=== PATIENT | female | born 1940 | race Caucasian/White ===

== ENCOUNTER 2018-10-05 17:37 | Observation (INO) | payer MEDICARE, OTHER ==
--- NOTE | 2018-10-05 17:44 | PDOC ---
Rapid Medical Evaluation Chief Complaint: Chest Pain Time Seen by Provider: 10/05/18 17:39 Medical Evaluation: Allergies Allergy/AdvReac Type Severity Reaction Status Date / Time No Known Allergies Allergy Verified 10/05/18 17:39 10/05/18 17:39 I have performed a brief in person evaluation of this patient The patient is a 78 yo F w/ a h/o IDDM, HTN, HLD, cadiac bypass, comes in c/o L sided intermittent chest pain since yesterday which started while limping the house, (+) mild SOB. I have ordered the following EKG, CBC, CMP, cardiac profile, CXR The patient will proceed to the ED for further evaluation 10/05/18 17:44 Discharge Disposition - Diagnosis Chest pain Qualifiers: Chest pain type: unspecified Qualified Code(s): R07.9 - Chest pain, unspecified - Referrals Referrals: Gilbert Madrigal MD [Primary Care Provider] - - Patient Instructions - Post Discharge Activity
--- NOTE | 2018-10-05 18:09 | PDOC ---
History of Present Illness - General History Source: Patient Exam Limitations: No Limitations <Rex Grijalva - Last Filed: 10/05/18 20:59> <Delta Max - Last Filed: 10/05/18 22:44> - General Chief Complaint: Chest Pain Stated Complaint: CHEST PAIN Time Seen by Provider: 10/05/18 17:39 - History of Present Illness Initial Comments: 10/05/18 18:49 The patient is a 78 year old female, with a significant PMH of hypertension, hyperlipidemia, DM, who presents to the emergency department with 1 day of intermittent chest pain. The patient states the intermittent chest pain is described as a dull pain, rated 3/10 in intensity, non radiating, with no exacerbating or alleviating factors. The patient also endorses cloudy vision beginning yesterday. The patient denies shortness of breath, palpitations, lightheadedness, headache and dizziness. Denies fever, chills, nausea, vomit, diarrhea and constipation. Denies dysuria, frequency, urgency and hematuria. Allergies: NKA (Rex Grijalva) Past History <Rex Grijalva - Last Filed: 10/05/18 20:59> - Past Medical History Anemia: No Asthma: No Cancer: No Cardiac Disorders: Yes CVA: No COPD: No CHF: No Dementia: No Diabetes: Yes (IDDM) GI Disorders: Yes (DIVERTICULOSIS) Disorders: No HTN: Yes Hypercholesterolemia: Yes Liver Disease: No Seizures: No Thyroid Disease: No - Surgical History Abdominal Surgery: No Appendectomy: No Cardiac Surgery: Yes (BYPASS.) Cholecystectomy: No Lung Surgery: No Neurologic Surgery: No Orthopedic Surgery: No - Immunization History Immunization Up to Date: Yes - Suicide/Smoking/Psychosocial Hx Smoking Status: No Smoking History: Never smoked Have you smoked in the past 12 months: No Number of Cigarettes Smoked Daily: 0 Hx Alcohol Use: No Drug/Substance Use Hx: No Substance Use Type: None Hx Substance Use Treatment: No <Delta Max - Last Filed: 10/05/18 22:44> - Past Medical History Allergies/Adverse Reactions: Allergies Allergy/AdvReac Type Severity Reaction Status Date / Time No Known Allergies Allergy Verified 10/05/18 17:39 Home Medications: Ambulatory Orders Glipizide [Glucotrol -] 10 mg PO BID 06/22/14 Isosorbide Mononitrate [Imdur] 30 mg PO DAILY #30 tab.sr.24h 06/22/14 Atorvastatin Ca [Lipitor] 20 mg PO HS 07/24/15 Sitagliptin Phosphate [Januvia] 100 mg PO DAILY 07/24/15 Ezetimibe [Zetia -] 10 mg PO DAILY 10/05/18 Insulin (Novolog) [Novolog Vial] 100 units SQ 10/05/18 Insulin Detemir [Levemir Flextouch] 100 unit SQ 10/05/18 Cardiac Specific PMH - Complaint Specific PMHX Pacemaker: No <Delta Max - Last Filed: 10/05/18 22:44> Review of Systems <Rex Grijalva - Last Filed: 10/05/18 20:59> <Delta Max - Last Filed: 10/05/18 22:44> - Review of Systems Comments:: 10/05/18 18:49 CONSTITUTIONAL: No fever, no chills, no fatigue EYES: (+) Cloudy vision. ENT: No ear pain, no sore throat CARDIOVASCULAR: (+) Chest pain. No palpitations RESPIRATORY: No cough, no SOB GI: No abdominal pain, no nausea, no vomiting, no constipation, no diarrhea GENITOURINARY: No dysuria, no frequency, no hematuria MUSKULOSKELETAL: No backpain, no joint pain, no myalgias SKIN: No rash NEURO: No headache (Rex Grijalva) *Physical Exam <Rex Grijalva - Last Filed: 10/05/18 20:59> <Delta Max - Last Filed: 10/05/18 22:44> - Vital Signs Last Vital Signs Temp Pulse Resp BP Pulse Ox 98.6 F 91 H 16 199/77 H 99 10/05/18 17:39 10/05/18 17:39 10/05/18 17:39 10/05/18 17:39 10/05/18 17:39 - Physical Exam Comments: 10/05/18 21:00 CONSTITUTIONAL: Well-appearing; well-nourished; in no apparent distress HEAD: Normocephalic; atraumatic EYES: PERRL; EOM intact ENMT: External appears normal; normal oropharynx NECK: Supple; non-tender; no cervical lymphadenopathy CARD: Normal S1, S2; no murmurs, rubs, or gallops CHEST: Well healed sternotomy scar. RESP: Normal chest excursion with respiration; breath sounds clear and equal bilaterally; no wheezes, rhonchi, or rales ABD: Soft, non-distended; non-tender; no palpable organomegaly, no palpable hernias EXT: Normal ROM in all four extremities; non-tender to palpation; distal pulses intact SKIN: Warm, dry, no rash NEURO: No focal neurological deficiencies. (Rex Grijalva) Heart Score/ECG Review - History History: Highly suspicious - Electrocardiogram EKG: Non specific repolarization disturbance - Age Age: >/= 65 - Risk Factors Risk Factors Heart Score: Yes Hx Hypercholesterolemia, Yes Hx Hypertension, Yes Hx Diabetes Based on the list above the patient has:: >/=3 risk factors or Hx atherosclerotic disease - Troponin Troponin: </= normal limit - Score Heart Score - Total: 7 <Delta Max - Last Filed: 10/05/18 22:44> - Procedure Monitoring Vital Signs: Procedure Monitoring Vital Signs Temperature 98.6 F 10/05/18 17:39 Pulse Rate 91 H 10/05/18 17:39 Respiratory Rate 16 10/05/18 17:39 Blood Pressure 199/77 H 10/05/18 17:39 O2 Sat by Pulse Oximetry (%) 99 10/05/18 17:39 ED Treatment Course - LABORATORY CBC & Chemistry Diagram: 10/05/18 18:16 10/05/18 18:16 <Rex Grijalva - Last Filed: 10/05/18 20:59> - LABORATORY CBC & Chemistry Diagram: 10/05/18 18:16 10/05/18 18:16 <Delta Max - Last Filed: 10/05/18 22:44> - ADDITIONAL ORDERS Additional order review: Laboratory Results 10/05/18 10/05/18 10/05/18 20:09 18:16 18:16 PT with INR INR VBG pH 7.37 POC VBG pCO2 48.4 POC VBG pO2 35.3 Mixed VBG HCO3 27.3 H Sodium 138 Potassium 4.1 Chloride 104 Carbon Dioxide 28 Anion Gap 7 L BUN 17 Creatinine 1.1 Creat Clearance w eGFR 47.91 POC Glucometer 152.70216 Random Glucose 224 H Calcium 8.4 L Phosphorus 3.6 Magnesium 2.2 Total Bilirubin 0.3 AST 20 ALT 25 Alkaline Phosphatase 89 Creatine Kinase 116 Troponin I 0.02 Total Protein 7.1 Albumin 3.3 L Lipase 181 10/05/18 18:16 PT with INR 12.80 INR 1.08 VBG pH POC VBG pCO2 POC VBG pO2 Mixed VBG HCO3 Sodium Potassium Chloride Carbon Dioxide Anion Gap BUN Creatinine Creat Clearance w eGFR POC Glucometer Random Glucose Calcium Phosphorus Magnesium Total Bilirubin AST ALT Alkaline Phosphatase Creatine Kinase Troponin I Total Protein Albumin Lipase 10/05/18 10/05/18 20:09 18:16 RBC 3.64 MCV 91.2 MCHC 35.6 RDW 13.2 MPV 8.4 Neutrophils % 65.0 Lymphocytes % 24.5 Monocytes % 9.3 Eosinophils % 0.7 Basophils % 0.5 POC Glucometer [id number] - RADIOLOGY Radiology Studies Ordered: Category Date Time Status CHEST PA & LAT [RAD] Stat Radiology 10/05/18 21:02 Taken Medical Decision Making <Rex Grijalva - Last Filed: 10/05/18 20:59> <Delta Max - Last Filed: 10/05/18 22:44> - Medical Decision Making 10/05/18 22:26 Patient is a 78-year-old female with multiple comorbidities, history of sternotomy (likely CABG) on aspirin and Plavix who presents with 2 days of intermittent retrosternal chest discomfort that has decreased in severity shortly prior to arrival. In the ER, initial evaluation, patient is noted to be hypertensive; EKG reveals Q waves in inferior leads and T-wave inversions in 1 and aVL which appear unchanged from EKG obtained in September 2015. Chest x-ray reveals no evidence of infiltrate or effusion. Mediastinum is within normal limit. First set of cardiac enzymes is negative. Patient's heart score is noted to be 7. We'll administer aspirin, Plavix and nitroglycerin. Will place on hobs/ telemetry for serial cardiac enzymes and cardiology evaluation. (Delta Max ) *DC/Admit/Observation/Transfer <Rex Grijalva - Last Filed: 10/05/18 20:59> - Discharge Dispostion Decision to Admit order: Yes <Delta Max - Last Filed: 10/05/18 22:44> Diagnosis at time of Disposition: Chest pain Qualifiers: Chest pain type: unspecified Qualified Code(s): R07.9 - Chest pain, unspecified - Discharge Dispostion Condition at time of disposition: Fair - Referrals Referrals: Gilbert Madrigal MD [Primary Care Provider] - - Patient Instructions - Post Discharge Activity - Attestations Scribe Attestion: 10/05/18 18:50 Documentation prepared by Rex Grijalva, acting as medical office scheduler for Delta Max MD. (Rex Grijalva) Physician Attestion: 10/05/18 22:26 The documentation was prepared by the scribe under my direct supervision. I have reviewed the documentation which correctly represents the findings, medical decision-making and critical action taken by me. (Delta Max)
[2018-10-05 19:07] LABS: BASO % 0.5 % (0-2.0); EOS % 0.7 % (0-4.5); HEMATOCRIT 33.2 % (32.4-45.2); HEMOGLOBIN 11.8 GM/dL (10.7-15.3); LYMPH % 24.5 % (8-40); MCH 32.5 pg (25.7-33.7); MCHC 35.6 g/dl (32.0-36.0); MEAN CELL VOLUME 91.2 fl (80-96); MEAN PLT VOLUME 8.4 fl (7.5-11.1); MONO % 9.3 % (3.8-10.2); PLATELET COUNT 270 K/MM3 (134-434); RBC 3.64 M/mm3 (3.60-5.2); RDW 13.2 % (11.6-15.6); WHITE BLOOD COUNT 5.5 K/mm3 (4.0-10.0)
[2018-10-05 19:35] LABS: INR 1.08 (0.83-1.09); PROTHROMBIN TIME (PATIENT) 12.8 SEC (9.7-13.0)
[2018-10-05 19:47] LABS: ALBUMIN 3.3 g/dl (3.4-5.0); ALK PHOS 89 U/L (45-117); ANION GAP 7 MMOL/L (8-16); BILIRUBIN,TOTAL 0.3 mg/dL (0.2-1); BLOOD UREA NITROGEN 17 mg/dL (7-18); CALCIUM 8.4 mg/dL (8.5-10.1); CHLORIDE 104 mmol/L (98-107); CO2 28 mmol/L (21-32); CREATININE 1.1 mg/dL (0.55-1.3); GLUCOSE,RANDOM 224 mg/dL (74-106); LIPASE 181 U/L (73-393); MAGNESIUM 2.2 mg/dL (1.8-2.4); PHOSPHOROUS 3.6 mg/dL (2.5-4.9); POTASSIUM 4.1 mmol/L (3.5-5.1); SGOT/AST 20 U/L (15-37); SGPT/ALT 25 U/L (13-61); SODIUM 138 mmol/L (136-145); TOT PROT 7.1 g/dl (6.4-8.2)
[2018-10-05 20:00] LABS: VENOUS PC02 48.4 mmHg (38-52); VENOUS PH 7.37 (7.32-7.42); VENOUS PO2 35.3 mmHg (28-48)
[2018-10-05] MEDS ORDERED: ASPIRIN 325 MG ENTERIC COATED TABLET (FP) PO ONE (20:53)
[2018-10-05] MEDS ORDERED: CLOPIDOGREL BISULFATE 75 MG TABLET (FP) PO ONE (20:53)
[2018-10-05] MEDS ORDERED: NITROGLYCERIN 2% OINTMENT - 1GM PACKET TD ONE ×2 (20:54→22:39)
[2018-10-05] MEDS ORDERED: CLOPIDOGREL BISULFATE 75 MG TABLET (FP) ONE (22:39)
[2018-10-05] MEDS ORDERED: ASPIRIN 325 MG ENTERIC COATED TABLET (FP) ONE (22:39)
--- NOTE | 2018-10-06 00:35 | PN ---
Teaching Attending Note Name of Resident: Eusebio Freeman ATTENDING PHYSICIAN STATEMENT I saw and evaluated the patient. I reviewed the resident's note and discussed the case with the resident. I agree with the resident's findings and plan as documented. SUBJECTIVE: Seen and examined; please see the resident note for further historical information. This is a 78 y/o HF with a PMH of CAD s/p CABG, HTN, HLD, IDDM; she presents with left sided intermittent mild to moderate chest pain that occurred at rest prior to arrival; somewhat suspicious in nature though different from her prior chest pain. Nothing made it better or worse, no recent medication changes, didn't see any other providers for this issue. No associated SOB, nausea/vomiting, etc. She feels well and is chest pain free when I saw her. When asked where the pain was she points to her left upper sternal around the mid-clavicular region and it is slightly reproducible though she denies pulling any muscles, etc. She states that she did have a stress test done sometime after her CABG but she is unsure of the results and we do not have that documentation as to the results, but a cardiac consultation from 2013 shows that she was discharged from ER with noncardiac chest pain and was to followup OP for nuclear stress with Dr. Cline. 10 sys ROS done and negative aside from HPI PMH and PSH reviewed FH CAD Socially denies alcohol, tobacco, or drug abuse Medication list reviewed with resident; pending reconciliation OBJECTIVE: VS, labs, imaging reviewed NAD, AAO RRR s1/2 no mgr Lungs CTAB sym exp NT ND +BS CN2-12 wnl, no fnd Labs reviewed; initial troponin negative. CBC unremarkable. Glocose elevated on BMP to 200s. Low albumin to 3.3 EKG reviewed; no significant changes from prior without worrisome ST-T changes CXR reviewed; no acute CAD but awaiting official read ASSESSMENT AND PLAN: Mrs. Glez presents to the ER with an episode of CP found to be in hypertensive urgency; will observe on telemetry and consult her CV. 1) Hypertensive Urgency -SBP 190s on admission; may explain the CP. No troponin leak observed. No loss of vision, flash pulm edema, etc. -Check echo -Monitor on telemetry. Goal BP 150-160 until end of shift for systolic. As HR will tolerate it, will titrate up her metoprolol to 50 BID tartrate and increase imdur to 60. As she has DM and risks for developing CHF, will start Lisinopril 2.5mg and titrate up as needed. -Close followup with CV/PCP to continue and titrate GDMT as outpatient. 2) Chest Pain in Adult -Anginal sx vs. 2/ #1. -Monitor on tele, trend troponin. Would be helpful to review operative notes/ cath reports from CABG to delineate coronary anatomy and we should work to obtain them. As we have incomplete records regarding her procedural history and given her risk factors and continued following with Dr. Cline will call him to see her inpatient for recommendations regarding further testing. -Check TSH, A1c, Lipids 3) Uncontrolled DM -Continue home basal insulin, add SSI -If no stress test in AM continue the mealtime -Hold PO meds; consider DCing the sulfonylurea alltogether at DC 4) H/O CAD -Continue plavix, BB, Atorva. Ascertain from CV records as why still plavix as opposed ASA, etc. 5) HLD -Check lipids; continue statin FENA -PO fluids -PRN replete -Cardiac, diabetic -As tolerated Full Code
[2018-10-06] MEDS ORDERED: LISINOPRIL 5 MG TABLET (FP) PO ONE (00:38)
[2018-10-06] MEDS ORDERED: ATORVASTATIN CA 80 MG TABLET (FP) PO ONE (00:46)
[2018-10-06] MEDS ORDERED: HEPARIN NA (PORCINE) 5,000 UNITS/ML 1ML VIAL ONE (00:53)
--- NOTE | 2018-10-06 01:03 | HP ---
CHIEF COMPLAINT: CP PCP: Rohan HISTORY OF PRESENT ILLNESS: Patient is a 78 y/o F w/ PMHx CAD, CAGB in 2010, DM, HTN, HLD, presents with 2 days intermittent substernal "squeezing" chest pain 4/10 in severity without radiation. No trigger, no alleviating/exacerbating factors, no SOB. On presentation, BP 199/77, VS otherwise wnl. Initial troponin negative, glucose 224, labs otherwise unremarkable. EKG showed Q-wave in aVF deeper than prior, tw -inversions consistent with prior, otherwise no interval changes vs. 2015. Received ASA, Plavix, nitro paste in ED. CP was not present at time of encounter. Patient's nuclear equipment test engineer was consulted by ED physician. ER course was notable for: (1) BP 199/77 --> 170/60 at time of encounter (2) initial troponin negative (3) EKG w/o acute changes Recent Travel: PAST MEDICAL HISTORY: As per HPI PAST SURGICAL HISTORY: As per HPI Social History: Smoking: Alcohol: Drugs: Family History: Allergies No Known Allergies Allergy (Verified 10/05/18 17:39) HOME MEDICATIONS: Home Medications Medication Instructions Recorded Glipizide [Glucotrol -] 10 mg PO BID 06/22/14 Isosorbide Mononitrate [Imdur] 30 mg PO DAILY #30 tab.sr.24h 06/22/14 Atorvastatin Ca [Lipitor] 20 mg PO HS 07/24/15 Sitagliptin Phosphate [Januvia] 100 mg PO DAILY 07/24/15 Clopidogrel Bisulfate [Clopidogrel] 75 mg PO DAILY 10/05/18 Ezetimibe [Zetia -] 80 mg PO DAILY 10/05/18 Insulin (Novolog) [Novolog Vial] 100 units SQ DAILY 10/05/18 Insulin Detemir [Levemir Flextouch] 100 unit SQ DAILY 10/05/18 Metoprolol Succinate 50 mg PO DAILY 10/05/18 REVIEW OF SYSTEMS As per HPI PHYSICAL EXAMINATION Vital Signs - 24 hr 10/05/18 17:39 Temperature 98.6 F Pulse Rate 91 H Respiratory 16 Rate Blood Pressure 199/77 H O2 Sat by Pulse 99 Oximetry (%) GENERAL: A&Ox3, NAD HEAD: NC/AT EYES: PERRLA, EOMI EARS, NOSE, THROAT: Ears normal, nares patent, oropharynx clear without exudates. Moist mucous membranes. NECK: Normal range of motion, supple without lymphadenopathy, JVD, or masses. LUNGS: CTA b/l HEART: sternotomy scar, RRR possible diastolic murmur at base ABDOMEN: +bs, soft, NT, ND UPPER EXTREMITIES: 2+ pulses, warm, well-perfused. No cyanosis. No clubbing. No peripheral edema. LOWER EXTREMITIES: 2+ pulses, warm, well-perfused. No calf tenderness. No peripheral edema. NEUROLOGICAL: youth program director, motor, sensory systems w/o focal deficit PSYCHIATRIC: Cooperative. Good eye contact. Appropriate mood and affect. SKIN: Warm, dry, normal turgor, no rashes or lesions noted, normal capillary refill. Laboratory Results - last 24 hr 10/05/18 10/05/18 10/05/18 18:16 18:16 18:16 WBC 5.5 RBC 3.64 Hgb 11.8 Hct 33.2 MCV 91.2 MCH 32.5 MCHC 35.6 RDW 13.2 Plt Count 270 D MPV 8.4 Absolute Neuts (auto) 3.5 Neutrophils % 65.0 Lymphocytes % 24.5 Monocytes % 9.3 Eosinophils % 0.7 Basophils % 0.5 Nucleated RBC % 0 PT with INR 12.80 INR 1.08 VBG pH 7.37 POC VBG pCO2 48.4 POC VBG pO2 35.3 Mixed VBG HCO3 27.3 H Sodium Potassium Chloride Carbon Dioxide Anion Gap BUN Creatinine Creat Clearance w eGFR POC Glucometer Random Glucose Calcium Phosphorus Magnesium Total Bilirubin AST ALT Alkaline Phosphatase Creatine Kinase Troponin I Total Protein Albumin Lipase 10/05/18 10/05/18 18:16 20:09 WBC RBC Hgb Hct MCV MCH MCHC RDW Plt Count MPV Absolute Neuts (auto) Neutrophils % Lymphocytes % Monocytes % Eosinophils % Basophils % Nucleated RBC % PT with INR INR VBG pH POC VBG pCO2 POC VBG pO2 Mixed VBG HCO3 Sodium 138 Potassium 4.1 Chloride 104 Carbon Dioxide 28 Anion Gap 7 L BUN 17 Creatinine 1.1 Creat Clearance w eGFR 47.91 POC Glucometer 152.60367 Random Glucose 224 H Calcium 8.4 L Phosphorus 3.6 Magnesium 2.2 Total Bilirubin 0.3 AST 20 ALT 25 Alkaline Phosphatase 89 Creatine Kinase 116 Troponin I 0.02 Total Protein 7.1 Albumin 3.3 L Lipase 181 ASSESSMENT/PLAN: 78 y/o Fw/ PMHx CAD, CAGB in 2010, DM, HTN, HLD, presents with 2 days intermittent substernal "squeezing" chest pain 4/10 in severity without radiation. #r/o ACS -trend troponins -repeat EKG -cardiology consulted -most recent stress test in 2012 -ASA, Plavix -Lopressor 50 BID -Imdur 60 -lisinopril 2.5 (first dose given tonight) -echo pending -requires medication reconciliation #DM -BGM ACHS -SSI -requires medication reconciliation #FEN -no IVF -monitor and replete electrolytes -diabetic/sodium diet #PPx -DVT: heparin subq -GI: not indicated #code -full #dispo -tele obs Visit type - Emergency Visit Emergency Visit: Yes ED Registration Date: 10/05/18 Care time: The patient presented to the Emergency Department on the above date and was hospitalized for further evaluation of their emergent condition. - New Patient This patient is new to me today: Yes Date on this admission: 10/06/18 - Critical Care Critical Care patient: No
[2018-10-06] MEDS: HEPARIN NA (PORCINE) 5,000 UNITS/ML 1ML VIAL SQ SCH ×3 (01:07→13:47)
[2018-10-06] MEDS ORDERED: METOPROLOL TARTRATE 50 MG TABLET (FP) ONE (01:59)
[2018-10-06] MEDS ORDERED: ATORVASTATIN CA 80 MG TABLET (FP) ONE (02:00)
[2018-10-06] MEDS ORDERED: LISINOPRIL 5 MG TABLET (FP) ONE (02:00)
[2018-10-06] MEDS: METOPROLOL TARTRATE 50 MG TABLET (FP) PO SCH ×2 (02:11→10:24)
[2018-10-06 03:49] VITALS: BMI 23.6
[2018-10-06 06:29] LABS: BASO % 0.3 % (0-2.0); EOS % 0.9 % (0-4.5); HEMATOCRIT 32.1 % (32.4-45.2); HEMOGLOBIN 10.8 GM/dL (10.7-15.3); LYMPH % 28.3 % (8-40); MCHC 33.6 g/dl (32.0-36.0); MEAN CELL VOLUME 92.2 fl (80-96); MEAN PLT VOLUME 8.1 fl (7.5-11.1); MONO % 10.2 % (3.8-10.2); NEUT % 60.3 % (42.8-82.8); PLATELET COUNT 230 K/MM3 (134-434); RBC 3.48 M/mm3 (3.60-5.2); RDW 12.7 % (11.6-15.6); WHITE BLOOD COUNT 6.3 K/mm3 (4.0-10.0)
[2018-10-06] MEDS: INSULIN SLIDING SCALE (NOVOLOG) 1 VIAL SQ SCH ×2 (06:33→11:27)
[2018-10-06] MEDS ORDERED: DEXTROSE 50%-WATER - 25 GM/50 ML VIAL IVPUSH PRN (06:42)
[2018-10-06 06:58] LABS: ANION GAP 3 MMOL/L (8-16); BLOOD UREA NITROGEN 18 mg/dL (7-18); CALCIUM 8.1 mg/dL (8.5-10.1); CHLORIDE 109 mmol/L (98-107); CO2 30 mmol/L (21-32); GLUCOSE,RANDOM 75 mg/dL (74-106); MAGNESIUM 2.2 mg/dL (1.8-2.4); PHOSPHOROUS 4.1 mg/dL (2.5-4.9); SODIUM 142 mmol/L (136-145)
--- NOTE | 2018-10-06 08:56 | PDOC ---
Patient Follow-up (Call Back) - Post ED Follow - Up Condition at time of discharge: Fair Reason for Call Back: Radiology (Call received from Dr. Ospina regarding a possible R apex density on chest x-ray. Pt was admitted for observation. Sent microblog to admitting to make aware.)
[2018-10-06] MEDS ORDERED: CLOPIDOGREL BISULFATE 75 MG TABLET (FP) PO SCH (10:00)
[2018-10-06] MEDS ORDERED: ASPIRIN COATED 81 MG TABLET.EC PO SCH (10:00)
[2018-10-06] MEDS ORDERED: LISINOPRIL 5 MG TABLET (FP) PO SCH (10:00)
[2018-10-06] MEDS ORDERED: ISOSORBIDE MONONITRATE 60 MG TAB.SR.24H (FP) PO SCH (10:00)
--- NOTE | 2018-10-06 10:15 | EKG ---
Test Reason : Blood Pressure : / mmHG Vent. Rate : 067 BPM Atrial Rate : 067 BPM P-R Int : 210 ms QRS Dur : 076 ms QT Int : 454 ms P-R-T Axes : 063 009 105 degrees QTc Int : 479 ms SINUS RHYTHM WITH 1ST DEGREE A-V BLOCK CANNOT RULE OUT ANTERIOR INFARCT (CITED ON OR BEFORE 05-OCT-2018) T WAVE ABNORMALITY, CONSIDER LATERAL ISCHEMIA ABNORMAL ECG WHEN COMPARED WITH ECG OF 05-OCT-2018 17:44, RI INTERVAL HAS INCREASED SERIAL CHANGES OF ANTERIOR INFARCT PRESENT Confirmed by RADHA SPEARS, ASHLEY ([id number]) on 10/06/2018 10:14:58 AM Referred By: Confirmed By:ASHLEY GARCIA MD
--- NOTE | 2018-10-06 10:15 | EKG ---
Test Reason : Blood Pressure : / mmHG Vent. Rate : 086 BPM Atrial Rate : 086 BPM P-R Int : 142 ms QRS Dur : 074 ms QT Int : 376 ms P-R-T Axes : 066 -06 095 degrees QTc Int : 449 ms NORMAL SINUS RHYTHM CANNOT RULE OUT ANTERIOR INFARCT , AGE UNDETERMINED ABNORMAL ECG WHEN COMPARED WITH ECG OF 18-OCT-2015 21:13, CRITERIA FOR INFERIOR INFARCT ARE NO LONGER PRESENT Confirmed by RADHA SPEARS, ASHLEY ([id number]) on 10/06/2018 10:15:17 AM Referred By: Confirmed By:ASHLEY GARCIA MD
--- NOTE | 2018-10-06 10:29 | PN ---
Physical Exam: SUBJECTIVE: Patient this morning reports she does not have any pain. Only notes she has not gone to the bathroom in two days. She has no complaints and no acute events overnight. OBJECTIVE: Vital Signs Temperature 98.0 F 10/06/18 09:01 Pulse Rate 63 10/06/18 09:01 Respiratory Rate 16 10/06/18 09:02 Blood Pressure 122/56 L 10/06/18 09:01 O2 Sat by Pulse Oximetry (%) 100 10/06/18 09:02 GENERAL: The patient is awake, alert, and fully oriented, in no acute distress. HEAD: Normal with no signs of trauma. EYES: PERRL, extraocular movements intact, LUNGS: Breath sounds equal, clear to auscultation bilaterally, no wheezes, no crackles, no accessory muscle use. HEART: Regular rate and rhythm, S1, S2 without murmur, rub or gallop. ABDOMEN: Soft, nontender, nondistended, normoactive bowel sounds EXTREMITIES: 2+ pulses, warm, well-perfused, no edema. PSYCH: Normal mood, normal affect. SKIN: Warm, dry, normal turgor, no rashes or lesions noted CBC, BMP 10/06/18 05:30 10/06/18 05:30 Troponin, BNP 10/05/18 10/06/18 10/06/18 18:16 01:02 02:09 Troponin I 0.02 0.02 0.03 10/06/18 05:30 Troponin I 0.03 Active Medications Aspirin (Ecotrin -) 81 mg PO DAILY [facility] Atorvastatin Calcium (Lipitor -) 80 mg PO HS [facility] Clopidogrel Bisulfate (Plavix -) 75 mg PO DAILY [facility] Dextrose (D50w (Vial) -) 25 gm IVPUSH PRN PRN PRN Reason: HYPOGLYCEMIA Heparin Sodium (Porcine) (Heparin -) 5,000 unit SQ TID [facility] Last Admin: 10/06/18 06:26 Dose: 5,000 unit Insulin Aspart (Novolog Vial Sliding Scale -) 1 vial SQ ACHS [facility]; Protocol Last Admin: 10/06/18 06:33 Dose: Not Given Isosorbide Mononitrate (Imdur -) 60 mg PO DAILY [facility] Lisinopril (Prinivil) 2.5 mg PO DAILY [facility] Metoprolol Tartrate (Lopressor -) 50 mg PO BID [facility] Last Admin: 10/06/18 02:11 Dose: 50 mg ASSESSMENT/PLAN: Patient is a 78 y/o female with a history of CAD, CABG in 2010, DM, HTN, HLD who presents for chest pain. #chest pain r/o ACS, hx of CABG - troponin negative x 3 - ekg: cannot rule out anterior infarct, inverted t wave in lead I and AVL - f/u echo - consult: Dr. Christopher #CABG - continue home medications - triglycerides 90, cholesterol 132, LDL 54, HDL 56 #HTN - continue lopressor 50 BID - lisinopril 2.5 - imdur 60 #DM - BGM achs - SSI #dvt PPX - heparin TID #FEN - diabetic sodium diets
--- NOTE | 2018-10-06 10:47 | ECHO ---
Name: ERICK WARE Exam:Adult Echocardiogram Study Date: 10/06/2018 07:21 AM Age: 78 yrs Reason For Study: EF Height: 60 in Weight: 120 lb BSA: 1.5 m2 MMode/2D Measurements & Calculations IVSd: 1.4 cm Ao root diam: 2.3 cm LVIDd: 3.1 cm LA dimension: 3.3 cm LVIDs: 2.3 cm LVPWd: 0.86 cm EDV(Teich): 37.3 ml LAV (MOD-bp): 35.6 ml ESV(Teich): 17.3 ml Doppler Measurements & Calculations MV E max amilcar: 76.2 cm/sec TR max amilcar: 238.4 cm/sec MV A max amilcar: 67.9 cm/sec TR max P.8 mmHg MV E/A: 1.1 MV dec time: 0.21 sec PI end-d amilcar: 133.0 cm/sec Med Peak E' Amilcar: 6.9 cm/sec Med E/e': 11.1 Lat Peak E' Amilcar: 6.2 cm/sec Lat E/e': 12.3 PI Vmax: 191.4 cm/sec Left Ventricle Left ventricular systolic function is normal. Ejection Fraction = 55-60%. Right Ventricle The right ventricle is borderline dilated. The right ventricular systolic function is grossly normal. Atria Normal left and right atrial size and function. Mitral Valve The mitral valve is normal in structure and function. There is no mitral valve stenosis. There is mil d mitral regurgitation. Tricuspid Valve There is mild tricuspid valve thickening. There is mild tricuspid regurgitation. Aortic Valve The aortic valve opens well. No hemodynamically significant valvular aortic stenosis. Pulmonic Valve The pulmonic valve is not well seen, but is grossly normal. There is no pulmonic valvular stenosis. M ild pulmonic valvular regurgitation. Great Vessels The aortic root is normal size. Pericardium/Pleura There is no pericardial effusion. Interpretation Summary Left ventricular systolic function is normal. Ejection Fraction = 55-60%. There is mild mitral regurgitation. There is mild tricuspid regurgitation. There is no pericardial effusion. MD Rambo *Shalom 10/06/2018 10:47 AM
[2018-10-06] MEDS ORDERED: POLYETHYLENE GLYCOL 3350 119 GM BTL PO ONE (11:45)
--- NOTE | 2018-10-06 13:46 | PN ---
Teaching Attending Note Name of Resident: Sarah Tan ATTENDING PHYSICIAN STATEMENT I saw and evaluated the patient. I reviewed the resident's note and discussed the case with the resident. I agree with the resident's findings and plan as documented. SUBJECTIVE: no fever or chills. No CP today. describes her pain as a small area 5 cm in diameter in L sided chest which was intermittent x 2 days . that comes at rest or with ambulation . no sweating or SOB with pain. no recent sx like this . she stopped seeig Dr. 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 1- HTN urgency: BP improved after adjusting her meds. - cont lisinopril - patient might have been on toprol not lopressor. will confirm and if toprol , then will increase to 75 rather than twice a day dosing - cont increased dose of Imdur 2- L sided CP: might be cardiac given her history and given that repeat EKG in am showed new TWI in anterior leads. EKG form last night , showed no change form 2014 ( TWI in I, AVL, and Q in III) . trop neg - will repeat EKG now - will call card to evaluate patient . - cont BB , ELINOR I was started , cont ASA - tele - cont zetia 3- hypoglycemia this am. takes insulin and glipizide at home . - hold oral agents - SSI for today . - will decide when to resume her levemir - will not resume glipizide at [place] ue to increased risk of hypoglycemia 4- RUL density on Cxray: will obtain CT of chest to further clarify. r/o tumor. has no clinical signs of PNA 5- Dispo : depends on cardiac w/u
--- NOTE | 2018-10-06 14:29 | CON.CARD ---
Consult Consult Specialty:: Cardiology Referred by:: Demar Reason for Consultation:: chest pain, abnormal EKG - History of Present Illness Chief Complaint: chest pain History of Present Illness: 78F CAD s/p CABG, HTN, HLD, DM p/w chest pain. L chest occuring at rest. was on and off for two days, not sure how long episodes lasted, pain was reproducible. She had chest pain in the past related to her CAD but this feels different. no exertional component, no dyspnea, edema, palps, dizziness, lightheadedness. In the ER BP 199/77. Echo unremarkable, trop neg x 3. Chest pain resolved, no complaints today. - Past Medical History Cardio/Vascular: Yes: CAD, HTN, Hyperlipdemia Rheumatology: Yes: Other (Arthritis) - Past Surgical History Past Surgical History: Yes: CABG - Alcohol/Substance Use Hx Alcohol Use: No - Smoking History Smoking history: Never smoked Have you smoked in the past 12 months: No Aproximately how many cigarettes per day: 0 Home Medications - Allergies Allergies/Adverse Reactions: Allergies Allergy/AdvReac Type Severity Reaction Status Date / Time No Known Allergies Allergy Verified 10/05/18 17:39 - Home Medications Home Medications: Ambulatory Orders Glipizide [Glucotrol -] 10 mg PO BID 06/22/14 Isosorbide Mononitrate [Imdur] 30 mg PO DAILY #30 tab.sr.24h 06/22/14 Atorvastatin Ca [Lipitor] 80 mg PO HS 07/24/15 Sitagliptin Phosphate [Januvia] 100 mg PO DAILY 07/24/15 Clopidogrel Bisulfate [Clopidogrel] 75 mg PO DAILY 10/05/18 Ezetimibe [Zetia -] 10 mg PO DAILY 10/05/18 Metoprolol Succinate 50 mg PO DAILY 10/05/18 Amlodipine Bes/Olmesartan Med [Amlodipine-Olmesartan 5-40 mg] 1 tablet PO DAILY 10/06/18 Furosemide [Lasix -] 20 mg PO DAILY 10/06/18 Insulin Glargine,Hum.rec.anlog [Basaglar Kwikpen U-100] 40 units SQ HS 10/06/18 Family Disease History - Family Disease History Family History: Unremarkable Review of Systems - Review of Systems Constitutional: reports: No Symptoms Eyes: reports: No Symptoms HENT: reports: No Symptoms Neck: reports: No Symptoms Cardiovascular: reports: No Symptoms Respiratory: reports: No Symptoms Gastrointestinal: reports: No Symptoms Genitourinary: reports: No Symptoms Musculoskeletal: reports: No Symptoms Integumentary: reports: No Symptoms Neurological: reports: No Symptoms Endocrine: reports: No Symptoms Hematology/Lymphatic: reports: No Symptoms Psychiatric: reports: No Symptoms Vital Signs: Vital Signs Temperature 98.0 F 10/06/18 09:01 Pulse Rate 63 10/06/18 09:01 Respiratory Rate 16 10/06/18 09:02 Blood Pressure 122/56 L 10/06/18 09:01 O2 Sat by Pulse Oximetry (%) 100 10/06/18 09:02 Constitutional: Yes: No Distress, Calm Eyes: Yes: Conjunctiva Clear, EOM Intact HENT: Yes: Atraumatic, Normocephalic Neck: Yes: Supple, Trachea Midline Respiratory: Yes: Regular, CTA Bilaterally Gastrointestinal: Yes: Normal Bowel Sounds, Soft Cardiovascular: Yes: Regular Rate and Rhythm JVD: No Carotid Bruit: No PMI: Non-Displaced Heart Sounds: Yes: S1, S2 Musculoskeletal: No: Back Pain Extremities: No: Cold Edema: No Peripheral Pulses WNL: Yes Peripheral Pulses: 2+ Left Carotid, 2+ Right Carotid, 2+ Left Doralis Pedis, 2+ Right Dorsalis Pedis Neurological: Yes: Alert, Oriented Psychiatric: Yes: Alert, Oriented - Other Data Labs, Other Data: CBC, BMP 10/06/18 05:30 10/06/18 05:30 INR, PTT INR 1.08 (0.83-1.09) 10/05/18 18:16 Troponin, BNP 10/05/18 10/06/18 10/06/18 18:16 01:02 02:09 Troponin I 0.02 0.02 0.03 10/06/18 05:30 Troponin I 0.03 Troponin, BNP 10/05/18 10/06/18 10/06/18 18:16 01:02 02:09 Troponin I 0.02 0.02 0.03 10/06/18 05:30 Troponin I 0.03 Assessment/Plan EKG initial sinus, TWI I, aVL, repeat EKG sinus, TWI I, aVL, V2 - similar to EKG 09/2015 echo 09/2018 nl LV function, mild MR, mild TR mibi 2011 (after CABG) small apical thinning, nl EF tele: sinus marlena 78F CAD s/p CABG, HTN, HLD, DM chest pain chest pain, abnormal EKG - EKG today stable compared to prior in 2014, less likely ischemia - no symptoms today, trop neg x 3, nl EF on echo - chest pain atypical, reproducible with palpation may be musculoskeletal - stable for discharge from cardiac perspective, advised to follow up in 1-2 weeks with her piercing specialist CAD s/p CABG - CABG in 2010, had stents prior to CABG, no angiogram or stents after - stress test in 2011 no ischemia reported - unclear indication for prolonged DAPT - continue aspirin and plavix for now, defer to outside piercing specialist -continue statin, bb HLD - continue statin HTN - improved from admission, continue metoprolol, lisinopril, imdur DM - manage per primary
[2018-10-06 15:28] VITALS: BP 96/47; PULSE 58; TEMP 98.1
--- NOTE | 2018-10-06 15:34 | EKG ---
Test Reason : Blood Pressure : / mmHG Vent. Rate : 052 BPM Atrial Rate : 052 BPM P-R Int : 196 ms QRS Dur : 072 ms QT Int : 484 ms P-R-T Axes : 050 057 087 degrees QTc Int : 450 ms SINUS BRADYCARDIA CANNOT RULE OUT ANTERIOR INFARCT (CITED ON OR BEFORE 05-OCT-2018) ABNORMAL ECG WHEN COMPARED WITH ECG OF 06-OCT-2018 01:53, SERIAL CHANGES OF ANTERIOR INFARCT PRESENT Confirmed by ASHLEY GARCIA MD ([id number]) on 10/06/2018 3:34:01 PM Referred By: Confirmed By:ASHLEY GARCIA MD
[2018-10-06] MEDS ORDERED: INSULIN SLIDING SCALE (NOVOLOG) 1 VIAL SQ SCH (16:30)
--- NOTE | 2018-10-06 17:35 | DS ---
Physical Exam: SUBJECTIVE: Patient this morning reports she does not have any pain. Only notes she has not gone to the bathroom in two days. She has no complaints and no acute events overnight. OBJECTIVE: Vital Signs Period Temp Pulse Resp BP Sys/Aguilar Pulse Ox Last 24 Hr 97.4 F-98.6 F 58-91 16-20 96-199/47-77 99-100 PHYSICAL EXAM GENERAL: The patient is awake, alert, and fully oriented, in no acute distress. HEAD: Normal with no signs of trauma. EYES: PERRL, extraocular movements intact, LUNGS: Breath sounds equal, clear to auscultation bilaterally, no wheezes, no crackles, no accessory muscle use. HEART: Regular rate and rhythm, S1, S2 without murmur, rub or gallop. ABDOMEN: Soft, nontender, nondistended, normoactive bowel sounds EXTREMITIES: 2+ pulses, warm, well-perfused, no edema. PSYCH: Normal mood, normal affect. SKIN: Warm, dry, normal turgor, no rashes or lesions noted LABS CBC, BMP 10/06/18 05:30 10/06/18 05:30 HOSPITAL COURSE: Date of Admission:10/05/18 Patient admitted for chest pain. Trops negative x 3. Patient evaluated by cardio. Stable and can follow up as an outpatient. Prescribed patient with sliding scale for better coverage of her sugars. ekg: cannot rule out anterior infarct, inverted t wave in lead I and AVL, repeat ekg showed no changes Echo: LV sys fxn normal, EF: 55-60%, mild mitral regurg, mild tricuspid regurg, no pericardial effusion Chest CT: stable pleural based mass like density in right lung apex, without changeno enlarged mediastinal or hilar lymph nodes Date of Discharge: 10/06/18 Minutes to complete discharge: 42 Discharge Summary Reason For Visit: CHEST PAIN Current Active Problems Hypertensive urgency (Acute) Condition: Improved - Instructions Diet, Activity, Other Instructions: You were admitted to the hospital for chest pain. We monitored your heart and found that it is functioning appropriately. Please follow up with your [facility] Dr. Christopher to continue to monitor your heart. For your heart please take the following medications: Metoprolol Succinate 75 mg once a day by mouth. This was increased form 50 mg daily Imdur 30 mg by mouth once a day. this was not changed Lipitor 80 mg by mouth at night time Furosemide 20 mg daily by mouth Clopidogrel 75 mg daily by mouth Ezetimibe 10 mg by mouth daily Aspirin 81 mg by mouth daily olmesartan- amlodpine daily For your Diabetes please take: Levemir 32 units at night Sitagliptin 100 mg po daily stop glipizide . do not take any more Please check your sugar before every meal and take the appropriate amount of insulin as seen in the scale below: Sugar Level Dose of Insulin 100-150 0 units 151-200 2 units 201-250 4 units 251-300 6 units 301-350 8 units 351-400 10 units 400+ 12 units and call your doctor if you plan on midssing a meal, do not inject Novolog for that meal Please follow up with your primary care physician within one week. Return to the Emergency Department if you have chest pain, nausea, vomiting, or shortness of breath. En [facility] Usted fue ingresado en el hospital por dolor de pecho. Monitoreamos tu corazn y encontramos que est funcionando adecuadamente. Por favor, myesha un seguimiento con stoner cardilogo, el Dr. Christopher, para continuar monitoreando stoner corazn. Para tu corazn por favor wen los siguientes medicamentos: Metoprolol Succinate 75 mg audrey vez al da por va oral. Imdur 30 mg por va oral audrey vez al da. Lipitor 80 mg por va oral rodrigue la noche Furosemida 20 mg diarios por va oral. Clopidogrel 75 mg diarios por va oral. Ezetimiba 10 mg por va oral al da. Aspirin 81 mg diarios por va oral. olmesartan-amlodpipine Para stoner diabetes, por favor tome: Levemir 32 unidades por la noche. Sitagliptina 100 mg po diariamente No debes de dwayne gipizide Compruebe stoner azcar antes de cada comida y tome la cantidad apropiada de insulina teo se ve en la siguiente escala: Nivel de azcar dosis de insulina 100-150 0 unidades 151-200 2 unidades 201-250 4 unidades 251-300 6 unidades 301-350 8 unidades 351-400 10 unidades 400+ 12 unidades y llame a stoner mdico Por favor ymesha un seguimiento con stoner mdico de atencin primaria dentro de audrey semana. Regrese al Departamento de Emergencias si tiene dolor en el pecho, nuseas, vmitos o falta de aire. Referrals: Jose Abbasi [Other] - 1 Week Gilbert Madrigal MD [Primary Care Provider] - 1 Week Disposition: HOME - Home Medications Comprehensive Discharge Medication List: Ambulatory Orders Atorvastatin Ca [Lipitor] 80 mg PO HS 07/24/15 Sitagliptin Phosphate [Januvia] 100 mg PO DAILY 07/24/15 Clopidogrel Bisulfate [Clopidogrel] 75 mg PO DAILY 10/05/18 Ezetimibe [Zetia -] 10 mg PO DAILY 10/05/18 Amlodipine Bes/Olmesartan Med [Amlodipine-Olmesartan 5-40 mg] 1 tablet PO DAILY 10/06/18 Aspirin 81 mg PO DAILY #30 tab.chew 10/06/18 Furosemide [Lasix -] 20 mg PO DAILY 10/06/18 Insulin Detemir [Levemir Flextouch] 32 unit SQ HS 10/06/18 Insulin Sliding Scale [Novolog Vial Sliding Scale -] 0 units SQ ACHS #1 pen Isosorbide Mononitrate [Imdur -] 30 mg PO DAILY #60 tab.sr.24h 10/06/18 Metoprolol Succinate [Toprol Xl] 75 mg PO DAILY #45 tab.er.24h 10/06/18 This patient is new to me today: No Emergency Visit: No Critical Care patient: No - Discharge Referral Referred to [facility] No
[2018-10-06] MEDS ORDERED: ATORVASTATIN CA 80 MG TABLET (FP) PO SCH (22:00)
== END 2018-10-06 19:04 | disposition home or self-care (01) ==
LOC: JER 17:37 → JERBED 22:45 → J4W 10-06 03:12
PROVIDERS: ADMIT Internal Medicine; ATTEND Internal Medicine
PROC: 3E013VG Introduction of Insulin into Subcutaneous Tissue, Percutaneous Approach (ICD-10-PCS; principal; 2018-10-05)
PROC: 3E013GC Introduction of Other Therapeutic Substance into Subcutaneous Tissue, Percutaneous Approach (ICD-10-PCS; 2018-10-05)
DX: I16.0 Hypertensive urgency (principal); R07.9 Chest pain, unspecified; I10 Essential (primary) hypertension; E78.5 Hyperlipidemia, unspecified; E11.9 Type 2 diabetes mellitus without complications; J98.4 Other disorders of lung; Z95.1 Presence of aortocoronary bypass graft; Z79.4 Long term (current) use of insulin; Z79.84 Long term (current) use of oral hypoglycemic drugs
CPT/HCPCS: 36415; 71046-TC-FY; 71250-TC; 80048; 80053; 80061; 82550; 82803; 82962; 83036; 83690; 83721; 83735; 84100; 84443; 84484; 85025; 85610; 93005; 93010; 93306-TC; 96372; 99285-25; G0378; J1644

== ENCOUNTER 2020-05-22 20:52 | Inpatient (IN) | payer OTHER ==
[2020-05-22 21:07] VITALS: BMI 20.9
--- NOTE | 2020-05-22 21:07 | PDOC ---
Rapid Medical Evaluation Chief Complaint: Chest Pain Time Seen by Provider: 05/22/20 21:05 Medical Evaluation: Allergies Allergy/AdvReac Type Severity Reaction Status Date / Time No Known Allergies Allergy Verified 12/26/19 09:59 Vital Signs Temp Pulse Resp BP Pulse Ox 98.1 F 89 19 187/85 H 99 05/22/20 20:56 05/22/20 20:56 05/22/20 20:56 05/22/20 20:56 05/22/20 20:56 05/22/20 21:05 80 year old female DM HTN HLD CAD (CABG) complaining of Chest pain and SOB x a few days. PE: RRR B/L wheezing Plan: ACS vs PNA R/O Pt to precede to the ED for further evaluation
--- NOTE | 2020-05-22 21:30 | PDOC ---
History of Present Illness - General Chief Complaint: Chest Pain Stated Complaint: SOB Time Seen by Provider: 05/22/20 21:05 History Source: Patient - History of Present Illness Initial Comments: 05/22/20 22:41 HPI: This is an 80 y/o female with a PMH significant for CABG, HTN, HLD, and IDDM presenting to the ED due to 2 weeks of intermittent substernal chest pressure. The pressure is non-radiating, and is accompanied by shortness of breath and diaphoresis. She denied any accompanying nausea/vomiting or radiation. She admits to at least one episode of the pressure a day, and states that it lasts between 7-30 minutes and is relived by being in the air conditioning. Additio alexa she admits to new onset leg swelling, and mild orthopnea. ROS: GENERAL/CONSTITUTIONAL: No fever/chills. No weakness. CARDIOVASCULAR: Yes substernal chest pressure and shortness of breath RESPIRATORY: Yes cough, no wheezing GASTROINTESTINAL: No nausea, vomiting GENITOURINARY: No dysuria, frequency MUSCULOSKELETAL: No joint or muscle swelling or pain. No neck or back pain. NEUROLOGIC: No headache,loss of consciousness HEMATOLOGIC/LYMPHATIC: On ASA PCP: Fernando PMH: HTN, HLD, CAD, IDDM PSx: CABG Social Hx: Denies Etoh and tobacco Meds: See nurse note Allergies: Denied PE: GENERAL: Awake, alert, and fully oriented, in no acute distress. Sitting up in bed with her son in the room. HEAD: No signs of trauma EYES: PERRL, EOMI NECK: Normal ROM, supple, no lymphadenopathy, JVD LUNGS: Wheezing R. lung, diminished breath sounds l. lung HEART: Regular rate and rhythm, normal S1 and S2 ABDOMEN: Soft, nontender, normoactive bowel sounds. No guarding, no rebound. No masses EXTREMITIES: Normal range of motion, non pitting edema bilaterally L>R NEUROLOGICAL: Cranial nerves II through XII grossly intact. Normal speech, normal gait SKIN: Warm, Dry MDM: This is an 80 y/o female with significant CAD risk factors, a hx of CABG, HTN, HLD, and IDDM presenting to the ED due to 2 weeks of intermittent substernal chest pressure with accompanying SOB. - Cardiac profile, CBC, CMP, BNP, CXR - HEART score 6 - Stress test done in December with ischemic changes on EKG, asx CBC WBC 6.8 K/mm3 (4.0-10.0) 05/22/20 21:18 RBC 3.45 M/mm3 (3.60-5.2) L 05/22/20 21:18 Hgb 10.7 GM/dL (10.7-15.3) 05/22/20 21:18 Hct 31.6 % (32.4-45.2) L 05/22/20 21:18 MCV 91.6 fl (80-96) 05/22/20 21:18 MCH 31.0 pg (25.7-33.7) 05/22/20 21:18 MCHC 33.9 g/dl (32.0-36.0) 05/22/20 21:18 RDW 12.5 % (11.6-15.6) 05/22/20 21:18 Plt Count 273 K/MM3 (134-434) 05/22/20 21:18 MPV 8.0 fl (7.5-11.1) D 05/22/20 21:18 Absolute Neuts (auto) 3.6 K/mm3 (1.5-8.0) 05/22/20 21:18 Neutrophils % 52.9 % (42.8-82.8) 05/22/20 21:18 Lymphocytes % 32.2 % (8-40) D 05/22/20 21:18 Monocytes % 11.4 % (3.8-10.2) H 05/22/20 21:18 Eosinophils % 3.0 % (0-4.5) D 05/22/20 21:18 Basophils % 0.5 % (0-2.0) 05/22/20 21:18 Nucleated RBC % 0 % (0-0) 05/22/20 21:18 No leukocytosis, no anemia CMP Sodium 133 mmol/L (136-145) L 05/22/20 23:15 Potassium 4.9 mmol/L (3.5-5.1) 05/22/20 23:15 Chloride 100 mmol/L (98-107) 05/22/20 23:15 Carbon Dioxide 23 mmol/L (21-32) 05/22/20 23:15 Anion Gap 11 MMOL/L (8-16) 05/22/20 23:15 BUN 26.0 mg/dL (7-18) H 05/22/20 23:15 Creatinine 1.1 mg/dL (0.55-1.3) 05/22/20 23:15 Est GFR (CKD-EPI)AfAm 54.53 05/22/20 23:15 Est GFR (CKD-EPI)NonAf 47.05 05/22/20 23:15 Random Glucose 133 mg/dL (74-106) H 05/22/20 23:15 Calcium 8.8 mg/dL (8.5-10.1) 05/22/20 23:15 Total Bilirubin 0.3 mg/dL (0.2-1) 05/22/20 23:15 AST 22 U/L (15-37) 05/22/20 23:15 ALT 21 U/L (13-61) 05/22/20 23:15 Alkaline Phosphatase 102 U/L (45-117) 05/22/20 23:15 Creatine Kinase 91 U/L (26-192) 05/22/20 21:18 Troponin I 0.04 ng/ml (0.00-0.05) 05/22/20 21:18 B-Natriuretic Peptide 1679.7 pg/ml (5-450) H 05/22/20 21:18 Total Protein 7.5 g/dl (6.4-8.2) 05/22/20 23:15 Albumin 3.2 g/dl (3.4-5.0) L 05/22/20 23:15 Hyponatremia BNP 1679.7, no baseline Troponin negative - Possible L. sided diaphragmatic hernia on CXR, not present in 2018. Will get CT 05/23/20 00:09 - Spoke with piotr and patient will be admitted Past History - Medical History Allergies/Adverse Reactions: Allergies Allergy/AdvReac Type Severity Reaction Status Date / Time No Known Allergies Allergy Verified 05/23/20 01:49 Home Medications: Ambulatory Orders Atorvastatin Ca [Lipitor] 80 mg PO HS 07/24/15 Sitagliptin Phosphate [Januvia] 100 mg PO DAILY 07/24/15 Clopidogrel Bisulfate [Clopidogrel] 75 mg PO DAILY 10/05/18 Ezetimibe [Zetia -] 10 mg PO DAILY 10/05/18 Amlodipine Bes/Olmesartan Med [Amlodipine-Olmesartan 5-40 mg] 1 tablet PO DAILY 10/06/18 Aspirin 81 mg PO DAILY #30 tab.chew 10/06/18 Furosemide [Lasix -] 20 mg PO DAILY 10/06/18 Insulin Detemir [Levemir Flextouch] 32 unit SQ HS 10/06/18 Insulin Sliding Scale [Novolog Vial Sliding Scale -] 0 units SQ ACHS #1 pen 10/06/18 Isosorbide Mononitrate [Imdur -] 30 mg PO DAILY #60 tab.sr.24h 10/06/18 Metoprolol Succinate [Toprol Xl] 75 mg PO DAILY #45 tab.er.24h 10/06/18 Anemia: No Asthma: Yes Cancer: No Cardiac Disorders: Yes CVA: No COPD: No CHF: No Dementia: No Diabetes: Yes GI Disorders: Yes (DIVERTICULOSIS) Disorders: No HTN: Yes Hypercholesterolemia: Yes Liver Disease: No Seizures: No Thyroid Disease: No - Surgical History Abdominal Surgery: No Appendectomy: No Cardiac Surgery: Yes (BYPASS.) Cholecystectomy: No Lung Surgery: No Neurologic Surgery: No Orthopedic Surgery: No - Immunization History Immunization Up to Date: Yes - Psycho-Social/Smoking History Smoking Status: No Smoking History: Never smoked Have you smoked in the past 12 months: No Number of Cigarettes Smoked Daily: 0 - Substance Abuse Hx (Audit-C & DAST Scrn) How often the patient has a drink containing alcohol: Never Score: In Men: 4 or > Positive; In Women: 3 or > Positive: 0 Screen Result (Pos requires Nsg. Audit-10AR): Negative In the last yr the pt used illegal drug/Rx for NonMed reason: No Score: Yes response is considered Positive: 0 Screen Result (Positive result requires Nsg. DAST-10): Negative *Physical Exam - Vital Signs Last Vital Signs Temp Pulse Resp BP Pulse Ox 98.1 F 89 19 187/85 H 99 05/22/20 20:56 05/22/20 20:56 05/22/20 20:56 05/22/20 20:56 05/22/20 20:56 Heart Score/ECG Review - History History: Moderately suspicious - Electrocardiogram EKG: Non specific repolarization disturbance - Age Age: >/= 65 - Risk Factors Risk Factors Heart Score: Yes Hx Hypercholesterolemia, Yes Hx Hypertension, Yes Hx Diabetes Based on the list above the patient has:: >/=3 risk factors or Hx atherosclerotic disease - Troponin Troponin: </= normal limit - Score Heart Score - Total: 6 - ECG Intrepretation Comment:: 05/23/20 00:15 EKG with sinus rhythm, T wave inversions in I, AVL, V1, V2. Vent rate 87bpm, ID interval 184ms, QRS 72ms, QT/QTc 370/445ms. 05/23/20 00:17 ED Treatment Course - LABORATORY CBC & Chemistry Diagram: 05/22/20 21:18 05/22/20 23:15 Discharge - Discharge Information Problems reviewed: Yes Clinical Impression/Diagnosis: Diaphragmatic hernia Chest pain Qualifiers: Chest pain type: unspecified Qualified Code(s): R07.9 - Chest pain, unspecified Condition: Fair - Admission Yes - Follow up/Referral - Patient Discharge Instructions - Post Discharge Activity
[2020-05-22 21:36] LABS: BASO % 0.5 % (0-2.0); HEMATOCRIT 31.6 % (32.4-45.2); HEMOGLOBIN 10.7 GM/dL (10.7-15.3); LYMPH % 32.2 % (8-40); MCHC 33.9 g/dl (32.0-36.0); MEAN CELL VOLUME 91.6 fl (80-96); MONO % 11.4 % (3.8-10.2); NEUT % 52.9 % (42.8-82.8); PLATELET COUNT 273 K/MM3 (134-434); RBC 3.45 M/mm3 (3.60-5.2); RDW 12.5 % (11.6-15.6); WHITE BLOOD COUNT 6.8 K/mm3 (4.0-10.0)
[2020-05-22 21:49] LABS: INR 1.06 (0.83-1.09); PROTHROMBIN TIME (PATIENT) 12.5 SEC (9.7-13.0)
[2020-05-22 22:03] LABS: N-TERMINAL BNP 1679.7 pg/ml (5-450)
[2020-05-22] MEDS ORDERED: ASPIRIN 81 MG CHEWABLE TABLETS PO ONE (22:37)
[2020-05-22] MEDS ORDERED: ASPIRIN 81 MG CHEWABLE TABLETS ONE (23:18)
[2020-05-22 23:34] LABS: ALBUMIN 3.2 g/dl (3.4-5.0); BILIRUBIN,TOTAL 0.3 mg/dL (0.2-1); CALCIUM 8.8 mg/dL (8.5-10.1); CREATININE 1.1 mg/dL (0.55-1.3); POTASSIUM 4.9 mmol/L (3.5-5.1); TOT PROT 7.5 g/dl (6.4-8.2)
--- NOTE | 2020-05-22 23:37 | PDOC ---
Documentation entered by Krista Murphy SCRIBE, acting as scribe for Jessica Patel DO. Jessica Patel DO: This documentation has been prepared by the Jeffrey pruett Brenda, SCRIBE, under my direction and personally reviewed by me in its entirety. I confirm that the documentation accurately reflects all work, treatment, procedures, and medical decision making performed by me. Attending Attestation - Resident Resident Name: Kandice Trujillo - ED Attending Attestation I have performed the following: I have examined & evaluated the patient, The case was reviewed & discussed with the resident, I agree w/resident's findings & plan, Exceptions are as noted - HPI HPI: 05/22/20 22:04 The patient is an 80 year old female with a significant PMH of who presents to the emergency department for evaluation of 2 weeks of pressure like sub-sternal chest pain. Patient notes that her chest pain comes on randomly with no exacerbating factors and last approximately 7 minutes. She also reports mild shortness of breath and orthopnea. Patient also endorses new lower leg swelling. The patient denies headache and dizziness. Denies fever, chills, nausea, vomiting, diarrhea and constipation. Denies dysuria, frequency, urgency and hematuria. Allergies: NKA Social history: No reported hx of tobacco use, alcohol use or illicit drug use. PCP: Fernando Carreon Server Service Assistant - Physicial Exam PE: 05/22/20 22:04 GENERAL: Awake, alert, and fully oriented, in no acute distress HEAD: No signs of trauma NECK: Normal ROM, supple, no lymphadenopathy, JVD, or masses LUNGS: (+) Rales greater on the right than left. No wheezes. HEART: Regular rate and rhythm, normal S1 and S2, no murmurs, rubs or gallops ABDOMEN: Soft, nontender, normoactive bowel sounds. No guarding, no rebound. No masses EXTREMITIES: (+) Non-pitting edema on the lower extremity. Normal range of motion. No clubbing or cyanosis. No cords, erythema, or tenderness NEUROLOGICAL: Cranial nerves II through XII grossly intact. Normal speech, normal gait SKIN: Warm, Dry, normal turgor, no rashes or lesions noted. - Medical Decision Making 05/22/20 23:33 a/p: 80yo female with sob and cp that lasts 7 min, intermittent over last 2 weeks -pain resolved when she is in the cooler air conditioning -pt with rales r chest -no abd ttp -concern for acs vs chf -pt with orthopnea -no pnd -labs sent from [facility] reviewed- chem pending, trop neg, bnp >1000 -cxr shows a L diaphragmatic hernia -ct ordered as hernia is new -pt will need obs for acs -asa given 05/23/20 00:22 pt with new diaphragmatic hernia ct ordered trop neg will need obs for cp/sob eval Heart Score/ECG Review - ECG Intrepretation Comment:: 05/22/20 23:36 sinus at 87, l axis, q waves inferior leads and anterior leads, poor r wave progression, t wave inversions I, avl and v1, v2 which are unchanged from prior ekg in 2018 Discharge - Discharge Information Problems reviewed: Yes Clinical Impression/Diagnosis: Diaphragmatic hernia Chest pain Qualifiers: Chest pain type: unspecified Qualified Code(s): R07.9 - Chest pain, unspecified Condition: Fair - Admission Yes - Follow up/Referral Referrals: Stan King MD [Primary Care Provider] - - Patient Discharge Instructions - Post Discharge Activity
--- NOTE | 2020-05-23 01:12 | PN ---
Teaching Attending Note Name of Resident: Gerard Mcdonald ATTENDING PHYSICIAN STATEMENT I saw and evaluated the patient. I reviewed the resident's note and discussed the case with the resident. I agree with the resident's findings and plan as documented. SUBJECTIVE: Patient is an 80 year old woman with a PMH of CABG, HTN, HLD and Insulin-treated DM presenting to the ED due to 2 weeks of intermittent substernal chest pressure. The pressure is non-radiating and is accompanied by shortness of breath and diaphoresis. She denied any accompanying nausea, vomiting or radiation. She admits to at least one episode of the pressure a day, and states that it lasts between 7-30 minutes and is relived by being in the air conditioning. Additionally she admits to new onset leg swelling and mild orthopnea. Reports recent 15 pounds unintended weight loss. Patient denies abdominal pain, headache, palpitations, dizziness, fever, chills, nausea, vomiti ng, diarrhea, constipation, dysuria, frequency, urgency, melena, hematochezia or hematuria. Denies alcohol, tobacco or illicit drug use. No sick contacts or recent travels. Family history is unremarkable. OBJECTIVE: Alert Vital Signs Period Temp Pulse Resp BP Sys/Aguilar Pulse Ox Last 24 Hr 98.1 F-98.1 F 74-89 12-19 127-187/56-85 97-99 HEENT: No Jaundice, eye redness or discharge, PERRLA, EOMI. Normocephalic, atraumatic. External ears are normal and hearing is grossly intact. No nasal discharge. Neck: Supple, nontender. No palpable adenopathy or thyromegaly. No JVD Chest: Good effort. Clear to auscultation and percussion. Heart: Regular. No S3, rub or murmur Abdomen: Not distended, soft, nontender and no HSM. No rebound or guarding. Normal bowel sounds. Ext: Peripheral pulses intact. Leg edema. Skin: Warm and dry. No petechiae, rash or ecchymosis. Neuro: Alert. Oriented x3. CN 2-12 grossly intact. Sensation grossly intact in all four extremities and DTR are symmetric. Psych: Appropriate mood and affect. Good insight. Home Medications Medication Instructions Recorded Atorvastatin Ca [Lipitor] 80 mg PO HS 07/24/15 Sitagliptin Phosphate [Januvia] 100 mg PO DAILY 07/24/15 Clopidogrel Bisulfate [Clopidogrel] 75 mg PO DAILY 10/05/18 Ezetimibe [Zetia -] 10 mg PO DAILY 10/05/18 Amlodipine Bes/Olmesartan Med 1 tablet PO DAILY 10/06/18 [Amlodipine-Olmesartan 5-40 mg] Aspirin 81 mg PO DAILY #30 tab.chew 10/06/18 Furosemide [Lasix -] 20 mg PO DAILY 10/06/18 Insulin Detemir [Levemir Flextouch] 32 unit SQ HS 10/06/18 Insulin Sliding Scale [Novolog 0 units SQ ACHS #1 pen 10/06/18 Vial Sliding Scale -] Isosorbide Mononitrate [Imdur -] 30 mg PO DAILY #60 tab.sr.24h 10/06/18 Metoprolol Succinate [Toprol Xl] 75 mg PO DAILY #45 tab.er.24h 10/06/18 Abnormal Lab Results 05/22/20 05/22/20 05/22/20 21:18 21:18 23:15 RBC 3.45 L Hct 31.6 L Monocytes % 11.4 H Sodium 133 L BUN 26.0 H Random Glucose 133 H B-Natriuretic Peptide 1679.7 H Albumin 3.2 L Current Medications Generic Name Dose Route Start Last Admin Trade Name Freq PRN Reason Stop Dose Admin Aspirin 81 mg 05/23/20 10:00 Asa - PO DAILY [facility] Atorvastatin Calcium 40 mg 05/23/20 22:00 Lipitor - PO HS [facility] Enoxaparin Sodium 40 mg 05/23/20 10:00 Lovenox - SQ DAILY [facility] ASSESSMENT AND PLAN: 1. Chest/epigastric pain - Cause unclear. Has risk factors for ACS. 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 Chest CT shows EMMANUEL/mediastinal mass and mediastinal lymphadenopathy suspicious for malignancy; and CT abdomen/pelvis shows L2 lytic lesion. EKG shows NSR at 87/minute and QTc 455, T wave inversion in I, aVL, V1-V2 with no significant ST changes - not significantly changed compared to prior EKG. Initial troponin is negative. Will admit to telemetry, trend troponin, repeat EKG, get ECHO, fasting lipids, TSH and consult Cardiology/Pulmonary/Oncology. Get records from PCP. Got Aspirin 81 mg in the ER. Will give Protonix 40 mg PO qd. Viral testing for COVID-19 ordered and patient placed on airborne, droplet and contact isolation. Hyponatremia likely partly due to hyperglycemia. Will limit free water intake and correct hyperglycemia. Will continue comprehensive care for all of patients comorbid conditions. 2. Hypoalbuminemia - Possibly due to combined effects of malnutrition and inflammation associated with comorbid conditions. Will ensure adequate dietary protein intake and also consult software developer manager. Urinalysis pending. 3. DM For now, we will hold the home diabetes drugs and implement sliding scale insulin regimen. Provide comprehensive diabetes care with patient teaching and counseling about the importance of adherence to prescribed diabetes regimen, euglycemia, eye care and foot care. 4. Anemia - Cause unclear. Will do basic anemia work up including serial stool guaiacs, reticulocyte count and iron studies. 5. Hypertension Will restart suitable outpatient antihypertensive drugs when clinically appropriate. Subsequently, will revise regimen to ensure [id number] excellent BP control. Patient counseled on the injurious effects of uncontrolled hypertension. Nonpharmacologic measures to control hypertension like weight loss, salt restriction and exercise stressed. Importance of adherence to treatment regimen and attainment of normotension emphasized. 6. DVT prophylaxis - Lovenox 40 mg SQ q 24 hours. 7. Advance directives - Full code
--- NOTE | 2020-05-23 02:24 | HP ---
CHIEF COMPLAINT: chest pain PCP: Dr. Kign HISTORY OF PRESENT ILLNESS: This patient is an 80 year old woman with a PMHx of CABG, HTN, HLD and IDDM presenting to the ED due to 2 weeks of intermittent epigastric/substernal chest burning pain. The burning is non-radiating and is accompanied by shortness of breath with minimal exertion. She denies any accompanying nausea, vomiting. She admits to at least one episode of pressure a day, and states that it lasts between 5-10 minutes and is relieved by being in air conditioning. She has chronic leg swelling but denies orthopnea. Sleeps with one pillow at night. Patient denies abdominal pain, headache, palpitations, dizziness, fever, chills, nausea, vomiting, diarrhea, constipation, dysuria, Admits to inceased frequency, urgency for a week now. Denies melena, hematochezia or hematuria. No sick contacts or recent travels. Family history is unremarkable. Admits to lower back pain that is chronic. Admits to 20 lbs weigt loss unexplained without a change in her diet. ER course was notable for: (1)ekg showing sinus at 87, l axis, q waves inferior leads and anterior leads, poor r wave progression, t wave inversions I, avl and v1, v2 which are unchanged from prior ekg in 2018 (2) ct abd pelvis- 5.8 X 3.9 irregular medial EMMANUEL/mediastinal mass and media stinal lymphadenopathy suspicious for malignancy - CT abdomen/pelvis shows L2 lytic lesion. (3) Recent Travel: none Social History: Smoking:denies Alcohol:denies Drugs: denies Allergies No Known Allergies Allergy (Verified 05/23/20 01:49) HOME MEDICATIONS: Home Medications Medication Instructions Recorded Atorvastatin Ca [Lipitor] 80 mg PO HS 07/24/15 Sitagliptin Phosphate [Januvia] 100 mg PO DAILY 07/24/15 Clopidogrel Bisulfate [Clopidogrel] 75 mg PO DAILY 10/05/18 Ezetimibe [Zetia -] 10 mg PO DAILY 10/05/18 Amlodipine Bes/Olmesartan Med 1 tablet PO DAILY 10/06/18 [Amlodipine-Olmesartan 5-40 mg] Aspirin 81 mg PO DAILY #30 tab.chew 10/06/18 Furosemide [Lasix -] 20 mg PO DAILY 10/06/18 Insulin Detemir [Levemir Flextouch] 32 unit SQ HS 10/06/18 Insulin Sliding Scale [Novolog 0 units SQ ACHS #1 pen 10/06/18 Vial Sliding Scale -] Isosorbide Mononitrate [Imdur -] 30 mg PO DAILY #60 tab.sr.24h 10/06/18 Metoprolol Succinate [Toprol Xl] 75 mg PO DAILY #45 tab.er.24h 10/06/18 REVIEW OF SYSTEMS Negative except as in HPI PHYSICAL EXAMINATION Vital Signs - 24 hr 05/22/20 05/22/20 20:56 23:54 Temperature 98.1 F Pulse Rate 89 Respiratory 19 Rate Blood Pressure 187/85 H O2 Sat by Pulse 99 97 Oximetry (%) GENERAL: Awake, alert, and fully oriented, in no acute distress. LUNGS: Breath sounds equal, clear to auscultation bilaterally. No wheezes, and no crackles. No accessory muscle use. HEART: Regular rate and rhythm, normal S1 and S2 without murmur, rub or gallop. ABDOMEN: Soft, nontender, not distended. MUSCULOSKELETAL: Normal range of motion at all joints. low back ttp NEUROLOGICAL: Cranial nerves II-XII intact. Normal speech. PSYCHIATRIC: Cooperative. Good eye contact. Appropriate mood and affect. Laboratory Results - last 24 hr 05/22/20 05/22/20 05/22/20 21:18 21:18 21:18 WBC 6.8 RBC 3.45 L Hgb 10.7 Hct 31.6 L MCV 91.6 MCH 31.0 MCHC 33.9 RDW 12.5 Plt Count 273 MPV 8.0 D Absolute Neuts (auto) 3.6 Neutrophils % 52.9 Lymphocytes % 32.2 D Monocytes % 11.4 H Eosinophils % 3.0 D Basophils % 0.5 Nucleated RBC % 0 PT with INR 12.50 INR 1.06 PTT (Actin FS) 31.0 Sodium Potassium Chloride Carbon Dioxide Anion Gap BUN Creatinine Est GFR (CKD-EPI)AfAm Est GFR (CKD-EPI)NonAf Random Glucose Calcium Total Bilirubin AST ALT Alkaline Phosphatase Creatine Kinase 91 Troponin I 0.04 B-Natriuretic Peptide 1679.7 H Total Protein Albumin 05/22/20 23:15 WBC RBC Hgb Hct MCV MCH MCHC RDW Plt Count MPV Absolute Neuts (auto) Neutrophils % Lymphocytes % Monocytes % Eosinophils % Basophils % Nucleated RBC % PT with INR INR PTT (Actin FS) Sodium 133 L Potassium 4.9 Chloride 100 Carbon Dioxide 23 Anion Gap 11 BUN 26.0 H Creatinine 1.1 Est GFR (CKD-EPI)AfAm 54.53 Est GFR (CKD-EPI)NonAf 47.05 Random Glucose 133 H Calcium 8.8 Total Bilirubin 0.3 AST 22 ALT 21 Alkaline Phosphatase 102 Creatine Kinase Troponin I B-Natriuretic Peptide Total Protein 7.5 Albumin 3.2 L ASSESSMENT/PLAN: This patient is an 80 year old woman with a PMHx of CABG, HTN, HLD and IDDM presenting to the ED due to 2 weeks of intermittent epigastric/substernal chest burning pain. The burning is non-radiating and is accompanied by shortness of breath with minimal exertion. She denies any accompanying nausea, vomiting. #Chest/epigastric pain - Cause is unclear at this time as presentation is not typical cp but trops uptrending and pt has risk factors for ACS. - possibly GERD so will start protonix, ordered lipase. - CXR shows increased interstitial markings most marked in the EMMANUEL; left diaphragmatic hernia with the stomach in the chest cavity. consulot surgery at day teams discretion as not an acute issue - Chest CT shows EMMANUEL/mediastinal mass and mediastinal lymphadenopathy suspicious for malignancy - CT abdomen/pelvis shows L2 lytic lesion. - EKG shows NSR at 87/minute and QTc 455, T wave inversion in I, aVL, V1-V2 with no significant ST changes - not significantly changed compared to prior EKG. Initial troponin is negative, rpt uptrending slightly, consulted cardio. - will monitor on telemetry, continue trending troponin until it peaks, serial EKG's, get ECHO, fasting lipids, TSH and Got Aspirin 81 mg in the ER. Will give Protonix 40 mg PO qd. - Viral testing for COVID-19 ordered and patient placed on airborne, droplet and contact isolation. #Pulmonary malignancy - consult /Pulmonary/Oncology for the pulmonary malignancy. - Get records from PCP. - pt admits to weight loss and lytic lesions suggesting mets - pt with back pain will start tylenol for pain - likely will require IR guided bx vs bronch guided bx #Hyponatremia - ikely partly due to hyperglycemia. - Will limit free water intake and correct hyperglycemia. #DM For now, we will hold the home diabetes drugs and implement sliding scale insulin regimen. - eye care and foot care yearly o/p. - A1C ordered #Anemia - Cause unclear, likely anemia of chronic disease given normal MCV and no signs of bleeding. - basic anemia work up including serial stool guaiacs, reticulocyte count and iron studies. #HTN/HLD Will restart suitable outpatient antihypertensive drugs when clinically appropriate. - salt restriction and exercise stressed. - lipitor 40 one time dose given - started metoprolol 25 BID as part of ACS protocol - will med rec patient per day team FEN - not on fluids at this time - monitor and replete lytes prn - npo in case pt will undergo cardiac testing Visit type - Medication Review Med list reviewed for High Risk Meds patients 65 and older: Yes - Emergency Visit Emergency Visit: Yes ED Registration Date: 05/22/20 Care time: The patient presented to the Emergency Department on the above date and was hospitalized for further evaluation of their emergent condition. - New Patient This patient is new to me today: Yes Date on this admission: 05/27/20 - Critical Care Critical Care patient: No ATTENDING PHYSICIAN STATEMENT I saw and evaluated the patient. I reviewed the resident's note and discussed the case with the resident. I agree with the resident's findings and plan as documented. SUBJECTIVE: OBJECTIVE: ASSESSMENT AND PLAN:
[2020-05-23 05:37] LABS: BASO % 0.4 % (0-2.0); EOS % 1.5 % (0-4.5); HEMATOCRIT 31.2 % (32.4-45.2); HEMOGLOBIN 10.5 GM/dL (10.7-15.3); LYMPH % 20.3 % (8-40); MCH 30.5 pg (25.7-33.7); MCHC 33.8 g/dl (32.0-36.0); MEAN CELL VOLUME 90.2 fl (80-96); MEAN PLT VOLUME 7.6 fl (7.5-11.1); MONO % 9.2 % (3.8-10.2); NEUT % 68.6 % (42.8-82.8); PLATELET COUNT 280 K/MM3 (134-434); RBC 3.46 M/mm3 (3.60-5.2); RDW 12.2 % (11.6-15.6); WHITE BLOOD COUNT 7.8 K/mm3 (4.0-10.0)
[2020-05-23 06:12] LABS: BILIRUBIN,TOTAL 0.3 mg/dL (0.2-1); BLOOD UREA NITROGEN 22.1 mg/dL (7-18); MAGNESIUM 1.8 mg/dL (1.8-2.4); PHOSPHOROUS 3.8 mg/dL (2.5-4.9); POTASSIUM 4.4 mmol/L (3.5-5.1); TOT PROT 7.1 g/dl (6.4-8.2)
--- NOTE | 2020-05-23 06:25 | CON.CARD ---
Consult Consult Specialty:: Cardiology Referred by:: Dr. Farias Reason for Consultation:: Chest pain - History of Present Illness Chief Complaint: SOB x 1 week History of Present Illness: 80F PMH DM, CAD s/p CABG with 2 weeks GRANDA and epigastic pain. + Weight loss No cough/fever. CT in ER + Mediastinal mass and lytic lesion. No palps. no syncope, no edema, no PND ECG: [id number], NSST changes I, aVL, old inferior TN, cannot r/o old anterior TN When c/w old ECG, qs in inferior leads have been noted on prior ECGs, TWI in V2 also old; ST changes I, avL chronic. Denies hx PCI after or prior to CABG but is on ASA and Plavix - History Source History Provided By: Patient, Medical Record - Past Medical History Cardio/Vascular: Yes: CAD, HTN, Hyperlipdemia Pulmonary: No: Asthma, Bronchitis, Cancer, COPD, O2 Dependent, Pneumonia, Previously Intubated, Pulmonary Embolus, Pulmonary Fibrosis, Sleep Apnea, Other Gastrointestinal: No: Ascites, Cancer, Constipation, Crohn's Disease, Diverticulitis, Diverticulosis, Esophageal Varices, Gastritis, GERD, GI Bleed, Hemorrhoids, Hiatal Hernia, Inflamatory Bowel Disease, Irritable Bowel Disease, Pancreatitis, Peptic Ulcer Disease, Ulcerative Colitis, Other Hepatobiliary: No: Cirrhosis, Cholelithiasis, Cholecystitis, Choledocholi thiasis, Hepatitis A, Hepatitis B, Hepatitis C, Other Renal/: No: Renal Failure, Renal Inusuff, BPH, Cancer, Hematuria, Hemodialysis, Neurogenic Bladder, Renal Calculi, UTI, Other Heme/Onc: No: Anemia, B12 Deficiency, Bleeding Disorder, Cancer, Current Chemotherapy, Current Radiation Therapy, Hemochromatosis, Hypercoaguable State, Myeloproliferative Synd, Sickle Cell Disease, Sickle Cell Trait, Thrombocytopenia, Other Infectious Disease: No: AIDS, C-Diff, Herpes Zoster, HIV, MRSA, STD's, Tuberculosis, VREF, Other Psych: No: Addictions, Anxiety, Bipolar, Depression, Panic, Psychosis, Schizoph gracie, Other Musculoskeletal: No: Bursitis, Chronic low back pain, Hemiparesis, Hemiplegia, Osteoarthritis, Paraplegia, Other Rheumatology: Yes: Other (Arthritis) Endocrine: No: Dutton's Disease, Cleve's Disease, Diabetes Insipidus, Diabetes Mellitus, Hyperparathyroidism, Hyperthyroidism, Hypothyroidism, Osteopenia, SIADH, Other Dermatology: No: Basal Cell, Cellulitis, Eczema, Melanoma, Psoriasis, Squamous Cell, Other - Past Surgical History Past Surgical History: Yes: CABG - Alcohol/Substance Use Hx Alcohol Use: No - Smoking History Smoking history: Never smoked Have you smoked in the past 12 months: No Aproximately how many cigarettes per day: 0 - Social History Usual Living Arrangement: With Child History of Recent Travel: No Home Medications - Allergies Allergies/Adverse Reactions: Allergies Allergy/AdvReac Type Severity Reaction Status Date / Time No Known Allergies Allergy Verified 05/23/20 01:49 - Home Medications Home Medications: Ambulatory Orders Atorvastatin Ca [Lipitor] 80 mg PO HS 07/24/15 Sitagliptin Phosphate [Januvia] 100 mg PO DAILY 07/24/15 Clopidogrel Bisulfate [Clopidogrel] 75 mg PO DAILY 10/05/18 Ezetimibe [Zetia -] 10 mg PO DAILY 10/05/18 Amlodipine Bes/Olmesartan Med [Amlodipine-Olmesartan 5-40 mg] 1 tablet PO DAILY 10/06/18 Aspirin 81 mg PO DAILY #30 tab.chew 10/06/18 Furosemide [Lasix -] 20 mg PO DAILY 10/06/18 Insulin Detemir [Levemir Flextouch] 32 unit SQ HS 10/06/18 Insulin Sliding Scale [Novolog Vial Sliding Scale -] 0 units SQ ACHS #1 pen 10/06/18 Isosorbide Mononitrate [Imdur -] 30 mg PO DAILY #60 tab.sr.24h 10/06/18 Metoprolol Succinate [Toprol Xl] 75 mg PO DAILY #45 tab.er.24h 10/06/18 Family Medical History Family History: Unremarkable Review of Systems Findings/Remarks: see HPI - Review of Systems Constitutional: reports: No Symptoms Eyes: reports: No Symptoms HENT: reports: No Symptoms Neck: reports: No Symptoms Cardiovascular: reports: Shortness of Breath Respiratory: reports: No Symptoms Gastrointestinal: reports: Abdominal Pain Genitourinary: reports: No Symptoms Breasts: reports: No Symptoms Reported Integumentary: reports: No Symptoms Neurological: reports: No Symptoms Endocrine: reports: No Symptoms Hematology/Lymphatic: reports: No Symptoms Psychiatric: reports: No Symptoms - Risk Factors Known Risk Factors: Yes: Diabetes Mellitus, Other (known CAD) Vital Signs: Vital Signs Temperature 97.5 F L 05/23/20 05:52 Pulse Rate 87 05/23/20 05:52 Respiratory Rate 18 05/23/20 05:52 Blood Pressure 150/75 05/23/20 05:52 O2 Sat by Pulse Oximetry (%) 99 05/23/20 05:52 Constitutional: Yes: No Distress, Calm Eyes: Yes: Conjunctiva Clear, EOM Intact Neck: Yes: Supple, Trachea Midline Respiratory: Yes: CTA Bilaterally Gastrointestinal: Yes: Soft (nt) Cardiovascular: Yes: Regular Rate and Rhythm JVD: No PMI: Non-Displaced Heart Sounds: Yes: S1, S2 (rrr, no M/R/G) Edema: No Peripheral Pulses WNL: Yes Neurological: Yes: Alert, Oriented ...Motor Strength: WNL Psychiatric: Yes: WNL - Other Data Labs, Other Data: CBC, BMP 05/23/20 05:30 05/23/20 05:30 INR, PTT INR 1.06 (0.83-1.09) 05/22/20 21:18 Troponin, BNP 05/22/20 05/23/20 05/23/20 21:18 03:09 05:30 Troponin I 0.04 0.20 H 0.25 H B-Natriuretic Peptide 1679.7 H Troponin, BNP 05/22/20 05/23/20 05/23/20 21:18 03:09 05:30 Troponin I 0.04 0.20 H 0.25 H B-Natriuretic Peptide 1679.7 H Laboratory Tests 05/22/20 05/22/20 05/22/20 05:29 21:18 21:18 WBC Hgb Plt Count INR 1.06 Sodium Potassium BUN Creatinine AST ALT Alkaline Phosphatase Creatine Kinase 91 Troponin I 0.04 B-Natriuretic Peptide 1679.7 H COVID-19 (RICH) Pending 05/23/20 05/23/20 05/23/20 03:09 05:30 05:30 WBC 7.8 Hgb 10.5 L Plt Count 280 INR Sodium 135 L Potassium 4.4 BUN 22.1 H Creatinine 1.0 AST 21 ALT 19 Alkaline Phosphatase 93 Creatine Kinase Troponin I 0.20 H 0.25 H B-Natriuretic Peptide COVID-19 (RICH) see HPI Echo: Pending Imaging - Results Chest X-ray: Image Reviewed Cat Scan: Image Reviewed EKG: Image Reviewed Assessment/Plan IMP: Mediastinal/lung Mass with lytic bone lesions Hx CAD s/p CABG Epigastric Pain GRANDA abnl ECG, Equivocal TnI Elevated BNP REC: 1. Mediastinal/lung Mass: -CT also notes presence of lytic lesion -Onc and Pulmonary consulted. -Seems like the origin of her GRANDA and epigastric pain, likely referred pain. 2. Hx CAD, CABG: -Pt reports CABG at [facility] which has closed. -Home meds include ASA and Plavix although she denies hx of PCI -Need to clarify cardiac hx with daughter. -Continue home meds for now -Echo for EF assessment 3. Epigastric pain: -She denies sternal pain -Point to epigastric region, likely referred pain. Does not seem cardiac -Equivocal TnI trend/flat not c/w type I TN. -ECG shows no definite new changes 4. GRANDA/abnl ECG/Equivocal TnI: -Suspect GRANDA, weight loss likely secondary to lung mass possible malignancy -ECG with stable ST/T changes -TnI trend flat, not c/w ACS/type I TN -Clinical picture not c/w pulmonary embolism but echo will reveal RVSP and RV size/function 5. Elevated BNP: -unclear clinical value, does not seem volume overloaded on exam -Echo. Will follow
--- NOTE | 2020-05-23 09:05 | PN ---
Progress Note, Physician History of Present Illness: 80 year old woman with a PMH of CABG, HTN, HLD and Insulin-treated DM presenting to the ED due to 2 weeks of intermittent substernal chest pressure. The pressure is non-radiating and is accompanied by shortness of breath and diaphoresis. - Current Medication List Current Medications: Active Medications Aspirin (Asa -) 81 mg PO DAILY [facility] Atorvastatin Calcium (Lipitor -) 40 mg PO HS [facility] Enoxaparin Sodium (Lovenox -) 40 mg SQ DAILY [facility] Metoprolol Tartrate (Lopressor -) 25 mg PO BID [facility] Pantoprazole Sodium (Protonix -) 40 mg PO DAILY [facility] - Objective Vital Signs: Vital Signs Temperature 97.5 F L 05/23/20 05:52 Pulse Rate 87 05/23/20 05:52 Respiratory Rate 18 05/23/20 05:52 Blood Pressure 150/75 05/23/20 05:52 O2 Sat by Pulse Oximetry (%) 99 05/23/20 05:52 Cardiovascular: Yes: Regular Rate and Rhythm Respiratory: Yes: Regular, CTA Bilaterally Gastrointestinal: Yes: Normal Bowel Sounds, Soft Edema: No Labs: CBC, BMP 05/23/20 05:30 05/23/20 05:30 INR, PTT INR 1.06 (0.83-1.09) 05/22/20 21:18 Problem List - Problems (1) Mediastinal mass Assessment/Plan: -ct abd pelvis- 5.8 X 3.9 irregular medial EMMANUEL/mediastinal mass and mediastinal lymphadenopathy suspicious for malignancy - CT abdomen/pelvis shows L2 lytic lesion. -AWAIT OFICIAL CT REPORT -TS CONSULT Code(s): J98.59 - OTHER DISEASES OF MEDIASTINUM, NOT ELSEWHERE CLASSIFIED (2) Chest pain Assessment/Plan: MAYBE DUE TO MASS CARDIO ON BOARD Troponin, BNP 05/22/20 05/23/20 05/23/20 21:18 03:09 05:30 Troponin I 0.04 0.20 H 0.25 H B-Natriuretic Peptide 1679.7 H FOLLOW TRENDS Code(s): R07.9 - CHEST PAIN, UNSPECIFIED Qualifiers: Chest pain type: unspecified Qualified Code(s): R07.9 - Chest pain, unspecified (3) HTN (hypertension) Assessment/Plan: Vital Signs Period Temp Pulse Resp BP Sys/Aguilar Pulse Ox Last 24 Hr 97.5 F-98.2 F 74-89 12-19 127-187/56-85 97-100 MONITOR ON CURRENT MEDS Code(s): I10 - ESSENTIAL (PRIMARY) HYPERTENSION (4) CAD (coronary artery disease) of artery bypass graft Assessment/Plan: CONTINUE WITH MEDS Code(s): I25.810 - ATHEROSCLEROSIS OF CABG W/O ANGINA PECTORIS
[2020-05-23] MEDS ORDERED: ENOXAPARIN NA (PORCINE) 40 MG/0.4 ML DISP.SYRIN SQ ONE (10:17)
[2020-05-23] MEDS ORDERED: ASPIRIN 81 MG CHEWABLE TABLETS ONE (10:17)
[2020-05-23] MEDS ORDERED: PANTOPRAZOLE 40 MG TABLET ONE (10:17)
[2020-05-23] MEDS ORDERED: METOPROLOL TARTRATE 25 MG TABLET (FP) ONE (10:17)
[2020-05-23] MEDS: PANTOPRAZOLE 40 MG TABLET PO SCH ×2 (10:22→11:14)
[2020-05-23] MEDS: ENOXAPARIN NA (PORCINE) 40 MG/0.4 ML DISP.SYRIN SQ SCH ×2 (10:22→11:14)
[2020-05-23] MEDS: ASPIRIN 81 MG CHEWABLE TABLETS PO SCH ×2 (10:22→11:14)
[2020-05-23] MEDS: METOPROLOL TARTRATE 25 MG TABLET (FP) PO SCH ×3 (10:22→22:00)
--- NOTE | 2020-05-23 11:10 | ECHO ---
Version: 1 Name: ERICK WARE Exam: Adult Echocardiogram Study Date: 05/23/2020, 10:29 AM Age: 80 Years MMode/2D Measurements & Calculations IVSd: 1.09 cm LVIDs: 1.72 cm LVIDd: 2.8 cm LVPWd: 0.77 cm LAV (MOD-bp): 32.3 ml LVOT diam: 1.98 cm Ao root diam: 2.48 cm LA dimension: 2.9 cm Doppler Measurements & Calculations MV E max amilcar: 83.2 cm/sec Med E/e': 13.7 MV A max amilcar: 112.6 cm/sec Med Peak E' Amilcar: 6.1 cm/sec MV E/A: 0.74 Lat E/e': 10.6 Lat Peak E' Amilcar: 7.8 cm/sec Ao max P.9 mmHg Ao V2 max: 98.6 cm/sec TR max amilcar: 294.0 cm/sec TR max P.7 mmHg Left Ventricle Left ventricular systolic function is grossly normal. Ejection Fraction = 50-55%. The transmitral sp ectral Doppler flow pattern is suggestive of impaired LV relaxation. Mild to moderate hypokinesis of the inferoseptum; mild hypokinesis of the inferoapical wall. Septal motion is consistent with post-opera tive state. Right Ventricle The right ventricle is normal in size and function. Atria The left atrium is mildly dilated. Right atrial size is normal. Mitral Valve The mitral valve is normal in structure and function. There is no mitral valve stenosis. There is tr betty mitral regurgitation. Tricuspid Valve The tricuspid valve is normal in structure and function. There is mild to moderate tricuspid regurgi tation. Right ventricular systolic pressure is elevated at 30-40mmHg. Aortic Valve There is mild aortic sclerosis.;. No hemodynamically significant valvular aortic stenosis. No aortic regurgitation is present. Pulmonic Valve The pulmonic valve is not well seen, but is grossly normal. There is no pulmonic valvular stenosis. Mild pulmonic valvular regurgitation. Great Vessels The aortic root is normal size. Pericardium/Pleura There is no pericardial effusion. Summary Statements Left ventricular systolic function is grossly normal. Ejection Fraction = 50-55%. The transmitral spectral Doppler flow pattern is suggestive of impaired LV relaxation. Mild to moderate hypokinesis of the inferoseptum; mild hypokinesis of the inferoapical wall. The right ventricle is normal in size and function. The left atrium is mildly dilated. There is mild to moderate tricuspid regurgitation. Right ventricular systolic pressure is elevated at 30-40mmHg. There is mild aortic sclerosis.; There is no pericardial effusion. MD Ricks *Shalom 05/23/2020, 11:10 AM Ordering Physician: Gerard Mcdonald Performed By: Dalia Puentes
--- NOTE | 2020-05-23 12:36 | EKG ---
Test Reason : Blood Pressure : / mmHG Vent. Rate : 072 BPM Atrial Rate : 072 BPM P-R Int : 162 ms QRS Dur : 072 ms QT Int : 440 ms P-R-T Axes : 060 -06 113 degrees QTc Int : 481 ms NORMAL SINUS RHYTHM INFERIOR INFARCT , AGE UNDETERMINED CANNOT RULE OUT ANTERIOR INFARCT , AGE UNDETERMINED NONSPECIFIC ST AND T WAVE ABNORMALITY ABNORMAL ECG WHEN COMPARED WITH ECG OF 07/01/2010, there are nonspecific ST/T wave changes Confirmed by MORIS PEARSON MD ([id number]) on 05/23/2020 12:36:41 PM Referred By: Confirmed By:MORIS PEARSON MD
--- NOTE | 2020-05-23 13:53 | CON.PULM ---
Consult Consult Specialty:: PULM/CCM Referred by:: IMTIAZ Reason for Consultation:: Abnormal CT Chest - History of Present Illness Chief Complaint: CP History of Present Illness: 80 F, lifelong non-smoker, worked as a nurses aide, no occupational exposure, CABG, HTN, HLD and IDDM. Admitted via the ER due to 2 weeks of intermittent substernal chest discomfort Described as "burning". No SOB. Reports some dry cough. No fever or chills. No COVID19 exposure. No hemoptysis or night sweats. Apparent PPD is (-). Originally from [place]. CT Chest: 5.8 cm X 3.9 cm irregular medial EMMANUEL/mediastinal mass and mediastinal lymphadenopathy CT abdomen/pelvis : L2 lytic lesion. CT Chest 2018 : 2.3 x 1.6 EMMANUEL mass like density - History Source History Provided By: Patient, Medical Record Limitations to Obtaining History: No Limitations - Past Medical History Cardio/Vascular: Yes: CAD, HTN, Hyperlipdemia Pulmonary: No: Asthma, Bronchitis, Cancer, COPD, O2 Dependent, Pneumonia, Previously Intubated, Pulmonary Embolus, Pulmonary Fibrosis, Sleep Apnea, Other Gastrointestinal: No: Ascites, Cancer, Constipation, Crohn's Disease, Diverticulitis, Diverticulosis, Esophageal Varices, Gastritis, GERD, GI Bleed, Hemorrhoids, Hiatal Hernia, Inflamatory Bowel Disease, Irritable Bowel Disease, Pancreatitis, Peptic Ulcer Disease, Ulcerative Colitis, Other Hepatobiliary: No: Cirrhosis, Cholelithiasis, Cholecystitis, Choledocholithiasis, Hepatitis A, Hepatitis B, Hepatitis C, Other Renal/: No: Renal Failure, Renal Inusuff, BPH, Cancer, Hematuria, Hemodialysis, Neurogenic Bladder, Renal Calculi, UTI, Other Infectious Disease: No: AIDS, C-Diff, Herpes Zoster, HIV, MRSA, STD's, Tuberculosis, VREF, Other Psych: No: Addictions, Anxiety, Bipolar, Depression, Panic, Psychosis, Schizophrenia, Other Musculoskeletal: No: Bursitis, Chronic low back pain, Hemiparesis, Hemiplegia, Osteoarthritis, Paraplegia, Other Rheumatology: Yes: Other (Arthritis) Endocrine: No: Galax's Disease, Hendrum's Disease, Diabetes Insipidus, Diabetes Mellitus, Hyperparathyroidism, Hyperthyroidism, Hypothyroidism, Osteopenia, SIADH, Other Dermatology: No: Basal Cell, Cellulitis, Eczema, Melanoma, Psoriasis, Squamous Cell, Other - Past Surgical History Past Surgical History: Yes: CABG - Alcohol/Substance Use Hx Alcohol Use: No - Smoking History Smoking history: Never smoked Have you smoked in the past 12 months: No Aproximately how many cigarettes per day: 0 - Social History Usual Living Arrangement: With Child History of Recent Travel: No Home Medications - Allergies Allergies/Adverse Reactions: Allergies Allergy/AdvReac Type Severity Reaction Status Date / Time No Known Allergies Allergy Verified 05/23/20 01:49 - Home Medications Home Medications: Ambulatory Orders Atorvastatin Ca [Lipitor] 80 mg PO HS 07/24/15 Sitagliptin Phosphate [Januvia] 100 mg PO DAILY 07/24/15 Clopidogrel Bisulfate [Clopidogrel] 75 mg PO DAILY 10/05/18 Ezetimibe [Zetia -] 10 mg PO DAILY 10/05/18 Amlodipine Bes/Olmesartan Med [Amlodipine-Olmesartan 5-40 mg] 1 tablet PO DAILY 10/06/18 Aspirin 81 mg PO DAILY #30 tab.chew 10/06/18 Furosemide [Lasix -] 20 mg PO DAILY 10/06/18 Insulin Detemir [Levemir Flextouch] 32 unit SQ HS 10/06/18 Insulin Sliding Scale [Novolog Vial Sliding Scale -] 0 units SQ ACHS #1 pen 10/06/18 Isosorbide Mononitrate [Imdur -] 30 mg PO DAILY #60 tab.sr.24h 10/06/18 Metoprolol Succinate [Toprol Xl] 75 mg PO DAILY #45 tab.er.24h 10/06/18 Review of Systems - Review of Systems Constitutional: reports: Malaise. denies: Chills, Fever, Unintentional Wgt. Loss, Weakness Eyes: reports: No Symptoms HENT: reports: No Symptoms Neck: reports: No Symptoms Cardiovascular: reports: Chest Pain. denies: Edema, Palpitations, Shortness of Breath Respiratory: reports: Cough. denies: Hemoptysis, Orthopnea, PND, Snoring, SOB, SOB on Exertion, Wheezing Gastrointestinal: reports: Abdominal Pain. denies: Rectal Bleeding, Vomiting, Vomiting Blood Genitourinary: reports: No Symptoms Breasts: reports: No Symptoms Reported Musculoskeletal: reports: No Symptoms Integumentary: reports: No Symptoms Neurological: reports: No Symptoms Endocrine: reports: No Symptoms Hematology/Lymphatic: reports: No Symptoms Psychiatric: reports: No Symptoms Physical Exam Vital Sings: Vital Signs Temperature 98.2 F 05/23/20 11:28 Pulse Rate 74 05/23/20 11:28 Respiratory Rate 18 05/23/20 05:52 Blood Pressure 143/62 05/23/20 11:28 O2 Sat by Pulse Oximetry (%) 100 05/23/20 11:28 Constitutional: Yes: No Distress, Calm Eyes: Yes: Conjunctiva Clear, EOM Intact HENT: Yes: Atraumatic, Normocephalic Neck: Yes: Supple, Trachea Midline Cardiovascular: Yes: Regular Rate and Rhythm Respiratory: Yes: CTA Bilaterally, Cough, Diminished, Rales, Rhonchi, SOB, SOB on Exertion, Stridor, Tachypnea, Wheezes ...Inspection: Yes: WNL ...Clubbing: No Gastrointestinal: Yes: Normal Bowel Sounds, Soft. No: Distention, Palpable Mass, Pulsatile Mass, Tenderness, Tenderness, Epigastrium, Tenderness, Rebound Renal/: Yes: WNL Musculoskeletal: Yes: WNL Extremities: Yes: WNL Edema: No Peripheral Pulses WNL: Yes Integumentary: Yes: WNL Neurological: Yes: WNL, Alert, Oriented ...Motor Strength: WNL Psychiatric: Yes: WNL, Alert, Oriented Labs: CBC, BMP 05/23/20 05:30 05/23/20 05:30 Imaging - Results Cat Scan: Report Reviewed, Image Reviewed Problem List - Problems (1) Mediastinal lymphadenopathy Code(s): R59.0 - LOCALIZED ENLARGED LYMPH NODES (2) CAD (coronary artery disease) of artery bypass graft Code(s): I25.810 - ATHEROSCLEROSIS OF CABG W/O ANGINA PECTORIS (3) Chest pain Code(s): R07.9 - CHEST PAIN, UNSPECIFIED Qualifiers: Chest pain type: unspecified Qualified Code(s): R07.9 - Chest pain, unspecified (4) Diaphragmatic hernia Code(s): K44.9 - DIAPHRAGMATIC HERNIA WITHOUT OBSTRUCTION OR GANGRENE (5) HTN (hypertension) Code(s): I10 - ESSENTIAL (PRIMARY) HYPERTENSION (6) Mediastinal mass Code(s): J98.59 - OTHER DISEASES OF MEDIASTINUM, NOT ELSEWHERE CLASSIFIED (7) Chest discomfort Code(s): R07.89 - OTHER CHEST PAIN (8) Chest pain Code(s): R07.9 - CHEST PAIN, UNSPECIFIED Qualifiers: Chest pain type: unspecified Qualified Code(s): R07.9 - Chest pain, unspecified Assessment/Plan IMP: CT findings highly suspicious for Malignancy Do not suspect infectious process PLAN: Monitor off ABX Supplemental O2 as needed VTE prophylaxis Will need tissue diagnosis : If otherwise stable and no cardiac etiology of CP : can be discharged and workup can be continued as an outpatient. Tissue can likely obtained via CT guided biopsy (discussed with IR) Will need PET imaging Will follow Thank you. Dr Mcfadden
[2020-05-23] MEDS ORDERED: CLOPIDOGREL BISULFATE 75 MG TABLET (FP) ONE (18:22)
[2020-05-23] MEDS: CLOPIDOGREL BISULFATE 75 MG TABLET (FP) PO SCH (18:27)
[2020-05-23] MEDS ORDERED: THIAMINE HCL 200 MG/2 ML VIAL IVPB ONE ×2 (21:45→23:30)
[2020-05-23] MEDS: ATORVASTATIN CA 40 MG TABLET (FP) PO SCH (22:01)
[2020-05-24] MEDS ORDERED: LIDOCAINE 5% TOPICAL PATCH TP ONE (00:59)
--- NOTE | 2020-05-24 07:38 | PN ---
Progress Note, Physician Chief Complaint: chest pain History of Present Illness: denies cp, sob, palp, dizzy hoping to go home today - Current Medication List Current Medications: Active Medications Aspirin (Asa -) 81 mg PO DAILY [facility] Last Admin: 05/23/20 11:14 Dose: 81 mg Documented by: Atorvastatin Calcium (Lipitor -) 40 mg PO HS [facility] Last Admin: 05/23/20 22:01 Dose: 40 mg Documented by: Clopidogrel Bisulfate (Plavix -) 75 mg PO DAILY [facility] Last Admin: 05/23/20 18:27 Dose: 75 mg Documented by: Enoxaparin Sodium (Lovenox -) 40 mg SQ DAILY [facility] Last Admin: 05/23/20 11:14 Dose: 40 mg Documented by: Metoprolol Tartrate (Lopressor -) 25 mg PO BID [facility] Last Admin: 05/23/20 22:00 Dose: 25 mg Documented by: Miscellaneous (Lidoderm Patch Removal) 1 each ONCE@1300 ONE Stop: 05/24/20 13:01 Pantoprazole Sodium (Protonix -) 40 mg PO DAILY [facility] Last Admin: 05/23/20 11:14 Dose: 40 mg Documented by: - Objective Vital Signs: Vital Signs Temperature 97.4 F L 05/24/20 05:07 Pulse Rate 85 05/24/20 05:07 Respiratory Rate 22 H 05/24/20 05:07 Blood Pressure 105/50 L 05/24/20 02:04 O2 Sat by Pulse Oximetry (%) 99 05/24/20 01:16 Constitutional: Yes: Well Nourished, No Distress, Calm HENT: No: Nasal Congestion Neck: Yes: Lymphadenopathy Cardiovascular: Yes: S1, S2. No: JVD, Gallop, Murmur Respiratory: Yes: Regular, CTA Bilaterally. No: Accessory Muscle Use, Rales, Wheezes Extremities: No: Cold Edema: No Neurological: Yes: Alert. No: Seizure Psychiatric: No: Agitated Labs: CBC, BMP 05/23/20 05:30 05/23/20 05:30 INR, PTT INR 1.06 (0.83-1.09) 05/22/20 21:18 Assessment/Plan Echo: EF 50-55%, IS and inferoapical HK. nl RV. mild-mod TR. RVSP 30-40 tele: NSR IMP: Mediastinal/lung Mass with lytic bone lesions Hx CAD s/p CABG Epigastric Pain GRANDA abnl ECG, Equivocal TnI Elevated BNP REC: Mediastinal/lung Mass: -CT also notes presence of lytic lesion -Onc and Pulmonary consulted. -Seems like the origin of her GRANDA and epigastric pain, likely referred pain. Hx CAD, remote CABG, elevated trop, epigastric pain, ? NSTEMI: -trop here 0.2 x 2, then 0.8 x 2--trend not typical of ACS. continue to monitor -ECG with deep TWIs anteroseptal leads changed vs 2018, and nonspecific ST-T changes in lateral leads -epigastric pain on presentation = do not suspect anginal equivalent. currently asymptomatic -echo here with RCA territory wall motion abnormality, not described in 2018 -home meds include ASA and Plavix although she denies hx of PCI -defer AC -cont aspirin, plavix, atorvastatin, metoprolol (change to succinate for better 24 hr coverage) -check lipids -for MPI tuesday -Continue home meds for now -EF preserved GRANDA/abnl ECG/Equivocal TnI: -Suspect GRANDA, weight loss likely secondary to lung mass possible malignancy Elevated BNP, mild: -unclear clinical value, does not seem volume overloaded on exam
[2020-05-24] MEDS: ASPIRIN 81 MG CHEWABLE TABLETS PO SCH (10:18)
[2020-05-24] MEDS: CLOPIDOGREL BISULFATE 75 MG TABLET (FP) PO SCH (10:18)
[2020-05-24] MEDS: ENOXAPARIN NA (PORCINE) 40 MG/0.4 ML DISP.SYRIN SQ SCH (10:29)
[2020-05-24] MEDS: PANTOPRAZOLE 40 MG TABLET PO SCH (10:30)
[2020-05-24] MEDS: metoPROLOL SUCCINATE 25 MG TAB.SR.24H (FP) PO SCH ×2 (10:30→21:13)
[2020-05-24] MEDS ORDERED: LIDOCAINE PATCH REMOVAL MC ONE (13:00)
--- NOTE | 2020-05-24 13:15 | PN ---
Progress Note, Physician Chief Complaint: EVENTS AND NOTES REVIEWED TROPONINS POSITIVE - Current Medication List Current Medications: Active Medications Aspirin (Asa -) 81 mg PO DAILY [facility] Last Admin: 05/24/20 10:18 Dose: Not Given Documented by: Atorvastatin Calcium (Lipitor -) 40 mg PO HS [facility] Last Admin: 05/23/20 22:01 Dose: 40 mg Documented by: Clopidogrel Bisulfate (Plavix -) 75 mg PO DAILY [facility] Last Admin: 05/24/20 10:18 Dose: Not Given Documented by: Enoxaparin Sodium (Lovenox -) 40 mg SQ DAILY [facility] Last Admin: 05/24/20 10:29 Dose: 40 mg Documented by: Metoprolol Succinate (Toprol Xl -) 25 mg PO BID [facility] Last Admin: 05/24/20 10:30 Dose: 25 mg Documented by: Pantoprazole Sodium (Protonix -) 40 mg PO DAILY [facility] Last Admin: 05/24/20 10:30 Dose: 40 mg Documented by: - Objective Vital Signs: Vital Signs Temperature 97.4 F L 05/24/20 05:07 Pulse Rate 69 05/24/20 10:00 Respiratory Rate 20 05/24/20 10:00 Blood Pressure 141/52 L 05/24/20 10:00 O2 Sat by Pulse Oximetry (%) 99 05/24/20 10:00 Constitutional: Yes: Mild Distress Cardiovascular: Yes: Pulse Irregular Respiratory: Yes: Cough, Diminished, On Nasal O2 Gastrointestinal: Yes: WNL Genitourinary: Yes: WNL Musculoskeletal: Yes: Muscle Weakness Neurological: Yes: Pre-Existing Deficit Labs: CBC, BMP 05/23/20 05:30 05/23/20 05:30 INR, PTT INR 1.06 (0.83-1.09) 05/22/20 21:18 Problem List - Problems (1) CAD (coronary artery disease) of artery bypass graft Code(s): I25.810 - ATHEROSCLEROSIS OF CABG W/O ANGINA PECTORIS (2) Chest pain Code(s): R07.9 - CHEST PAIN, UNSPECIFIED Qualifiers: Chest pain type: unspecified Qualified Code(s): R07.9 - Chest pain, unspecified (3) HTN (hypertension) Code(s): I10 - ESSENTIAL (PRIMARY) HYPERTENSION (4) Mediastinal lymphadenopathy Code(s): R59.0 - LOCALIZED ENLARGED LYMPH NODES (5) Mediastinal mass Code(s): J98.59 - OTHER DISEASES OF MEDIASTINUM, NOT ELSEWHERE CLASSIFIED (6) Chest discomfort Code(s): R07.89 - OTHER CHEST PAIN Assessment/Plan LUNG MASS WORKUP IN PROGRESS CARDIOLOGY EVAL APPRECIATED MONITOR TRENDS OF TROPONINS ON TELEMETRY NO SIGNIFICANT ALARMS HOLD PLAVIX/ASA FOR LUNG BIOPSY
--- NOTE | 2020-05-24 13:39 | PN ---
Progress Note (short form) - Note Progress Note: PULMONARY Denies shortness of breath or chest pain. Vital Signs Period Temp Pulse Resp BP Sys/Aguilar Pulse Ox Last 24 Hr 97.4 F-98.2 F 64-85 16-22 105-157/50-80 99-99 Gen: NAD at rest Heart: RRR Lung: decreased breath sounds at the bases Abd: soft, nontender Ext: no edema CBC, BMP 05/23/20 05:30 05/23/20 05:30 Troponin, BNP 05/23/20 05/24/20 13:48 06:40 Troponin I 0.85 H* 0.88 H* Active Medications Aspirin (Asa -) 81 mg PO DAILY [facility] Last Admin: 05/24/20 10:18 Dose: Not Given Documented by: Atorvastatin Calcium (Lipitor -) 40 mg PO HS [facility] Last Admin: 05/23/20 22:01 Dose: 40 mg Documented by: Clopidogrel Bisulfate (Plavix -) 75 mg PO DAILY [facility] Last Admin: 05/24/20 10:18 Dose: Not Given Documented by: Enoxaparin Sodium (Lovenox -) 40 mg SQ DAILY [facility] Last Admin: 05/24/20 10:29 Dose: 40 mg Documented by: Metoprolol Succinate (Toprol Xl -) 25 mg PO BID [facility] Last Admin: 05/24/20 10:30 Dose: 25 mg Documented by: Pantoprazole Sodium (Protonix -) 40 mg PO DAILY [facility] Last Admin: 05/24/20 10:30 Dose: 40 mg Documented by: A/P Lung Mass likely Metastatic Lung Cancer CAD s/p CABG Epigastric Pain +Troponins likely Demand Ischemia - PET scan as outpt - will need CT guided needle biopsy but will need to hold ASA/plavix x 7 days - can schedule with IR as outpt - DVT prophylaxis
--- NOTE | 2020-05-24 14:16 | CON.HO ---
Consult - text type - Consultation Consultation Note: 80F PMH DM, CAD s/p CABG with 2 weeks GRANDA and epigastric pain. + Weight loss No cough/fever. CT in ER + Mediastinal mass and lytic lesion. - History Source History Provided By: Patient, Medical Record - Past Medical History Cardio/Vascular: Yes: CAD, HTN, Hyperlipdemia Pulmonary: No: Asthma, Bronchitis, Cancer, COPD, O2 Dependent, Pneumonia, Previously Intubated, Pulmonary Embolus, Pulmonary Fibrosis, Sleep Apnea, Other Gastrointestinal: No: Ascites, Cancer, Constipation, Crohn's Disease, Diverticulitis, Diverticulosis, Esophageal Varices, Gastritis, GERD, GI Bleed, Hemorrhoids, Hiatal Hernia, Inflamatory Bowel Disease, Irritable Bowel Disease, Pancreatitis, Peptic Ulcer Disease, Ulcerative Colitis, Other Hepatobiliary: No: Cirrhosis, Cholelithiasis, Cholecystitis, Choledocholithiasis, Hepatitis A, Hepatitis B, Hepatitis C, Other Renal/: No: Renal Failure, Renal Inusuff, BPH, Cancer, Hematuria, Hemodialysis, Neurogenic Bladder, Renal Calculi, UTI, Other Heme/Onc: No: Anemia, B12 Deficiency, Bleeding Disorder, Cancer, Current Chemotherapy, Current Radiation Therapy, Hemochromatosis, Hypercoaguable State, Myeloproliferative Synd, Sickle Cell Disease, Sickle Cell Trait, Thrombocytopenia, Other Infectious Disease: No: AIDS, C-Diff, Herpes Zoster, HIV, MRSA, STD's, Tuberculosis, VREF, Other Psych: No: Addictions, Anxiety, Bipolar, Depression, Panic, Psychosis, Schizophrenia, Other Musculoskeletal: No: Bursitis, Chronic low back pain, Hemiparesis, Hemiplegia, Osteoarthritis, Paraplegia, Other Rheumatology: Yes: Other (Arthritis) Endocrine: No: [place]'s Disease, Cleve's Disease, Diabetes Insipidus, Diabetes Mellitus, Hyperparathyroidism, Hyperthyroidism, Hypothyroidism, Osteopenia, SIADH, Other Dermatology: No: Basal Cell, Cellulitis, Eczema, Melanoma, Psoriasis, Squamous Cell, Other - Past Surgical History Past Surgical History: Yes: CABG - Alcohol/Substance Use Hx Alcohol Use: No - Smoking History Smoking history: Never smoked - Social History Usual Living Arrangement: With Child - Allergies Allergies/Adverse Reactions: Allergies Allergy/AdvReac Type Severity Reaction Status Date / Time No Known Allergies Allergy Verified 05/23/20 01:49 - Home Medications Home Medications: Ambulatory Orders Atorvastatin Ca [Lipitor] 80 mg PO HS 07/24/15 Sitagliptin Phosphate [Januvia] 100 mg PO DAILY 07/24/15 Clopidogrel Bisulfate [Clopidogrel] 75 mg PO DAILY 10/05/18 Ezetimibe [Zetia -] 10 mg PO DAILY 10/05/18 Amlodipine Bes/Olmesartan Med [Amlodipine-Olmesartan 5-40 mg] 1 tablet PO DAILY 10/06/18 Aspirin 81 mg PO DAILY #30 tab.chew 10/06/18 Furosemide [Lasix -] 20 mg PO DAILY 10/06/18 Insulin Detemir [Levemir Flextouch] 32 unit SQ HS 10/06/18 Insulin Sliding Scale [Novolog Vial Sliding Scale -] 0 units SQ ACHS #1 pen 10/06/18 Isosorbide Mononitrate [Imdur -] 30 mg PO DAILY #60 tab.sr.24h 10/06/18 Metoprolol Succinate [Toprol Xl] 75 mg PO DAILY #45 tab.er.24h 10/06/18 Family Medical History Family History: Unremarkable Review of Systems Findings/Remarks: Vital Signs: Vital Signs Temperature 97.5 F L 05/23/20 05:52 Pulse Rate 87 05/23/20 05:52 Respiratory Rate 18 05/23/20 05:52 Blood Pressure 150/75 05/23/20 05:52 O2 Sat by Pulse Oximetry (%) 99 05/23/20 05:52 Constitutional: Yes: No Distress, Calm Eyes: Yes: Conjunctiva Clear, EOM Intact Neck: Yes: Supple, Trachea Midline Respiratory: Yes: CTA Bilaterally Gastrointestinal: Yes: Soft (nt) Cardiovascular: Yes: Regular Rate and Rhythm Heart Sounds: Yes: S1, S2 (rrr, no M/R/G) Neurological: Yes: Alert, Oriented ...Motor Strength: WNL 05/23/20 05:30 05/23/20 05:30 INR, PTT INR 1.06 (0.83-1.09) 05/22/20 21:18 Troponin, BNP 05/22/20 05/23/20 05/23/20 21:18 03:09 05:30 Troponin I 0.04 0.20 H 0.25 H B-Natriuretic Peptide 1679.7 H Troponin, BNP 07/30/20 07/31/20 07/31/20 21:18 03:09 05:30 Troponin I 0.04 0.20 H 0.25 H B-Natriuretic Peptide 1679.7 H Laboratory Tests 05/22/20 05/22/20 05/22/20 05:29 21:18 21:18 WBC Hgb Plt Count INR 1.06 Sodium Potassium BUN Creatinine AST ALT Alkaline Phosphatase Creatine Kinase 91 Troponin I 0.04 B-Natriuretic Peptide 1679.7 H COVID-19 ([facility]) Pending 05/23/20 05/23/20 05/23/20 03:09 05:30 05:30 WBC 7.8 Hgb 10.5 L Plt Count 280 INR Sodium 135 L Potassium 4.4 BUN 22.1 H Creatinine 1.0 AST 21 ALT 19 Alkaline Phosphatase 93 Creatine Kinase Troponin I 0.20 H 0.25 H B-Natriuretic Peptide COVID-19 ([facility]) Imaging - Results Chest X-ray: Image Reviewed Cat Scan: Image Reviewed EKG: Image Reviewed Assessment/Plan 80F PMH DM,HLD,HTN, CAD s/p CABG with 2 weeks GRANDA and epigastric pain. + Weight loss No cough/fever. CT chest --EMMANUEL mass 4.9cm abutting the mediastinum, mediastinal/AP window nodes., L1 lesion ? metastases on asa/plavix will be held for 7 days and contemplating IR guided biopsy per pulmonary/IR/cardio teams will need PET-CT/MRI brain to complete staging w/u will follow
[2020-05-24] MEDS ORDERED: ACETAMINOPHEN 1000 MG/100 ML VIAL (NON FORMULARY) IVPB ONE ×2 (18:47)
[2020-05-24] MEDS: ATORVASTATIN CA 40 MG TABLET (FP) PO SCH (21:13)
[2020-05-24] MEDS ORDERED: MORPHINE SULFATE 2 MG/ML VIAL IVPUSH ONE (21:15)
[2020-05-25] MEDS ORDERED: INSULIN (NOVOLOG) ASPART 100 UNITS/ML 10ML VIAL SQ ONE (00:01)
[2020-05-25] MEDS: INSULIN SLIDING SCALE (NOVOLOG) 1 VIAL SQ SCH ×4 (06:22→23:06)
--- NOTE | 2020-05-25 06:35 | PN ---
Progress Note, Physician Chief Complaint: TELE: NSR Denies CP/SOB/Palps History of Present Illness: lung mass Lytic lesions CAD Elevated TNI- equivocal range - Current Medication List Current Medications: Active Medications Aspirin (Asa -) 81 mg PO DAILY [facility] Last Admin: 05/24/20 10:18 Dose: Not Given Documented by: Atorvastatin Calcium (Lipitor -) 40 mg PO HS [facility] Last Admin: 05/24/20 21:13 Dose: 40 mg Documented by: Clopidogrel Bisulfate (Plavix -) 75 mg PO DAILY [facility] Last Admin: 05/24/20 10:18 Dose: Not Given Documented by: Enoxaparin Sodium (Lovenox -) 40 mg SQ DAILY [facility] Last Admin: 05/24/20 10:29 Dose: 40 mg Documented by: Insulin Aspart (Novolog Vial Sliding Scale -) 1 vial SQ ACHS [facility]; Protocol Last Admin: 05/25/20 06:22 Dose: Not Given Documented by: Metoprolol Succinate (Toprol Xl -) 25 mg PO BID [facility] Last Admin: 05/24/20 21:13 Dose: 25 mg Documented by: Pantoprazole Sodium (Protonix -) 40 mg PO DAILY [facility] Last Admin: 05/24/20 10:30 Dose: 40 mg Documented by: - Objective Vital Signs: Vital Signs Temperature 98 F 05/25/20 05:27 Pulse Rate 58 L 05/25/20 05:27 Respiratory Rate 18 05/25/20 05:27 Blood Pressure 110/46 L 05/25/20 05:27 O2 Sat by Pulse Oximetry (%) 97 05/25/20 05:27 Constitutional: Yes: No Distress, Calm Eyes: Yes: Conjunctiva Clear, EOM Intact HENT: Yes: Atraumatic, Normocephalic Neck: Yes: Supple, Trachea Midline Cardiovascular: Yes: Regular Rate and Rhythm Respiratory: Yes: CTA Bilaterally Gastrointestinal: Yes: Soft (nt) Edema: No Neurological: Yes: Alert, Oriented Labs: CBC, BMP 05/23/20 05:30 05/23/20 05:30 INR, PTT INR 1.06 (0.83-1.09) 05/22/20 21:18 Laboratory Tests 05/22/20 05/23/20 05/24/20 05:29 03:15 06:40 Creatine Kinase Troponin I 0.88 H* Stool Occult Blood Negative COVID-19 (RICH) Not detected 05/24/20 15:05 Creatine Kinase 121 Troponin I 0.58 H Stool Occult Blood COVID-19 (RICH) - ....Imaging EKG: Image Reviewed Assessment/Plan DATA: Echo: EF 50-55%, IS and inferoapical HK. nl RV. mild-mod TR. RVSP 30-40 t IMP: Mediastinal/lung Mass with lytic bone lesions Hx CAD s/p CABG Epigastric Pain GRANDA abnl ECG, Equivocal TnI Elevated BNP REC: Mediastinal/lung Mass: -CT also notes presence of lytic lesion -Onc and Pulmonary consulted. -Seems like the origin of her GRANDA and epigastric pain, likely referred pain. Hx CAD, remote CABG, elevated trop, epigastric pain, ? NSTEMI: -trop here 0.2 x 2, then 0.8 x 2--trend not typical of ACS. -ECG with deep TWIs anteroseptal leads changed vs 2018, and nonspecific ST-T changes in lateral leads -epigastric pain on presentation = do not suspect anginal equivalent. currently asymptomatic -echo here with RCA territory wall motion abnormality, not described in 2018 -home meds include ASA and Plavix although she denies hx of PCI -defer AC -cont aspirin, plavix, atorvastatin, metoprolol (change to succinate for better 24 hr coverage) -LDL 43, at goal -for MPI tomorrow -Continue home meds for now -EF preserved GRANDA/abnl ECG/Equivocal TnI: -Suspect GRANDA, weight loss likely secondary to lung mass possible malignancy; plan for outpt PET and bx as per PULM Elevated BNP, mild: -unclear clinical value, does not seem volume overloaded on exam
[2020-05-25 08:07] LABS: CHOLESTEROL 110 mg/dL (50-200); HDL CHOLESTEROL 59 mg/dL (40-60); LDL CHOLESTEROL (ONLY SJRH) 43 mg/dL (5-100); TRIGLYCERIDES 56 mg/dL (0-150)
[2020-05-25] MEDS: ENOXAPARIN NA (PORCINE) 40 MG/0.4 ML DISP.SYRIN SQ SCH (10:28)
[2020-05-25] MEDS: PANTOPRAZOLE 40 MG TABLET PO SCH (10:28)
[2020-05-25] MEDS: metoPROLOL SUCCINATE 25 MG TAB.SR.24H (FP) PO SCH ×2 (10:28→23:06)
--- NOTE | 2020-05-25 12:53 | PN ---
Progress Note (short form) - Note Progress Note: PULMONARY Denies shortness of breath or chest pain. Vital Signs Period Temp Pulse Resp BP Sys/Aguilar Pulse Ox Last 24 Hr 97.8 F-98.3 F 55-93 18-20 110-156/46-77 95-100 Gen: NAD at rest Heart: RRR Lung: decreased breath sounds at the bases Abd: soft, nontender Ext: no edema CBC, BMP 05/23/20 05:30 05/23/20 05:30 Active Medications Aspirin (Asa -) 81 mg PO DAILY [facility] Last Admin: 05/24/20 10:18 Dose: Not Given Documented by: Atorvastatin Calcium (Lipitor -) 40 mg PO HS [facility] Last Admin: 05/24/20 21:13 Dose: 40 mg Documented by: Clopidogrel Bisulfate (Plavix -) 75 mg PO DAILY [facility] Last Admin: 05/24/20 10:18 Dose: Not Given Documented by: Enoxaparin Sodium (Lovenox -) 40 mg SQ DAILY [facility] Last Admin: 05/25/20 10:28 Dose: 40 mg Documented by: Insulin Aspart (Novolog Vial Sliding Scale -) 1 vial SQ [facility]; Protocol Last Admin: 05/25/20 12:20 Dose: 8 unit Documented by: Metoprolol Succinate (Toprol Xl -) 25 mg PO BID [facility] Last Admin: 05/25/20 10:28 Dose: 25 mg Documented by: Pantoprazole Sodium (Protonix -) 40 mg PO DAILY [facility] Last Admin: 05/25/20 10:28 Dose: 40 mg Documented by: A/P Lung Mass likely Metastatic Lung Cancer CAD s/p CABG Epigastric Pain +Troponins likely Demand Ischemia - PET scan as outpt - will need CT guided needle biopsy but will need to hold ASA/plavix x 7 days - can schedule with IR as outpt - DVT prophylaxis
--- NOTE | 2020-05-25 13:19 | PN ---
Progress Note, Physician Chief Complaint: awake alert nad - Current Medication List Current Medications: Active Medications Aspirin (Asa -) 81 mg PO DAILY [facility] Last Admin: 05/24/20 10:18 Dose: Not Given Documented by: Atorvastatin Calcium (Lipitor -) 40 mg PO HS [facility] Last Admin: 05/24/20 21:13 Dose: 40 mg Documented by: Clopidogrel Bisulfate (Plavix -) 75 mg PO DAILY [facility] Last Admin: 05/24/20 10:18 Dose: Not Given Documented by: Enoxaparin Sodium (Lovenox -) 40 mg SQ DAILY [facility] Last Admin: 05/25/20 10:28 Dose: 40 mg Documented by: Insulin Aspart (Novolog Vial Sliding Scale -) 1 vial SQ [facility]; Protocol Last Admin: 05/25/20 12:20 Dose: 8 unit Documented by: Metoprolol Succinate (Toprol Xl -) 25 mg PO BID [facility] Last Admin: 05/25/20 10:28 Dose: 25 mg Documented by: Pantoprazole Sodium (Protonix -) 40 mg PO DAILY [facility] Last Admin: 05/25/20 10:28 Dose: 40 mg Documented by: - Objective Vital Signs: Vital Signs Temperature 98.2 F 05/25/20 08:32 Pulse Rate 93 H 05/25/20 08:32 Respiratory Rate 20 05/25/20 08:32 Blood Pressure 156/77 05/25/20 08:32 O2 Sat by Pulse Oximetry (%) 98 05/25/20 08:33 Constitutional: Yes: Mild Distress Cardiovascular: Yes: Regular Rate and Rhythm Respiratory: Yes: Cough Gastrointestinal: Yes: Soft Genitourinary: Yes: WNL Wound/Incision: Yes: Clean/Dry Neurological: Yes: WNL Labs: CBC, BMP 05/23/20 05:30 05/23/20 05:30 INR, PTT INR 1.06 (0.83-1.09) 05/22/20 21:18 Problem List - Problems (1) CAD (coronary artery disease) of artery bypass graft Code(s): I25.810 - ATHEROSCLEROSIS OF CABG W/O ANGINA PECTORIS (2) Chest pain Code(s): R07.9 - CHEST PAIN, UNSPECIFIED Qualifiers: Chest pain type: unspecified Qualified Code(s): R07.9 - Chest pain, unspecified (3) HTN (hypertension) Code(s): I10 - ESSENTIAL (PRIMARY) HYPERTENSION (4) Mediastinal lymphadenopathy Code(s): R59.0 - LOCALIZED ENLARGED LYMPH NODES (5) Mediastinal mass Code(s): J98.59 - OTHER DISEASES OF MEDIASTINUM, NOT ELSEWHERE CLASSIFIED (6) Chest discomfort Code(s): R07.89 - OTHER CHEST PAIN Assessment/Plan agree with pulmonary can have lung biopsy as outpatient dc planning tomorrow plavix and asa on hold awaiting oncology follow up labs reviewed cardiology input appreciated
[2020-05-25] MEDS: ATORVASTATIN CA 40 MG TABLET (FP) PO SCH (23:06)
[2020-05-26] MEDS: INSULIN SLIDING SCALE (NOVOLOG) 1 VIAL SQ SCH ×4 (06:01→21:34)
--- NOTE | 2020-05-26 08:51 | PN ---
Progress Note, Physician - Current Medication List Current Medications: Active Medications Aspirin (Asa -) 81 mg PO DAILY [facility] Last Admin: 05/24/20 10:18 Dose: Not Given Documented by: Atorvastatin Calcium (Lipitor -) 40 mg PO HS [facility] Last Admin: 05/25/20 23:06 Dose: 40 mg Documented by: Clopidogrel Bisulfate (Plavix -) 75 mg PO DAILY [facility] Last Admin: 05/24/20 10:18 Dose: Not Given Documented by: Enoxaparin Sodium (Lovenox -) 40 mg SQ DAILY [facility] Last Admin: 05/25/20 10:28 Dose: 40 mg Documented by: Insulin Aspart (Novolog Vial Sliding Scale -) 1 vial SQ [facility]; Protocol Last Admin: 05/26/20 06:01 Dose: Not Given Documented by: Metoprolol Succinate (Toprol Xl -) 25 mg PO BID [facility] Last Admin: 05/25/20 23:06 Dose: 25 mg Documented by: Pantoprazole Sodium (Protonix -) 40 mg PO DAILY [facility] Last Admin: 05/25/20 10:28 Dose: 40 mg Documented by: - Objective Vital Signs: Vital Signs Temperature 98.7 F 05/26/20 06:00 Pulse Rate 71 05/26/20 06:00 Respiratory Rate 18 05/26/20 06:00 Blood Pressure 122/55 L 05/26/20 06:00 O2 Sat by Pulse Oximetry (%) 98 05/26/20 06:00 Cardiovascular: Yes: Regular Rate and Rhythm Respiratory: Yes: Regular, CTA Bilaterally Gastrointestinal: Yes: Normal Bowel Sounds, Soft. No: Tenderness Labs: CBC, BMP 05/23/20 05:30 05/23/20 05:30 INR, PTT INR 1.06 (0.83-1.09) 05/22/20 21:18 Problem List - Problems (1) Mediastinal mass Assessment/Plan: -ct abd pelvis- 5.8 X 3.9 irregular medial EMMANUEL/mediastinal mass and mediastinal lymphadenopathy suspicious for malignancy - CT abdomen/pelvis shows L2 lytic lesion. -Pulm consult noted--PET then outpatient Biopsy Code(s): J98.59 - OTHER DISEASES OF MEDIASTINUM, NOT ELSEWHERE CLASSIFIED (2) Chest pain Assessment/Plan: Asa plavix on hold CARDIO ON BOARD---Stress Test Today Code(s): R07.9 - CHEST PAIN, UNSPECIFIED Qualifiers: Chest pain type: unspecified Qualified Code(s): R07.9 - Chest pain, unspecified (3) HTN (hypertension) Assessment/Plan: Vital Signs Period Temp Pulse Resp BP Sys/Aguilar Pulse Ox Last 24 Hr 97.5 F-98.2 F 74-89 12-19 127-187/56-85 97-100 MONITOR ON CURRENT MEDS Code(s): I10 - ESSENTIAL (PRIMARY) HYPERTENSION (4) CAD (coronary artery disease) of artery bypass graft Assessment/Plan: CONTINUE WITH MEDS STRESS TEST Code(s): I25.810 - ATHEROSCLEROSIS OF CABG W/O ANGINA PECTORIS
[2020-05-26] MEDS ORDERED: REGADENOSON 0.4 MG/5 ML PRE-FILLED SYRINGE IVPUSH ONE ×2 (10:06→10:15)
--- NOTE | 2020-05-26 10:20 | EKG ---
Test Reason : Blood Pressure : / mmHG Vent. 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
--- NOTE | 2020-05-26 10:23 | EKG ---
Test Reason : Blood Pressure : / mmHG Vent. Rate : 087 BPM Atrial Rate : 087 BPM P-R Int : 184 ms QRS Dur : 072 ms QT Int : 370 ms P-R-T Axes : 066 -11 101 degrees QTc Int : 445 ms NORMAL SINUS RHYTHM POSSIBLE LEFT ATRIAL ENLARGEMENT INFERIOR INFARCT , AGE UNDETERMINED ST-T changes consider anterior ischemia ABNORMAL ECG WHEN COMPARED WITH ECG OF 06-OCT-2018 14:12, VENT. RATE HAS INCREASED BY 35 BPM INFERIOR INFARCT IS NOW PRESENT Confirmed by Prema Rahman ([id number]) on 05/26/2020 10:23:06 AM Referred By: Confirmed By:Prema Rahman
--- NOTE | 2020-05-26 10:40 | CONSULT ---
Consult Consult Specialty:: Thoracic Surgery Referred by:: Medicine Reason for Consultation:: Lung mass - History of Present Illness Chief Complaint: epigastric/substernal pain History of Present Illness: 80F s/p cabg >5 years ago at [facility], non-smoker p/w vague epigastric, chest pain, back pain, weight loss 20lbs over 2 months. No fevers. Found to have mass in EMMANUEL,left superior mediastinum that has grown over two years. 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 On scan, there are also lytic lesions c/w mets. - History Source History Provided By: Patient, Medical Record - Past Medical History Cardio/Vascular: Yes: CAD, HTN, Hyperlipdemia Pulmonary: No: Asthma, Bronchitis, Cancer, COPD, O2 Dependent, Pneumonia, Previously Intubated, Pulmonary Embolus, Pulmonary Fibrosis, Sleep Apnea, Other Gastrointestinal: No: Ascites, Cancer, Constipation, Crohn's Disease, Diverticulitis, Diverticulosis, Esophageal Varices, Gastritis, GERD, GI Bleed, Hemorrhoids, Hiatal Hernia, Inflamatory Bowel Disease, Irritable Bowel Disease, Pancreatitis, Peptic Ulcer Disease, Ulcerative Colitis, Other Hepatobiliary: No: Cirrhosis, Cholelithiasis, Cholecystitis, Choledocholithiasis, Hepatitis A, Hepatitis B, Hepatitis C, Other Renal/: No: Renal Failure, Renal Inusuff, BPH, Cancer, Hematuria, He modialysis, Neurogenic Bladder, Renal Calculi, UTI, Other Infectious Disease: No: AIDS, C-Diff, Herpes Zoster, HIV, MRSA, STD's, Tuberculosis, VREF, Other Psych: No: Addictions, Anxiety, Bipolar, Depression, Panic, Psychosis, Schizophrenia, Other Musculoskeletal: No: Bursitis, Chronic low back pain, Hemiparesis, Hemiplegia, Osteoarthritis, Paraplegia, Other Rheumatology: Yes: Other (Arthritis) Endocrine: No: [place]'s Disease, Cleve's Disease, Diabetes Insipidus, Diabe toya Mellitus, Hyperparathyroidism, Hyperthyroidism, Hypothyroidism, Osteopenia, SIADH, Other Dermatology: No: Basal Cell, Cellulitis, Eczema, Melanoma, Psoriasis, Squamous Cell, Other - Past Surgical History Past Surgical History: Yes: CABG - Alcohol/Substance Use Hx Alcohol Use: No - Smoking History Smoking history: Never smoked Have you smoked in the past 12 months: No Aproximately how many cigarettes per day: 0 - Social History Usual Living Arrangement: With Child History of Recent Travel: No Home Medications - Allergies Allergies/Adverse Reactions: Allergies Allergy/AdvReac Type Severity Reaction Status Date / Time No Known Allergies Allergy Verified 05/23/20 01:49 - Home Medications Home Medications: Ambulatory Orders Atorvastatin Ca [Lipitor] 80 mg PO HS 07/24/15 Sitagliptin Phosphate [Januvia] 100 mg PO DAILY 07/24/15 Ezetimibe [Zetia -] 10 mg PO DAILY 10/05/18 Amlodipine Bes/Olmesartan Med [Amlodipine-Olmesartan 5-40 mg] 1 tablet PO DAILY 10/06/18 Furosemide [Lasix -] 20 mg PO DAILY 10/06/18 Insulin Detemir [Levemir Flextouch] 32 unit SQ HS 10/06/18 Insulin Sliding Scale [Novolog Vial Sliding Scale -] 0 units SQ ACHS #1 pen 10/06/18 Isosorbide Mononitrate [Imdur -] 30 mg PO DAILY #60 tab.sr.24h 10/06/18 Metoprolol Succinate [Toprol XL -] 25 mg PO BID tab.sr.24h 05/26/20 Pantoprazole Sodium [Protonix -] 40 mg PO DAILY #30 tablet.ec 05/26/20 Review of Systems - Review of Systems Constitutional: reports: Unintentional Wgt. Loss Cardiovascular: reports: Chest Pain Respiratory: reports: No Symptoms Gastrointestinal: reports: Abdominal Pain Musculoskeletal: reports: Back Pain Physical Exam Vital Signs: Vital Signs Temperature 98.2 F 05/26/20 10:00 Pulse Rate 77 05/26/20 10:00 Respiratory Rate 18 05/26/20 10:00 Blood Pressure 156/63 05/26/20 10:00 O2 Sat by Pulse Oximetry (%) 96 05/26/20 10:00 Constitutional: Yes: Calm Eyes: Yes: WNL HENT: Yes: WNL Cardiovascular: Yes: Regular Rate and Rhythm, Other (sternotomy scar) Respiratory: Yes: Regular Extremities: Yes: WNL Labs: CBC, BMP 05/23/20 05:30 05/23/20 05:30 Imaging - Results Cat Scan: Report Reviewed, Image Reviewed Problem List - Problems (1) CAD (coronary artery disease) of artery bypass graft Code(s): I25.810 - ATHEROSCLEROSIS OF CABG W/O ANGINA PECTORIS (2) Chest pain Code(s): R07.9 - CHEST PAIN, UNSPECIFIED Qualifiers: Chest pain type: unspecified Qualified Code(s): R07.9 - Chest pain, unspecified (3) Diaphragmatic hernia Code(s): K44.9 - DIAPHRAGMATIC HERNIA WITHOUT OBSTRUCTION OR GANGRENE (4) HTN (hypertension) Code(s): I10 - ESSENTIAL (PRIMARY) HYPERTENSION (5) Mediastinal mass Code(s): J98.59 - OTHER DISEASES OF MEDIASTINUM, NOT ELSEWHERE CLASSIFIED (6) Chest discomfort Code(s): R07.89 - OTHER CHEST PAIN (7) Chest pain Code(s): R07.9 - CHEST PAIN, UNSPECIFIED Qualifiers: Chest pain type: unspecified Qualified Code(s): R07.9 - Chest pain, unspecified Assessment/Plan Imp/Plan: Advanced lung cancer enveloping RODRIGUES graft and phrenic nerve with probable bone mets; --Recommend CT chest with IV contrast to assess best area for biopsy (CT guided versus EBUS depending on CT chest with IV contrast); --F/u stress test results; --Needs PET scan as well.
--- NOTE | 2020-05-26 12:09 | PN ---
Progress Note (short form) - Note Progress Note: PULMONARY Chart reviewed Patient is down for stress test. T-surg requesting Ct with contrast Have ordered Reinaldo Tapia MD
[2020-05-26] MEDS: PANTOPRAZOLE 40 MG TABLET PO SCH (13:12)
[2020-05-26] MEDS: ENOXAPARIN NA (PORCINE) 40 MG/0.4 ML DISP.SYRIN SQ SCH (13:12)
[2020-05-26] MEDS: metoPROLOL SUCCINATE 25 MG TAB.SR.24H (FP) PO SCH ×2 (13:12→21:34)
--- NOTE | 2020-05-26 14:35 | PN ---
Progress Note (short form) - Note Progress Note: s: no cp sob palps dizzy Current Medications Generic Name Dose Route Start Last Admin Trade Name Steven PRN Reason Stop Dose Admin Aspirin 81 mg 05/23/20 10:00 05/24/20 10:18 Asa - PO Not Given DAILY [facility] Atorvastatin Calcium 40 mg 05/23/20 22:00 05/25/20 23:06 Lipitor - PO 40 mg HS [facility] Administration Clopidogrel Bisulfate 75 mg 05/23/20 17:30 05/24/20 10:18 Plavix - PO Not Given DAILY [facility] Enoxaparin Sodium 40 mg 05/23/20 10:00 05/26/20 13:12 Lovenox - SQ 40 mg DAILY [facility] Administration Insulin Aspart 1 vial 05/25/20 07:00 05/26/20 13:13 Novolog Vial Sliding Scale - SQ 6 unit ACHS [facility] Administration Protocol Metoprolol Succinate 25 mg 05/24/20 10:00 05/26/20 13:12 Toprol Xl - PO 25 mg BID [facility] Administration Pantoprazole Sodium 40 mg 05/23/20 10:00 05/26/20 13:12 Protonix - PO 40 mg DAILY [facility] Administration Vital Signs Period Temp Pulse Resp BP Sys/Aguilar Pulse Ox Last 24 Hr 97.9 F-98.9 F 63-77 18-18 104-156/44-79 96-98 Constitutional: Yes: No Distress, Calm Eyes: Yes: Conjunctiva Clear Neck: Yes: Supple, Trachea Midline Cardiovascular: Yes: Regular Rate and Rhythm Respiratory: Yes: CTA Bilaterally Gastrointestinal: Yes: Soft (nt) Edema: No Neurological: Yes: Alert, Oriented Labs: CBC, BMP 05/23/20 05:30 05/23/20 05:30 DATA: Echo: EF 50-55%, IS and inferoapical HK. nl RV. mild-mod TR. RVSP 30-40 tele:sr IMP: Mediastinal/lung Mass with lytic bone lesions Hx CAD s/p CABG Epigastric Pain GRANDA abnl ECG, Equivocal TnI Elevated BNP REC: Mediastinal/lung Mass: -CT also notes presence of lytic lesion -Onc and Pulmonary consulted. -Seems like the origin of her GRANDA and epigastric pain, likely referred pain. Hx CAD, remote CABG, elevated trop, epigastric pain, ? NSTEMI: -trop here 0.2 x 2, then 0.8 x 2--trend not typical of ACS. -ECG with deep TWIs anteroseptal leads changed vs 2018, and nonspecific ST-T changes in lateral leads -epigastric pain on presentation = do not suspect anginal equivalent. currently asymptomatic -echo here with RCA territory wall motion abnormality, not described in 2018 -home meds include ASA and Plavix although she denies hx of PCI -defer AC -cont aspirin, plavix, atorvastatin, metoprolol (changed to succinate for better 24 hr coverage) -LDL 43, at goal -nuclear stress test here shows no ischemia -EF preserved GRANDA/abnl ECG/Equivocal TnI: -Suspect GRANDA, weight loss likely secondary to lung mass possible malignancy; plan for outpt PET and bx as per PULM Elevated BNP, mild: -unclear clinical value, does not seem volume overloaded on exam
[2020-05-26] MEDS: ATORVASTATIN CA 40 MG TABLET (FP) PO SCH (21:34)
[2020-05-27] MEDS: INSULIN SLIDING SCALE (NOVOLOG) 1 VIAL SQ SCH ×2 (06:50→11:09)
--- NOTE | 2020-05-27 08:06 | PN ---
Progress Note, Physician History of Present Illness: pulmonary alert,comfortable ,oob-chair,-sob - Current Medication List Current Medications: Active Medications Aspirin (Asa -) 81 mg PO DAILY [facility] Last Admin: 05/24/20 10:18 Dose: Not Given Documented by: Atorvastatin Calcium (Lipitor -) 40 mg PO HS [facility] Last Admin: 05/26/20 21:34 Dose: 40 mg Documented by: Clopidogrel Bisulfate (Plavix -) 75 mg PO DAILY [facility] Last Admin: 05/24/20 10:18 Dose: Not Given Documented by: Enoxaparin Sodium (Lovenox -) 40 mg SQ DAILY [facility] Last Admin: 05/26/20 13:12 Dose: 40 mg Documented by: Insulin Aspart (Novolog Vial Sliding Scale -) 1 vial SQ [facility]; Protocol Last Admin: 05/27/20 06:50 Dose: 4 unit Documented by: Metoprolol Succinate (Toprol Xl -) 25 mg PO BID [facility] Last Admin: 05/26/20 21:34 Dose: 25 mg Documented by: Pantoprazole Sodium (Protonix -) 40 mg PO DAILY [facility] Last Admin: 05/26/20 13:12 Dose: 40 mg Documented by: - Objective Vital Signs: Vital Signs Temperature 98.4 F 05/27/20 06:00 Pulse Rate 69 05/27/20 06:00 Respiratory Rate 20 05/27/20 06:00 Blood Pressure 104/44 L 05/27/20 06:00 O2 Sat by Pulse Oximetry (%) 96 05/27/20 06:00 Constitutional: Yes: Calm, Thin Eyes: Yes: WNL HENT: Yes: WNL Neck: Yes: WNL Cardiovascular: Yes: Regular Rate and Rhythm, S1, S2 Respiratory: Yes: CTA Bilaterally Gastrointestinal: Yes: Normal Bowel Sounds, Soft Extremities: Yes: WNL Edema: No Assessment/Plan Problem List - Problems (1) Mediastinal lymphadenopathy Code(s): R59.0 - LOCALIZED ENLARGED LYMPH NODES (2) CAD (coronary artery disease) of artery bypass graft Code(s): I25.810 - ATHEROSCLEROSIS OF CABG W/O ANGINA PECTORIS (3) Chest pain Code(s): R07.9 - CHEST PAIN, UNSPECIFIED Qualifiers: Chest pain type: unspecified Qualified Code(s): R07.9 - Chest pain, unspecified (4) Diaphragmatic hernia Code(s): K44.9 - DIAPHRAGMATIC HERNIA WITHOUT OBSTRUCTION OR GANGRENE (5) HTN (hypertension) Code(s): I10 - ESSENTIAL (PRIMARY) HYPERTENSION (6) Mediastinal mass Code(s): J98.59 - OTHER DISEASES OF MEDIASTINUM, NOT ELSEWHERE CLASSIFIED (7) Chest discomfort Code(s): R07.89 - OTHER CHEST PAIN (8) Chest pain Code(s): R07.9 - CHEST PAIN, UNSPECIFIED Qualifiers: Chest pain type: unspecified Qualified Code(s): R07.9 - Chest pain, unspecified Assessment/Plan IMP: CT findings highly suspicious for Malignancy Do not suspect infectious process PLAN: Tissue diagnosis with CT guided biopsy (discussed with IR) as outpatient PET imaging outpatient DR ANSARI
--- NOTE | 2020-05-27 08:59 | DS ---
Physical Examination Vital Signs: Vital Signs Temperature 98.4 F 05/27/20 06:00 Pulse Rate 69 05/27/20 06:00 Respiratory Rate 20 05/27/20 06:00 Blood Pressure 104/44 L 05/27/20 06:00 O2 Sat by Pulse Oximetry (%) 96 05/27/20 06:00 Labs: CBC, BMP 05/23/20 05:30 05/23/20 05:30 Discharge Summary Problems reviewed: Yes Reason For Visit: DIAPHRAGMATIC HERNIA, CHEST PAIN Current Active Problems CAD (coronary artery disease) of artery bypass graft (Acute) Chest pain (Acute) Diaphragmatic hernia (Acute) HTN (hypertension) (Acute) Mediastinal lymphadenopathy (Acute) Mediastinal mass (Acute) Hospital Course: - Problems (1) Mediastinal mass-Lung Mass Assessment/Plan: -ct abd pelvis- 5.8 X 3.9 irregular medial EMMANUEL/mediastinal mass and mediastinal lymphadenopathy suspicious for malignancy - CT abdomen/pelvis shows L2 lytic lesion. -Pulm consult noted--PET then outpatient Biopsy Code(s): J98.59 - OTHER DISEASES OF MEDIASTINUM, NOT ELSEWHERE CLASSIFIED (2) Chest pain Assessment/Plan: Asa plavix on hold CARDIO ON BOARD---Stress Test Today Code(s): R07.9 - CHEST PAIN, UNSPECIFIED Qualifiers: Chest pain type: unspecified Qualified Code(s): R07.9 - Chest pain, unspecified (3) HTN (hypertension) Assessment/Plan: Vital Signs Period Temp Pulse Resp BP Sys/Aguilar Pulse Ox Last 24 Hr 97.5 F-98.2 F 74-89 12-19 127-187/56-85 97-100 MONITOR ON CURRENT MEDS Code(s): I10 - ESSENTIAL (PRIMARY) HYPERTENSION (4) CAD (coronary artery disease) of artery bypass graft Assessment/Plan: CONTINUE WITH MEDS STRESS TEST no ischemia Code(s): I25.810 - ATHEROSCLEROSIS OF CABG W/O ANGINA PECTORIS Condition: Fair - Instructions Referrals: Stan King MD [Primary Care Provider] - 05/28/20 Disposition: HOME - Home Medications Comprehensive Discharge Medication List: Ambulatory Orders Atorvastatin Ca [Lipitor] 80 mg PO HS 07/24/15 Sitagliptin Phosphate [Januvia] 100 mg PO DAILY 07/24/15 Ezetimibe [Zetia -] 10 mg PO DAILY 10/05/18 Amlodipine Bes/Olmesartan Med [Amlodipine-Olmesartan 5-40 mg] 1 tablet PO DAILY 10/06/18 Furosemide [Lasix -] 20 mg PO DAILY 10/06/18 Insulin Detemir [Levemir Flextouch] 32 unit SQ HS 10/06/18 Insulin Sliding Scale [Novolog Vial Sliding Scale -] 0 units SQ ACHS #1 pen 10/06/18 Isosorbide Mononitrate [Imdur -] 30 mg PO DAILY #60 tab.sr.24h 10/06/18 Metoprolol Succinate [Toprol XL -] 25 mg PO BID tab.sr.24h 05/26/20 Pantoprazole Sodium [Protonix -] 40 mg PO DAILY #30 tablet.ec 05/26/20
[2020-05-27] MEDS: ENOXAPARIN NA (PORCINE) 40 MG/0.4 ML DISP.SYRIN SQ SCH (09:06)
[2020-05-27] MEDS: metoPROLOL SUCCINATE 25 MG TAB.SR.24H (FP) PO SCH (09:07)
[2020-05-27] MEDS: PANTOPRAZOLE 40 MG TABLET PO SCH (09:07)
--- NOTE | 2020-05-27 12:37 | PN ---
Progress Note (short form) - Note Progress Note: cc: epigastric pain s: no cp sob palps dizzy Current Medications Generic Name Dose Route Start Last Admin Trade Name Steven PRN Reason Stop Dose Admin Aspirin 81 mg 05/23/20 10:00 05/24/20 10:18 Asa - PO Not Given DAILY MISTY Atorvastatin Calcium 40 mg 05/23/20 22:00 05/26/20 21:34 Lipitor - PO 40 mg HS MISTY Administration Clopidogrel Bisulfate 75 mg 05/23/20 17:30 05/24/20 10:18 Plavix - PO Not Given DAILY MISTY Enoxaparin Sodium 40 mg 05/23/20 10:00 05/27/20 09:06 Lovenox - SQ 40 mg DAILY MISTY Administration Insulin Aspart 1 vial 05/25/20 07:00 05/27/20 11:09 Novolog Vial Sliding Scale - SQ 6 unit ACHS MISTY Administration Protocol Metoprolol Succinate 25 mg 05/24/20 10:00 05/27/20 09:07 Toprol Xl - PO 25 mg BID MISTY Administration Pantoprazole Sodium 40 mg 05/23/20 10:00 05/27/20 09:07 Protonix - PO 40 mg DAILY MISTY Administration Vital Signs Period Temp Pulse Resp BP Sys/Aguilar Pulse Ox Last 24 Hr 98.0 F-98.7 F 69-78 18-20 104-154/44-79 95-98 Constitutional: Yes: No Distress, Calm Eyes: Yes: Conjunctiva Clear Neck: Yes: Supple, Trachea Midline Cardiovascular: Yes: Regular Rate and Rhythm Respiratory: Yes: CTA Bilaterally Gastrointestinal: Yes: Soft (nt) Edema: No Neurological: Yes: Alert, Oriented no jaundice, diaphoresis not agitated DATA: Echo: EF 50-55%, IS and inferoapical HK. nl RV. mild-mod TR. RVSP 30-40 tele:sr IMP: Mediastinal/lung Mass with lytic bone lesions Hx CAD s/p CABG Epigastric Pain GRANDA abnl ECG, Equivocal TnI Elevated BNP REC: Mediastinal/lung Mass: -CT also notes presence of lytic lesion -Onc and Pulmonary consulted. -Seems like the origin of her GRANDA and epigastric pain, likely referred pain. Hx CAD, remote CABG, elevated trop, epigastric pain, ? NSTEMI: -trop here 0.2 x 2, then 0.8 x 2--trend not typical of ACS. -ECG with deep TWIs anteroseptal leads changed vs 2018, and nonspecific ST-T changes in lateral leads -epigastric pain on presentation = do not suspect anginal equivalent. currently asymptomatic -echo here with RCA territory wall motion abnormality, not described in 2018 -home meds include ASA and Plavix although she denies hx of PCI -defer AC -cont aspirin, plavix, atorvastatin, metoprolol (changed to succinate for better 24 hr coverage) -LDL 43, at goal -nuclear stress test here shows no ischemia, no further cardiac testing at this point -EF preserved GRANDA/abnl ECG/Equivocal TnI: -Suspect GRANDA, weight loss likely secondary to lung mass possible malignancy; plan for outpt PET and bx as per PULM Elevated BNP, mild: -unclear clinical value, does not seem volume overloaded on exam
[2020-05-27 14:14] VITALS: BP 108/50; PULSE 76; TEMP 98.4
--- NOTE | 2020-05-27 14:55 | PN.HO ---
Progress Note (short form) - Note Progress Note: 80 y/o lady PMH DM, CAD s/p CABG with 2 weeks GRANDA and epigastric pain. + Weight loss No cough/fever. CT in ER + Mediastinal mass and lytic lesion. 05/27: Doing well. No complaints. - Home Medications Home Medications: Ambulatory Orders Atorvastatin Ca [Lipitor] 80 mg PO HS 07/24/15 Sitagliptin Phosphate [Januvia] 100 mg PO DAILY 07/24/15 Clopidogrel Bisulfate [Clopidogrel] 75 mg PO DAILY 10/05/18 Ezetimibe [Zetia -] 10 mg PO DAILY 10/05/18 Amlodipine Bes/Olmesartan Med [Amlodipine-Olmesartan 5-40 mg] 1 tablet PO DAILY 10/06/18 Aspirin 81 mg PO DAILY #30 tab.chew 10/06/18 Furosemide [Lasix -] 20 mg PO DAILY 10/06/18 Insulin Detemir [Levemir Flextouch] 32 unit SQ HS 10/06/18 Insulin Sliding Scale [Novolog Vial Sliding Scale -] 0 units SQ ACHS #1 pen 10/06/18 Isosorbide Mononitrate [Imdur -] 30 mg PO DAILY #60 tab.sr.24h 10/06/18 Metoprolol Succinate [Toprol Xl] 75 mg PO DAILY #45 tab.er.24h 10/06/18 Family Medical History Family History: Unremarkable Review of Systems Findings/Remarks: Vital Signs: Last Vital Signs Temp Pulse Resp BP Pulse Ox 98.4 F 76 20 108/50 L 97 05/27/20 14:13 05/27/20 14:13 05/27/20 14:13 05/27/20 14:13 05/27/20 14:13 Constitutional: Yes: No Distress, Calm Eyes: Yes: Conjunctiva Clear, EOM Intact Neck: Yes: Supple, Trachea Midline Respiratory: Yes: CTA Bilaterally Gastrointestinal: Yes: Soft (nt) Cardiovascular: Yes: Regular Rate and Rhythm Heart Sounds: Yes: S1, S2 (rrr, no M/R/G) Neurological: Yes: Alert, Oriented ...Motor Strength: WNL 05/23/20 05:30 05/23/20 05:30 - Results Chest X-ray: Image Reviewed Cat Scan: Image Reviewed EKG: Image Reviewed Assessment/Plan 80F PMH DM,HLD,HTN, CAD s/p CABG with 2 weeks GRANDA and epigastric pain. + Weight loss No cough/fever. CT chest --EMMANUEL mass 4.9cm abutting the mediastinum, mediastinal/AP window n odes., L1 lesion ? metastases on asa/plavix will be held for 7 days. IR guided biopsy and PET-CT outpatient. Needs also MRI Brain Needs outpatient follow-up with Dr. Santos/Dr. Barnes.
== END 2020-05-27 16:40 | disposition home or self-care (01) | DRG 178 ==
LOC: JER 20:52 → JERBED 23:48 → J4S 05-23 18:57
PROVIDERS: ADMIT Internal Medicine; ATTEND Family Medicine
DX: J98.59 Other diseases of mediastinum, not elsewhere classified (principal); E87.1 Hypo-osmolality and hyponatremia; I24.8 Other forms of acute ischemic heart disease; E46 Unspecified protein-calorie malnutrition; D49.1 Neoplasm of unspecified behavior of respiratory system; R59.0 Localized enlarged lymph nodes; I10 Essential (primary) hypertension; I25.10 Atherosclerotic heart disease of native coronary artery without angina pectoris; Z95.1 Presence of aortocoronary bypass graft; E11.9 Type 2 diabetes mellitus without complications; Z79.4 Long term (current) use of insulin; D64.9 Anemia, unspecified; E78.5 Hyperlipidemia, unspecified; R07.9 Chest pain, unspecified; K44.9 Diaphragmatic hernia without obstruction or gangrene; M89.8X8 Other specified disorders of bone, other site
CPT/HCPCS: 36415; 71045-TC-FY; 71250-TC; 71260-TC; 74176-TC; 78452-TC; 80053; 80061; 82272; 82550; 82728; 82962; 83540; 83550; 83690; 83721; 83735; 83880; 84100; 84484; 85025; 85044; 85610; 85730; 93005; 93010; 93017; 93306-TC; 99285-25; A9502; J0131; J2785; Q9967; U0003

== ENCOUNTER 2020-06-24 04:55 | Day surgery (SDC) | payer OTHER ==
[2020-06-23 13:40] VITALS: BMI 19.7
[2020-06-24 15:41] VITALS: BP 142/62; PULSE 88; TEMP 98.4
--- NOTE | 2020-06-26 16:04 | PATH ---
Surgical Pathology Report Patient Name: ERICK WARE [facility]. Rec. #: [id number] /Age/Gender: 1940 (Age: 80) / F Account: [id number] Location: RADIOLOGY INTER Taken: 06/24/2020 Received: 06/24/2020 Reported: 06/26/2020 Physicians: Robyn Kumar M.D. Specimen(s) Received LUNG, LEFT, CT GUIDED CORE BIOPSY Clinical History 80-year-old female with left upper lobe mass lung Final Diagnosis LUNG, LEFT, CT GUIDED CORE BIOPSY: ADENOCARCINOMA POORLY DIFFERENTIATED. SEE COMMENT. Comment: Immunohistochemical stains performed and interpreted at [facility] show the tumor is positive for AE1/3, CK7, TTF-1, and p63 (patchy). Additional Immunohistochemical stains performed at [facility] [place] ([id number]) and interpreted at [facility] show the tumor is positive for Napsin-A, while negative for P40. Overall immunophenotype supports an adenocarcinoma of lung origin. Imaging findings of large lung mass noted. Case discussed with Dr. King, 06/26/20. Case seen in intradepartmental review with consensus on diagnosis. Positive and negative controls (internal if applicable) show appropriate results. Electronically Signed Sarah Lugo M.D. Gross Description Received in formalin labeled "left lung biopsy," is a 1.1 x 0.6 x 0.1 cm aggregate of abundant gibson, irregular to cylindrical portions of soft tissue. The formalin is filtered and the specimen is entirely submitted in one cassette. DL/06/24/2020 saudi/06/24/2020
== END 2020-06-24 16:35 | disposition home or self-care (01) ==
LOC: JRADIR 04:55
PROVIDERS: ATTEND Family Medicine
PROC: 0BBG3ZX Excision of Left Upper Lung Lobe, Percutaneous Approach, Diagnostic (ICD-10-PCS; principal; 2020-06-24)
DX: C34.12 Malignant neoplasm of upper lobe, left bronchus or lung (principal)
CPT/HCPCS: 32405; 71045-TC-FY; 77012-TC; 88305-TC; 88341-TC; 88342-TC

== ENCOUNTER 2020-07-17 06:38 | Day surgery (SDC) | payer OTHER ==
--- OUTSIDE RECORDS SUMMARY | 2020-07-09 07:18 | XMS ---
:1940 Author Organization [facility] Care Team Providers Name Role Phone ED STAFF PHYSICIAN, STAFF Unavailable Unavailable Re-disclosure Warning The records that you are about to access may contain information from federally- assisted alcohol or drug abuse programs. If such information is present, then the following federally mandated warning applies: This information has been disclosed to you from records protected by federal confidentiality rules (42 CFR part 2). The federal rules prohibit you from making any further disclosure of this information unless further disclosure is expressly permitted by the written consent of the person to whom it pertains or as otherwise permitted by 42 CFR part 2. A general authorization for the release of medical or other information is NOT sufficient for this purpose. The Federal rules restrict any use of the information to criminally investigate or prosecute any alcohol or drug abuse patient.The records that you are about to access may contain highly sensitive health information, the redisclosure of which is protected by Article 27-F of the [facility] Public Health law. If you continue you may haveaccess to information: Regarding HIV / AIDS; Provided by facilities licensed or operated by the [facility] Office of Mental Health; or Provided by the [facility] Office for People With Developmental Disabilities. If such information is present, then the following [facility] mandated warning applies: This information has been disclosed to you from confidential records which are protected by state law. State law prohibits you from making any further disclosure of this information without the specific written consent of the person to whom it pertains, or as otherwise permitted by law. Any unauthorized further disclosure in violation of state law may result in a fine or group home sentence or both. A general authorization for the release of medical or other information is NOT sufficient authorization for further disclosure. Encounters Encounter Providers Location Date Indications Data Source(s ) Emergency Attender: STAFF ED H 08/27/2019 [facility] STAFF PHYSICIAN 02:32:00 AM EST [facility] - 08/27/2019 08:45:00 AM EST Patient discharged. Emergency H 07/24/2019 02:32:00 PM EDT - 019 [facility] 11:19:00 PM EDT Patient discharged. Medications Medication Brand Start Product Dose Route [facility] Indications Reaction Description Data Name Date Form Instructions Instructions Source(s) Meclizine mecliz 1 complet [facility] Hydrochlori ine 25 ed Wu s de 25 MG mg Medical Oral Tablet Tablet Center meclizine , 25 mg Ordere Tablet, d By: Ordered By: Vadim Rondon, , MDDirection MDDire s: 1 tablet ctions oral three : 1 times a day tablet oral three times a day omeprazole- complet [facility] sodium ed [facility] bicarbonate Medical 20 mg-1.1 Center gram Capsule baby complet [facility] aspirin [facility] atorvastati complet [facility] n 20 mg ed [facility] Tablet Medical Center Meclizine mecliz 1 complet [facility] Hydrochlori ine 25 ed Wu s de 25 MG mg Medical Oral Tablet Tablet Center meclizine , 25 mg Ordere Tablet, d By: Ordered By: Rex Lopez , MDDirection MDDire s: 1 tablet ctions oral every : 1 eight hours tablet PRN nausea oral or vomiting every eight hours PRN nausea or vomiti ng sitaGLIPtin complet JanUVIA Sa int (JanUVIA) ed Des 100 mg Medical Tablet Center Insurance Providers Payer name Policy type Policy ID Covered Covered democrat's Policy P noelle / Coverage democrat ID relationship to [facility] [facility] ormation type aldrich MEDICAID [id number] SP [id number] HIP MEDICARE [id number] SP [id number] VIP JENNY MEDICARE [id number] SP [id number] ELDERPLAN [id number] SP [id number] HOMEFIRST MERARY [id number] SP [id number] MEDICARE ADV PLAN MEDICAID [id number] SP [id number] TOUCHSTONE [id number] SP [id number] BLUE CROSS [id number] SP [id number] SENIOR PLAN MEDICAID [id number] SP [id number] EMBLEM O [id number] 01 [id number] 01 [id number] ELDER PLAN O [id number] 01 [id number] HEALTHFIRST O [id number] HEALTHFIRST O [id number] [facility] [id number] 1 [id number] (HMO) [place] MED[place] [id number] 1 [id number] PART B [place] Problems, Conditions, and Diagnoses Code Display Name Description Problem Type Effective Data Dates Source(s) I10 Essential (primary) ESSENTIAL Diagnosis 08/27/2019 [facility] hypertension (PRIMARY) 02:32:00 AM Medical HYPERTENSION EST Center E11.9 Type 2 diabetes TYPE 2 DIABETES Diagnosis 08/27/2019 Eduindane Nunes mellitus without MELLITUS WITHOUT 02:32:00 AM M edical complications COMPLICATIONS EST Center 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[place] 02:32:00 AM Medical [place]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 ID Date Data Source [id number] 05/22/2020 05:29:00 AM EDT [facility] Name Value Range Interpretation Description Data Sup porting Code Source(s) Document(s ) SARS [facility] coronavirus 2 RNA This lab was ordered by [facility] and reported by [facility]. ID Date Data Source Urinalysis.[id number] 08/27/2019 03:27:00 AM MADINA Lechuga [facility] 0 Name Value Range Interpretation Description Data Sup porting Code Source(s) Document(s ) UNK CLEAR <content Saint styleCode="[facility] d">Urine Medical Clarity Center </content>GINETTE R <content styleCode="Conchis lics"> (CLEAR )</content> Color of Urine YELLOW <content Saint styleCode="[facility] d">Color, Medical Urine Center </content>YELL OW <content styleCode="Conchis lics"> (YELLOW )</content> Ketones NEGATIVE <content Saint [Mass/volume] styleCode="Jaquelin Des in Urine by d">Urine Medical Test strip Ketone Center </content>NEGA TIVE MG/DL<content styleCode="Conchis lics"> (NEGATIVE MG/DL)</conten t> Specific 1.015-1.02 Below low normal <content [facility] gravity of 5 styleCode="[facility] Urine by Test d">Urine Medical strip Specific Center [place] </content><= 1.005 L<content styleCode="Conchis lics"> (1.015-1.025 )</content> Glucose NEGATIVE <content Saint [Mass/volume] styleCode="Jaquelin Des in Urine by d">Urine Medical Test strip Glucose Center </content>NEGA TIVE MG/DL<content styleCode="Conchis lics"> (NEGATIVE MG/DL)</conten t> UNK NEGATIVE <content Saint styleCode="Jaquelin Des d">Urine Medical Bilirubin Center </content>NEGA TIVE <content styleCode="Conchis lics"> (NEGATIVE )</content> pH of Urine by 4.5-8.0 <content Saint Test strip styleCode="Jaquelin Des d">Urine pH Medical </content>6.5 Center <content styleCode="Conchis lics"> (4.5-8.0 )</content> Protein NEGATIVE <content Saint [Mass/volume] styleCode="Jaquelin Nunes in Urine by d">Urine Medical Test strip Protein Center </content>NEGA TIVE MG/DL<content styleCode="Conchis lics"> (NEGATIVE MG/DL)</conten t> Hemoglobin NEGATIVE <content Saint [Presence] in styleCode="Jaquelin Nunes Urine by Test d">Urine Blood Medical strip </content>TRAC Center E <content styleCode="Conchis lics"> (NEGATIVE )</content> Urobilinogen 0.2-1.0 <content Saint [Units/volume] styleCode="Jaquelin Washburns in Urine by d">Urine Medical Test strip Urobilinogen Center </content>0.2 MG/DL<content styleCode="Conchis lics"> (0.2-1.0 MG/DL)</conten t> Nitrite NEGATIVE <content Saint [Presence] in styleCode="Jaquelin Nunes Urine by Test d">Urine Medical strip Nitrite Center </content>NEGA TIVE <content styleCode="Conchis lics"> (NEGATIVE )</content> UNK NONE SEEN <content Saint styleCode="Jaquelin Washburns d">Epithelial Medical Cell Center </content>2-5 HPF<content styleCode="Conchis lics"> (NONE SEEN HPF)</content> UNK NEGATIVE <content Saint styleCode="Jaquelin Washburns d">Urine Medical Bacteria Center </content>MODE RATE HPF<content styleCode="Conchis lics"> (NEGATIVE HPF)</content> UNK 0-3 <content Saint styleCode="Jaquelin Des d">Urine White Medical Blood Cell Center </content>3-5 HPF<content styleCode="Conchis lics"> (0-3 HPF)</content> Leukocyte NEGATIVE <content Saint esterase styleCode="Jaquelin Washburns [Presence] in d">Urine Medical Urine by Test Leukocyte Center strip </content>TRAC E <content styleCode="Conchis lics"> (NEGATIVE )</content> UNK 0-3 <content Saint styleCode="Jaquelin Des d">Urine Red Medical Blood Cell Center </content>0-3 HPF<content styleCode="Conchis lics"> (0-3 HPF)</content> ID Date Data Source Microbiology.[id number] 08/27/2019 03:27:00 AM EST Ankush [facility] 500 Name Value Range Interpretation Code Description Data Niki rce(s) Supporting Document(s ) UNK <item><content [facility] styleCode="Bold"> Medical [facility] er Culture Report </content>
<t able><tbody><tr>< td>Specimen Number:</td><td>[id number]</td></tr ><tr><td>Sample Collection Date/Time: </td><td> 9 3:27 AM</td></tr><tr>< td>Specimen Source:</td><td>U RINE</td></tr><tr ><td>Urine Culture:</td><td> Collection Plate Date: 08/27/2019 03:41 </td></tr><tr><td >Culture Status:</td><td>P reliminary </td></tr><tr><td >Culture Report:</td><td>C ulture in progress </td></tr></tbody ></table></item> UNK <item><content [facility] styleCode="Bold"> Medical [facility] er Culture Status </content>
<t able><tbody><tr>< td>Specimen Number:</td><td>[id number]</td></tr ><tr><td>Sample Collection Date/Time: </td><td> 9 3:27 AM</td></tr><tr>< td>Specimen Source:</td><td>U RINE</td></tr><tr ><td>Culture Status:</td><td>P reliminary </td></tr><tr><td >Culture Report:</td><td>C ulture in progress </td></tr><tr><td >Urine Culture:</td><td> Collection Plate Date: 08/27/2019 03:41 </td></tr></tbody ></table></item> ID Date Data Source HematologyRou.[id number] 08/27/2019 03:15:00 AM MADINA Lechuga [facility] 0500 Name Value Range Interpretation Description Data Sup porting Code Source(s) Document(s ) Leukocytes 4.4-11.0 <content Saint [#/volume] in styleCode="Bold [facility] Blood by ">White Blood Medical Automated count Cell Count Center </content>5.71 KCUMM<content styleCode="Ital ics"> (4.4-11.0 KCUMM)</content > Hemoglobin 12.3-16. Below low normal <content Saint [Mass/volume] in 0 styleCode="Bold Des Blood ">Hemoglobin Medical </content>10.9 Center G/DL L<content styleCode="Ital ics"> (12.3-16.0 G/DL)</content> Erythrocytes 4.0-5.1 Below low normal <content Saint [#/volume] in styleCode="Bold Des Blood by ">Red Blood Medical Automated count Cell Count Center </content>3.43 MCUMM L<content styleCode="Ital ics"> (4.0-5.1 MCUMM)</content > Hematocrit 36.0-46. Below low normal <content Saint [Volume 0 styleCode="Bold Des Fraction] of ">Hematocrit Medical Blood by </content>31.6 Center Automated count % L<content styleCode="Ital ics"> (36.0-46.0 %)</content> Erythrocyte mean 32.0-37. <content [facility] corpuscular 0 styleCode="Bold Des hemoglobin ">Mean Corpus. Medical concentration Hgb Center [Mass/volume] by Concentration Automated count (MCHC) </content>34.5 G/DL<content styleCode="Ital ics"> (32.0-37.0 G/DL)</content> Erythrocyte mean 26.0-34. <content [facility] corpuscular 0 styleCode="Bold Des hemoglobin ">Mean Medical [Entitic mass] Corposcular Center by Automated Hemoglobin count </content>31.8 PG<content styleCode="Ital ics"> (26.0-34.0 PG)</content> Erythrocyte 11.5-14. <content [facility] distribution 5 styleCode="Bold Des width [Ratio] by ">Red Cell Medical Automated count Distribution Center Width </content>12.4 %<content styleCode="Ital ics"> (11.5-14.5 %)</content> Erythrocyte mean 80.0-100 <content [facility] corpuscular .0 styleCode="Bold Des volume [Entitic ">Mean Medical volume] by Corpuscular Center Automated count Volume </content>92.1 FL<content styleCode="Ital ics"> (80.0-100.0 FL)</content> Platelet mean 8.0-11.0 <content Saint volume [Entitic styleCode="Bold Des volume] in Blood ">Mean Platelet Medical by Automated Volume Center count </content>10.0 FL<content styleCode="Ital ics"> (8.0-11.0 FL)</content> Platelets 130-400 <content Saint [#/volume] in styleCode="Bold Des Blood by ">Platelet Medical Automated count Count Center </content>226 KCUMM<content styleCode="Ital ics"> (130-400 KCUMM)</content > UNK 0 <content Saint styleCode="Bold Des ">Nucleated Red Medical Blood Cell Center </content>0.0 /100<content styleCode="Ital ics"> (0 /100)</content> UNK 0.0 <content Saint styleCode="Bold Des ">Nucleated Red Medical Blood Cell Center Count </content>0.00 KCUMM<content styleCode="Ital ics"> (0.0 KCUMM)</content > ID Date Data Source GFR(Creatinine).[id number] 08/27/2019 03:15:00 AM MADINA Lechuga [facility] 0-0500 Name Value Range Interpretation Code Description Data Niki rce(s) Supporting Document(s ) UNK > 60 <content Saint [facility] styleCode="Bold"> Medical Cent er EGFR </content>86 GFR<content styleCode="Italic s"> (> 60 GFR)</content> ID Date Data Source OLLIE.[id number] 08/27/2019 03:15:00 AM [facility] -0500 Name Value Range Interpretation Description Data Sup porting Code Source(s) Document(s ) Natriuretic < 450 <content Saint peptide.B styleCode="Jaquelin Des prohormone d">NT Pro BNP Medical N-Terminal </content>207 Center [Mass/volume] PG/ML<content in Serum or styleCode="Conchis Plasma lics"> (< 450 PG/ML)</conten t> ID Date Data Source CardiacMarkers.[id number] 08/27/2019 03:15:00 AM [facility] -0500 Name Value Range Interpretation Description Data Sup porting Code Source(s) Document(s ) Troponin < 0.034 <content Saint I.cardiac styleCode="Bold Des [Mass/volume ">Troponin I Medical ] in Serum </content>< Center or Plasma 0.012 NG/ML<content styleCode="Ital ics"> (< 0.034 NG/ML)</content > ID Date Data Source [facility].[id number] 08/27/2019 03:15:00 AM [facility] Name Value Range Interpretation Description Data Sup porting Code Source(s) Document(s ) Sodium 137-145 <content Saint [Moles/volume] styleCode="Jaquelin Des in Serum or d">Sodium Medical Plasma </content>139 Center MEQ/L<content styleCode="Conchis lics"> (137-145 MEQ/L)</conten t> Chloride 98-107 <content Saint [Moles/volume] styleCode="Jaquelin Des in Serum or d">Chloride Medical Plasma </content>103 Center MEQ/L<content styleCode="Conchis lics"> (98-107 MEQ/L)</conten t> Potassium 3.5-5.3 <content Saint [Moles/volume] styleCode="Jaquelin Washburns in Serum or d">Potassium Medical Plasma </content>4.5 Center MEQ/L<content styleCode="Conchis lics"> (3.5-5.3 MEQ/L)</conten t> Carbon 22-30 <content Saint dioxide, total styleCode="Jaquelin Washburns [Moles/volume] d">Carbon Medical in Serum or Dioxide Center Plasma </content>29 MEQ/L<content styleCode="Conchis lics"> (22-30 MEQ/L)</conten t> UNK 7-17 Above high normal <content Saint styleCode="Jaquelin Des d">BUN Medical </content>22 Center MG/DL H<content styleCode="Conchis lics"> (7-17 MG/DL)</conten t> Creatinine 0.5-1.3 <content Saint [Mass/volume] styleCode="Jaquelin Des in Serum or d">Creatinine Medical Plasma </content>0.7 Center MG/DL<content styleCode="Conchis lics"> (0.5-1.3 MG/DL)</conten t> UNK > 60 <content Saint styleCode="Jaquelin Washburns d">EGFR Medical </content>86 Center GFR<content styleCode="Conchis lics"> (> 60 GFR)</content> Calcium 8.4-10.2 <content Saint [Mass/volume] styleCode="Jaquelin Washburns in Serum or d">Calcium Medical Plasma </content>9.4 Center MG/DL<content styleCode="Conchis lics"> (8.4-10.2 MG/DL)</conten t> Glucose 74-106 Above high normal <content Saint [Mass/volume] styleCode="Jaquelin Des in Serum or d">Glucose Medical Plasma </content>187 Center MG/DL H<content styleCode="Conchis lics"> (74-106 MG/DL)</conten t> ID Date Data Source Urinalysis.[id number] 07/24/2019 07:45:00 PM EDT Ankush [facility] 0 Name Value Range Interpretation Description Data Sup porting Code Source(s) Document(s ) UNK NEGATIVE <content Saint styleCode="Jaquelin Washburns d">Urine Medical Bilirubin Center </content>NEGA TIVE <content styleCode="Conchis lics"> (NEGATIVE )</content> UNK CLEAR <content Saint styleCode="Jaquelin Des d">Urine Medical Clarity Center </content>GINETTE R <content styleCode="Conchis lics"> (CLEAR )</content> Color of Urine YELLOW <content Saint styleCode="Jaquelin Washburns d">Color, Medical Urine Center </content>YELL OW <content styleCode="Conchis lics"> (YELLOW )</content> Glucose NEGATIVE <content Saint [Mass/volume] styleCode="Jaquelin Washburns in Urine by d">Urine Medical Test strip Glucose Center </content>NEGA TIVE MG/DL<content styleCode="Conchis lics"> (NEGATIVE MG/DL)</conten t> Ketones NEGATIVE <content Saint [Mass/volume] styleCode="Jaquelin Washburns in Urine by d">Urine Medical Test strip Ketone Center </content>NEGA TIVE MG/DL<content styleCode="Conchis lics"> (NEGATIVE MG/DL)</conten t> pH of Urine by 4.5-8.0 <content Saint Test strip styleCode="Jaquelin Washburns d">Urine pH Medical </content>6.5 Center <content styleCode="Conchis lics"> (4.5-8.0 )</content> Hemoglobin NEGATIVE <content Saint [Presence] in styleCode="Jaquelin Washburns Urine by Test d">Urine Blood Medical strip </content>NEGA Center TIVE <content styleCode="Conchis lics"> (NEGATIVE )</content> Protein NEGATIVE <content Saint [Mass/volume] styleCode="Jaquelin Des in Urine by d">Urine Medical Test strip Protein Center </content>NEGA TIVE MG/DL<content styleCode="Conchis lics"> (NEGATIVE MG/DL)</conten t> Specific 1.015-1.02 Below low normal <content Saint gravity of 5 styleCode="Jaquelin Nunes Urine by Test d">Urine Medical strip Specific [facility] [place] </content><= 1.005 L<content styleCode="Conchis lics"> (1.015-1.025 )</content> Leukocyte NEGATIVE <content Saint esterase styleCode="Jaquelin Washburns [Presence] in d">Urine Medical Urine by Test Leukocyte Center strip </content>NEGA TIVE <content styleCode="Conchis lics"> (NEGATIVE )</content> Urobilinogen 0.2-1.0 <content Saint [Units/volume] styleCode="Jaquelin Washburns in Urine by d">Urine Medical Test strip Urobilinogen Center </content>0.2 MG/DL<content styleCode="Conchis lics"> (0.2-1.0 MG/DL)</conten t> Nitrite NEGATIVE <content Saint [Presence] in styleCode="Jaquelin Washburns Urine by Test d">Urine Medical strip Nitrite Center </content>NEGA TIVE <content styleCode="Conchis lics"> (NEGATIVE )</content> ID Date Data Source Liver 07/24/2019 04:35:00 PM EDT [facility] Profile.[id number] Name Value Range Interpretation Description Data Sup porting Code Source(s) Document(s ) Aspartate 14-36 <content Saint aminotransferase styleCode="Bold"> Adolfo hs [Enzymatic Aspartate Medical activity/volume] Aminotransferase Center in Serum or Plasma (AST) </content>28 IU/L<content styleCode="Italic s"> (14-36 IU/L)</content> Bilirubin.total 0.2-1.3 <content Saint [Mass/volume] in styleCode="Bold"> Adolfo hs Serum or Plasma Bilirubin Total Medical </content>0.4 Center MG/DL<content styleCode="Italic s"> (0.2-1.3 MG/DL)</content> Alkaline 38-126 <content Saint phosphatase styleCode="Bold"> Des [Enzymatic Alkaline Medical activity/volume] Phosphatase (ALP) Cente r in Serum or Plasma </content>78 IU/L<content styleCode="Italic s"> (38-126 IU/L)</content> Alanine 7-30 <content Saint aminotransferase styleCode="Bold"> Adolfo hs [Enzymatic Alanine Medical activity/volume] Aminotransferase Center in Serum or Plasma (ALT) </content>16 IU/L<content styleCode="Italic s"> (7-30 IU/L)</content> Albumin 3.5-5.0 <content Saint [Mass/volume] in styleCode="Bold"> Adolfo hs Serum or Plasma Albumin Medical </content>3.9 Center G/DL<content styleCode="Italic s"> (3.5-5.0 G/DL)</content> ID Date Data Source HematologyRou.[id number] 07/24/2019 04:35:00 PM EDT [facility] 0400 Name Value Range Interpretation Description Data Sup porting Code Source(s) Document(s ) Leukocytes 4.4-11.0 <content Saint [#/volume] in styleCode="Bold Des Blood by ">White Blood Medical Automated count Cell Count Center </content>4.80 KCUMM<content styleCode="Ital ics"> (4.4-11.0 KCUMM)</content > Hemoglobin 12.3-16. Below low normal <content Saint [Mass/volume] in 0 styleCode="Bold Des Blood ">Hemoglobin Medical </content>11.3 Center G/DL L<content styleCode="Ital ics"> (12.3-16.0 G/DL)</content> Erythrocytes 4.0-5.1 Below low normal <content Saint [#/volume] in styleCode="Bold Des Blood by ">Red Blood Medical Automated count Cell Count Center </content>3.62 MCUMM L<content styleCode="Ital ics"> (4.0-5.1 MCUMM)</content > Erythrocyte mean 80.0-100 <content Saint corpuscular .0 styleCode="Bold Des volume [Entitic ">Mean Medical volume] by Corpuscular Center Automated count Volume </content>91.4 FL<content styleCode="Ital ics"> (80.0-100.0 FL)</content> Erythrocyte mean 26.0-34. <content Saint corpuscular 0 styleCode="Bold Des hemoglobin ">Mean Medical [Entitic mass] Corposcular Center by Automated Hemoglobin count </content>31.2 PG<content styleCode="Ital ics"> (26.0-34.0 PG)</content> Hematocrit 36.0-46. Below low normal <content Saint [Volume 0 styleCode="Bold Des Fraction] of ">Hematocrit Medical Blood by </content>33.1 Center Automated count % L<content styleCode="Ital ics"> (36.0-46.0 %)</content> Platelets 130-400 <content Saint [#/volume] in styleCode="Bold Des Blood by ">Platelet Medical Automated count Count Center </content>237 KCUMM<content styleCode="Ital ics"> (130-400 KCUMM)</content > Erythrocyte mean 32.0-37. <content Saint corpuscular 0 styleCode="Bold Des hemoglobin ">Mean Corpus. Medical concentration Hgb Center [Mass/volume] by Concentration Automated count (MCHC) </content>34.1 G/DL<content styleCode="Ital ics"> (32.0-37.0 G/DL)</content> Erythrocyte 11.5-14. <content Saint distribution 5 styleCode="Bold Des width [Ratio] by ">Red Cell Medical Automated count Distribution Center Width </content>12.5 %<content styleCode="Ital ics"> (11.5-14.5 %)</content> UNK 1.6-7.3 <content Saint styleCode="Bold Des ">Neutrophil Medical Count Center </content>2.99 KCUMM<content styleCode="Ital ics"> (1.6-7.3 KCUMM)</content > Neutrophils 36-66 <content Saint [#/volume] in styleCode="Bold Des Blood by ">Neutrophil Medical Automated count </content>62.3 Center %<content styleCode="Ital ics"> (36-66 %)</content> Platelet mean 8.0-11.0 <content Saint volume [Entitic styleCode="Bold Des volume] in Blood ">Mean Platelet Medical by Automated Volume Center count </content>10.2 FL<content styleCode="Ital ics"> (8.0-11.0 FL)</content> Lymphocytes 24.0-44. <content Saint [#/volume] in 0 styleCode="Bold Des Blood by ">Lymphocyte Medical Automated count </content>24.6 Center %<content styleCode="Ital ics"> (24.0-44.0 %)</content> UNK 0.2-0.9 <content Saint styleCode="Bold Des ">Monocyte Medical Count Center </content>0.54 KCUMM<content styleCode="Ital ics"> (0.2-0.9 KCUMM)</content > UNK 1.0-4.8 <content Saint styleCode="Bold Des ">Lymphocyte Medical Count Center </content>1.18 KCUMM<content styleCode="Ital ics"> (1.0-4.8 KCUMM)</content > Monocytes 3.0-10.0 Above high <content Saint [#/volume] in normal styleCode="Bold Des Blood by ">Monocyte Medical Automated count </content>11.3 Center % H<content styleCode="Ital ics"> (3.0-10.0 %)</content> UNK 0.0-0.6 <content Saint styleCode="Bold Des ">Eosinophil Medical Count Center </content>0.04 KCUMM<content styleCode="Ital ics"> (0.0-0.6 KCUMM)</content > Basophils 0.0-1.0 <content [facility] [#/volume] in styleCode="Bold Des Blood by ">Basophil Medical Automated count </content>0.6 Center %<content styleCode="Ital ics"> (0.0-1.0 %)</content> Eosinophils 0-5.0 <content Saint [#/volume] in styleCode="Bold Des Blood by ">Eosinophil Medical Automated count </content>0.8 Center %<content styleCode="Ital ics"> (0-5.0 %)</content> UNK 0.0-0.3 <content [facility] styleCode="Bold Des ">Basophil Medical Count Center </content>0.03 KCUMM<content styleCode="Ital ics"> (0.0-0.3 KCUMM)</content > UNK 0.0 <content Saint styleCode="Bold Des ">Nucleated Red Medical Blood Cell Center Count </content>0.00 KCUMM<content styleCode="Ital ics"> (0.0 KCUMM)</content > UNK 0 <content styleCode="Bold Des ">Nucleated Red Medical Blood Cell Center </content>0.0 /100<content styleCode="Ital ics"> (0 /100)</content> UNK 0-0.1 <content styleCode="Bold Des ">Immature Medical Granulocyte Center Count </content>0.02 KCUMM<content styleCode="Ital ics"> (0-0.1 KCUMM)</content > UNK < 1 <content styleCode="Bold Des ">Immature Medical Granulocyte Center Ratio </content>0.4 %<content styleCode="Ital ics"> (< 1 %)</content> ID Date Data Source GFR(Creatinine).[id number] 07/24/2019 04:35:00 PM EDT [facility] 0-0400 Name Value Range Interpretation Code Description Data Niki rce(s) Supporting Document(s ) UNK > 60 Below low normal <content [facility] styleCode="Bold"> Medical Cent er EGFR </content>51 GFR L<content styleCode="Italic s"> (> 60 GFR)</content> ID Date Data Source Coagulation 07/24/2019 04:35:00 PM [facility] Rout.[id number] EDT Name Value Range Interpretation Description Data Sup porting Code Source(s) Document(s ) aPTT in 25.1-36. <content [facility] Platelet poor 5 styleCode="Bold" [facility] plasma by >Partial Medical Coagulation Thromboplastin Center assay Time </content>28.8 SEC<content styleCode="Itali cs"> (25.1-36.5 SEC)</content> INR in 0.80-1.2 <content [facility] Platelet poor 0 styleCode="Bold" Des plasma by >INR Medical Coagulation </content>1.13 Center assay #<content styleCode="Itali cs"> (0.80-1.20 #)</content> UNK 9.0-13.0 <content styleCode="Bold" Des >Protime Medical </content>12.5 Center SEC<content styleCode="Itali cs"> (9.0-13.0 SEC)</content> ID Date Data Source MRBONITA.[id number] 07/24/2019 04:35:00 PM EDT [facility] -0400 Name Value Range Interpretation Description Data Sup porting Code Source(s) Document(s ) Protein 6.3-8.2 <content [facility] [Mass/volum styleCode="Bold Medical e] in Serum ">Total Protein Center or Plasma </content>7.2 G/DL<content styleCode="Ital ics"> (6.3-8.2 G/DL)</content> UNK >= 1.0 <content [facility] styleCode="Bold Medical ">AG Ratio Center </content>1.2 <content styleCode="Ital ics"> (>= 1.0 )</content> UNK 2.3-3.5 <content [facility] styleCode="Bold Medical ">Globulin Center </content>3.3 G/DL<content styleCode="Ital ics"> (2.3-3.5 G/DL)</content> ID Date Data Source [employer].[id number] 07/24/2019 04:35:00 PM EDT [facility] -0400 Name Value Range Interpretation Description Data Sup porting Code Source(s) Document(s ) Troponin < 0.034 <content [facility] I.cardiac styleCode="Bold Des [Mass/volume ">Troponin I Medical ] in Serum </content>< Center or Plasma 0.012 NG/ML<content styleCode="Ital ics"> (< 0.034 NG/ML)</content > ID Date Data Source [facility].[id number] 07/24/2019 04:35:00 PM EDT [facility] Name Value Range Interpretation Description Data Sup porting Code Source(s) Document(s ) Chloride 98-107 <content [facility] [Moles/volume] in styleCode="Bold"> [facility] Serum or Plasma Chloride Medical </content>101 Center MEQ/L<content styleCode="Italic s"> (98-107 MEQ/L)</content> Sodium 137-145 <content [facility] [Moles/volume] in styleCode="Bold"> [facility] Serum or Plasma Sodium Medical </content>138 Center MEQ/L<content styleCode="Italic s"> (137-145 MEQ/L)</content> Carbon dioxide, 22-30 <content [facility] total styleCode="Bold"> Des [Moles/volume] in Carbon Dioxide Medical Serum or Plasma </content>27 Center MEQ/L<content styleCode="Italic s"> (22-30 MEQ/L)</content> Potassium 3.5-5.3 <content [facility] [Moles/volume] in styleCode="Bold"> [facility] Serum or Plasma Potassium Medical </content>4.1 Center MEQ/L<content styleCode="Italic s"> (3.5-5.3 MEQ/L)</content> Calcium 8.4-10. <content [facility] [Mass/volume] in 2 styleCode="Bold"> Adolfo hs Serum or Plasma Calcium Medical </content>9.4 Center MG/DL<content styleCode="Italic s"> (8.4-10.2 MG/DL)</content> Creatinine 0.5-1.3 <content [facility] [Mass/volume] in styleCode="Bold"> Adolfo hs Serum or Plasma Creatinine Medical </content>1.1 Center MG/DL<content styleCode="Italic s"> (0.5-1.3 MG/DL)</content> Glucose 74-106 Above high <content [facility] [Mass/volume] in normal styleCode="Bold"> Adolfo hs Serum or Plasma Glucose Medical </content>206 Center MG/DL H<content styleCode="Italic s"> (74-106 MG/DL)</content> UNK 7-17 Above high <content [facility] normal styleCode="Bold"> Des BUN </content>20 Medical MG/DL H<content Center styleCode="Italic s"> (7-17 MG/DL)</content> Alanine 7-30 <content [facility] aminotransferase styleCode="Bold"> Adolfo hs [Enzymatic Alanine Medical activity/volume] Aminotransferase Center in Serum or Plasma (ALT) </content>16 IU/L<content styleCode="Italic s"> (7-30 IU/L)</content> Alkaline 38-126 <content [facility] phosphatase styleCode="Bold"> Des [Enzymatic Alkaline Medical activity/volume] Phosphatase (ALP) Cente r in Serum or Plasma </content>78 IU/L<content styleCode="Italic s"> (38-126 IU/L)</content> UNK > 60 Below low <content [facility] normal styleCode="Bold"> Des EGFR </content>51 Medical GFR L<content Center styleCode="Italic s"> (> 60 GFR)</content> Aspartate 14-36 <content [facility] aminotransferase styleCode="Bold"> Adolfo hs [Enzymatic Aspartate Medical activity/volume] Aminotransferase Center in Serum or Plasma (AST) </content>28 IU/L<content styleCode="Italic s"> (14-36 IU/L)</content> Bilirubin.total 0.2-1.3 <content [facility] [Mass/volume] in styleCode="Bold"> Adolfo hs Serum or Plasma Bilirubin Total Medical </content>0.4 Center MG/DL<content styleCode="Italic s"> (0.2-1.3 MG/DL)</content> Albumin 3.5-5.0 <content [facility] [Mass/volume] in styleCode="Bold"> Adolfo hs Serum or Plasma Albumin Medical </content>3.9 Center G/DL<content styleCode="Italic s"> (3.5-5.0 G/DL)</content> Procedure Social History Code Duration Value Status Description Data Source(s ) Smoking 08/27/2019 Denies Ever completed Denies Ever Smoked [facility] 03:45:00 AM EST Smoked Medical C enter Smoking 08/27/2019 Denies Ever completed Denies Ever Smoked [facility] 02:48:00 AM EST Smoked Medical C enter Smoking 07/24/2019 Denies Ever completed Denies Ever Smoked [facility] 05:05:00 PM EDT Smoked Medical C enter Smoking 07/24/2019 Denies Ever completed Denies Ever Smoked [facility] 03:52:00 PM EDT Smoked Medical C enter Smoking 07/24/2019 Denies Ever completed Denies Ever Smoked [facility] Eds 03:00:00 PM EDT Smoked Medical C enter Smoking 07/24/2019 Denies Ever completed Denies Ever Smoked [facility] Des 02:50:00 PM EDT Smoked Medical C enter Vital Signs ID Date Data Source UNK Name Value Range Interpretation Code Description Data Source(s) Body temperature 36.710814 36.705669 [facility] Respiratory rate 18 /min 18 /min [facility] Oxygen saturation 99 % 99 % [facility] by Pulse oximetry Heart rate 68 /min 68 /min [facility] Diastolic blood 51 mm[Hg] 51 mm[Hg] [facility] Systolic blood 118 mm[Hg] 118 mm[Hg] [facility] Body temperature 36.226922 36.140326 [facility] Respiratory rate 17 /min 17 /min [facility] Oxygen saturation 97 % 97 % [facility] by Pulse oximetry Heart rate 80 /min 80 /min [facility] Diastolic blood 61 mm[Hg] 61 mm[Hg] [facility] Systolic blood 127 mm[Hg] 127 mm[Hg] [facility] Body temperature 36.064487 36.271704 [facility] Respiratory rate 16 /min 16 /min [facility] Oxygen saturation 92 % 92 % [facility] by Pulse oximetry Heart rate 83 /min 83 /min [facility] Diastolic blood 65 mm[Hg] 65 mm[Hg] [facility] Systolic blood 140 mm[Hg] 140 mm[Hg] [facility] Heart rate 90 /min 90 /min [facility] Body temperature 37.398117 37.355217 [facility] Respiratory rate 19 /min 19 /min [facility] Oxygen saturation 97 % 97 % [facility] by Pulse oximetry Heart rate 90 /min 90 /min [facility] Diastolic blood 77 mm[Hg] 77 mm[Hg] [facility] Systolic blood 163 mm[Hg] 163 mm[Hg] [facility] Body temperature 36.803636 36.301784 [facility] Respiratory rate 16 /min 16 /min [facility] Oxygen saturation 98 % 98 % [facility] by Pulse oximetry Heart rate 75 /min 75 /min [facility] Diastolic blood 70 mm[Hg] 70 mm[Hg] [facility] Systolic blood 116 mm[Hg] 116 mm[Hg] [facility] Body temperature 36.057210 36.769855 [facility] Respiratory rate 18 /min 18 /min [facility] Heart rate 74 /min 74 /min [facility] Diastolic blood 56 mm[Hg] 56 mm[Hg] [facility] Systolic blood 147 mm[Hg] 147 mm[Hg] [facility] Body weight 47.230986 kg 47.983178 kg [facility] Body temperature 36.665753 36.889293 [facility] Respiratory rate 18 /min 18 /min [facility] Oxygen saturation 98 % 98 % [facility] by Pulse oximetry Heart rate 76 /min 76 /min [facility] Body height 151.067413 151.046033 cm [facility] [place] Diastolic blood 60 mm[Hg] 60 mm[Hg] [facility] Systolic blood 156 mm[Hg] 156 mm[Hg] [facility] Body mass index 20.3 kg/m2 20.3 kg/m2 [facility] (BMI) [Ratio] Medical [facility] Patient Treatment Plan of Care Planned Activity Planned Date Details Description Data Source (s) Meclizine Hydrochloride [address] [facility] Oral Tablet Center sitaGLIPtin (JanUVIA) 100 mg [facility] atorvastatin 20 mg Tablet [facility] baby aspirin [facility] omeprazole-sodium [facility] Medical bicarbonate 20 mg-1.1 gram C enter Capsule Meclizine Hydrochloride [address] [facility] Oral Tablet Center
--- OUTSIDE RECORDS SUMMARY | 2020-07-17 06:41 | XMS ---
[...] is protected by Article 27-F of the [place] [employer] Public Health law. If you continue you may haveaccess to information: Regarding HIV / AIDS; Provided by facilities licensed or operated by the [employer] Office of Mental Health; or Provided by the [employer] Office for People With Developmental Disabilities. If such information is present, then the following [employer] mandated warning applies: This information has been [...] law may result in a fine or longterm sentence or both. A general authorization for the release of medical or other information is NOT sufficient authorization for further disclosure. Encounters Encounter Providers Location Date Indications Data Source(s ) Emergency Attender: STAFF ED H 08/27/2019 [facility] STAFF PHYSICIAN 02:32:00 AM EST [facility] Center - 08/27/2019 08:45:00 AM EST Patient discharged. Emergency H 07/24/2019 02:32:00 PM EDT - 019 [facility] 11:19:00 PM EDT Patient discharged. Medications Medication Brand Start Product Dose Route Administrative Pharmacy [facility] Indications Reaction Description Data Name Date Form Instructions Instructions Source(s) Meclizine mecliz 1 complet [facility] Hydrochlori ine 25 ed [place] s de 25 MG mg Medical Oral Tablet Tablet Center meclizine , 25 mg Ordere Tablet, d By: Ordered By: Vadim Rondon, , MDDirection MDDire s: 1 tablet ctions oral three : 1 times a day tablet oral three times a day omeprazole- complet [facility] sodium [facility] bicarbonate Medical 20 mg-1.1 Center gram Capsule baby complet [facility] aspirin [facility] atorvastati complet [facility] n 20 mg [facility] Tablet Medical Center Meclizine mecliz 1 complet [facility] Hydrochlori ine 25 [facility] s de 25 MG mg Medical Oral Tablet Tablet Center meclizine , 25 mg Ordere Tablet, d By: Ordered By: Rex Lopez, , MDDirection MDDire s: 1 tablet ctions oral every : 1 eight hours tablet PRN nausea oral or vomiting every eight hours PRN nausea or vomiti ng sitaGLIPtin complet JanUVIA Sa int (JanUVIA) ed Des 100 mg Medical Tablet Center Insurance Providers Payer name Policy type Policy ID Covered Covered libertarian's Policy P noelle / Coverage libertarian ID relationship to [facility] Inf ormation type aldrich JENNY MEDICARE [id number] SP [id number] MEDICAID [id number] SP [id number] HIP MEDICARE [id number] SP [id number] VIP ELDERPLAN [id number] SP [id number] HOMEFIRST MERARY [id number] SP [id number] MEDICARE ADV PLAN MEDICAID [id number] SP [id number] TOUCHSTONE [id number] SP [id number] BLUE CROSS [id number] SP [id number] SENIOR PLAN MEDICAID [id number] SP [id number] EMBLEM O [id number] 01 [id number] 01 [id number] ELDER PLAN O [id number] 01 [id number] HEALTHFIRST O [id number] 01 [id number] HEALTHFIRST O [id number] EMBLE HEALTH [id number] (HMO) [place] MED[place] [id number] PART B [place] Problems, Conditions, and Diagnoses Code Display Name Description Problem Type Effective Data Dates Source(s) I10 Essential (primary) ESSENTIAL Diagnosis 08/27/2019 [facility] hypertension (PRIMARY) 02:32:00 AM Medical HYPERTENSION EST Center E11.9 Type 2 diabetes TYPE 2 DIABETES Diagnosis 08/27/2019 Eduin Nunes mellitus without MELLITUS WITHOUT 02:32:00 AM M edical complications COMPLICATIONS EST Center I25.10 Atherosclerotic ATHSCL HEART Diagnosis 08/27/2019 [facility] heart disease of DISEASE OF NEZ PERCE 02:32:00 AM Medical osage coronary CORONARY ARTERY EST Cent er artery without W/O ANG PCTRS angina pectoris R42 Dizziness and DIZZINESS AND Diagnosis 08/27/2019 [facility] giddiness GIDDINESS 02:32:00 AM Medical EST Center E11.65 Type 2 diabetes TYPE 2 DIABETES Diagnosis 07/24/2019 Eduin Nunes mellitus with MELLITUS WITH 02:32:00 PM Medical hyperglycemia HYPERGLYCEMIA EDT Center Results ID Date Data Source [id number] 06/19/2020 08:24:00 AM EDT [facility] Name Value Range Interpretation Description Data Sup porting Code Source(s) Document(s ) SARS [facility] coronavirus 2 RNA This lab was ordered by [facility] and reported by [facility]. ID Date Data Source [id number] 05/22/2020 05:29:00 AM EDT [facility] Name Value Range Interpretation Description Data Sup porting Code Source(s) Document(s ) SARS [facility] coronavirus 2 RNA This lab was ordered by [facility] and reported by [facility]. ID Date Data Source Urinalysis.[id number] 08/27/2019 03:27:00 AM EST [facility] 0 Name Value Range Interpretation Description Data Sup porting Code Source(s) Document(s ) UNK CLEAR <content Saint styleCode="Jaquelin Des d">Urine Medical Clarity Center </content>GINETTE R <content styleCode="Conchis lics"> (CLEAR )</content> Color of Urine YELLOW <content Saint styleCode="Jaquelin Des d">Color, Medical Urine Center </content>YELL OW <content styleCode="Conchis lics"> (YELLOW )</content> Ketones NEGATIVE <content Saint [Mass/volume] styleCode="Jaquelin Washburns in Urine by d">Urine Medical Test strip [facility] </content>NEGA TIVE MG/DL<content styleCode="Conchis lics"> (NEGATIVE MG/DL)</conten t> Specific 1.015-1.02 Below low normal <content Saint gravity of 5 styleCode="Jaquelin Washburns Urine by Test d">Urine Medical strip Specific [facility] [place] </content><= 1.005 L<content styleCode="Conchis lics"> (1.015-1.025 )</content> Glucose NEGATIVE <content Saint [Mass/volume] styleCode="Jaquelin Des in Urine by d">Urine Medical Test strip Glucose Center </content>NEGA TIVE MG/DL<content styleCode="Conchis lics"> (NEGATIVE MG/DL)</conten t> UNK NEGATIVE <content Saint styleCode="Jaquelin Des d">Urine Medical Bilirubin Center </content>NEGA TIVE <content styleCode="Ocnchis lics"> (NEGATIVE )</content> pH of Urine by [...] lics"> (0-3 HPF)</content> ID Date Data Source Microbiology.[id number] 08/27/2019 03:27:00 AM EST [facility] 500 Name Value Range Interpretation Code Description Data Niki rce(s) Supporting Document(s ) UNK <item><content [facility] styleCode="Bold"> Medical [facility] er Culture Report </content>
<t able><tbody><tr>< td>Specimen Number:</td><td>[id number]</td></tr ><tr><td>Sample Collection Date/Time: </td><td> 3:27 AM</td></tr><tr>< td>Specimen Source:</td><td>U RINE</td></tr><tr ><td>Urine Culture:</td><td> Collection Plate Date: 08/27/2019 03:41 </td></tr><tr><td >Culture Status:</td><td>P reliminary </td></tr><tr><td >Culture Report:</td><td>C ulture in progress </td></tr></tbody ></table></item> UNK <item><content [facility] styleCode="Bold"> Medical [facility] Culture Status </content>
<t able><tbody><tr>< td>Specimen Number:</td><td>[id number]</td></tr ><tr><td>Sample Collection Date/Time: </td><td> 9 3:27 AM</td></tr><tr>< td>Specimen Source:</td><td>U RINE</td></tr><tr ><td>Culture Status:</td><td>P reliminary </td></tr><tr><td >Culture Report:</td><td>C ulture in progress </td></tr><tr><td >Urine Culture:</td><td> Collection Plate Date: 08/27/2019 03:41 </td></tr></tbody ></table></item> ID Date Data Source HematologyRou.[id number] 08/27/2019 03:15:00 AM MADINA Lechuga [facility] 0500 Name Value Range Interpretation Description Data [...] (0.0 KCUMM)</content > ID Date Data Source GFR(Creatinine).[id number] 08/27/2019 03:15:00 AM [facility] 0-0500 Name Value Range Interpretation Code Description Data Niki rce(s) Supporting Document(s ) UNK > 60 <content Saint Des styleCode="Bold"> Medical Cent er EGFR </content>86 GFR<content styleCode="Italic s"> (> 60 GFR)</content> ID Date Data Source JOSE MANUEL.[id number] 08/27/2019 03:15:00 AM [facility] -0500 Name Value Range Interpretation Description Data Sup porting Code Source(s) Document(s ) Natriuretic < 450 <content Saint peptide.B styleCode="Jaquelin Des prohormone d">NT Pro BNP Medical N-Terminal </content>207 Center [Mass/volume] PG/ML<content in Serum or styleCode="Conchis Plasma lics"> (< 450 PG/ML)</conten t> ID Date Data Source CardiacMarkers.[id number] 08/27/2019 03:15:00 AM [facility] -0500 Name Value Range Interpretation Description Data Sup porting Code Source(s) Document(s ) Troponin < 0.034 <content Saint I.cardiac styleCode="Bold Des [Mass/volume ">Troponin I Medical ] in Serum </content>< Center or Plasma 0.012 NG/ML<content styleCode="Ital ics"> (< 0.034 NG/ML)</content > ID Date Data Source [facility].[id number] 08/27/2019 03:15:00 AM [facility] Name Value Range Interpretation Description Data Sup porting Code Source(s) Document(s ) Sodium 137-145 <content Saint [Moles/volume] styleCode="Jaquelin Des in Serum or d">Sodium Medical Plasma </content>139 Center MEQ/L<content styleCode="Conchis lics"> (137-145 MEQ/L)</conten t> Chloride 98-107 <content Saint [Moles/volume] styleCode="Jaquelin Des in Serum or d">Chloride Medical Plasma </content>103 Center MEQ/L<content styleCode="Conchis lics"> (98-107 MEQ/L)</conten t> Potassium 3.5-5.3 <content Saint [Moles/volume] styleCode="Jaquelin Des in Serum or d">Potassium Medical Plasma </content>4.5 Center MEQ/L<content styleCode="Conchis lics"> (3.5-5.3 MEQ/L)</conten t> Carbon 22-30 <content Saint dioxide, total styleCode="Jaquelin Des [Moles/volume] d">Carbon Medical in Serum or Dioxide Center Plasma </content>29 MEQ/L<content styleCode="Cnochis lics"> (22-30 MEQ/L)</conten t> UNK 7-17 Above high normal <content Saint styleCode="Jaquelin Des d">BUN Medical </content>22 Center MG/DL H<content styleCode="Conchis lics"> (7-17 MG/DL)</conten t> Creatinine 0.5-1.3 <content Saint [Mass/volume] styleCode="Jaquelin Des in Serum or d">Creatinine Medical Plasma </content>0.7 Center MG/DL<content styleCode="Conchis lics"> (0.5-1.3 MG/DL)</conten t> UNK > 60 <content Saint styleCode="Jaquelin Des d">EGFR Medical </content>86 Center GFR<content styleCode="Conchis lics"> (> 60 GFR)</content> Calcium 8.4-10.2 <content Saint [Mass/volume] styleCode="Jaquelin Des in Serum or d">Calcium Medical Plasma </content>9.4 Center MG/DL<content styleCode="Conchis lics"> (8.4-10.2 MG/DL)</conten t> Glucose 74-106 Above high normal <content Saint [Mass/volume] styleCode="Jaquelin Des in Serum or d">Glucose Medical Plasma </content>187 Center MG/DL H<content styleCode="Conchis lics"> (74-106 MG/DL)</conten t> ID Date Data Source Urinalysis.[id number] 07/24/2019 07:45:00 PM [facility] Name Value Range Interpretation Description Data Sup porting Code Source(s) Document(s ) UNK NEGATIVE <content Saint styleCode="Jaquelin Washburns d">Urine Medical Bilirubin Center </content>NEGA TIVE <content styleCode="Conchis lics"> (NEGATIVE )</content> UNK CLEAR <content Saint styleCode="Jaquelin Washburns d">Urine Medical Clarity Center </content>GINETTE R <content styleCode="Conchis lics"> (CLEAR )</content> Color of Urine YELLOW <content Saint styleCode="[facility] d">Color, Medical Urine Center </content>YELL OW <content styleCode="Conchis lics"> (YELLOW )</content> Glucose NEGATIVE <content Saint [Mass/volume] styleCode="Jaquelin Nunes in [...] )</content> Protein NEGATIVE <content Saint [Mass/volume] styleCode="Jaquelin Washburns in Urine by d">Urine Medical Test strip Protein Center </content>NEGA TIVE MG/DL<content styleCode="Conchis lics"> (NEGATIVE MG/DL)</conten t> Specific 1.015-1.02 Below low normal <content Saint gravity of 5 styleCode="Jaquelin Nunes Urine by Test d">Urine Medical strip Specific [facility] [place] </content><= 1.005 L<content styleCode="Conchis lics"> (1.015-1.025 )</content> Leukocyte NEGATIVE <content Saint esterase styleCode="Jaquelin Washburns [Presence] in d">Urine Medical Urine by Test Leukocyte Center strip </content>NEGA TIVE <content styleCode="Conchis lics"> (NEGATIVE )</content> Urobilinogen 0.2-1.0 <content Saint [Units/volume] styleCode="Jaquelni Nunes in Urine by d">Urine Medical Test strip Urobilinogen Center </content>0.2 MG/DL<content styleCode="Conchis lics"> (0.2-1.0 MG/DL)</conten t> Nitrite NEGATIVE <content Saint [Presence] in styleCode="Jaquelin Nunes Urine by Test d">Urine Medical strip Nitrite Center </content>NEGA TIVE <content styleCode="Conchis lics"> (NEGATIVE )</content> ID Date Data Source Liver 07/24/2019 04:35:00 PM EDT [facility] Profile.[id number] Name Value Range Interpretation Description Data Sup [...] s"> (3.5-5.0 G/DL)</content> ID Date Data Source HematologyRou.[id number] 07/24/2019 04:35:00 PM EDT [facility] 0400 Name Value Range Interpretation Description Data [...] ics"> (0.0 KCUMM)</content > UNK 0 <content Saint styleCode="Bold Des ">Nucleated Red Medical Blood Cell Center </content>0.0 /100<content styleCode="Ital ics"> (0 /100)</content> UNK 0-0.1 <content Saint styleCode="Bold Des ">Immature Medical Granulocyte Center Count </content>0.02 KCUMM<content styleCode="Ital ics"> (0-0.1 KCUMM)</content > UNK < 1 <content Saint styleCode="Bold Des ">Immature Medical Granulocyte Center Ratio </content>0.4 %<content styleCode="Ital ics"> (< 1 %)</content> ID Date Data Source GFR(Creatinine).[id number] 07/24/2019 04:35:00 PM EDT [facility] 0-0400 Name Value Range Interpretation Code Description Data Niki rce(s) Supporting Document(s ) UNK > 60 Below low normal <content [facility] styleCode="Bold"> Medical Cent er EGFR </content>51 GFR L<content styleCode="Italic s"> (> 60 GFR)</content> ID Date Data Source Coagulation 07/24/2019 04:35:00 PM [facility] ical Center Rout.[id number] EDT Name Value Range Interpretation Description Data Sup porting Code Source(s) Document(s ) aPTT in 25.1-36. <content Saint Platelet poor 5 styleCode="Bold" Des plasma by >Partial Medical Coagulation Thromboplastin Center assay Time </content>28.8 SEC<content styleCode="Itali cs"> (25.1-36.5 SEC)</content> INR in 0.80-1.2 <content Saint Platelet poor 0 styleCode="Bold" Des plasma by >INR Medical Coagulation </content>1.13 Center assay #<content styleCode="Itali cs"> (0.80-1.20 #)</content> UNK 9.0-13.0 <content Saint styleCode="Bold" Des >Protime Medical </content>12.5 Center SEC<content styleCode="Itali cs"> (9.0-13.0 SEC)</content> ID Date Data Source CHMROUTINECCDA.[id number] 07/24/2019 04:35:00 PM EDT [facility] -0400 Name Value Range Interpretation Description Data Sup porting Code Source(s) Document(s ) Protein 6.3-8.2 <content Saint Nunes [Mass/volum styleCode="Bold Medical e] in Serum ">Total Protein Center or Plasma </content>7.2 G/DL<content styleCode="Ital ics"> (6.3-8.2 G/DL)</content> UNK >= 1.0 <content Des styleCode="Bold Medical ">AG Ratio Center </content>1.2 <content styleCode="Ital ics"> (>= 1.0 )</content> UNK 2.3-3.5 <content Saint Des styleCode="Bold Medical ">Globulin Center </content>3.3 G/DL<content styleCode="Ital ics"> (2.3-3.5 G/DL)</content> ID Date Data Source CardiacMarkers.[id number] 07/24/2019 04:35:00 PM EDT [facility] -0400 Name Value Range Interpretation Description Data Sup porting Code Source(s) Document(s ) Troponin < 0.034 <content Saint I.cardiac styleCode="Bold Des [Mass/volume ">Troponin I Medical ] in Serum </content>< Center or Plasma 0.012 NG/ML<content styleCode="Ital ics"> (< 0.034 NG/ML)</content > ID Date Data Source [facility].[id number] 07/24/2019 04:35:00 PM EDT [facility] Name Value Range Interpretation Description Data Sup porting Code Source(s) Document(s ) Chloride 98-107 <content Saint [Moles/volume] in styleCode="Bold"> [facility] Serum or Plasma Chloride Medical </content>101 Center MEQ/L<content styleCode="Italic s"> (98-107 MEQ/L)</content> Sodium 137-145 <content Saint [Moles/volume] in styleCode="Bold"> [facility] Serum or Plasma Sodium Medical </content>138 Center MEQ/L<content styleCode="Italic s"> (137-145 MEQ/L)</content> Carbon dioxide, 22-30 <content Saint total styleCode="Bold"> Des [Moles/volume] in Carbon Dioxide Medical Serum or Plasma </content>27 Center MEQ/L<content styleCode="Italic s"> (22-30 MEQ/L)</content> Potassium 3.5-5.3 <content Saint [Moles/volume] in styleCode="Bold"> [facility] Serum or Plasma Potassium Medical </content>4.1 Center [...] Ever completed Denies Ever Smoked Saint Des 03:00:00 PM EDT Smoked Medical C enter Smoking 07/24/2019 Denies Ever completed Denies Ever Smoked [facility] Des 02:50:00 PM EDT Smoked Medical C enter Vital Signs ID Date Data Source UNK Name Value Range Interpretation Code Description Data Source(s) Body temperature 36.181535 36.210581 [facility] Respiratory rate 18 /min 18 /min [facility] Oxygen saturation 99 % 99 % [facility] by Pulse oximetry Heart rate 68 /min 68 /min [facility] Diastolic blood 51 mm[Hg] 51 mm[Hg] [facility] Systolic blood 118 mm[Hg] 118 mm[Hg] [facility] Body temperature 36.948214 36.906320 [facility] Respiratory rate 17 /min 17 /min [facility] Oxygen saturation 97 % 97 % [facility] by Pulse oximetry Heart rate 80 /min 80 /min [facility] Diastolic blood 61 mm[Hg] 61 mm[Hg] [facility] Systolic blood 127 mm[Hg] 127 mm[Hg] [facility] Body temperature 36.606321 36.190431 [facility] Respiratory rate 16 /min 16 /min [facility] Oxygen saturation 92 % 92 % [facility] Ar[facility] blood Medical Center by Pulse oximetry Heart rate 83 /min 83 /min [facility] Diastolic blood 65 mm[Hg] 65 mm[Hg] [facility] pressure Medical Center Systolic blood 140 mm[Hg] 140 mm[Hg] [facility] Heart rate 90 /min 90 /min [facility] Body temperature 37.479886 37.711777 [facility] Respiratory rate 19 /min 19 /min [facility] Oxygen saturation 97 % 97 % [facility] Arterial blood Medical Center by Pulse oximetry Heart rate 90 /min 90 /min [facility] Diastolic blood 77 mm[Hg] 77 mm[Hg] [facility] pressure Medical Center Systolic blood 163 mm[Hg] 163 mm[Hg] [facility] [place] Body temperature 36.699505 36.057981 [facility] Respiratory rate 16 /min 16 /min [facility] Oxygen saturation 98 % 98 % [facility] blood [facility] Center by Pulse oximetry Heart rate 75 /min 75 /min [facility] Diastolic blood 70 mm[Hg] 70 mm[Hg] [facility] Medical Center Systolic blood 116 mm[Hg] 116 mm[Hg] [facility] [place] Body temperature 36.054755 36.125973 [facility] Respiratory rate 18 /min 18 /min [facility] Heart rate 74 /min 74 /min [facility] Diastolic blood 56 mm[Hg] 56 mm[Hg] [facility] pressure Medical Center Systolic blood 147 mm[Hg] 147 mm[Hg] [facility] [place] Body weight 47.415971 kg 47.055267 kg [facility] Measured Medical [place] Body temperature 36.946565 36.442827 [facility] Respiratory rate 18 /min 18 /min [facility] Oxygen saturation 98 % 98 % [facility] blood [facility] by Pulse oximetry Heart rate 76 /min 76 /min [facility] Body height 151.658812 151.522677 cm [facility] Medical [place] Diastolic blood 60 mm[Hg] 60 mm[Hg] [facility] pressure Medical Center Systolic blood 156 mm[Hg] 156 mm[Hg] [facility] pressure Medical Center Body mass index 20.3 kg/m2 20.3 kg/m2 [facility] ephs (BMI) [Ratio] Medical [facility] Patient Treatment Plan of Care Planned Activity Planned Date Details Description Data Source (s) Meclizine Hydrochloride 25 [address] [facility] Oral Tablet Center sitaGLIPtin (JanUVIA) 100 mg [facility] atorvastatin 20 mg Tablet [facility] baby aspirin [facility] omeprazole-sodium [facility] Medical bicarbonate 20 mg-1.1 gram C enter Capsule Meclizine Hydrochloride [address] [facility] Oral Tablet Center
[2020-07-17] MEDS ORDERED: ZOLEDRONIC ACID 4 MG in SODIUM CHLORIDE 100 ML IVPB ONE (09:13)
[2020-07-17] MEDS ORDERED: SODIUM CHLORIDE 125 ML IV STA (09:59)
[2020-07-17] MEDS ORDERED: ZOLEDRONIC ACID 3 MG in SODIUM CHLORIDE 100 ML IVPB ONE (10:00)
[2020-07-17] MEDS ORDERED: ACETAMINOPHEN 325 MG TABLET (FP) PO ONE (10:00)
[2020-07-17 10:59] LABS: BASO % 0.3 % (0-2.0); HEMATOCRIT 29.8 % (32.4-45.2); HEMOGLOBIN 10.3 GM/dL (10.7-15.3); LYMPH % 6.5 % (8-40); MCH 30.5 pg (25.7-33.7); MCHC 34.6 g/dl (32.0-36.0); MEAN PLT VOLUME 7.6 fl (7.5-11.1); MONO % 7.6 % (3.8-10.2); NEUT % 84.6 % (42.8-82.8); PLATELET COUNT 385 K/MM3 (134-434); RBC 3.38 M/mm3 (3.60-5.2); WHITE BLOOD COUNT 7.1 K/mm3 (4.0-10.0)
[2020-07-17 11:26] LABS: ALBUMIN 2.8 g/dl (3.4-5.0); BLOOD UREA NITROGEN 18.3 mg/dL (7-18); CALCIUM 8.7 mg/dL (8.5-10.1); CREATININE 1.1 mg/dL (0.55-1.3)
[2020-07-17 11:51] LABS: POTASSIUM 6.2 mmol/L (3.5-5.1)
[2020-07-17 13:44] LABS: ALBUMIN 2.7 g/dl (3.4-5.0); BLOOD UREA NITROGEN 16.4 mg/dL (7-18); CALCIUM 8.7 mg/dL (8.5-10.1); POTASSIUM 5.8 mmol/L (3.5-5.1)
[2020-07-17 13:47] LABS: BILIRUBIN,TOTAL 0.5 mg/dL (0.2-1); TOT PROT 7.2 g/dl (6.4-8.2)
--- NOTE | 2020-07-17 14:21 | CONSULT ---
Consultation: REQUESTING PROVIDER: Dr. Ware Nephrology service- resident consult note CONSULT REQUEST: We have been asked to medically evaluate this patient for hyponatremia, hyperkalemia HISTORY OF PRESENT ILLNESS: Patient is an 80 year old female with history of lung adenocarcinoma, coronary artery disease (s/p CABG), diabetes mellitus, hypertension, hyperlipidemia seen in Infusion Suite. BMP revealed hyponatremia to 122, and hyperkalemia to 6.2 (sample noted to be hemolyzed). Repeat BMP was drawn. Patient has not yet had chemotherapy. She endorses cough productive with clear sputum ongoing for the past week, however does endorse ?blood tinged sputum three days ago. She states she was tested for SARS-COV-2 virus one month ago, and was negative. She endorses appetite, however states food does not have as good of taste for the past month, though she has been drinking water. Denies subjective fevers, chills, shortness of breath, chest pain, palpitations, abdominal pain, nausea, vomiting, diarrhea/ constipation, melena, hematochezia, dysuria, hematuria. Medical history: lung adenocarcinoma, coronary artery disease (s/p CABG), diabetes mellitus, hypertension, hyperlipidemia Surgical history: CABG Family history Social: denies alcohol consumption, smoking cigarettes, illicit drug use. REVIEW OF SYSTEMS: As per HPI PHYSICAL EXAMINATION GENERAL: The patient is awake, alert, and fully oriented, in no acute distress. HEAD: Normocephalic, atraumatic. EYES: PERRL, extraocular movements intact, sclera anicteric, conjunctiva clear. ENT: Oropharynx clear, without erythema or exudates. Dry mucous membranes. NECK: Trachea midline, full range of motion. Supple without lymphadenopathy. LUNGS: Breath sounds equal, clear to auscultation bilaterally. No wheezes, no crackles. No accessory muscle use. HEART: Regular rate and rhythm. S1, S2 without murmur, rub or gallop. ABDOMEN: Soft, nondistended, nontender to light and deep palpation x4 quadrants. Normoactive bowel sounds x4 quadrants. EXTREMITIES: 2+ radial, dorsalis pedis pulses bilaterally. Warm, well-perfused. No lower extremity edema bilaterally. NEUROLOGICAL: Cranial nerves II through XII grossly intact. Normal speech. No gross focal deficits. PSYCH: Normal mood, normal affect upon my encounter. SKIN: Warm, dry. Laboratory Results - last 24 hr 09/24/20 09/24/20 09/24/20 10:21 10:21 12:13 WBC 7.1 RBC 3.38 L Hgb 10.3 L Hct 29.8 L MCV 88.0 MCH 30.5 MCHC 34.6 RDW 13.0 Plt Count 385 MPV 7.6 Absolute Neuts (auto) 6.0 Neutrophils % 84.6 H Lymphocytes % 6.5 L D Monocytes % 7.6 Eosinophils % 1.0 Basophils % 0.3 Nucleated RBC % 0 Sodium 122 L 124 L Potassium 6.2 H* 5.8 H Chloride 88 L 92 L Carbon Dioxide 27 22 Anion Gap 7 L 10 BUN 18.3 H 16.4 Creatinine 1.1 1.0 Est GFR (CKD-EPI)AfAm 54.53 61.19 Est GFR (CKD-EPI)NonAf 47.05 52.79 Random Glucose 281 H 259 H Calcium 8.7 8.7 Total Bilirubin 1.0 0.5 AST 43 H 18 ALT 22 15 Alkaline Phosphatase 90 84 Total Protein 8.0 7.2 Albumin 2.8 L 2.7 L ASSESSMENT/PLAN: Patient is an 80 year old female with history of lung adenocarcinoma, coronary artery disease (s/p CABG), diabetes mellitus, hypertension, hyperlipidemia admitted for hyponatremia. Impression: Hyponatremia Hyperkalemia Lung adenocarcinoma Coronary artery disease Diabetes mellitus Hypertension Hyperlipidemia Plan: Hyponatremia in setting of metastatic pulmonary disease is concerning for SIADH. However, patient does appear clinically dry on exam, suggesting hypovolemic hyponatremia. Furosemide noted as a home medication. Will challenge with IV fluids. Currently receiving IV normal saline at 80mL/ hour. Follow repeat BMP Obtain urine osmolality, urine electrolytes. Hemolysis noted in first set of labs. Will follow repeat potassium, and treat medically if indicated. Recommend holding home Telmisartan in setting of hyperkalemia Avoid nephrotoxic agents Disposition: We will continue to follow the patient. Thank you for this consultative opportunity. Visit type - Medication Review Med list reviewed for High Risk Meds patients 65 and older: Yes - Emergency Visit Emergency Visit: No - New Patient This patient is new to me today: Yes Date on this admission: 07/17/20 - Critical Care Critical Care patient: No ATTENDING PHYSICIAN STATEMENT I saw and evaluated the patient. I reviewed the resident's note and discussed the case with the resident. I agree with the resident's findings and plan as documented. SUBJECTIVE: OBJECTIVE: ASSESSMENT AND PLAN:
[2020-07-17 14:28] VITALS: TEMP 98.3
[2020-07-17 15:28] VITALS: BP 157/76; PULSE 82
== END 2020-07-17 15:45 | disposition home or self-care (01) ==
LOC: JONCCHEMO 06:38
PROVIDERS: ATTEND Internal Medicine Hematology & Oncology
PROC: 3E033GC Introduction of Other Therapeutic Substance into Peripheral Vein, Percutaneous Approach (ICD-10-PCS; principal; 2020-07-17)
PROC: 3E0 Administration, Physiological Systems and Anatomical Regions, Introduction (ICD-10-PCS; 2020-07-17)
DX: C34.12 Malignant neoplasm of upper lobe, left bronchus or lung (principal); Z76.89 Persons encountering health services in other specified circumstances
CPT/HCPCS: 36415; 70553-TC; 80053; 82436; 83930; 83935; 84133; 84300; 85025; 96361; 96365; J3489

== ENCOUNTER 2020-07-17 15:40 | Inpatient (IN) | payer OTHER ==
--- NOTE | 2020-07-17 16:04 | PN ---
Teaching Attending Note Name of Resident: Clayton Navarrete (Nephrology) ATTENDING PHYSICIAN STATEMENT I saw and evaluated the patient. I reviewed the resident's note and discussed the case with the resident. I agree with the resident's findings and plan as documented. Renal Pt is an 80 year old female with pmhx of lung adenoca, cad, cabg, htn and hld who was sent in for hyponatremia. She was found to be hyponatremic. She says that she has not had much to eat and that she has been only drinking water. She was found to be hyperkalemic as well. pmhx lung ca, cad, cabg, htn nkda ros weakness and loss of appetite family hx non contrib Laboratory Tests 07/17/20 07/17/20 07/17/20 10:21 12:13 14:00 Sodium 122 L 124 L Potassium 6.2 H* 5.8 H Creatinine 1.1 1.0 Random Glucose 281 H Serum Osmolality 271 L Urine Osmolality 255 L Ur Random Sodium Ur Random Potassium Ur Random Chloride 07/17/20 14:00 Sodium Potassium Creatinine Random Glucose Serum Osmolality Urine Osmolality Ur Random Sodium 36 L Ur Random Potassium 24.0 L Ur Random Chloride 34 L Last Vital Signs Temp Pulse Resp BP Pulse Ox 98.3 F 81 16 119/54 L 99 07/17/20 15:46 07/17/20 15:46 07/17/20 15:46 07/17/20 15:46 07/17/20 15:46 cardio s1s2 pulm clear gi soft ext neg edema skin neg rash Impression: Hyponatremia Hyperkalemia Lung adenocarcinoma Coronary artery disease Diabetes mellitus Hypertension Hyperlipidemia Plan - hold arb - repeat potassium improving - cont ns at 60 cc - repeat bmp in er - urine findings are not consistent with siadh - pt with likely hypovolemic hyponatremia - avoid a change in sodium of greater than 6 to 8 in 24 hours
--- NOTE | 2020-07-17 17:37 | PDOC ---
History of Present Illness - General Chief Complaint: Revisit, Lab Variance Stated Complaint: ABNORMAL LABS Time Seen by Provider: 07/17/20 17:13 History Source: Patient, Family Exam Limitations: No Limitations - History of Present Illness Initial Comments: 07/17/20 17:40 80F PMH Lung Ca presenting from infusion clinic for low Na of 122. Has cough x 1 week but no other complaints. ROS o/w negative, pt feeling well. NKA. Onc - Dr. Santos. Hx confirmed with son at bedside along with granddaughter and daughter via phone. Past History - Medical History Allergies/Adverse Reactions: Allergies Allergy/AdvReac Type Severity Reaction Status Date / Time No Known Allergies Allergy Verified 07/17/20 15:46 Home Medications: Ambulatory Orders Atorvastatin Ca [Lipitor] 20 mg PO HS 07/24/15 Sitagliptin Phosphate [Januvia] 100 mg PO DAILY 07/24/15 Ezetimibe [Zetia -] 10 mg PO DAILY 10/05/18 Insulin Detemir [Levemir Flextouch] 32 unit SQ BID 10/06/18 Insulin Sliding Scale [Novolog Vial Sliding Scale -] 0 units SQ ACHS #1 pen 10/06/18 Pantoprazole Sodium [Protonix -] 40 mg PO DAILY #30 tablet.ec 05/26/20 Aspirin [Aspirin EC] 81 mg PO DAILY 06/23/20 Clopidogrel Bisulfate [Clopidogrel] 75 mg PO DAILY 06/23/20 Isosorbide Mononitrate [Imdur -] 60 mg PO DAILY 06/23/20 Metformin HCl [Glucophage] 1,000 mg PO DAILY 06/23/20 Metoprolol Succinate [Toprol XL -] 25 mg PO DAILY 06/23/20 Telmisartan [Micardis] 40 mg PO DAILY 06/23/20 Anemia: No Asthma: Yes Cancer: Yes (Lt lung) Cardiac Disorders: Yes CVA: No COPD: No CHF: No Dementia: No Diabetes: Yes GI Disorders: Yes (DIVERTICULOSIS) Disorders: No HTN: Yes Hypercholesterolemia: Yes Liver Disease: No Seizures: No Thyroid Disease: No - Surgical History Abdominal Surgery: No Appendectomy: No Cardiac Surgery: Yes (BYPASS.) Cholecystectomy: No Lung Surgery: No Neurologic Surgery: No Orthopedic Surgery: No - Immunization History Immunization Up to Date: Yes - Psycho-Social/Smoking History Smoking Status: No Smoking History: Never smoked Have you smoked in the past 12 months: No Number of Cigarettes Smoked Daily: 0 - Substance Abuse Hx (Audit-C & DAST Scrn) How often the patient has a drink containing alcohol: Never Score: In Men: 4 or > Positive; In Women: 3 or > Positive: 0 Screen Result (Pos requires Nsg. Audit-10AR): Negative In the last yr the pt used illegal drug/Rx for NonMed reason: No Score: Yes response is considered Positive: 0 Screen Result (Positive result requires Nsg. DAST-10): Negative Review of Systems - Review of Systems Comments:: CONSTITUTIONAL: Denies F / C HEENT: Denies headache, lightheadedness, dizziness, changes in vision / hearing, diplopia, blurry vision, sore throat, rhinorrhea RESP: +cough. Denies SOB CARD: Denies chest pain GI: Denies N / V / D, abdominal pain, inability to tolerate PO : Denies dysuria NEURO: Denies numbness, tingling, weakness MSK: Denies back pain SKIN: Denies rashes *Physical Exam - Vital Signs Last Vital Signs Temp Pulse Resp BP Pulse Ox 98.3 F 81 16 119/54 L 99 07/17/20 15:46 07/17/20 15:46 07/17/20 15:46 07/17/20 15:46 07/17/20 15:46 - Physical Exam GEN: Well appearing, NAD, comfortable. AAOx3. HEENT: NC/AT, EOMI, PERRL. No facial asymmetry. Normal voice. Supple neck w/ FROM. CV: S1/S2, RRR, no m/r/g LUNG: CTAB, no wheezes, crackles, rales, rhonchi. GI: Soft, ndnt, +BS, no guarding, no rebound. MSK: No obvious deformities of all extremities. SKIN: Warm, dry, no rashes appreciated. PSYCH: Pleasant, normal mood and affect. NEURO: Moving all extremities well. ED Treatment Course - LABORATORY CBC & Chemistry Diagram: 07/17/20 20:25 07/17/20 16:25 Medical Decision Making - Medical Decision Making 07/18/20 02:18 80F PMH Lung Ca presenting from infusion clinic with hyponatremia for admission - BMP - Maintenance fluids per Dr. Sanchez - admit 07/17/20 18:30 endorsed / admitted to [facility] due to cough and lung ca Discharge - Discharge Information Problems reviewed: Yes Clinical Impression/Diagnosis: Hyponatremia Condition: Guarded - Admission Yes - Follow up/Referral - Patient Discharge Instructions - Post Discharge Activity
[2020-07-17 17:41] LABS: BLOOD UREA NITROGEN 16.2 mg/dL (7-18); CALCIUM 8.7 mg/dL (8.5-10.1); POTASSIUM 4.6 mmol/L (3.5-5.1)
--- NOTE | 2020-07-17 17:52 | PDOC ---
Attending Attestation - Resident Resident Name: KtTone - ED Attending Attestation I have performed the following: I have examined & evaluated the patient, The case was reviewed & discussed with the resident, I agree w/resident's findings & plan, Exceptions are as noted - HPI HPI: 07/17/20 17:52 80y F hx of lung adenocarcinoma, cad sp cabg, htn, hl presents for hyponatremic, found to be hyponatermic in infusion, and sent to the ED for evaluation. pt denies any other complaintsincluding cp, sob, f/c, n/v, headache/dizziness, palpiations, abd pain, dairrhea, dysuria. - Physicial Exam PE: 07/17/20 17:53 GENERAL: The patient is awake, alert, and fully oriented, Nontoxic - in no acute distress. ENT: Normal voice, Moist mucous membranes. NECK: Normal range of motion, supple LUNGS: Breath sounds equal, clear to auscultation bilaterally. No wheezes, no rhonchi, no rales. HEART: Regular rate and rhythm, normal S1 and S2 without murmur, rub or gallop. ABDOMEN: Soft, nontender, No guarding, no rebound. No CVA tenderness - Medical Decision Making 07/17/20 17:53 hyponatremia, may be realted to dehydration had lab work this AM in infusion repeat bmp shows slight improvement of hyponatremia will admit for further management of hypnatemia see by dr. Sanchez, recommends hydration Discharge - Discharge Information Problems reviewed: Yes Clinical Impression/Diagnosis: Hyponatremia Condition: Guarded - Admission Yes - Follow up/Referral - Patient Discharge Instructions - Post Discharge Activity
[2020-07-17] MEDS ORDERED: SODIUM CHLORIDE 1,000 ML IV SCH ×3 (18:00→20:24)
[2020-07-17] MEDS ORDERED: PIPERACILLIN/TAZOB 3.375 GM 3.375 GM in DEXTROSE 5%-WATER - 50 ML IVPB ONE (18:29)
--- OUTSIDE RECORDS SUMMARY | 2020-07-17 18:51 | XMS ---
[...] is protected by Article 27-F of the [facility] Public Health law. If you continue you may haveaccess to information: Regarding HIV / AIDS; Provided by facilities licensed or operated by the [facility] Office of Mental Health; or Provided by the [facility] Office for People With Developmental Disabilities. If such information is present, then the following [facility] mandated warning applies: This information has [...] law may result in a fine or [place] health care facility sentence or both. A general authorization for the release of medical or other information is NOT sufficient authorization for further disclosure. Encounters Encounter Providers Location Date Indications Data Source(s ) Emergency Attender: STAFF ED H 08/27/2019 [facility] STAFF PHYSICIAN 02:32:00 AM EST [facility] Center - 08/27/2019 08:45:00 AM EST Patient discharged. Emergency H 07/24/2019 02:32:00 PM EDT - 019 [facility] 11:19:00 PM EDT Patient discharged. Medications Medication Brand Start Product Dose Route Administrative Pharmacy [facility] Indications Reaction Description Data Name Date Form Instructions Instructions Source(s) Meclizine mecliz 1 complet [facility] Hydrochlori ine 25 ed [place] s de 25 MG mg Medical Oral Tablet Tablet Center meclizine , 25 mg Ordere Tablet, d By: Ordered By: Vadim Rondon, , MDDirection MDDire s: 1 tablet ctions oral three : 1 times a day tablet oral three times a day omeprazole- complet [facility] sodium [facility] bicarbonate Medical 20 mg-1.1 Center gram Capsule baby complet [facility] aspirin [facility] atorvastati complet Saint n 20 mg [facility] Tablet Medical Center Meclizine mecliz 1 complet [facility] Hydrochlori ine 25 [facility] s de 25 MG mg Medical Oral [...] name Policy type Policy ID Covered Covered alliance party's Policy P noelle / Coverage alliance party ID relationship to [facility] ormation type aldrich JENNY MEDICARE [id number] SP [id number] MEDICAID [id number] SP [id number] HIP MEDICARE [id number] SP [id number] VIP ELDERPLAN [id number] SP [id number] HOMEFIRST MERARY [id number] SP [id number] MEDICARE ADV PLAN MEDICAID [id number] SP [id number] TOUCHSTONE [id number] SP [id number] BLUE CROSS [id number] SP [id number] SENIOR PLAN MEDICAID [id number] SP [id number] EMBLEM O [id number] 01 [id number] 01 [id number] ELDER PLAN O [id number] HEALTHFIRST O [id number] HEALTHFIRST O [id number] EMBLE HEALTH [id number] (HMO) [place] MEDICARE [id number] 1 [id number] PART B [place] Problems, Conditions, and [...] Atherosclerotic ATHSCL HEART Diagnosis 08/27/2019 [facility] heart disease of DISEASE OF [place] 02:32:00 AM Medical [place] coronary CORONARY ARTERY EST Cent er artery without W/O ANG PCTRS angina pectoris R42 Dizziness and DIZZINESS AND Diagnosis 08/27/2019 [facility] [place] giddiness GIDDINESS 02:32:00 AM Medical EST Center E11.65 Type 2 diabetes TYPE 2 DIABETES Diagnosis 07/24/2019 Eduin Nunes mellitus with MELLITUS WITH 02:32:00 PM Medical hyperglycemia HYPERGLYCEMIA EDT Center Results ID Date Data Source [id number] 06/19/2020 08:24:00 AM EDT [facility] Name Value Range Interpretation Description Data Sup porting Code Source(s) Document(s ) SARS [facility] coronavirus 2 RNA This lab was ordered by [facility] and reported by [facility]. ID Date Data Source [id number] 05/22/2020 05:29:00 AM EDT [facility] Name Value Range Interpretation Description Data Sup porting Code Source(s) Document(s ) SARS [facility] coronavirus 2 RNA This lab was ordered by [facility] and reported by [facility]. ID Date Data Source Urinalysis.[id number] 08/27/2019 03:27:00 AM EST [facility] 0 Name Value Range Interpretation Description [...] by Test d">Urine Medical strip Specific Center [place] </content><= 1.005 L<content styleCode="Conchis lics"> (1.015-1.025 )</content> [...] lics"> (0-3 HPF)</content> ID Date Data Source Microbiology.[id number] 08/27/2019 03:27:00 AM EST [facility] 500 Name Value Range Interpretation Code Description Data Niki rce(s) Supporting Document(s ) UNK <item><content [facility] styleCode="Bold"> Medical [facility] er Culture Report </content>
<t able><tbody><tr>< td>Specimen Number:</td><td>[id number]</td></tr ><tr><td>Sample Collection Date/Time: </td><td> 3:27 AM</td></tr><tr>< td>Specimen Source:</td><td>U RINE</td></tr><tr ><td>Urine Culture:</td><td> Collection Plate Date: 08/27/2019 03:41 </td></tr><tr><td >Culture Status:</td><td>P reliminary </td></tr><tr><td >Culture Report:</td><td>C ulture in progress </td></tr></tbody ></table></item> UNK <item><content [facility] styleCode="Bold"> Medical [facility] Culture Status </content>
<t able><tbody><tr>< td>Specimen Number:</td><td>[id number]</td></tr ><tr><td>Sample Collection Date/Time: </td><td> 9 3:27 AM</td></tr><tr>< td>Specimen Source:</td><td>U RINE</td></tr><tr ><td>Culture Status:</td><td>P reliminary </td></tr><tr><td >Culture Report:</td><td>C ulture in progress </td></tr><tr><td >Urine Culture:</td><td> Collection Plate Date: 08/27/2019 03:41 </td></tr></tbody ></table></item> ID Date Data Source HematologyRou.[id number] 08/27/2019 03:15:00 AM [facility] 0500 Name Value Range Interpretation Description [...] low normal <content Saint [Volume 0 styleCode="Bold Dse Fraction] of ">Hematocrit Medical Blood by </content>31.6 [...] (0.0 KCUMM)</content > ID Date Data Source GFR(Creatinine).[id number] 08/27/2019 03:15:00 AM [facility] 0-0500 Name Value Range Interpretation Code Description Data Niki rce(s) Supporting Document(s ) UNK > 60 <content Saint Des styleCode="Bold"> Medical Cent er EGFR </content>86 GFR<content styleCode="Italic s"> (> 60 GFR)</content> ID Date Data Source JOSE MANUEL.[id number] 08/27/2019 03:15:00 AM [facility] -0500 Name Value Range Interpretation Description Data Sup porting Code Source(s) Document(s ) Natriuretic < 450 <content [facility] peptide.B styleCode="Jaquelin Des prohormone d">NT Pro BNP Medical N-Terminal </content>207 Center [Mass/volume] PG/ML<content in Serum or styleCode="Conchis Plasma lics"> (< 450 PG/ML)</conten t> ID Date Data Source CardiacMarkers.[id number] 08/27/2019 03:15:00 AM [facility] -0500 Name Value Range Interpretation Description Data Sup porting Code Source(s) Document(s ) Troponin < 0.034 <content Saint I.cardiac styleCode="Bold Des [Mass/volume ">Troponin I Medical ] in Serum </content>< Center or Plasma 0.012 NG/ML<content styleCode="Ital ics"> (< 0.034 NG/ML)</content > ID Date Data Source [facility].[id number] 08/27/2019 03:15:00 AM [facility] Name Value Range Interpretation Description Data Sup porting Code Source(s) Document(s ) Sodium 137-145 <content Saint [Moles/volume] styleCode="Jaquelin Des in Serum or d">Sodium Medical Plasma </content>139 Center MEQ/L<content styleCode="Conchis lics"> (137-145 MEQ/L)</conten t> Chloride 98-107 <content Saint [Moles/volume] styleCode="Jaquelin Des in Serum or d">Chloride Medical Plasma </content>103 Center MEQ/L<content styleCode="Conchis lics"> (98-107 MEQ/L)</conten t> Potassium 3.5-5.3 <content Saint [Moles/volume] styleCode="Jaqueiln Des in Serum or d">Potassium Medical Plasma [...] (74-106 MG/DL)</conten t> ID Date Data Source Urinalysis.[id number] 07/24/2019 07:45:00 PM EDT [facility] 0 Name Value Range Interpretation Description Data Sup porting Code Source(s) Document(s ) UNK NEGATIVE <content Saint styleCode="Jaquelin Washburns d">Urine Medical Bilirubin Center </content>NEGA TIVE <content styleCode="Conchis lics"> (NEGATIVE )</content> UNK CLEAR <content Saint styleCode="Jaquelin Washburns d">Urine Medical Clarity Center </content>GINETTE R <content styleCode="Conchis lics"> (CLEAR )</content> Color of Urine YELLOW <content Saint styleCode="[facility] d">Color, Medical Urine Center </content>YELL OW <content [...] by Test d">Urine Medical strip Specific Center [place] </content><= 1.005 L<content styleCode="Conchis lics"> (1.015-1.025 )</content> Leukocyte NEGATIVE <content Saint esterase styleCode="Jaquelin Washburns [Presence] in d">Urine Medical Urine by Test Leukocyte Center strip </content>NEGA TIVE <content styleCode="Conchis lics"> (NEGATIVE )</content> Urobilinogen 0.2-1.0 <content Saint [Units/volume] styleCode="Jaquelin Nunes in Urine by d">Urine Medical Test strip Urobilinogen Center </content>0.2 MG/DL<content styleCode="Conchis lics"> (0.2-1.0 MG/DL)</conten t> Nitrite NEGATIVE <content Saint [Presence] in styleCode="Jaquelin Nunes Urine by Test d">Urine Medical strip Nitrite Center </content>NEGA TIVE <content styleCode="Conchis lics"> (NEGATIVE )</content> ID Date Data Source Liver 07/24/2019 04:35:00 PM EDT [facility] Profile.[id number] Name Value Range Interpretation Description Data Sup [...] s"> (3.5-5.0 G/DL)</content> ID Date Data Source HematologyRou.[id number] 07/24/2019 04:35:00 PM EDT [facility] 0400 Name Value Range Interpretation Description Data [...] (< 1 %)</content> ID Date Data Source GFR(Creatinine).[id number] 07/24/2019 04:35:00 PM EDT [facility] 0-0400 Name Value Range Interpretation Code Description Data Niki rce(s) Supporting Document(s ) UNK > 60 Below low normal <content [facility] styleCode="Bold"> Medical Cent er EGFR </content>51 GFR L<content styleCode="Italic s"> (> 60 GFR)</content> ID Date Data Source Coagulation 07/24/2019 04:35:00 PM [facility] ical Center Rout.[id number] EDT Name Value Range Interpretation Description Data [...] cs"> (9.0-13.0 SEC)</content> ID Date Data Source CHMROUTINECCDA.[id number] 07/24/2019 04:35:00 PM EDT [facility] -0400 Name Value Range Interpretation [...] ics"> (2.3-3.5 G/DL)</content> ID Date Data Source CardiacMarkers.[id number] 07/24/2019 04:35:00 PM EDT [facility] -0400 Name Value Range Interpretation Description Data Sup porting Code Source(s) Document(s ) Troponin < 0.034 <content Saint I.cardiac styleCode="Bold Des [Mass/volume ">Troponin I Medical ] in Serum </content>< Center or Plasma 0.012 NG/ML<content styleCode="Ital ics"> (< 0.034 NG/ML)</content > ID Date Data Source [facility].[id number] 07/24/2019 04:35:00 PM EDT [facility] Name Value Range Interpretation [...] Interpretation Code Description Data Source(s) Body temperature 36.276732 36.832524 [facility] Respiratory rate 18 /min 18 /min [facility] Oxygen saturation 99 % 99 % [facility] by Pulse oximetry Heart rate 68 /min 68 /min [facility] Diastolic blood 51 mm[Hg] 51 mm[Hg] [facility] Systolic blood 118 mm[Hg] 118 mm[Hg] [facility] Body temperature 36.900712 36.515613 [facility] Respiratory rate 17 /min 17 /min [facility] Oxygen saturation 97 % 97 % [facility] by Pulse oximetry Heart rate 80 /min 80 /min [facility] Diastolic blood 61 mm[Hg] 61 mm[Hg] [facility] Systolic blood 127 mm[Hg] 127 mm[Hg] [facility] Body temperature 36.203171 36.780043 [facility] Respiratory rate 16 /min 16 /min [facility] Oxygen saturation 92 % 92 % [facility] Arterial blood Medical Center by Pulse oximetry Heart rate 83 /min 83 /min [facility] Diastolic blood 65 mm[Hg] 65 mm[Hg] [facility] pressure Medical Center Systolic blood 140 mm[Hg] 140 mm[Hg] [facility] Medical Center Heart rate 90 /min 90 /min [facility] Body temperature 37.011108 37.664519 [facility] Respiratory rate 19 /min 19 /min [facility] Oxygen saturation 97 % 97 % [facility] Arterial blood Medical Center by Pulse oximetry Heart rate 90 /min 90 /min [facility] Diastolic blood 77 mm[Hg] 77 mm[Hg] [facility] pressure Medical Center Systolic blood 163 mm[Hg] 163 mm[Hg] [facility] Medical [place] Body temperature 36.025965 36.793545 [facility] Respiratory rate 16 /min 16 /min [facility] Oxygen saturation 98 % 98 % [facility] blood [facility] by Pulse oximetry Heart rate 75 /min 75 /min [facility] Diastolic blood 70 mm[Hg] 70 mm[Hg] [facility] Medical Center Systolic blood 116 mm[Hg] 116 mm[Hg] [facility] Medical [place] Body temperature 36.747670 36.132877 [facility] Respiratory rate 18 /min 18 /min [facility] Heart rate 74 /min 74 /min [facility] Diastolic blood 56 mm[Hg] 56 mm[Hg] [facility] pressure Medical Center Systolic blood 147 mm[Hg] 147 mm[Hg] [facility] Medical [place] Body weight 47.271855 kg 47.029356 kg [facility] Measured Medical [place] Body temperature 36.077267 36.499791 [facility] Respiratory rate 18 /min 18 /min [facility] Oxygen saturation 98 % 98 % [facility] blood [facility] by Pulse oximetry Heart rate 76 /min 76 /min [facility] Body height 151.195117 151.305112 cm [facility] Medical [place] Diastolic blood 60 mm[Hg] 60 mm[Hg] [facility] pressure Medical Center Systolic blood 156 mm[Hg] 156 mm[Hg] [facility] Center Body mass index 20.3 kg/m2 20.3 kg/m2 [facility] ephs (BMI) [Ratio] Medical [facility] Patient Treatment Plan of Care Planned Activity Planned Date Details Description Data Source (s) Meclizine Hydrochloride 25 [address] [facility] Oral Tablet Center sitaGLIPtin (JanUVIA) 100 mg [facility] atorvastatin 20 mg Tablet [facility] baby aspirin [facility] omeprazole-sodium [facility] Medical bicarbonate 20 mg-1.1 gram C enter Capsule Meclizine Hydrochloride 25 [address] [facility] Oral Tablet Center
[2020-07-17] MEDS ORDERED: PIPERACILLIN/TAZOB 3.375 GM 3.375 GM/50 ML BAG IVPB ONE (19:19)
--- NOTE | 2020-07-17 19:32 | HP ---
CHIEF COMPLAINT: here from infusion with hyponatremia PCP:Dr. Pablo Oncologist:Dr. Santos HISTORY OF PRESENT ILLNESS: 80 year old female with history of lung adenocarcinoma who is currently undergoing chemotherapy, IDDM, coronary artery disease, cabg 6 years ago , hypertension and hyperlipidemia who presents from infusion as she was found to have hyponatremia and hyperkalemia. She was sent to the ED for evaluation and treatment. She was evaluated by Nephrology and she was started on IVF. Patient denies weakness, confusion, chest pain, shortness of breath, fever, cough, nausea, vomiting, headache, dizziness, palpitations, abdominal pain, diarrhea, or dysuria. ER course notable for: sodium 125, normal BUN and creatinine potassium 4.6 Recent Travel: no PAST MEDICAL HISTORY: lung adenocarcinoma cad hypertension hyperlipidemia PAST SURGICAL HISTORY: CABG 6 years ago Social History: Smoking:no Alcohol:no Drugs:no Allergies No Known Allergies Allergy (Verified 07/17/20 15:46) HOME MEDICATIONS: Home Medications Medication Instructions Recorded Atorvastatin Ca [Lipitor] 20 mg PO HS 07/24/15 Sitagliptin Phosphate [Januvia] 100 mg PO DAILY 07/24/15 Ezetimibe [Zetia -] 10 mg PO DAILY 10/05/18 Insulin Detemir [Levemir Flextouch] 32 unit SQ BID 10/06/18 Insulin Sliding Scale [Novolog 0 units SQ ACHS #1 pen 10/06/18 Vial Sliding Scale -] Pantoprazole Sodium [Protonix -] 40 mg PO DAILY #30 tablet.ec 05/26/20 Aspirin [Aspirin EC] 81 mg PO DAILY 06/23/20 Clopidogrel Bisulfate [Clopidogrel] 75 mg PO DAILY 06/23/20 Isosorbide Mononitrate [Imdur -] 60 mg PO DAILY 06/23/20 Metformin HCl [Glucophage] 1,000 mg PO DAILY 06/23/20 Metoprolol Succinate [Toprol XL -] 25 mg PO DAILY 06/23/20 Telmisartan [Micardis] 40 mg PO DAILY 06/23/20 REVIEW OF SYSTEMS CONSTITUTIONAL: Absent: fever, chills, diaphoresis, generalized weakness, malaise, loss of appetite, weight change HEENT: Absent: rhinorrhea, nasal congestion, throat pain, throat swelling, difficulty swallowing, mouth swelling, ear pain, eye pain, visual changes CARDIOVASCULAR: Absent: chest pain, syncope, palpitations, irregular heart rate, lightheadedness, peripheral edema RESPIRATORY: Absent: cough, shortness of breath, dyspnea with exertion, orthopnea, wheezing, stridor, hemoptysis GASTROINTESTINAL: Absent: abdominal pain, abdominal distension, nausea, vomiting, diarrhea, constipation, melena, hematochezia GENITOURINARY: Absent: dysuria, frequency, urgency, hesitancy, hematuria, flank pain, genital pain MUSCULOSKELETAL: Absent: myalgia, arthralgia, joint swelling, back pain, neck pain SKIN: Absent: rash, itching, pallor HEMATOLOGIC/IMMUNOLOGIC: Absent: easy bleeding, easy bruising, lymphadenopathy, frequent infections ENDOCRINE: Absent: unexplained weight gain, unexplained weight loss, heat intolerance, cold intolerance NEUROLOGIC: Absent: headache, focal weakness or paresthesias, dizziness, unsteady gait, seizure, mental status changes, bladder or bowel incontinence PSYCHIATRIC: Absent: anxiety, depression, suicidal or homicidal ideation, hallucinations. PHYSICAL EXAMINATION Vital Signs - 24 hr 07/17/20 15:46 Temperature 98.3 F Pulse Rate 81 Respiratory 16 Rate Blood Pressure 119/54 L O2 Sat by Pulse 99 Oximetry (%) General no acute distress Vital signs reviewed afebrile Neck no JVD Neuro no focal deficits awake alert and orient X 3 Lungs cta nonlabored breathing effort no rales no wheezing Heart s1 s2 rate regular Abdomen soft nontender nondistended Extremities warm to palpation no pitting edema no cyanosis Skin nail beds and lips pink Mood calm Laboratory Results - last 24 hr 07/17/20 16:25 Sodium 125 L Potassium 4.6 Chloride 92 L Carbon Dioxide 25 Anion Gap 9 BUN 16.2 Creatinine 1.0 Est GFR (CKD-EPI)AfAm 61.19 Est GFR (CKD-EPI)NonAf 52.79 Random Glucose 277 H Calcium 8.7 ASSESSMENT/PLAN: In summary 80 year old female with history of lung adenocarcinoma who is currently undergoing chemotherapy, followed by Oncologist- Dr. Santos, coronary artery disease, prior CABG 6 years ago, hypertension and hyperlipidemia who presented from chemotherapy infusion as she was found to have hyponatremia. She was asymptomatic in the ED. She was hemodynamically stable. She is being admitted to the Medicine Service for further medical treatment. #1 hyponatremia/hyperkalemia asymptomatic renal studies normal, repeat labs hyperkalemia improved IVF normal saline @ 60cc/hr infusing repeat BMP in am Nephrology - Dr. Sanchez consult appreciated monitor neurological status #2 cough etiology likely related to lung adenocarcinoma received a dose of IV zosyn afberile, WBC normal will continue empirically with IV zosyn c/w robitussin DM prn consider Pulmonary consult in am #3 coronary artery disease asymptomatic of anginal symptoms c/w asa and plavix c/w statin c/w metoprolol succinate and imdur #4 IDDM BGM before meals and at bedtime insulin as per sliding scale c/w asa and statin #5 hypertension controlled c/w metoprolol succinate arb on hold in setting of hyperkalemia #6 hyperlipidemia c/w statin therapy and zetia #7 lung adenocarcinoma currently on IV infusion/chemotherapy Oncology- Dr. Santos consulted c/w lovenox #8 rule out COVID-19 low suspicion follow up on nasal COVID swab maintain oxygen saturation >90% maintain strict isolation and droplet precautions DVT prophylaxis lovenox 40 mg daily FEN IV NS @ 60 cc/hr monitor BMP daily regular diet Family Medical History Family History: Unremarkable Visit type - Medication Review Med list reviewed for High Risk Meds patients 65 and older: Yes - Emergency Visit Emergency Visit: Yes ED Registration Date: 07/17/20 Care time: The patient presented to the Emergency Department on the above date and was hospitalized for further evaluation of their emergent condition. - New Patient This patient is new to me today: Yes Date on this admission: 07/18/20 - Critical Care Critical Care patient: No
[2020-07-17 20:41] LABS: BASO % 0.5 % (0-2.0); EOS % 2.5 % (0-4.5); HEMATOCRIT 29.3 % (32.4-45.2); HEMOGLOBIN 10.2 GM/dL (10.7-15.3); LYMPH % 19.6 % (8-40); MCH 31.1 pg (25.7-33.7); MEAN PLT VOLUME 7.1 fl (7.5-11.1); MONO % 12.1 % (3.8-10.2); NEUT % 65.3 % (42.8-82.8); PLATELET COUNT 336 K/MM3 (134-434); RBC 3.29 M/mm3 (3.60-5.2); RDW 13.2 % (11.6-15.6); WHITE BLOOD COUNT 5.7 K/mm3 (4.0-10.0)
[2020-07-17] MEDS ORDERED: guaiFENesin/D-M SUGAR-FREE/ACLHOL-FREE 118 ML BOTTLE PO PRN (20:59)
[2020-07-17] MEDS ORDERED: ATORVASTATIN CA 20 MG TABLET (FP) ONE (21:18)
[2020-07-17] MEDS ORDERED: ENOXAPARIN NA (PORCINE) 40 MG/0.4 ML DISP.SYRIN SQ ONE (21:18)
[2020-07-17] MEDS: ATORVASTATIN CA 20 MG TABLET (FP) PO SCH (21:29)
[2020-07-17] MEDS: ENOXAPARIN NA (PORCINE) 40 MG/0.4 ML DISP.SYRIN SQ SCH (21:29)
[2020-07-17] MEDS ORDERED: guaiFENesin/D-METHORPHAN TAB.ER.12H PO SCH (22:00)
[2020-07-18] MEDS ORDERED: PIPERACILLIN/TAZOB 2.25 GM 2.25 GM/50 ML BAG IVPB ONE ×2 (01:50→09:58)
[2020-07-18] MEDS: PIPERACILLIN/TAZOB 2.25 GM 2.25 GM in DEXTROSE 5%-WATER - 50 ML IVPB SCH ×2 (02:14→10:13)
[2020-07-18 07:38] LABS: HEMATOCRIT 27.3 % (32.4-45.2); HEMOGLOBIN 9.4 GM/dL (10.7-15.3); MCH 30.9 pg (25.7-33.7); MCHC 34.5 g/dl (32.0-36.0); MEAN CELL VOLUME 89.8 fl (80-96); MEAN PLT VOLUME 7.3 fl (7.5-11.1); PLATELET COUNT 323 K/MM3 (134-434); RBC 3.04 M/mm3 (3.60-5.2); RDW 13.2 % (11.6-15.6); WHITE BLOOD COUNT 6.3 K/mm3 (4.0-10.0)
[2020-07-18 07:51] LABS: BLOOD UREA NITROGEN 12.9 mg/dL (7-18); CREATININE 0.9 mg/dL (0.55-1.3); MAGNESIUM 2.1 mg/dL (1.8-2.4); POTASSIUM 4.6 mmol/L (3.5-5.1)
[2020-07-18] MEDS: INSULIN SLIDING SCALE (NOVOLOG) 1 VIAL SQ SCH ×2 (08:04→18:44)
--- NOTE | 2020-07-18 08:59 | PN ---
Progress Note, Physician - Current Medication List Current Medications: Active Medications Aspirin (Ecotrin -) 81 mg PO DAILY [facility] Atorvastatin Calcium (Lipitor -) 20 mg PO HS [facility] Last Admin: 07/17/20 21:29 Dose: 20 mg Documented by: Clopidogrel Bisulfate (Plavix -) 75 mg PO DAILY [facility] Enoxaparin Sodium (Lovenox -) 40 mg SQ DAILY [facility] Last Admin: 07/17/20 21:29 Dose: 40 mg Documented by: Guaifenesin (Diabetic Tussin Dm -) 5 ml PO Q6H PRN PRN Reason: COUGH Sodium Chloride (Normal Saline -) 1,000 mls @ 60 mls/hr IV ASDIR MISTY Last Admin: 07/17/20 20:37 Dose: 60 mls/hr Documented by: Piperacillin Sod/Tazobactam (Sod 2.25 gm/ Dextrose) 50 mls @ 100 mls/hr IVPB Q8H-IV MISTY; Protocol Piperacillin Sod/Tazobactam (Sod 2.25 gm/ Dextrose) 50 mls @ 100 mls/hr IVPB Q8H-IV MISTY; Protocol Stop: 07/18/20 18:29 Last Admin: 07/18/20 02:14 Dose: 100 mls/hr Documented by: Insulin Aspart (Novolog Vial Sliding Scale -) 1 vial SQ BIDAC [facility]; Protocol Last Admin: 07/18/20 08:04 Dose: Not Given Documented by: Isosorbide Mononitrate (Imdur -) 60 mg PO DAILY [facility] Metoprolol Succinate (Toprol Xl -) 25 mg PO DAILY [facility] Pantoprazole Sodium (Protonix -) 40 mg PO DAILY [facility] - Objective Vital Signs: Vital Signs Temperature 98.7 F 07/18/20 06:40 Pulse Rate 89 07/18/20 06:40 Respiratory Rate 16 07/18/20 06:40 Blood Pressure 104/51 L 07/18/20 06:40 O2 Sat by Pulse Oximetry (%) 97 07/18/20 06:40 Cardiovascular: Yes: S1, S2 Respiratory: Yes: Diminished, Rhonchi Gastrointestinal: Yes: Normal Bowel Sounds, Soft Labs: CBC, BMP 07/18/20 06:46 07/18/20 06:46 Problem List - Problems (1) Hyponatremia Assessment/Plan: asymptomatic IVF normal saline @ 60cc/hr infusing repeat BMP improved Nephrology - Code(s): E87.1 - HYPO-OSMOLALITY AND HYPONATREMIA (2) Cough Assessment/Plan: received a dose of IV zosyn afberile, WBC normal will continue empirically with IV zosyn c/w robitussin DM prn pulm consult Code(s): R05 - COUGH (3) Adenocarcinoma Assessment/Plan: currently on IV infusion/chemotherapy Oncology- Dr. Santos consulted c/w lovenox #8 rule out COVID-19 low suspicion follow up on nasal COVID swab maintain oxygen saturation >90% maintain strict isolation and droplet precautions DVT prophylaxis lovenox 40 mg daily Code(s): C80.1 - MALIGNANT (PRIMARY) NEOPLASM, UNSPECIFIED (4) HTN (hypertension) Assessment/Plan: controlled c/w metoprolol succinate arb on hold in setting of hyperkalemia Code(s): I10 - ESSENTIAL (PRIMARY) HYPERTENSION (5) Diabetes Assessment/Plan: BGM before meals and at bedtime insulin as per sliding scale Code(s): E11.9 - TYPE 2 DIABETES MELLITUS WITHOUT COMPLICATIONS (6) CAD (coronary artery disease) of artery bypass graft Assessment/Plan: c/w asa and plavix c/w statin c/w metoprolol succinate and imdur Code(s): I25.810 - ATHEROSCLEROSIS OF CABG W/O ANGINA PECTORIS
--- NOTE | 2020-07-18 09:33 | CONSULT ---
Consultation: REQUESTING PROVIDER: CONSULT REQUEST: We have been asked to medically evaluate this patient for lung adenocarcinoma, receiving chemoinfusion. HISTORY OF PRESENT ILLNESS: 80 y/o M (Born in [place]) PMHx poorly differentiated lung adenocarcinoma, CAD s/p CAGB (2010), DM, HTN, HLD admitted for Electrolyte abnormality. Patient was previously admitted in 04/2020 for epigastric/chest pain and 20lb weight loss; Imaging done during this stay found advanced lung ca. Bx revealed poorly differentiated lung adenocarcinoma. Brain MRI revealed metastatic disease of the Left [place]. Patient returned to [facility] for chemoinfusion however BMP revealed electrolyte derraingements (Na 122, K+ 6.2) prompting admission. Patient was started on Zosyn for cough productive of white phlegm. Nephrology evaluated the patient and recommended fluid challenge. Repeat Labwork reveals Na and K+ improvement. PMHx: As per HPI PSHx: CABG Social: Denies TObacco, EtOH or Drug Use, Retired Nurses aide FHx: Noncontributory REVIEW OF SYSTEMS: As per HPI PHYSICAL EXAMINATION Vital Signs Period Temp Pulse Resp BP Sys/Aguilar Pulse Ox Last 24 Hr 98.3 F-98.8 F 81-90 16-18 104-140/51-66 97-99 GENERAL: A&Ox3, NAD HEAD: NCAT EYES: PERRL, EOMI ENT: MMM NECK: Supple LUNGS: Diminished breath sounds at the bases, No wheezes, no crackles HEART: Regular rate and rhythm. S1, S2 without murmur ABDOMEN: Soft, nondistended, nontender, + bowel sounds EXTREMITIES: No edema NEUROLOGICAL: Cranial nerves II through XII grossly intact. SKIN: Warm, dry Laboratory Last Values WBC 6.3 K/mm3 (4.0-10.0) 07/18/20 06:46 RBC 3.04 M/mm3 (3.60-5.2) L 07/18/20 06:46 Hgb 9.4 GM/dL (10.7-15.3) L 07/18/20 06:46 Hct 27.3 % (32.4-45.2) L 07/18/20 06:46 MCV 89.8 fl (80-96) 07/18/20 06:46 MCH 30.9 pg (25.7-33.7) 07/18/20 06:46 MCHC 34.5 g/dl (32.0-36.0) 07/18/20 06:46 RDW 13.2 % (11.6-15.6) 07/18/20 06:46 Plt Count 323 K/MM3 (134-434) 07/18/20 06:46 MPV 7.3 fl (7.5-11.1) L 07/18/20 06:46 Absolute Neuts (auto) 3.7 K/mm3 (1.5-8.0) 07/17/20 20:25 Neutrophils % 65.3 % (42.8-82.8) D 07/17/20 20:25 Lymphocytes % 19.6 % (8-40) D 07/17/20 20:25 Monocytes % 12.1 % (3.8-10.2) H 07/17/20 20:25 Eosinophils % 2.5 % (0-4.5) D 07/17/20 20:25 Basophils % 0.5 % (0-2.0) 07/17/20 20:25 Nucleated RBC % 0 % (0-0) 07/17/20 20:25 Sodium 135 mmol/L (136-145) L 07/18/20 06:46 Potassium 4.6 mmol/L (3.5-5.1) 07/18/20 06:46 Chloride 104 mmol/L (98-107) 07/18/20 06:46 Carbon Dioxide 25 mmol/L (21-32) 07/18/20 06:46 Anion Gap 6 MMOL/L (8-16) L 07/18/20 06:46 BUN 12.9 mg/dL (7-18) 07/18/20 06:46 Creatinine 0.9 mg/dL (0.55-1.3) 07/18/20 06:46 Est GFR (CKD-EPI)AfAm 69.50 07/18/20 06:46 Est GFR (CKD-EPI)NonAf 59.96 07/18/20 06:46 POC Glucometer 146 UNITS (80-120) 07/18/20 07:31 Random Glucose 152 mg/dL (74-106) H 07/18/20 06:46 Calcium 8.0 mg/dL (8.5-10.1) L 07/18/20 06:46 Magnesium 2.1 mg/dL (1.8-2.4) 07/18/20 06:46 Active Medications Aspirin (Ecotrin -) 81 mg PO DAILY MISTY Atorvastatin Calcium (Lipitor -) 20 mg PO HS [facility] Last Admin: 07/17/20 21:29 Dose: 20 mg Documented by: Clopidogrel Bisulfate (Plavix -) 75 mg PO DAILY MISTY Enoxaparin Sodium (Lovenox -) 40 mg SQ DAILY MISTY Last Admin: 07/17/20 21:29 Dose: 40 mg Documented by: Guaifenesin (Diabetic Tussin Dm -) 5 ml PO Q6H PRN PRN Reason: COUGH Sodium Chloride (Normal Saline -) 1,000 mls @ 60 mls/hr IV ASDIR MISTY Last Admin: 07/17/20 20:37 Dose: 60 mls/hr Documented by: Piperacillin Sod/Tazobactam (Sod 2.25 gm/ Dextrose) 50 mls @ 100 mls/hr IVPB Q8H-IV MISTY; Protocol Piperacillin Sod/Tazobactam (Sod 2.25 gm/ Dextrose) 50 mls @ 100 mls/hr IVPB Q8H-IV MISTY; Protocol Stop: 07/18/20 18:29 Last Admin: 07/18/20 02:14 Dose: 100 mls/hr Documented by: Insulin Aspart (Novolog Vial Sliding Scale -) 1 vial SQ BIDAC MISTY; Protocol Last Admin: 07/18/20 08:04 Dose: Not Given Documented by: Isosorbide Mononitrate (Imdur -) 60 mg PO DAILY [facility] Metoprolol Succinate (Toprol Xl -) 25 mg PO DAILY [facility] Pantoprazole Sodium (Protonix -) 40 mg PO DAILY [facility] ASSESSMENT/PLAN: 80 y/o M (Born in [place]) PMHx poorly differentiated lung adenocarcinoma, CAD s/p CAGB (2010), DM, HTN, HLD admitted for Electrolyte abnormality. #Electrolyte Abnromality (Hyponatremia, Hyperkalemia) -Likely hypovolemic hyponatremia due to poor PO Intake -Urine lytes do not point toward SIADH in addition to response to fluid challenge -Nephrology evaluation appreciated #poorly differentiated lung adenocarcinoma -Resume scheduled chemotherapy dosing -DVT PPx Dispo: We will continue to follow the patient. Thank you for this consultative opportunity. Visit type - Medication Review Med list reviewed for High Risk Meds patients 65 and older: Yes - Emergency Visit Emergency Visit: Yes ED Registration Date: 07/17/20 Care time: The patient presented to the Emergency Department on the above date and was hospitalized for further evaluation of their emergent condition. - New Patient This patient is new to me today: No - Critical Care Critical Care patient: No ATTENDING PHYSICIAN STATEMENT I saw and evaluated the patient. I reviewed the resident's note and discussed the case with the resident. I agree with the resident's findings and plan as documented. SUBJECTIVE: OBJECTIVE: ASSESSMENT AND PLAN:
[2020-07-18] MEDS ORDERED: PANTOPRAZOLE 40 MG TABLET ONE (09:56)
[2020-07-18] MEDS ORDERED: ASPIRIN COATED 81 MG TABLET.EC ONE (09:56)
[2020-07-18] MEDS ORDERED: CLOPIDOGREL BISULFATE 75 MG TABLET (FP) ONE (09:57)
[2020-07-18] MEDS ORDERED: ISOSORBIDE MONONITRATE 60 MG TAB.SR.24H (FP) PO ONE (09:57)
[2020-07-18] MEDS ORDERED: metoPROLOL SUCCINATE 25 MG TAB.SR.24H (FP) ONE (09:57)
[2020-07-18] MEDS ORDERED: ENOXAPARIN NA (PORCINE) 40 MG/0.4 ML DISP.SYRIN SQ ONE (09:58)
[2020-07-18] MEDS ORDERED: EZETIMIBE 10 MG TABLET (FP) PO SCH (10:00)
[2020-07-18] MEDS: ISOSORBIDE MONONITRATE 60 MG TAB.SR.24H (FP) PO SCH (10:12)
[2020-07-18] MEDS: ASPIRIN COATED 81 MG TABLET.EC PO SCH (10:12)
[2020-07-18] MEDS: ENOXAPARIN NA (PORCINE) 40 MG/0.4 ML DISP.SYRIN SQ SCH (10:13)
[2020-07-18] MEDS: metoPROLOL SUCCINATE 25 MG TAB.SR.24H (FP) PO SCH (10:13)
[2020-07-18] MEDS: CLOPIDOGREL BISULFATE 75 MG TABLET (FP) PO SCH (10:13)
[2020-07-18] MEDS: PANTOPRAZOLE 40 MG TABLET PO SCH (10:13)
--- NOTE | 2020-07-18 10:30 | CON.ID ---
Consult Consult Specialty:: infectious disease Referred by:: dr mendenhall Reason for Consultation:: possible pneumonia - History of Present Illness Chief Complaint: sob, back pain- now improved History of Present Illness: sent from infusion center yesterday with hyponatremia- she rports she has had worsening sob and back pain currently feels well no fevers no cough recent diagnosis of adenoca of the lung, MRI of brain +for metastases not yet on chemo - History Source History Provided By: Patient, Medical Record Limitations to Obtaining History: No Limitations - Past Medical History Cardio/Vascular: Yes: CAD, HTN, Hyperlipdemia Heme/Onc: Yes: Cancer (adenoca of the lung ) Rheumatology: Yes: Other (Arthritis) Endocrine: Yes: Diabetes Mellitus - Past Surgical History Past Surgical History: Yes: CABG - Alcohol/Substance Use Hx Alcohol Use: No - Smoking History Smoking history: Never smoked Have you smoked in the past 12 months: No Aproximately how many cigarettes per day: 0 - Social History Usual Living Arrangement: Alone ADL: Family Assistance 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 Place of : Other ([place]) History of Recent Travel: No Home Medications - Allergies Allergies/Adverse Reactions: Allergies Allergy/AdvReac Type Severity Reaction Status Date / Time No Known Allergies Allergy Verified 07/17/20 15:46 - Home Medications Home Medications: Ambulatory Orders Atorvastatin Ca [Lipitor] 20 mg PO HS 07/24/15 Sitagliptin Phosphate [Januvia] 100 mg PO DAILY 07/24/15 Ezetimibe [Zetia -] 10 mg PO DAILY 10/05/18 Insulin Detemir [Levemir Flextouch] 32 unit SQ BID 10/06/18 Insulin Sliding Scale [Novolog Vial Sliding Scale -] 0 units SQ ACHS #1 pen 10/06/18 Pantoprazole Sodium [Protonix -] 40 mg PO DAILY #30 tablet.ec 05/26/20 Aspirin [Aspirin EC] 81 mg PO DAILY 06/23/20 Clopidogrel Bisulfate [Clopidogrel] 75 mg PO DAILY 06/23/20 Isosorbide Mononitrate [Imdur -] 60 mg PO DAILY 06/23/20 Metformin HCl [Glucophage] 1,000 mg PO DAILY 06/23/20 Metoprolol Succinate [Toprol XL -] 25 mg PO DAILY 06/23/20 Telmisartan [Micardis] 40 mg PO DAILY 06/23/20 Family Medical History Family History: Denies Review of Systems - Review of Systems Constitutional: denies: Chills, Fever Eyes: reports: No Symptoms HENT: reports: No Symptoms Neck: reports: No Symptoms Cardiovascular: reports: No Symptoms. denies: Chest Pain, Edema Respiratory: reports: SOB. denies: Cough Gastrointestinal: reports: No Symptoms. denies: Abdominal Pain Genitourinary: reports: No Symptoms Musculoskeletal: reports: No Symptoms Integumentary: reports: No Symptoms Physical Exam Vital Signs: Vital Signs Temperature 98.7 F 07/18/20 06:40 Pulse Rate 89 07/18/20 06:40 Respiratory Rate 16 07/18/20 06:40 Blood Pressure 104/51 L 07/18/20 06:40 O2 Sat by Pulse Oximetry (%) 97 07/18/20 06:40 Constitutional: Yes: Well Nourished, No Distress, Calm Eyes: Yes: Conjunctiva Clear HENT: Yes: Atraumatic, Normocephalic. No: Thrush Neck: Yes: Supple, Trachea Midline Cardiovascular: Yes: Regular Rate and Rhythm Respiratory: Yes: Regular, CTA Bilaterally Gastrointestinal: Yes: Normal Bowel Sounds, Soft ...Rectal Exam: Yes: Deferred Renal/: No: CVA Tenderness - Left, CVA Tenderness - Right Edema: No Peripheral Pulses WNL: No Psychiatric: Yes: Alert, Oriented Labs: CBC, BMP 07/18/20 06:46 07/18/20 06:46 Imaging - Results Chest X-ray: Report Reviewed, Image Reviewed Problem List - Problems (1) Lung cancer Code(s): C34.90 - MALIGNANT NEOPLASM OF UNSP PART OF UNSP BRONCHUS OR LUNG (2) Pneumonia Code(s): J18.9 - PNEUMONIA, UNSPECIFIED ORGANISM Assessment/Plan ?effusion, cannot r/o post obstructive pneumonia with worsening sob and back pain will get chest ct continue zosyn, if no isngs of pneumonia can d/c zosyn after chest ct f/u with pulmonary
[2020-07-18] MEDS ORDERED: DEXTROSE 5%-WATER - 1,000 ML IV SCH ×3 (11:30→13:43)
--- NOTE | 2020-07-18 12:32 | PN ---
Physical Exam: Nephrology service- resident progress note SUBJECTIVE: Patient seen and examined at bedside. She is tolerating oral intake, and drinking water at bedside. OBJECTIVE: Vital Signs Period Temp Pulse Resp BP Sys/Aguilar Pulse Ox Last 24 Hr 98.1 F-98.8 F 81-96 16-20 104-140/51-73 97-99 GENERAL: The patient is awake, alert, and fully oriented, in no acute distress. HEAD: Normocephalic, atraumatic. EYES: PERRL, extraocular movements intact, sclera anicteric, conjunctiva clear. ENT: Oropharynx clear, without erythema or exudates. Dry mucous membranes. NECK: Trachea midline, full range of motion. Supple without lymphadenopathy. LUNGS: Breath sounds equal, clear to auscultation bilaterally. No wheezes, no crackles. No accessory muscle use. HEART: Regular rate and rhythm. S1, S2 without murmur, rub or gallop. ABDOMEN: Soft, nondistended, nontender to light and deep palpation x4 quadrants. Normoactive bowel sounds x4 quadrants. EXTREMITIES: 2+ radial, dorsalis pedis pulses bilaterally. Warm, well-perfused. No lower extremity edema bilaterally. NEUROLOGICAL: Cranial nerves II through XII grossly intact. Normal speech. No gross focal deficits. PSYCH: Normal mood, normal affect upon my encounter. SKIN: Warm, dry. Laboratory Results - last 24 hr 07/17/20 07/17/20 07/18/20 16:25 20:25 06:46 WBC 5.7 6.3 RBC 3.29 L 3.04 L Hgb 10.2 L 9.4 L Hct 29.3 L 27.3 L MCV 89.0 89.8 MCH 31.1 30.9 MCHC 35.0 34.5 RDW 13.2 13.2 Plt Count 336 323 MPV 7.1 L 7.3 L Absolute Neuts (auto) 3.7 Neutrophils % 65.3 D Lymphocytes % 19.6 D Monocytes % 12.1 H Eosinophils % 2.5 D Basophils % 0.5 Nucleated RBC % 0 Sodium 125 L Potassium 4.6 Chloride 92 L Carbon Dioxide 25 Anion Gap 9 BUN 16.2 Creatinine 1.0 Est GFR (CKD-EPI)AfAm 61.19 Est GFR (CKD-EPI)NonAf 52.79 POC Glucometer Random Glucose 277 H Calcium 8.7 Magnesium 07/18/20 07/18/20 06:46 07:31 WBC RBC Hgb Hct MCV MCH MCHC RDW Plt Count MPV Absolute Neuts (auto) Neutrophils % Lymphocytes % Monocytes % Eosinophils % Basophils % Nucleated RBC % Sodium 135 L Potassium 4.6 Chloride 104 Carbon Dioxide 25 Anion Gap 6 L BUN 12.9 Creatinine 0.9 Est GFR (CKD-EPI)AfAm 69.50 Est GFR (CKD-EPI)NonAf 59.96 POC Glucometer 146 Random Glucose 152 H Calcium 8.0 L Magnesium 2.1 Active Medications Generic Name Dose Route Start Last Admin Trade Name Freq PRN Reason Stop Dose Admin Aspirin 81 mg 07/18/20 10:00 07/18/20 10:12 Ecotrin - PO 81 mg DAILY MISTY Administration Atorvastatin Calcium 20 mg 07/17/20 22:00 07/17/20 21:29 Lipitor - PO 20 mg HS MISTY Administration Clopidogrel Bisulfate 75 mg 07/18/20 10:00 07/18/20 10:13 Plavix - PO 75 mg DAILY MISTY Administration Enoxaparin Sodium 40 mg 07/17/20 20:15 07/18/20 10:13 Lovenox - SQ 40 mg DAILY MISTY Administration Guaifenesin 5 ml 07/17/20 20:59 Diabetic Tussin Dm - PO Q6H PRN COUGH Piperacillin Sod/Tazobactam 50 mls @ 100 mls/hr 07/18/20 02:00 Sod 2.25 gm/ Dextrose IVPB Q8H-IV MISTY Protocol Piperacillin Sod/Tazobactam 50 mls @ 100 mls/hr 07/18/20 02:00 07/18/20 10:13 Sod 2.25 gm/ Dextrose IVPB 07/18/20 18:29 100 mls/hr Q8H-IV MISTY Administration Protocol Dextrose 1,000 mls @ 75 mls/hr 07/18/20 11:30 D5w - IV ASDIR MISTY Insulin Aspart 1 vial 07/18/20 07:00 07/18/20 08:04 Novolog Vial Sliding Scale - SQ Not Given BIDAC MISTY Protocol Isosorbide Mononitrate 60 mg 07/18/20 10:00 07/18/20 10:12 Imdur - PO 60 mg DAILY MISTY Administration Metoprolol Succinate 25 mg 07/18/20 10:00 07/18/20 10:13 Toprol Xl - PO 25 mg DAILY MISTY Administration Pantoprazole Sodium 40 mg 07/18/20 10:00 07/18/20 10:13 Protonix - PO 40 mg DAILY MISTY Administration ASSESSMENT/PLAN: Patient is an 80 year old female with history of lung adenocarcinoma, coronary artery disease (s/p CABG), diabetes mellitus, hypertension, hyperlipidemia admitted for hyponatremia. Impression: Hyponatremia Hyperkalemia Lung adenocarcinoma, metastatic Coronary artery disease Diabetes mellitus Hypertension Hyperlipidemia Plan: Hyponatremia improving with IV fluids. Sodium noted to be over-corrected (from 122 to 135 over past 24 hours). Normal saline discontinued. Begin D5 water at 75mL/ hour Follow repeat BMP Hyperkalemia resolved with IV fluid hydration. Avoid nephrotoxic agents Infectious disease, Hematology/ Oncology consults appreciated. Disposition: We will continue to follow the patient. Thank you for this consultative opportunity. Visit type - Emergency Visit Emergency Visit: Yes ED Registration Date: 07/17/20 Care time: The patient presented to the Emergency Department on the above date and was hospitalized for further evaluation of their emergent condition. - New Patient This patient is new to me today: No - Critical Care Critical Care patient: No - Discharge Referral Referred to [facility] No - Medication Review Med list reviewed for High Risk Meds patients 65 and older: Yes ATTENDING PHYSICIAN STATEMENT I saw and evaluated the patient. I reviewed the resident's note and discussed the case with the resident. I agree with the resident's findings and plan as documented. SUBJECTIVE: OBJECTIVE: ASSESSMENT AND PLAN:
--- NOTE | 2020-07-18 13:33 | CON.PULM ---
Consult Consult Specialty:: PULM/CCM Referred by:: IMTIAZ Reason for Consultation:: SOB - History of Present Illness Chief Complaint: SOB History of Present Illness: 80 M, known metastatic poorly differentiated lung adenocarcinoma (left [place]), CAD, S/P CAGB (2010), DM, HTN, and HLD. Admitted via the ER from the infusion center due to electrolyte abnormality. Previously admitted in 04/2020 for epigastric/chest pain and 20lb weight loss. Reports back pain, shortness or breath, and cough. No hemotysis. No night sweats. No travel history. No sick contacts. CXR: increasing opacification/infiltrate on the left - History Source History Provided By: Patient Limitations to Obtaining History: No Limitations - Past Medical History Cardio/Vascular: Yes: CAD, HTN, Hyperlipdemia Pulmonary: Yes: Bronchitis, Cancer, Pneumonia. 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 History of Recent Travel: No Home Medications - Allergies Allergies/Adverse Reactions: Allergies Allergy/AdvReac Type Severity Reaction Status Date / Time No Known Allergies Allergy Verified 07/17/20 15:46 - Home Medications Home Medications: Ambulatory Orders Atorvastatin Ca [Lipitor] 20 mg PO HS 07/24/15 Sitagliptin Phosphate [Januvia] 100 mg PO DAILY 07/24/15 Ezetimibe [Zetia -] 10 mg PO DAILY 10/05/18 Insulin Detemir [Levemir Flextouch] 32 unit SQ BID 10/06/18 Insulin Sliding Scale [Novolog Vial Sliding Scale -] 0 units SQ ACHS #1 pen 10/06/18 Pantoprazole Sodium [Protonix -] 40 mg PO DAILY #30 tablet.ec 05/26/20 Aspirin [Aspirin EC] 81 mg PO DAILY 06/23/20 Clopidogrel Bisulfate [Clopidogrel] 75 mg PO DAILY 06/23/20 Isosorbide Mononitrate [Imdur -] 60 mg PO DAILY 06/23/20 Metformin HCl [Glucophage] 1,000 mg PO DAILY 06/23/20 Metoprolol Succinate [Toprol XL -] 25 mg PO DAILY 06/23/20 Telmisartan [Micardis] 40 mg PO DAILY 06/23/20 Family Medical History Family History: Denies Review of Systems - Review of Systems Constitutional: reports: Lethargy, Loss of Appetite, Malaise, Weakness. denies: Chills, Fever, Night Sweats Eyes: reports: No Symptoms HENT: reports: No Symptoms Neck: reports: No Symptoms Cardiovascular: reports: Chest Pain, Shortness of Breath. denies: Edema, Palpitations Respiratory: reports: Cough, SOB, SOB on Exertion. denies: Hemoptysis, Snoring, Wheezing Gastrointestinal: reports: No Symptoms Genitourinary: reports: No Symptoms Breasts: reports: No Symptoms Reported Musculoskeletal: reports: Back Pain Integumentary: reports: No Symptoms Neurological: reports: No Symptoms Endocrine: reports: No Symptoms Hematology/Lymphatic: reports: No Symptoms Psychiatric: reports: No Symptoms Physical Exam Vital Sings: Vital Signs Temperature 98.1 F 07/18/20 09:30 Pulse Rate 96 H 07/18/20 09:30 Respiratory Rate 20 07/18/20 09:30 Blood Pressure 125/73 07/18/20 09:30 O2 Sat by Pulse Oximetry (%) 97 07/18/20 09:30 Constitutional: Yes: No Distress Eyes: Yes: Conjunctiva Clear, EOM Intact HENT: Yes: Atraumatic, Normocephalic Neck: Yes: Supple, Trachea Midline Cardiovascular: Yes: Regular Rate and Rhythm Respiratory: Yes: CTA Bilaterally ...Inspection: Yes: WNL ...Clubbing: No Gastrointestinal: Yes: Normal Bowel Sounds, Soft Renal/: Yes: WNL Musculoskeletal: Yes: WNL Extremities: Yes: WNL Edema: No Peripheral Pulses WNL: Yes Integumentary: Yes: WNL Neurological: Yes: WNL, Alert, Oriented ...Motor Strength: WNL Psychiatric: Yes: WNL, Alert, Oriented Labs: CBC, BMP 07/18/20 06:46 07/18/20 06:46 Imaging - Results Chest X-ray: Report Reviewed, Image Reviewed Cat Scan: Report Reviewed, Image Reviewed Problem List - Problems (1) Adenocarcinoma Code(s): C80.1 - MALIGNANT (PRIMARY) NEOPLASM, UNSPECIFIED (2) Cough Code(s): R05 - COUGH (3) Diabetes Code(s): E11.9 - TYPE 2 DIABETES MELLITUS WITHOUT COMPLICATIONS (4) Hyponatremia Code(s): E87.1 - HYPO-OSMOLALITY AND HYPONATREMIA (5) Lung cancer Code(s): C34.90 - MALIGNANT NEOPLASM OF UNSP PART OF UNSP BRONCHUS OR LUNG (6) Pneumonia Code(s): J18.9 - PNEUMONIA, UNSPECIFIED ORGANISM (7) CAD (coronary artery disease) of artery bypass graft Code(s): I25.810 - ATHEROSCLEROSIS OF CABG W/O ANGINA PECTORIS (8) Chest pain Code(s): R07.9 - CHEST PAIN, UNSPECIFIED Qualifiers: Chest pain type: unspecified Qualified Code(s): R07.9 - Chest pain, unspecified (9) Diaphragmatic hernia Code(s): K44.9 - DIAPHRAGMATIC HERNIA WITHOUT OBSTRUCTION OR GANGRENE (10) HTN (hypertension) Code(s): I10 - ESSENTIAL (PRIMARY) HYPERTENSION (11) Mediastinal lymphadenopathy Code(s): R59.0 - LOCALIZED ENLARGED LYMPH NODES (12) Chest discomfort Code(s): R07.89 - OTHER CHEST PAIN Assessment/Plan CT Chest ABX Per ID Supplemental O2 as needed BD TX PRN Monitor off systemic steroids for now No smoking Follow cultures Follow Na level Will follow Thank you. Dr Mcfadden
--- NOTE | 2020-07-18 13:43 | PN ---
Teaching Attending Note Name of Resident: Clayton Navarrete (Nephrology) ATTENDING PHYSICIAN STATEMENT I saw and evaluated the patient. I reviewed the resident's note and discussed the case with the resident. I agree with the resident's findings and plan as documented. Renal Pt seen and examined at bedside. She denies headache or dizziness. cardio s1s2 pulm clear gi soft ext neg edema neuro awake and alert Laboratory Tests 07/17/20 07/18/20 16:25 06:46 Sodium 125 L 135 L Current Medications Generic Name Dose Route Start Last Admin Trade Name Freq PRN Reason Stop Dose Admin Aspirin 81 mg 07/18/20 10:00 07/18/20 10:12 Ecotrin - PO 81 mg DAILY MISTY Administration Atorvastatin Calcium 20 mg 07/17/20 22:00 07/17/20 21:29 Lipitor - PO 20 mg HS MISTY Administration Clopidogrel Bisulfate 75 mg 07/18/20 10:00 07/18/20 10:13 Plavix - PO 75 mg DAILY MISTY Administration Enoxaparin Sodium 40 mg 07/17/20 20:15 07/18/20 10:13 Lovenox - SQ 40 mg DAILY MISTY Administration Guaifenesin 5 ml 07/17/20 20:59 Diabetic Tussin Dm - PO Q6H PRN COUGH Dextrose 1,000 mls @ 75 mls/hr 07/18/20 11:30 07/18/20 13:03 D5w - IV 75 mls/hr ASDIR MISTY Administration Piperacillin Sod/Tazobactam 50 mls @ 100 mls/hr 07/18/20 13:30 Sod 3.375 gm/ Dextrose IVPB Q8H-IV MISTY Protocol Insulin Aspart 1 vial 07/18/20 07:00 07/18/20 08:04 Novolog Vial Sliding Scale - SQ Not Given BIDAC MISTY Protocol Isosorbide Mononitrate 60 mg 07/18/20 10:00 07/18/20 10:12 Imdur - PO 60 mg DAILY MISTY Administration Metoprolol Succinate 25 mg 07/18/20 10:00 07/18/20 10:13 Toprol Xl - PO 25 mg DAILY MISTY Administration Pantoprazole Sodium 40 mg 07/18/20 10:00 07/18/20 10:13 Protonix - PO 40 mg DAILY MISTY Administration Last Vital Signs Temp Pulse Resp BP Pulse Ox 98.1 F 96 H 20 125/73 97 07/18/20 09:30 07/18/20 09:30 07/18/20 09:30 07/18/20 09:30 07/18/20 09:30 Impression: Hyponatremia Hyperkalemia Lung adenocarcinoma Coronary artery disease Diabetes mellitus Hypertension Hyperlipidemia Plan - potassium improved - start d5w to slow the rate of correction - pt received a total of about 700 cc of saline since yesterday and is likely autocorrecting - findings not suggestive of siadh - cont to monitor sodium - avoid a change in sodium of greater than 6 to 8 in 24 hours
[2020-07-18] MEDS ORDERED: PIPERACILLIN/TAZOB 3.375 GM 3.375 GM/50 ML BAG IVPB ONE (14:32)
[2020-07-18] MEDS: PIPERACILLIN/TAZOB 3.375 GM 3.375 GM in DEXTROSE 5%-WATER - 50 ML IVPB SCH ×2 (14:55→18:39)
--- NOTE | 2020-07-18 17:24 | PN ---
Teaching Attending Note Name of Resident: Radhika Miller ATTENDING PHYSICIAN STATEMENT I saw and evaluated the patient. I reviewed the resident's note and discussed the case with the resident. I agree with the resident's findings and plan as documented. : 80y F with metastatic Lung Adeno newly diagnosed not on chemo (had zometa infusion yesterday), IDDM, CAD s/p CABG, HTN, HLD admitted from infusion suite for hyponatremia labs. Patient was asymptomatic. She was given IV hydration with correction of Na from 125 to 135. Patient can follow up as outpatient to go over her NGS results for plan of care.
[2020-07-18 18:41] LABS: BLOOD UREA NITROGEN 12.1 mg/dL (7-18); CALCIUM 7.7 mg/dL (8.5-10.1); CREATININE 1.1 mg/dL (0.55-1.3); POTASSIUM 4.5 mmol/L (3.5-5.1)
[2020-07-18] MEDS ORDERED: DEXTROSE 5%-WATER - 50 ML IVPB ONE (21:08)
[2020-07-18] MEDS ORDERED: PIPERACILLIN/TAZOBACTAM 3.375 GM VIAL IVPB ONE (21:08)
[2020-07-18] MEDS: ATORVASTATIN CA 20 MG TABLET (FP) PO SCH (21:28)
[2020-07-18] MEDS ORDERED: INSULIN (NOVOLOG) ASPART 100 UNITS/ML 10ML VIAL SQ ONE (23:21)
[2020-07-19] MEDS ORDERED: DEXTROSE 5%-WATER - 50 ML IVPB ONE ×3 (00:41→16:37)
[2020-07-19] MEDS ORDERED: PIPERACILLIN/TAZOBACTAM 3.375 GM VIAL IVPB ONE ×3 (00:41→16:37)
[2020-07-19] MEDS: PIPERACILLIN/TAZOB 3.375 GM 3.375 GM in DEXTROSE 5%-WATER - 50 ML IVPB SCH ×3 (02:26→17:06)
[2020-07-19] MEDS: PIPERACILLIN/TAZOB 2.25 GM 2.25 GM in DEXTROSE 5%-WATER - 50 ML IVPB SCH (02:33)
[2020-07-19] MEDS: INSULIN SLIDING SCALE (NOVOLOG) 1 VIAL SQ SCH ×2 (06:11→17:05)
--- NOTE | 2020-07-19 07:20 | PN ---
Progress Note, Physician History of Present Illness: pulmonary alert,comfortable,-sob,cp. chest ct enlarging zoe mass,mediastinal adenopathy,zoe consolidation - Current Medication List Current Medications: Active Medications Aspirin (Ecotrin -) 81 mg PO DAILY [facility] Last Admin: 07/18/20 10:12 Dose: 81 mg Documented by: Atorvastatin Calcium (Lipitor -) 20 mg PO HS [facility] Last Admin: 07/18/20 21:28 Dose: 20 mg Documented by: Clopidogrel Bisulfate (Plavix -) 75 mg PO DAILY [facility] Last Admin: 07/18/20 10:13 Dose: 75 mg Documented by: Enoxaparin Sodium (Lovenox -) 40 mg SQ DAILY [facility] Last Admin: 07/18/20 10:13 Dose: 40 mg Documented by: Guaifenesin (Diabetic Tussin Dm -) 5 ml PO Q6H PRN PRN Reason: COUGH Piperacillin Sod/Tazobactam (Sod 3.375 gm/ Dextrose) 50 mls @ 100 mls/hr IVPB Q8H-IV [facility]; Protocol Last Admin: 07/19/20 02:26 Dose: 100 mls/hr Documented by: Insulin Aspart (Novolog Vial Sliding Scale -) 1 vial SQ BIDAC [facility]; Protocol Last Admin: 07/19/20 06:11 Dose: Not Given Documented by: Isosorbide Mononitrate (Imdur -) 60 mg PO DAILY [facility] Last Admin: 07/18/20 10:12 Dose: 60 mg Documented by: Metoprolol Succinate (Toprol Xl -) 25 mg PO DAILY [facility] Last Admin: 07/18/20 10:13 Dose: 25 mg Documented by: Pantoprazole Sodium (Protonix -) 40 mg PO DAILY [facility] Last Admin: 07/18/20 10:13 Dose: 40 mg Documented by: Pneumococcal 13-Valent Conj Vacc (Prevnar 13 Syringe -) 0.5 ml IM .ONCE ONE Stop: 07/19/20 01:13 - Objective Vital Signs: Vital Signs Temperature 97.3 F L 07/19/20 05:45 Pulse Rate 82 07/19/20 05:45 Respiratory Rate 18 07/19/20 05:45 Blood Pressure 100/51 L 07/19/20 05:45 O2 Sat by Pulse Oximetry (%) 96 07/19/20 05:45 Constitutional: Yes: Calm, Thin Eyes: Yes: WNL HENT: Yes: WNL Neck: Yes: WNL Cardiovascular: Yes: Regular Rate and Rhythm, S1, S2 Respiratory: Yes: Diminished Gastrointestinal: Yes: Normal Bowel Sounds, Soft Extremities: Yes: WNL Edema: No Labs: CBC, BMP 07/18/20 06:46 07/18/20 17:40 - ....Imaging Cat Scan: Image Reviewed Assessment/Plan Problem List - Problems (1) Adenocarcinoma Code(s): C80.1 - MALIGNANT (PRIMARY) NEOPLASM, UNSPECIFIED (2) Cough Code(s): R05 - COUGH (3) Diabetes Code(s): E11.9 - TYPE 2 DIABETES MELLITUS WITHOUT COMPLICATIONS (4) Hyponatremia Code(s): E87.1 - HYPO-OSMOLALITY AND HYPONATREMIA CORRECTED (5) Lung cancer Code(s): C34.90 - MALIGNANT NEOPLASM OF UNSP PART OF UNSP BRONCHUS OR LUNG (6) Pneumonia Code(s): J18.9 - PNEUMONIA, UNSPECIFIED ORGANISM (7) CAD (coronary artery disease) of artery bypass graft Code(s): I25.810 - ATHEROSCLEROSIS OF CABG W/O ANGINA PECTORIS (8) Chest pain Code(s): R07.9 - CHEST PAIN, UNSPECIFIED Qualifiers: Chest pain type: unspecified Qualified Code(s): R07.9 - Chest pain, unspecified (9) Diaphragmatic hernia Code(s): K44.9 - DIAPHRAGMATIC HERNIA WITHOUT OBSTRUCTION OR GANGRENE (10) HTN (hypertension) Code(s): I10 - ESSENTIAL (PRIMARY) HYPERTENSION (11) Mediastinal lymphadenopathy Code(s): R59.0 - LOCALIZED ENLARGED LYMPH NODES (12) Chest discomfort Code(s): R07.89 - OTHER CHEST PAIN Assessment/Plan ABX Per ID Supplemental O2 as needed BD TX PRN Monitor off systemic steroids for now No smoking Follow Na level DR ANSARI
[2020-07-19 07:52] LABS: ALBUMIN 2.4 g/dl (3.4-5.0); BASO % 0.5 % (0-2.0); BILIRUBIN,TOTAL 0.4 mg/dL (0.2-1); EOS % 4.6 % (0-4.5); HEMATOCRIT 26.2 % (32.4-45.2); HEMOGLOBIN 8.9 GM/dL (10.7-15.3); LYMPH % 17.6 % (8-40); MCH 30.4 pg (25.7-33.7); MCHC 34.1 g/dl (32.0-36.0); MEAN CELL VOLUME 89.1 fl (80-96); MEAN PLT VOLUME 7.2 fl (7.5-11.1); MONO % 12.7 % (3.8-10.2); NEUT % 64.6 % (42.8-82.8); PLATELET COUNT 317 K/MM3 (134-434); POTASSIUM 4.4 mmol/L (3.5-5.1); RBC 2.94 M/mm3 (3.60-5.2); RDW 13.1 % (11.6-15.6); TOT PROT 6.4 g/dl (6.4-8.2); WHITE BLOOD COUNT 5.8 K/mm3 (4.0-10.0)
[2020-07-19] MEDS: CLOPIDOGREL BISULFATE 75 MG TABLET (FP) PO SCH (09:45)
[2020-07-19] MEDS: metoPROLOL SUCCINATE 25 MG TAB.SR.24H (FP) PO SCH (09:45)
[2020-07-19] MEDS: ENOXAPARIN NA (PORCINE) 40 MG/0.4 ML DISP.SYRIN SQ SCH (09:45)
[2020-07-19] MEDS: ASPIRIN COATED 81 MG TABLET.EC PO SCH (09:45)
[2020-07-19] MEDS: ISOSORBIDE MONONITRATE 60 MG TAB.SR.24H (FP) PO SCH (09:45)
[2020-07-19] MEDS: PANTOPRAZOLE 40 MG TABLET PO SCH (09:45)
[2020-07-19] MEDS ORDERED: INSULIN (NOVOLOG) ASPART 100 UNITS/ML 10ML VIAL ONE ×2 (10:10→17:15)
[2020-07-19] MEDS ORDERED: INSULIN (LEVEMIR) 100 UNITS/ML UNITS SQ ONE ×2 (10:10→17:15)
--- NOTE | 2020-07-19 11:45 | PN ---
Progress Note (short form) - Note Progress Note: RENAL Pt is awake and alert comfortable, no nausea or vomiting wants to go home Last Vital Signs Temp Pulse Resp BP Pulse Ox 98.5 F 92 H 20 121/55 L 97 07/19/20 08:59 07/19/20 08:59 07/19/20 08:59 07/19/20 08:59 07/19/20 09:00 lungs clear cvs s1s2 rr abd soft ext no edema neuro a+ox3 CBC, BMP 07/19/20 06:38 07/19/20 06:38 Current Medications Generic Name Dose Route Start Last Admin Trade Name Freq PRN Reason Stop Dose Admin Aspirin 81 mg 07/18/20 10:00 07/19/20 09:45 Ecotrin - PO 81 mg DAILY [facility] Administration Atorvastatin Calcium 20 mg 07/17/20 22:00 07/18/20 21:28 Lipitor - PO 20 mg HS [facility] Administration Clopidogrel Bisulfate 75 mg 07/18/20 10:00 07/19/20 09:45 Plavix - PO 75 mg DAILY [facility] Administration Enoxaparin Sodium 40 mg 07/17/20 20:15 07/19/20 09:45 Lovenox - SQ 40 mg DAILY [facility] Administration Guaifenesin 5 ml 07/17/20 20:59 Diabetic Tussin Dm - PO Q6H PRN COUGH Piperacillin Sod/Tazobactam 50 mls @ 100 mls/hr 07/18/20 13:30 07/19/20 09:44 Sod 3.375 gm/ Dextrose IVPB 100 mls/hr Q8H-IV [facility] Administration Protocol Insulin Aspart 1 vial 07/18/20 17:32 07/19/20 06:11 Novolog Vial Sliding Scale - SQ Not Given BIDAC [facility] Protocol Isosorbide Mononitrate 60 mg 07/18/20 10:00 07/19/20 09:45 Imdur - PO 60 mg DAILY [facility] Administration Metoprolol Succinate 25 mg 07/18/20 10:00 07/19/20 09:45 Toprol Xl - PO 25 mg DAILY [facility] Administration Pantoprazole Sodium 40 mg 07/18/20 10:00 07/19/20 09:45 Protonix - PO 40 mg DAILY [facility] Administration Pneumococcal 13-Valent Conj Vacc 0.5 ml 07/19/20 01:12 Prevnar 13 Syringe - IM 07/19/20 01:13 .ONCE ONE Impression: Hyponatremia- combination of volume depletion and reduced solute intake Hyperkalemia- reduced delivery of sodium to distal tubule Lung adenocarcinoma Coronary artery disease Diabetes mellitus Hypertension Hyperlipidemia Plan continue current management if able to feed, should be ok MV
[2020-07-19 15:29] VITALS: BMI 20.7
--- NOTE | 2020-07-19 17:25 | PN ---
Progress Note, Physician Chief Complaint: Lung CA Pneumonia History of Present Illness: Previous notes and events reviewed awake and alert NAD denies complaints of dizziness or headache denies SOB denies chest pain or palpitations Na 136 noted with slight drop in Hg LUE edema-US r/o dvt ordered - Current Medication List Current Medications: Active Medications Aspirin (Ecotrin -) 81 mg PO DAILY [facility] Last Admin: 07/19/20 09:45 Dose: 81 mg Documented by: Atorvastatin Calcium (Lipitor -) 20 mg PO HS [facility] Last Admin: 07/18/20 21:28 Dose: 20 mg Documented by: Clopidogrel Bisulfate (Plavix -) 75 mg PO DAILY [facility] Last Admin: 07/19/20 09:45 Dose: 75 mg Documented by: Enoxaparin Sodium (Lovenox -) 40 mg SQ DAILY [facility] Last Admin: 07/19/20 09:45 Dose: 40 mg Documented by: Guaifenesin (Diabetic Tussin Dm -) 5 ml PO Q6H PRN PRN Reason: COUGH Piperacillin Sod/Tazobactam (Sod 3.375 gm/ Dextrose) 50 mls @ 100 mls/hr IVPB Q8H-IV [facility]; Protocol Last Admin: 07/19/20 17:06 Dose: 100 mls/hr Documented by: Insulin Aspart (Novolog Vial Sliding Scale -) 1 vial SQ BIDAC [facility]; Protocol Last Admin: 07/19/20 17:05 Dose: 6 units Documented by: Isosorbide Mononitrate (Imdur -) 60 mg PO DAILY [facility] Last Admin: 07/19/20 09:45 Dose: 60 mg Documented by: Metoprolol Succinate (Toprol Xl -) 25 mg PO DAILY [facility] Last Admin: 07/19/20 09:45 Dose: 25 mg Documented by: Pantoprazole Sodium (Protonix -) 40 mg PO DAILY [facility] Last Admin: 07/19/20 09:45 Dose: 40 mg Documented by: Pneumococcal 13-Valent Conj Vacc (Prevnar 13 Syringe -) 0.5 ml IM .ONCE ONE Stop: 07/19/20 01:13 - Objective Vital Signs: Vital Signs Temperature 98.2 F 07/19/20 13:48 Pulse Rate 79 07/19/20 13:48 Respiratory Rate 18 07/19/20 13:48 Blood Pressure 98/42 L 07/19/20 13:48 O2 Sat by Pulse Oximetry (%) 99 07/19/20 13:48 Constitutional: Yes: No Distress, Calm Eyes: Yes: Conjunctiva Clear HENT: Yes: Atraumatic Cardiovascular: Yes: Regular Rate and Rhythm Respiratory: Yes: Regular, Diminished Gastrointestinal: Yes: Normal Bowel Sounds, Soft, Abdomen, Obese Musculoskeletal: Yes: Muscle Weakness Extremities: Yes: WNL Edema: No Integumentary: Yes: WNL Neurological: Yes: Alert, Oriented Psychiatric: Yes: Alert, Oriented Labs: CBC, BMP 07/19/20 06:38 07/19/20 06:38 Problem List - Problems (1) Adenocarcinoma Assessment/Plan: Oncology on board CHest CT scan shows enlargement of medial EMMANUEL sine 05/26/20, mass is now invading mediastinum and anterior chest wall, new anterior mediastinal lymphadenopathy, new left pleural effusion, development of obstructive consolidation/atelectasis EMMANUEL, developing R pleural effusion and basilar atelectasis Code(s): C80.1 - MALIGNANT (PRIMARY) NEOPLASM, UNSPECIFIED (2) Lung cancer Assessment/Plan: Oncology on board CHest CT scan shows enlargement of medial EMMANUEL sine 05/26/20, mass is now invading mediastinum and anterior chest wall, new anterior mediastinal lymphadenopathy, new left pleural effusion, development of obstructive consolidation/atelectasis EMMANUEL, developing R pleural effusion and basilar atelectasis Code(s): C34.90 - MALIGNANT NEOPLASM OF UNSP PART OF UNSP BRONCHUS OR LUNG (3) Pneumonia Assessment/Plan: Oncology on board CHest CT scan shows enlargement of medial EMMANUEL sine 05/26/20, mass is now invading mediastinum and anterior chest wall, new anterior mediastinal lymphadenopathy, new left pleural effusion, development of obstructive consolidation/atelectasis EMMANUEL, developing R pleural effusion and basilar atelectasis Pulmonary and ID on board Zosyn no leukocytosis keep SpO2 >90% Code(s): J18.9 - PNEUMONIA, UNSPECIFIED ORGANISM (4) CAD (coronary artery disease) of artery bypass graft Assessment/Plan: Atorvastatin, Aspirin, Plavix Code(s): I25.810 - ATHEROSCLEROSIS OF CABG W/O ANGINA PECTORIS (5) HTN (hypertension) Assessment/Plan: Isosorbide, Metropolol monitor BP Code(s): I10 - ESSENTIAL (PRIMARY) HYPERTENSION (6) Diabetes Assessment/Plan: BGM ISS diabetic diet Code(s): E11.9 - TYPE 2 DIABETES MELLITUS WITHOUT COMPLICATIONS (7) Hyponatremia Assessment/Plan: Resolved Na 136 monitor Na level daily Code(s): E87.1 - HYPO-OSMOLALITY AND HYPONATREMIA Assessment/Plan see problem list
[2020-07-19] MEDS ORDERED: PNEUMOC 13-VAL CONJ-DIP CRM/PF 0.5 ML DISP.SYRIN IM ONE (18:00)
--- NOTE | 2020-07-19 19:53 | PN.HO ---
Progress Note (short form) - Note Progress Note: PAtient seen and examined Feels well AFVSS Cor: RSR, No murmurs, No gallops Lungs: Clear to P&A Abd: Soft, Normal bowel sounds, No organomegaly Ext:No significant edema LAbs /MEds reviewed A/P 80 y/o with EMMANUEL mass , enlarging with mediastinal invasion , EMMANUEL consolidation, developing effusion. PET CT with b/l mediastinal nodes and L! 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 SIADH Will be a candidate for 1st line capmatinib
[2020-07-19] MEDS: ATORVASTATIN CA 20 MG TABLET (FP) PO SCH (22:19)
--- NOTE | 2020-07-19 22:56 | PN ---
Progress Note, Physician History of Present Illness: AWAKE, ALERT SEATED IN BED REPORTS EPISODE OF HEMOPTYSIS NO C/O FEVER/ CHILLS WBC WNL CT SHOWS INCREASED LUNG MASS WITH ? CONSOLIDATION, MEDIASTINAL/ CHEST WALL INVASION - Current Medication List Current Medications: Active Medications Aspirin (Ecotrin -) 81 mg PO DAILY [facility] Last Admin: 07/19/20 09:45 Dose: 81 mg Documented by: Atorvastatin Calcium (Lipitor -) 20 mg PO HS [facility] Last Admin: 07/19/20 22:19 Dose: 20 mg Documented by: Clopidogrel Bisulfate (Plavix -) 75 mg PO DAILY [facility] Last Admin: 07/19/20 09:45 Dose: 75 mg Documented by: Enoxaparin Sodium (Lovenox -) 40 mg SQ DAILY [facility] Last Admin: 07/19/20 09:45 Dose: 40 mg Documented by: Guaifenesin (Diabetic Tussin Dm -) 5 ml PO Q6H PRN PRN Reason: COUGH Piperacillin Sod/Tazobactam (Sod 3.375 gm/ Dextrose) 50 mls @ 100 mls/hr IVPB Q8H-IV [facility]; Protocol Last Admin: 07/19/20 17:06 Dose: 100 mls/hr Documented by: Insulin Aspart (Novolog Vial Sliding Scale -) 1 vial SQ BIDAC [facility]; Protocol Last Admin: 07/19/20 17:05 Dose: 6 units Documented by: Isosorbide Mononitrate (Imdur -) 60 mg PO DAILY [facility] Last Admin: 07/19/20 09:45 Dose: 60 mg Documented by: Metoprolol Succinate (Toprol Xl -) 25 mg PO DAILY [facility] Last Admin: 07/19/20 09:45 Dose: 25 mg Documented by: Pantoprazole Sodium (Protonix -) 40 mg PO DAILY [facility] Last Admin: 07/19/20 09:45 Dose: 40 mg Documented by: - Objective Vital Signs: Vital Signs Temperature 97.8 F 07/19/20 20:02 Pulse Rate 85 07/19/20 20:02 Respiratory Rate 18 07/19/20 20:02 Blood Pressure 107/50 L 07/19/20 20:02 O2 Sat by Pulse Oximetry (%) 99 07/19/20 20:02 Constitutional: Yes: Cachectic Cardiovascular: Yes: Regular Rate and Rhythm, S1, S2 Respiratory: Yes: Diminished Gastrointestinal: Yes: Normal Bowel Sounds, Soft. No: Tenderness Edema: No Labs: CBC, BMP 07/19/20 06:38 07/19/20 06:38 Assessment/Plan LUNG CA ? ASSOCIATED CONSOLIDATION HEMOPTYSIS BRAIN METS OBTAIN SPUTUM C/S., LEGIONELLA AG CONTINUE ZOSYN
[2020-07-20] MEDS ORDERED: DEXTROSE 5%-WATER - 50 ML IVPB ONE ×3 (01:27→18:03)
[2020-07-20] MEDS ORDERED: PIPERACILLIN/TAZOBACTAM 3.375 GM VIAL IVPB ONE ×3 (01:27→18:03)
[2020-07-20] MEDS: PIPERACILLIN/TAZOB 3.375 GM 3.375 GM in DEXTROSE 5%-WATER - 50 ML IVPB SCH ×3 (02:02→18:05)
[2020-07-20] MEDS: INSULIN SLIDING SCALE (NOVOLOG) 1 VIAL SQ SCH ×2 (06:23→16:54)
[2020-07-20 07:51] LABS: HEMATOCRIT 26.6 % (32.4-45.2); MCH 30.1 pg (25.7-33.7); MCHC 33.7 g/dl (32.0-36.0); MEAN CELL VOLUME 89.4 fl (80-96); MEAN PLT VOLUME 7.2 fl (7.5-11.1); PLATELET COUNT 317 K/MM3 (134-434); RBC 2.97 M/mm3 (3.60-5.2); RDW 13.3 % (11.6-15.6); WHITE BLOOD COUNT 7.1 K/mm3 (4.0-10.0)
[2020-07-20 08:22] LABS: ALBUMIN 2.4 g/dl (3.4-5.0); BILIRUBIN,TOTAL 0.4 mg/dL (0.2-1); BLOOD UREA NITROGEN 11.8 mg/dL (7-18); CALCIUM 7.6 mg/dL (8.5-10.1); CREATININE 1.1 mg/dL (0.55-1.3); POTASSIUM 4.1 mmol/L (3.5-5.1); TOT PROT 6.8 g/dl (6.4-8.2)
[2020-07-20] MEDS: ENOXAPARIN NA (PORCINE) 40 MG/0.4 ML DISP.SYRIN SQ SCH (09:32)
[2020-07-20] MEDS: ISOSORBIDE MONONITRATE 60 MG TAB.SR.24H (FP) PO SCH (09:32)
[2020-07-20] MEDS: PANTOPRAZOLE 40 MG TABLET PO SCH (09:32)
[2020-07-20] MEDS: metoPROLOL SUCCINATE 25 MG TAB.SR.24H (FP) PO SCH (09:32)
[2020-07-20] MEDS: CLOPIDOGREL BISULFATE 75 MG TABLET (FP) PO SCH (09:32)
[2020-07-20] MEDS: ASPIRIN COATED 81 MG TABLET.EC PO SCH (09:32)
--- NOTE | 2020-07-20 10:18 | PN ---
Progress Note, Physician History of Present Illness: AWAKE, ALERT SEATED IN BED NO C/O HEMOPTYSIS THIS AM DENIES CHEST PAIN/ DYSPNEA/ COUGH NO C/O FEVER/ CHILLS WBC WNL CT SHOWS INCREASED LUNG MASS WITH ? CONSOLIDATION, MEDIASTINAL/ CHEST WALL INVASION - Current Medication List Current Medications: Active Medications Aspirin (Ecotrin -) 81 mg PO DAILY [facility] Last Admin: 07/20/20 09:32 Dose: 81 mg Documented by: Atorvastatin Calcium (Lipitor -) 20 mg PO HS [facility] Last Admin: 07/19/20 22:19 Dose: 20 mg Documented by: Clopidogrel Bisulfate (Plavix -) 75 mg PO DAILY [facility] Last Admin: 07/20/20 09:32 Dose: 75 mg Documented by: Enoxaparin Sodium (Lovenox -) 40 mg SQ DAILY [facility] Last Admin: 07/20/20 09:32 Dose: 40 mg Documented by: Guaifenesin (Diabetic Tussin Dm -) 5 ml PO Q6H PRN PRN Reason: COUGH Piperacillin Sod/Tazobactam (Sod 3.375 gm/ Dextrose) 50 mls @ 100 mls/hr IVPB Q8H-IV [facility]; Protocol Last Admin: 07/20/20 09:32 Dose: 100 mls/hr Documented by: Insulin Aspart (Novolog Vial Sliding Scale -) 1 vial SQ BIDAC [facility]; Protocol Last Admin: 07/20/20 06:23 Dose: 2 units Documented by: Isosorbide Mononitrate (Imdur -) 60 mg PO DAILY [facility] Last Admin: 07/20/20 09:32 Dose: 60 mg Documented by: Metoprolol Succinate (Toprol Xl -) 25 mg PO DAILY [facility] Last Admin: 07/20/20 09:32 Dose: 25 mg Documented by: Pantoprazole Sodium (Protonix -) 40 mg PO DAILY [facility] Last Admin: 07/20/20 09:32 Dose: 40 mg Documented by: - Objective Vital Signs: Vital Signs Temperature 98.9 F 07/20/20 03:10 Pulse Rate 79 07/20/20 03:10 Respiratory Rate 18 07/20/20 03:10 Blood Pressure 101/49 L 07/20/20 03:10 O2 Sat by Pulse Oximetry (%) 97 07/20/20 03:10 Constitutional: Yes: Cachectic Cardiovascular: Yes: Regular Rate and Rhythm, S1, S2 Respiratory: Yes: Diminished Gastrointestinal: Yes: Normal Bowel Sounds, Soft. No: Tenderness Edema: No Labs: CBC, BMP 07/20/20 06:48 07/20/20 06:48 Assessment/Plan LUNG CA ? ASSOCIATED CONSOLIDATION HEMOPTYSIS BRAIN METS AWAIT SPUTUM C/S., LEGIONELLA AG CONTINUE ZOSYN
--- NOTE | 2020-07-20 10:59 | PN ---
Progress Note (short form) - Note Progress Note: RENAL Pt is awake and alert comfortable, no nausea or vomiting Last Vital Signs Temp Pulse Resp BP Pulse Ox 98.9 F 79 18 101/49 L 97 07/20/20 03:10 07/20/20 03:10 07/20/20 03:10 07/20/20 03:10 07/20/20 03:10 lungs decreased breath sounds on left cvs s1s2 rr abd soft ext no edema neuro a+ox3 CBC, BMP 07/20/20 06:48 07/20/20 06:48 Current Medications Generic Name Dose Route Start Last Admin Trade Name Freq PRN Reason Stop Dose Admin Aspirin 81 mg 07/18/20 10:00 07/20/20 09:32 Ecotrin - PO 81 mg DAILY [facility] Administration Atorvastatin Calcium 20 mg 07/17/20 22:00 07/19/20 22:19 Lipitor - PO 20 mg HS [facility] Administration Clopidogrel Bisulfate 75 mg 07/18/20 10:00 07/20/20 09:32 Plavix - PO 75 mg DAILY [facility] Administration Enoxaparin Sodium 40 mg 07/17/20 20:15 07/20/20 09:32 Lovenox - SQ 40 mg DAILY [facility] Administration Guaifenesin 5 ml 07/17/20 20:59 Diabetic Tussin Dm - PO Q6H PRN COUGH Piperacillin Sod/Tazobactam 50 mls @ 100 mls/hr 07/18/20 13:30 07/20/20 09:32 Sod 3.375 gm/ Dextrose IVPB 100 mls/hr Q8H-IV [facility] Administration Protocol Insulin Aspart 1 vial 07/18/20 17:32 07/20/20 06:23 Novolog Vial Sliding Scale - SQ 2 units BIDAC [facility] Administration Protocol Isosorbide Mononitrate 60 mg 07/18/20 10:00 07/20/20 09:32 Imdur - PO 60 mg DAILY [facility] Administration Metoprolol Succinate 25 mg 07/18/20 10:00 07/20/20 09:32 Toprol Xl - PO 25 mg DAILY [facility] Administration Pantoprazole Sodium 40 mg 07/18/20 10:00 07/20/20 09:32 Protonix - PO 40 mg DAILY [facility] Administration Impression: Hyponatremia- combination of volume depletion and reduced solute intake Hyperkalemia- reduced delivery of sodium to distal tubule Lung adenocarcinoma- increasing in left lung Coronary artery disease Diabetes mellitus Hypertension Hyperlipidemia Plan continue current management if able to feed, should be ok obtain urine sodium and osm MV
--- NOTE | 2020-07-20 11:55 | PN ---
Progress Note (short form) - Note Progress Note: PULMONARY Denies shortness of breath but with nonproductive cough. No fevers. Vital Signs Period Temp Pulse Resp BP Sys/Aguilar Pulse Ox Last 24 Hr 97.8 F-98.9 F 79-85 18-18 98-107/42-50 97-99 Gen: NAD at rest Heart: RRR Lung: scattered rhonchi, wheezes Abd: soft, nontender Ext: no edema CBC, BMP 07/20/20 06:48 07/20/20 06:48 Active Medications Aspirin (Ecotrin -) 81 mg PO DAILY [facility] Last Admin: 07/20/20 09:32 Dose: 81 mg Documented by: Atorvastatin Calcium (Lipitor -) 20 mg PO HS [facility] Last Admin: 07/19/20 22:19 Dose: 20 mg Documented by: Clopidogrel Bisulfate (Plavix -) 75 mg PO DAILY [facility] Last Admin: 07/20/20 09:32 Dose: 75 mg Documented by: Enoxaparin Sodium (Lovenox -) 40 mg SQ DAILY [facility] Last Admin: 07/20/20 09:32 Dose: 40 mg Documented by: Guaifenesin (Diabetic Tussin Dm -) 5 ml PO Q6H PRN PRN Reason: COUGH Piperacillin Sod/Tazobactam (Sod 3.375 gm/ Dextrose) 50 mls @ 100 mls/hr IVPB Q8H-IV [facility]; Protocol Last Admin: 07/20/20 09:32 Dose: 100 mls/hr Documented by: Insulin Aspart (Novolog Vial Sliding Scale -) 1 vial SQ BIDAC [facility]; Protocol Last Admin: 07/20/20 06:23 Dose: 2 units Documented by: Isosorbide Mononitrate (Imdur -) 60 mg PO DAILY [facility] Last Admin: 07/20/20 09:32 Dose: 60 mg Documented by: Metoprolol Succinate (Toprol Xl -) 25 mg PO DAILY [facility] Last Admin: 07/20/20 09:32 Dose: 25 mg Documented by: Pantoprazole Sodium (Protonix -) 40 mg PO DAILY [facility] Last Admin: 07/20/20 09:32 Dose: 40 mg Documented by: A/P Progressing Lung Ca Hyponatremia CAD HTN DM Hyperlipidemia Anemia - on empiric antibiotics - oncology f/u - cough suppressants - inhaled bronchodilators - DVT prophylaxis
--- NOTE | 2020-07-20 14:45 | PN ---
Progress Note, Physician Chief Complaint: Lung CA Pneumonia History of Present Illness: Previous notes and events reviewed awake and alert NAD denies complaints of dizziness or headache denies SOB denies chest pain or palpitations Na 134 Hg 9.0 - Current Medication List Current Medications: Active Medications Albuterol/Ipratropium (Duoneb -) 1 amp NEB RTID [facility] Aspirin (Ecotrin -) 81 mg PO DAILY [facility] Last Admin: 07/20/20 09:32 Dose: 81 mg Documented by: Atorvastatin Calcium (Lipitor -) 20 mg PO HS [facility] Last Admin: 07/19/20 22:19 Dose: 20 mg Documented by: Clopidogrel Bisulfate (Plavix -) 75 mg PO DAILY [facility] Last Admin: 07/20/20 09:32 Dose: 75 mg Documented by: Enoxaparin Sodium (Lovenox -) 40 mg SQ DAILY [facility] Last Admin: 07/20/20 09:32 Dose: 40 mg Documented by: Guaifenesin (Diabetic Tussin Dm -) 5 ml PO Q6H PRN PRN Reason: COUGH Piperacillin Sod/Tazobactam (Sod 3.375 gm/ Dextrose) 50 mls @ 100 mls/hr IVPB Q8H-IV [facility]; Protocol Last Admin: 07/20/20 09:32 Dose: 100 mls/hr Documented by: Insulin Aspart (Novolog Vial Sliding Scale -) 1 vial SQ BIDAC [facility]; Protocol Last Admin: 07/20/20 06:23 Dose: 2 units Documented by: Isosorbide Mononitrate (Imdur -) 60 mg PO DAILY [facility] Last Admin: 07/20/20 09:32 Dose: 60 mg Documented by: Metoprolol Succinate (Toprol Xl -) 25 mg PO DAILY [facility] Last Admin: 07/20/20 09:32 Dose: 25 mg Documented by: Pantoprazole Sodium (Protonix -) 40 mg PO DAILY [facility] Last Admin: 07/20/20 09:32 Dose: 40 mg Documented by: - Objective Vital Signs: Vital Signs Temperature 98.7 F 07/20/20 14:38 Pulse Rate 85 07/20/20 14:38 Respiratory Rate 18 07/20/20 14:38 Blood Pressure 102/43 L 07/20/20 14:38 O2 Sat by Pulse Oximetry (%) 97 07/20/20 03:10 Constitutional: Yes: No Distress, Calm Eyes: Yes: Conjunctiva Clear HENT: Yes: Atraumatic Cardiovascular: Yes: Regular Rate and Rhythm Respiratory: Yes: Regular, Wheezes, Other (neb treatment) Gastrointestinal: Yes: Normal Bowel Sounds, Soft Genitourinary: Yes: Incontinence Musculoskeletal: Yes: Muscle Weakness Extremities: Yes: WNL Edema: No Neurological: Yes: Alert, Oriented Psychiatric: Yes: Alert, Oriented Labs: CBC, BMP 07/20/20 06:48 07/20/20 06:48 Problem List - Problems (1) Adenocarcinoma Assessment/Plan: Oncology on board [facility]est CT scan shows enlargement of medial EMMANUEL sine 05/26/20, mass is now invading mediastinum and anterior chest wall, new anterior mediastinal lymphadenopathy, new left pleural effusion, development of obstructive consolidation/atelectasis EMMANUEL, developing R pleural effusion and basilar atelectasis Code(s): C80.1 - MALIGNANT (PRIMARY) NEOPLASM, UNSPECIFIED (2) Lung cancer Assessment/Plan: Oncology on board CHest CT scan shows enlargement of medial EMMANUEL sine 05/26/20, mass is now invading mediastinum and anterior chest wall, new anterior mediastinal lymphadenopathy, new left pleural effusion, development of obstructive consolidation/atelectasis EMMANUEL, developing R pleural effusion and basilar atelectasis Code(s): C34.90 - MALIGNANT NEOPLASM OF UNSP PART OF UNSP BRONCHUS OR LUNG (3) Pneumonia Assessment/Plan: Oncology on board CHest CT scan shows enlargement of medial EMMANUEL sine 05/26/20, mass is now invading mediastinum and anterior chest wall, new anterior mediastinal lymphadenopathy, new left pleural effusion, development of obstructive consolidation/atelectasis EMMANUEL, developing R pleural effusion and basilar atelectasis Pulmonary and ID on board Zosyn no leukocytosis keep SpO2 >90% Sputum Culture and Legionella pending Guaifenesin for cough Code(s): J18.9 - PNEUMONIA, UNSPECIFIED ORGANISM (4) CAD (coronary artery disease) of artery bypass graft Assessment/Plan: Atorvastatin, Aspirin, Plavix Code(s): I25.810 - ATHEROSCLEROSIS OF CABG W/O ANGINA PECTORIS (5) HTN (hypertension) Assessment/Plan: Isosorbide, Metropolol monitor BP Code(s): I10 - ESSENTIAL (PRIMARY) HYPERTENSION (6) Diabetes Assessment/Plan: BGM ISS diabetic diet Code(s): E11.9 - TYPE 2 DIABETES MELLITUS WITHOUT COMPLICATIONS (7) Hyponatremia Assessment/Plan: Nephrology on board Na 134 monitor Na level daily Code(s): E87.1 - HYPO-OSMOLALITY AND HYPONATREMIA Assessment/Plan see problem list dvt ppx
[2020-07-20] MEDS: ALBUTEROL SO4 2.5/IPRATROPIUM 0.5 INH SOL 3 ML VIAL.NEB. NEB SCH ×2 (15:13→20:03)
--- NOTE | 2020-07-20 15:14 | PN.HO ---
Progress Note (short form) - Note Progress Note: PAtient seen and examined Feels well No hemptysis Last Vital Signs Temp Pulse Resp BP Pulse Ox 98.4 F 91 H 18 101/48 L 98 07/20/20 18:00 07/20/20 18:00 07/20/20 18:00 07/20/20 18:00 07/20/20 18:00 Cor: RSR, No murmurs, No gallops Lungs: Clear to P&A Abd: Soft, Normal bowel sounds, No organomegaly Ext:No significant edema LAbs /MEds reviewed A/P 80 y/o with EMMANUEL mass , enlarging with mediastinal invasion , EMMANUEL consolidation, developing effusion. 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 SIADH.>? degydration plus poor solute intake-- Improved Will be a candidate for 1st line capmatinib ( ordered) Will request rad-onc consult
[2020-07-20] MEDS ORDERED: PT OWN MED DRAWER 7, Y5N ONE (22:33)
[2020-07-20] MEDS: ATORVASTATIN CA 20 MG TABLET (FP) PO SCH (22:34)
[2020-07-21] MEDS ORDERED: PIPERACILLIN/TAZOBACTAM 3.375 GM VIAL IVPB ONE ×2 (02:41→10:55)
[2020-07-21] MEDS ORDERED: DEXTROSE 5%-WATER - 50 ML IVPB ONE ×2 (02:41→10:55)
[2020-07-21] MEDS: PIPERACILLIN/TAZOB 3.375 GM 3.375 GM in DEXTROSE 5%-WATER - 50 ML IVPB SCH ×2 (02:58→11:05)
[2020-07-21] MEDS: ACETAMINOPHEN 325 MG TABLET (FP) PO PRN ×2 (05:35→21:02)
[2020-07-21 05:48] LABS: EPI CELLS 18 /uL (0-25.1); HYALINE CASTS 1 /uL (0-3.1); PH,URINE 8.5 (5.0-8.0); URINE APPEARANCE CLEAR; URINE BACTERIA 5 /uL (0-1359); URINE BILIRUBIN NEGATIVE (NEGATIVE); URINE COLOR YELLOW; URINE GLUCOSE (UA) TRACE (NEGATIVE); URINE KETONE NEGATIVE (NEGATIVE); URINE LEUK ESTERASE NEGATIVE (NEGATIVE); URINE NITRITE NEGATIVE (NEGATIVE); URINE PROTEIN 1+ (NEGATIVE); URINE RBC 5 /uL (0-23.9); URINE WBC 3 /uL (0-25.8)
[2020-07-21] MEDS: INSULIN SLIDING SCALE (NOVOLOG) 1 VIAL SQ SCH ×2 (06:22→17:25)
[2020-07-21 07:37] LABS: HEMATOCRIT 26.1 % (32.4-45.2); HEMOGLOBIN 8.8 GM/dL (10.7-15.3); MCHC 33.6 g/dl (32.0-36.0); MEAN CELL VOLUME 89.2 fl (80-96); PLATELET COUNT 317 K/MM3 (134-434); RBC 2.93 M/mm3 (3.60-5.2); RDW 13.4 % (11.6-15.6)
[2020-07-21 08:12] LABS: ALBUMIN 2.4 g/dl (3.4-5.0); BILIRUBIN,TOTAL 0.4 mg/dL (0.2-1); BLOOD UREA NITROGEN 13.2 mg/dL (7-18); CALCIUM 7.5 mg/dL (8.5-10.1); CREATININE 1.2 mg/dL (0.55-1.3); POTASSIUM 4.4 mmol/L (3.5-5.1)
[2020-07-21 08:13] LABS: TOT PROT 6.7 g/dl (6.4-8.2)
--- NOTE | 2020-07-21 08:47 | PN ---
Progress Note, Physician - Current Medication List Current Medications: Active Medications Acetaminophen (Tylenol -) 650 mg PO Q6H PRN PRN Reason: PAIN LEVEL 1-5 Last Admin: 07/21/20 05:35 Dose: 650 mg Documented by: Albuterol/Ipratropium (Duoneb -) 1 amp NEB RTID [facility] Last Admin: 07/20/20 20:03 Dose: 1 amp Documented by: Aspirin (Ecotrin -) 81 mg PO DAILY [facility] Last Admin: 07/20/20 09:32 Dose: 81 mg Documented by: Atorvastatin Calcium (Lipitor -) 20 mg PO HS [facility] Last Admin: 07/20/20 22:34 Dose: 20 mg Documented by: Clopidogrel Bisulfate (Plavix -) 75 mg PO DAILY [facility] Last Admin: 07/20/20 09:32 Dose: 75 mg Documented by: Enoxaparin Sodium (Lovenox -) 40 mg SQ DAILY [facility] Last Admin: 07/20/20 09:32 Dose: 40 mg Documented by: Guaifenesin (Diabetic Tussin Dm -) 5 ml PO Q6H PRN PRN Reason: COUGH Last Admin: 07/20/20 22:34 Dose: 5 ml Documented by: Piperacillin Sod/Tazobactam (Sod 3.375 gm/ Dextrose) 50 mls @ 100 mls/hr IVPB Q8H-IV [facility]; Protocol Last Admin: 07/21/20 02:58 Dose: 100 mls/hr Documented by: Insulin Aspart (Novolog Vial Sliding Scale -) 1 vial SQ BIDAC [facility]; Protocol Last Admin: 07/21/20 06:22 Dose: 2 units Documented by: Isosorbide Mononitrate (Imdur -) 60 mg PO DAILY [facility] Last Admin: 07/20/20 09:32 Dose: 60 mg Documented by: Metoprolol Succinate (Toprol Xl -) 25 mg PO DAILY [facility] Last Admin: 07/20/20 09:32 Dose: 25 mg Documented by: Pantoprazole Sodium (Protonix -) 40 mg PO DAILY [facility] Last Admin: 07/20/20 09:32 Dose: 40 mg Documented by: - Objective Vital Signs: Vital Signs Temperature 98.7 F 07/21/20 06:00 Pulse Rate 75 07/21/20 06:00 Respiratory Rate 16 07/21/20 06:00 Blood Pressure 107/45 L 07/21/20 06:00 O2 Sat by Pulse Oximetry (%) 99 07/21/20 06:00 Cardiovascular: Yes: S1, S2 Respiratory: Yes: On Nasal O2, Rhonchi Gastrointestinal: Yes: Normal Bowel Sounds, Soft Labs: CBC, BMP 07/21/20 07:04 07/21/20 07:04 Problem List - Problems (1) Hyponatremia Code(s): E87.1 - HYPO-OSMOLALITY AND HYPONATREMIA (2) Cough Code(s): R05 - COUGH (3) Adenocarcinoma Code(s): C80.1 - MALIGNANT (PRIMARY) NEOPLASM, UNSPECIFIED (4) HTN (hypertension) Code(s): I10 - ESSENTIAL (PRIMARY) HYPERTENSION (5) Diabetes Code(s): E11.9 - TYPE 2 DIABETES MELLITUS WITHOUT COMPLICATIONS (6) CAD (coronary artery disease) of artery bypass graft Code(s): I25.810 - ATHEROSCLEROSIS OF CABG W/O ANGINA PECTORIS Assessment/Plan - Problems (1) Adenocarcinoma Assessment/Plan: Oncology on board CHest CT scan shows enlargement of medial EMMANUEL sine 05/26/20, mass is now invading mediastinum and anterior chest wall, new anterior mediastinal lymphadenopathy, new left pleural effusion, development of obstructive consolidation/atelectasis EMMANUEL, developing R pleural effusion and basilar atelectasis Code(s): C80.1 - MALIGNANT (PRIMARY) NEOPLASM, UNSPECIFIED (2) Lung cancer Assessment/Plan: Oncology on board CHest CT scan shows enlargement of medial EMMANUEL sine 05/26/20, mass is now invading mediastinum and anterior chest wall, new anterior mediastinal lymphadenopathy, new left pleural effusion, development of obstructive consolidation/atelectasis EMMANUEL, developing R pleural effusion and basilar atelectasis Code(s): C34.90 - MALIGNANT NEOPLASM OF UNSP PART OF UNSP BRONCHUS OR LUNG (3) Pneumonia Assessment/Plan: Oncology on board CHest CT scan shows enlargement of medial EMMANUEL sine 05/26/20, mass is now invading mediastinum and anterior chest wall, new anterior mediastinal lymphadenopathy, new left pleural effusion, development of obstructive consolidation/atelectasis EMMANUEL, developing R pleural effusion and basilar atelectasis Pulmonary and ID on board Zosyn no leukocytosis keep SpO2 >90% Sputum Culture and Legionella pending Guaifenesin for cough Code(s): J18.9 - PNEUMONIA, UNSPECIFIED ORGANISM (4) CAD (coronary artery disease) of artery bypass graft Assessment/Plan: Atorvastatin, Aspirin, Plavix Code(s): I25.810 - ATHEROSCLEROSIS OF CABG W/O ANGINA PECTORIS (5) HTN (hypertension) Assessment/Plan: Isosorbide, Metropolol monitor BP Code(s): I10 - ESSENTIAL (PRIMARY) HYPERTENSION (6) Diabetes Assessment/Plan: BGM ISS diabetic diet Code(s): E11.9 - TYPE 2 DIABETES MELLITUS WITHOUT COMPLICATIONS (7) Hyponatremia Assessment/Plan: Nephrology on board Na 134 monitor Na level daily Code(s): E87.1 - HYPO-OSMOLALITY AND HYPONATREMIA
[2020-07-21] MEDS: ALBUTEROL SO4 2.5/IPRATROPIUM 0.5 INH SOL 3 ML VIAL.NEB. NEB SCH ×3 (08:59→20:36)
--- NOTE | 2020-07-21 09:16 | PN ---
Physical Exam: SUBJECTIVE: Patient seen and examined this AM. No longer having cough or chest pain. No new complaints. No acute overnight events. OBJECTIVE: Vital Signs Period Temp Pulse Resp BP Sys/Aguilar Pulse Ox Last 24 Hr 98.1 F-98.7 F 75-91 16-18 101-112/43-53 97-99 GENERAL: A&Ox3, NAD HEAD: NCAT EYES: PERRL, EOMI ENT: MMM NECK: Supple LUNGS: Diminished breath sounds at the bases, No wheezes, no crackles HEART: Regular rate and rhythm. S1, S2 without murmur ABDOMEN: Soft, nondistended, nontender, + bowel sounds EXTREMITIES: No edema NEUROLOGICAL: Cranial nerves II through XII grossly intact. SKIN: Warm, dry Laboratory Last Values WBC 6.0 K/mm3 (4.0-10.0) 07/21/20 07:04 RBC 2.93 M/mm3 (3.60-5.2) L 07/21/20 07:04 Hgb 8.8 GM/dL (10.7-15.3) L 07/21/20 07:04 Hct 26.1 % (32.4-45.2) L 07/21/20 07:04 MCV 89.2 fl (80-96) 07/21/20 07:04 MCH 30.0 pg (25.7-33.7) 07/21/20 07:04 MCHC 33.6 g/dl (32.0-36.0) 07/21/20 07:04 RDW 13.4 % (11.6-15.6) 07/21/20 07:04 Plt Count 317 K/MM3 (134-434) 07/21/20 07:04 MPV 7.0 fl (7.5-11.1) L 07/21/20 07:04 Absolute Neuts (auto) 3.7 K/mm3 (1.5-8.0) 07/19/20 06:38 Neutrophils % 64.6 % (42.8-82.8) 07/19/20 06:38 Lymphocytes % 17.6 % (8-40) 07/19/20 06:38 Monocytes % 12.7 % (3.8-10.2) H 07/19/20 06:38 Eosinophils % 4.6 % (0-4.5) H D 07/19/20 06:38 Basophils % 0.5 % (0-2.0) 07/19/20 06:38 Nucleated RBC % 0 % (0-0) 07/19/20 06:38 Sodium 135 mmol/L (136-145) L 07/21/20 07:04 Potassium 4.4 mmol/L (3.5-5.1) 07/21/20 07:04 Chloride 105 mmol/L (98-107) 07/21/20 07:04 Carbon Dioxide 23 mmol/L (21-32) 07/21/20 07:04 Anion Gap 7 MMOL/L (8-16) L 07/21/20 07:04 BUN 13.2 mg/dL (7-18) 07/21/20 07:04 Creatinine 1.2 mg/dL (0.55-1.3) 07/21/20 07:04 Est GFR (CKD-EPI)AfAm 49.08 07/21/20 07:04 Est GFR (CKD-EPI)NonAf 42.35 07/21/20 07:04 POC Glucometer 235 UNITS (80-120) 07/21/20 05:38 Random Glucose 229 mg/dL (74-106) H 07/21/20 07:04 Serum Osmolality Cancelled 07/21/20 07:04 Calcium 7.5 mg/dL (8.5-10.1) L 07/21/20 07:04 Magnesium 2.1 mg/dL (1.8-2.4) 07/18/20 06:46 Total Bilirubin 0.4 mg/dL (0.2-1) 07/21/20 07:04 AST 23 U/L (15-37) 07/21/20 07:04 ALT 22 U/L (13-61) 07/21/20 07:04 Alkaline Phosphatase 71 U/L (45-117) 07/21/20 07:04 Total Protein 6.7 g/dl (6.4-8.2) 07/21/20 07:04 Albumin 2.4 g/dl (3.4-5.0) L 07/21/20 07:04 Urine Color Yellow 07/21/20 05:10 Urine Appearance Clear 07/21/20 05:10 Urine pH 8.5 (5.0-8.0) H D 07/21/20 05:10 Ur Specific [place] 1.015 (1.010-1.035) 07/21/20 05:10 Urine Protein 1+ (NEGATIVE) H 07/21/20 05:10 Urine Glucose (UA) Trace (NEGATIVE) 07/21/20 05:10 Urine Ketones Negative (NEGATIVE) 07/21/20 05:10 Urine Blood Negative (NEGATIVE) 07/21/20 05:10 Urine Nitrite Negative (NEGATIVE) 07/21/20 05:10 Urine Bilirubin Negative (NEGATIVE) 07/21/20 05:10 Urine Urobilinogen 1.0 mg/dL (0.2-1.0) 07/21/20 05:10 Ur Leukocyte Esterase Negative (NEGATIVE) 07/21/20 05:10 Urine WBC (Auto) 3 /uL (0-25.8) 07/21/20 05:10 Urine RBC (Auto) 5 /uL (0-23.9) 07/21/20 05:10 Urine Casts (Auto) 1 /uL (0-3.1) 07/21/20 05:10 U Epithel Cells (Auto) 18 /uL (0-25.1) 07/21/20 05:10 Urine Bacteria (Auto) 5 /uL (0-1359) 07/21/20 05:10 Urine Osmolality 409 mosm/kg (300-900) 07/21/20 05:10 Ur Random Sodium 95 MMOL/L (40-220) 07/21/20 05:10 COVID-19 ([facility]) Not detected (Not Detected) 07/17/20 18:30 Active Medications Acetaminophen (Tylenol -) 650 mg PO Q6H PRN PRN Reason: PAIN LEVEL 1-5 Last Admin: 07/21/20 05:35 Dose: 650 mg Documented by: Albuterol/Ipratropium (Duoneb -) 1 amp NEB RTID [facility] Last Admin: 07/20/20 20:03 Dose: 1 amp Documented by: Aspirin (Ecotrin -) 81 mg PO DAILY [facility] Last Admin: 07/20/20 09:32 Dose: 81 mg Documented by: Atorvastatin Calcium (Lipitor -) 20 mg PO HS [facility] Last Admin: 07/20/20 22:34 Dose: 20 mg Documented by: Clopidogrel Bisulfate (Plavix -) 75 mg PO DAILY [facility] Last Admin: 07/20/20 09:32 Dose: 75 mg Documented by: Enoxaparin Sodium (Lovenox -) 40 mg SQ DAILY [facility] Last Admin: 07/20/20 09:32 Dose: 40 mg Documented by: Guaifenesin (Diabetic Tussin Dm -) 5 ml PO Q6H PRN PRN Reason: COUGH Last Admin: 07/20/20 22:34 Dose: 5 ml Documented by: Piperacillin Sod/Tazobactam (Sod 3.375 gm/ Dextrose) 50 mls @ 100 mls/hr IVPB Q8H-IV [facility]; Protocol Last Admin: 07/21/20 02:58 Dose: 100 mls/hr Documented by: Insulin Aspart (Novolog Vial Sliding Scale -) 1 vial SQ BIDAC [facility]; Protocol Last Admin: 07/21/20 06:22 Dose: 2 units Documented by: Isosorbide Mononitrate (Imdur -) 60 mg PO DAILY [facility] Last Admin: 07/20/20 09:32 Dose: 60 mg Documented by: Metoprolol Succinate (Toprol Xl -) 25 mg PO DAILY [facility] Last Admin: 07/20/20 09:32 Dose: 25 mg Documented by: Pantoprazole Sodium (Protonix -) 40 mg PO DAILY [facility] Last Admin: 07/20/20 09:32 Dose: 40 mg Documented by: ASSESSMENT/PLAN: 80 y/o M (Born in [place]) PMHx poorly differentiated lung adenocarcinoma, CAD s/p CAGB (2010), DM, HTN, HLD admitted for Electrolyte abnormality. Medical oncology consulted for chemoinfusion. CT Chest findings for enlarging mass, Obstructive consolidation. #poorly differentiated lung adenocarcinoma -Resume scheduled chemotherapy dosing -CT Chest reveals Enlarging EMMANUEL mass, Obstructive EMMANUEL consolidation, Anterior mediastinal LAD, New Left Pleural Effusion -Continue Zosyn (started on 07/17), Cough suppressants, bronchodilators -Follow Cultures, Urine Ag -ID Consult appreciated -Follow up Rad/Onc Consult -For Capmatinib therapy -DVT PPx #Electrolyte Abnromality (Hyponatremia, Hyperkalemia) -Likely hypovolemic hyponatremia due to poor PO Intake, Improved -Nephrology evaluation appreciated Visit type - Emergency Visit Emergency Visit: Yes ED Registration Date: 07/17/20 Care time: The patient presented to the Emergency Department on the above date and was hospitalized for further evaluation of their emergent condition. - New Patient This patient is new to me today: Yes Date on this admission: 07/22/20 - Critical Care Critical Care patient: No - Discharge Referral Referred to [facility] Med P.C.: No - Medication Review Med list reviewed for High Risk Meds patients 65 and older: Yes ATTENDING PHYSICIAN STATEMENT I saw and evaluated the patient. I reviewed the resident's note and discussed the case with the resident. I agree with the resident's findings and plan as documented. SUBJECTIVE: OBJECTIVE: ASSESSMENT AND PLAN:
[2020-07-21] MEDS: PANTOPRAZOLE 40 MG TABLET PO SCH (11:04)
[2020-07-21] MEDS: ISOSORBIDE MONONITRATE 60 MG TAB.SR.24H (FP) PO SCH (11:05)
[2020-07-21] MEDS: CLOPIDOGREL BISULFATE 75 MG TABLET (FP) PO SCH (11:05)
[2020-07-21] MEDS: ASPIRIN COATED 81 MG TABLET.EC PO SCH (11:05)
[2020-07-21] MEDS: metoPROLOL SUCCINATE 25 MG TAB.SR.24H (FP) PO SCH (11:05)
[2020-07-21] MEDS: ENOXAPARIN NA (PORCINE) 40 MG/0.4 ML DISP.SYRIN SQ SCH (11:05)
--- NOTE | 2020-07-21 13:01 | PN ---
Progress Note (short form) - Note Progress Note: PULMONARY Breathing better with nebs. Denies shortness of breath but with nonproductive cough. No fevers. Vital Signs Period Temp Pulse Resp BP Sys/Aguilar Pulse Ox Last 24 Hr 98 F-98.7 F 75-91 16-18 101-113/43-48 97-99 Gen: NAD at rest Heart: RRR Lung: no wheezes Abd: soft, nontender Ext: no edema CBC, BMP 07/21/20 07:04 07/21/20 07:04 Active Medications Acetaminophen (Tylenol -) 650 mg PO Q6H PRN PRN Reason: PAIN LEVEL 1-5 Last Admin: 07/21/20 05:35 Dose: 650 mg Documented by: Albuterol/Ipratropium (Duoneb -) 1 amp NEB RTID [facility] Last Admin: 07/20/20 20:03 Dose: 1 amp Documented by: Aspirin (Ecotrin -) 81 mg PO DAILY [facility] Last Admin: 07/21/20 11:05 Dose: 81 mg Documented by: Atorvastatin Calcium (Lipitor -) 20 mg PO HS [facility] Last Admin: 07/20/20 22:34 Dose: 20 mg Documented by: Clopidogrel Bisulfate (Plavix -) 75 mg PO DAILY [facility] Last Admin: 07/21/20 11:05 Dose: 75 mg Documented by: Enoxaparin Sodium (Lovenox -) 40 mg SQ DAILY [facility] Last Admin: 07/21/20 11:05 Dose: 40 mg Documented by: Guaifenesin (Diabetic Tussin Dm -) 5 ml PO Q6H PRN PRN Reason: COUGH Last Admin: 07/20/20 22:34 Dose: 5 ml Documented by: Piperacillin Sod/Tazobactam (Sod 3.375 gm/ Dextrose) 50 mls @ 100 mls/hr IVPB Q8H-IV [facility]; Protocol Last Admin: 07/21/20 11:05 Dose: 100 mls/hr Documented by: Insulin Aspart (Novolog Vial Sliding Scale -) 1 vial SQ BIDAC [facility]; Protocol Last Admin: 07/21/20 06:22 Dose: 2 units Documented by: Isosorbide Mononitrate (Imdur -) 60 mg PO DAILY [facility] Last Admin: 07/21/20 11:05 Dose: 60 mg Documented by: Metoprolol Succinate (Toprol Xl -) 25 mg PO DAILY [facility] Last Admin: 07/21/20 11:05 Dose: 25 mg Documented by: Pantoprazole Sodium (Protonix -) 40 mg PO DAILY [facility] Last Admin: 07/21/20 11:04 Dose: 40 mg Documented by: A/P Progressing Lung Ca Hyponatremia CAD HTN DM Hyperlipidemia Anemia - on empiric antibiotics - oncology f/u - cough suppressants - inhaled bronchodilators - DVT prophylaxis
--- NOTE | 2020-07-21 13:27 | PN ---
Progress Note (short form) - Note Progress Note: no cough no sob no chest pain feels improved Vital Signs Period Temp Pulse Resp BP Sys/Aguilar Pulse Ox Last 24 Hr 98 F-98.7 F 75-91 16-18 101-113/43-48 97-99 cor-rrr lungs clear abd soft,nt ext no edema CBC, BMP 07/21/20 07:04 07/21/20 07:04 Microbiology 07/21/20 05:10 Urine For Antigen Detection Legionella Antigen - Final 07/21/20 05:10 Urine For Antigen Detection Streptococcus pneumoniae Antigen (M - Final a/p Lung ca with extension to aterior chest wall VACUUM [employer] TESTER met chest ct reviewed- more likely has atelectasis day #4 zosyn, will switch to po augmentin to finish 7 days Problem List - Problems (1) Lung cancer Code(s): C34.90 - MALIGNANT NEOPLASM OF UNSP PART OF UNSP BRONCHUS OR LUNG (2) Pneumonia Code(s): J18.9 - PNEUMONIA, UNSPECIFIED ORGANISM
--- NOTE | 2020-07-21 16:26 | PN ---
Teaching Attending Note Name of Resident: Radhika Miller ATTENDING PHYSICIAN STATEMENT I saw and evaluated the patient. I reviewed the resident's note and discussed the case with the resident. I agree with the resident's findings and plan as documented. 80y F with metastatic Lung Adeno newly diagnosed not on chemo (had zometa infusion), IDDM, CAD s/p CABG, HTN, HLD admitted from infusion suite for asymptomatic hyponatremia now resolved. Was also found to have post obstructive PNA from underlying malignancy. currently on broad spectrum AB. Cultures ngtd. . Plan to start her on immunotherapy as outpatient.
--- NOTE | 2020-07-21 16:46 | PN ---
Progress Note, Physician History of Present Illness: Pt seen and examined at bedside. She is awake and alert. She denies shortness of breath. - Current Medication List Current Medications: Active Medications Acetaminophen (Tylenol -) 650 mg PO Q6H PRN PRN Reason: PAIN LEVEL 1-5 Last Admin: 07/21/20 05:35 Dose: 650 mg Documented by: Albuterol/Ipratropium (Duoneb -) 1 amp NEB RTID [facility] Last Admin: 07/20/20 20:03 Dose: 1 amp Documented by: Amoxicillin/Clavulanate Potassium (Augmentin - 500mg Tablet) 1 tab PO BID@0800,1730 [facility] Aspirin (Ecotrin -) 81 mg PO DAILY [facility] Last Admin: 07/21/20 11:05 Dose: 81 mg Documented by: Atorvastatin Calcium (Lipitor -) 20 mg PO HS [facility] Last Admin: 07/20/20 22:34 Dose: 20 mg Documented by: Clopidogrel Bisulfate (Plavix -) 75 mg PO DAILY [facility] Last Admin: 07/21/20 11:05 Dose: 75 mg Documented by: Enoxaparin Sodium (Lovenox -) 40 mg SQ DAILY [facility] Last Admin: 07/21/20 11:05 Dose: 40 mg Documented by: Guaifenesin (Diabetic Tussin Dm -) 5 ml PO Q6H PRN PRN Reason: COUGH Last Admin: 07/20/20 22:34 Dose: 5 ml Documented by: Insulin Aspart (Novolog Vial Sliding Scale -) 1 vial SQ BIDAC [facility]; Protocol Last Admin: 07/21/20 06:22 Dose: 2 units Documented by: Isosorbide Mononitrate (Imdur -) 60 mg PO DAILY [facility] Last Admin: 07/21/20 11:05 Dose: 60 mg Documented by: Metoprolol Succinate (Toprol Xl -) 25 mg PO DAILY [facility] Last Admin: 07/21/20 11:05 Dose: 25 mg Documented by: Pantoprazole Sodium (Protonix -) 40 mg PO DAILY [facility] Last Admin: 07/21/20 11:04 Dose: 40 mg Documented by: - Objective Vital Signs: Vital Signs Temperature 98.6 F 07/21/20 13:32 Pulse Rate 84 07/21/20 13:32 Respiratory Rate 18 07/21/20 13:32 Blood Pressure 87/36 L 09/28/20 13:32 O2 Sat by Pulse Oximetry (%) 98 07/21/20 10:00 Constitutional: Yes: Calm Eyes: Yes: Conjunctiva Clear HENT: Yes: Atraumatic Neck: Yes: Supple Cardiovascular: Yes: S1, S2 Respiratory: Yes: CTA Bilaterally Gastrointestinal: Yes: Soft Musculoskeletal: Yes: WNL Edema: No Neurological: Yes: Oriented Psychiatric: Yes: Oriented Labs: CBC, BMP 07/21/20 07:04 07/21/20 07:04 Assessment/Plan Current Medications Generic Name Dose Route Start Last Admin Trade Name Freq PRN Reason Stop Dose Admin Acetaminophen 650 mg 07/21/20 05:01 07/21/20 05:35 Tylenol - PO 650 mg Q6H PRN Administration PAIN LEVEL 1-5 Albuterol/Ipratropium 1 amp 07/20/20 14:00 07/20/20 20:03 Duoneb - NEB 1 amp RTID [facility] Administration Amoxicillin/Clavulanate Potassium 1 tab 07/21/20 17:30 Augmentin - 500mg Tablet PO BID@0800,1730 [facility] Aspirin 81 mg 07/18/20 10:00 07/21/20 11:05 Ecotrin - PO 81 mg DAILY [facility] Administration Atorvastatin Calcium 20 mg 07/17/20 22:00 07/20/20 22:34 Lipitor - PO 20 mg HS [facility] Administration Clopidogrel Bisulfate 75 mg 07/18/20 10:00 07/21/20 11:05 Plavix - PO 75 mg DAILY [facility] Administration Enoxaparin Sodium 40 mg 07/17/20 20:15 07/21/20 11:05 Lovenox - SQ 40 mg DAILY [facility] Administration Guaifenesin 5 ml 07/17/20 20:59 07/20/20 22:34 Diabetic Tussin Dm - PO 5 ml Q6H PRN Administration COUGH Insulin Aspart 1 vial 07/18/20 17:32 07/21/20 06:22 Novolog Vial Sliding Scale - SQ 2 units BIDAC [facility] Administration Protocol Isosorbide Mononitrate 60 mg 07/18/20 10:00 07/21/20 11:05 Imdur - PO 60 mg DAILY [facility] Administration Metoprolol Succinate 25 mg 07/18/20 10:00 07/21/20 11:05 Toprol Xl - PO 25 mg DAILY [facility] Administration Pantoprazole Sodium 40 mg 07/18/20 10:00 07/21/20 11:04 Protonix - PO 40 mg DAILY [facility] Administration Impression: Hyponatremia Hyperkalemia Lung adenocarcinoma Coronary artery disease Diabetes mellitus Hypertension Hyperlipidemia Plan - sodium stable - encourage po intake - outpt follow up - findings not suggestive of siadh
[2020-07-21] MEDS: AMOX TR/POT CLAV 500MG/125MG TABLETS (FP) PO SCH (17:26)
[2020-07-21] MEDS: ATORVASTATIN CA 20 MG TABLET (FP) PO SCH (21:05)
[2020-07-21] MEDS: INSULIN (LEVEMIR) 100 UNITS/ML UNITS SQ SCH (21:06)
[2020-07-21] MEDS ORDERED: INSULIN SLIDING SCALE (NOVOLOG) 1 VIAL SQ SCH (22:00)
[2020-07-22] MEDS: INSULIN SLIDING SCALE (NOVOLOG) 1 VIAL SQ SCH ×2 (06:18→11:23)
[2020-07-22] MEDS ORDERED: INSULIN (NOVOLOG) ASPART 100 UNITS/ML 10ML VIAL ONE (06:31)
[2020-07-22] MEDS: ALBUTEROL SO4 2.5/IPRATROPIUM 0.5 INH SOL 3 ML VIAL.NEB. NEB SCH ×2 (08:15→14:45)
[2020-07-22] MEDS: AMOX TR/POT CLAV 500MG/125MG TABLETS (FP) PO SCH (09:45)
[2020-07-22] MEDS: PANTOPRAZOLE 40 MG TABLET PO SCH (09:46)
[2020-07-22] MEDS: ASPIRIN COATED 81 MG TABLET.EC PO SCH (09:46)
[2020-07-22] MEDS: CLOPIDOGREL BISULFATE 75 MG TABLET (FP) PO SCH (09:46)
[2020-07-22] MEDS: metoPROLOL SUCCINATE 25 MG TAB.SR.24H (FP) PO SCH (09:46)
[2020-07-22] MEDS: ISOSORBIDE MONONITRATE 60 MG TAB.SR.24H (FP) PO SCH (09:46)
[2020-07-22] MEDS: ENOXAPARIN NA (PORCINE) 40 MG/0.4 ML DISP.SYRIN SQ SCH (09:47)
[2020-07-22] MEDS: INSULIN (LEVEMIR) 100 UNITS/ML UNITS SQ SCH (09:51)
--- NOTE | 2020-07-22 10:42 | DS ---
Physical Examination Vital Signs: Vital Signs Temperature 97.4 F L 07/22/20 08:37 Pulse Rate 89 07/22/20 08:37 Respiratory Rate 18 07/22/20 08:37 Blood Pressure 138/61 07/22/20 08:37 O2 Sat by Pulse Oximetry (%) 97 07/22/20 08:37 Findings/Remarks: 80 year old female with history of lung adenocarcinoma who is currently undergoing chemotherapy, IDDM, coronary artery disease, cabg 6 years ago , hypertension and hyperlipidemia who presents from infusion as she was found to have hyponatremia and hyperkalemia. She was sent to the ED for evaluation and treatment. She was evaluated by Nephrology and she was started on IVF, to which she responded well and her sodium improved -Fasting (before breakfast) blood sugar goal<140 -Random (checked before lunch, dinner and at bedtime) blood sugar goal <200 -Take Levemir (Long acting insulin) 30 U before breakfast and after dinner. (it takes 5-7 hours for this insulin to start working) -Take Novolog (Short acting insulin) as per sliding scale below (it starts working in 15 mins): 150-200-2 units 201-250-4 units 251-300-6 units 301-350- 8 units 351-400- 10 units >400- 12 units -Ondansetron 4 mg Sublingual every 6 hours as needed for nausea -Start multivitamin 1 tab daily -Augmentin 1 tab 2 x day for 6 more days -Follow up with Dr Danielle Geiger MD on 07/28/20 at 10 AM at [facility], in her office on first floor. -F/U with PCP within next 3 weeks Constitutional: Yes: No Distress, Calm, Thin Cardiovascular: Yes: Regular Rate and Rhythm Respiratory: Yes: Regular, CTA Bilaterally Gastrointestinal: Yes: Normal Bowel Sounds, Soft Renal/: Yes: WNL Musculoskeletal: Yes: WNL Extremities: Yes: WNL Edema: No Peripheral Pulses WNL: Yes Neurological: Yes: Alert, Oriented Psychiatric: Yes: Alert, Oriented Labs: CBC, BMP 07/21/20 07:04 07/21/20 07:04 Discharge Summary Problems reviewed: Yes Reason For Visit: HYPONATREMIA MALIGNANT NEOPLASM OF LUNG Current Active Problems Adenocarcinoma (Acute) Cough (Acute) Diabetes (Acute) Hyponatremia (Acute) Lung cancer (Acute) Pneumonia (Acute) Condition: Stable - Instructions Diet, Activity, Other Instructions: -Fasting (before breakfast) blood sugar goal<140 -Random (checked before lunch, dinner and at bedtime) blood sugar goal <200 -Take Levemir (Long acting insulin) 30 U before breakfast and after dinner. (it takes 5-7 hours for this insulin to start working) -Take Novolog (Short acting insulin) as per sliding scale below (it starts working in 15 mins): 150-200-2 units 201-250-4 units 251-300-6 units 301-350- 8 units 351-400- 10 units >400- 12 units -Ondansetron 4 mg Sublingual every 6 hours as needed for nausea -Start multivitamin 1 tab daily -Augmentin 1 tab 2 x day for 6 more days -Follow up with Dr Danielle Geiger MD on 07/28/20 at 10 AM at [facility], in her office on first floor. -F/U with PCP within next 3 weeks Referrals: Stan King MD [Primary Care Provider] - Danielle Main MD [Staff Physician] - 07/28/20 10:00 am (F/U with Dr Santos at [facility] office on the first floor) Pepe Sanchez MD [Staff Physician] - [facility]position: [facility] - Home Medications Comprehensive Discharge Medication List: Ambulatory Orders Atorvastatin Ca [Lipitor] 20 mg PO HS 07/24/15 Sitagliptin Phosphate [Januvia] 100 mg PO DAILY 07/24/15 Ezetimibe [Zetia -] 10 mg PO DAILY 10/05/18 Insulin Detemir [Levemir Flextouch] 32 unit SQ BID 10/06/18 Insulin Sliding Scale [Novolog Vial Sliding Scale -] 0 units SQ ACHS #1 pen 10/06/18 Pantoprazole Sodium [Protonix -] 40 mg PO DAILY #30 tablet.ec 05/26/20 Aspirin [Aspirin EC] 81 mg PO DAILY 06/23/20 Clopidogrel Bisulfate [Clopidogrel] 75 mg PO DAILY 06/23/20 Isosorbide Mononitrate [Imdur -] 60 mg PO DAILY 06/23/20 Metformin HCl [Glucophage] 1,000 mg PO DAILY 06/23/20 Metoprolol Succinate [Toprol XL -] 25 mg PO DAILY 06/23/20 Telmisartan [Micardis] 40 mg PO DAILY 06/23/20 Prescription Drug Monitoring Program (I-STOP) results: I-STOP reviewed and no issues identified
[2020-07-22] MEDS ORDERED: INSULIN (LEVEMIR) 100 UNITS/ML UNITS SQ SCH ×2 (11:00→22:00)
[2020-07-22] MEDS ORDERED: MULTIVITAMINS (DAILY MVI) TABLET (FP) PO SCH (13:00)
[2020-07-22] MEDS ORDERED: ONDANSETRON *ODT* 4 MG TABLET SL PRN (13:01)
--- NOTE | 2020-07-22 13:24 | PN ---
Progress Note, Physician History of Present Illness: Pt seen and examined at bedside. She is awake and alert. She denies shortness of breath. - Current Medication List Current Medications: Active Medications Acetaminophen (Tylenol -) 650 mg PO Q6H PRN PRN Reason: PAIN LEVEL 1-5 Last Admin: 07/21/20 21:02 Dose: 650 mg Documented by: Albuterol/Ipratropium (Duoneb -) 1 amp NEB [facility] Last Admin: 07/21/20 20:36 Dose: 1 amp Documented by: Amoxicillin/Clavulanate Potassium (Augmentin - 500mg Tablet) 1 tab PO BID@0800,1730 [facility] Last Admin: 07/22/20 09:45 Dose: 1 tab Documented by: Aspirin (Ecotrin -) 81 mg PO DAILY [facility] Last Admin: 07/22/20 09:46 Dose: 81 mg Documented by: Atorvastatin Calcium (Lipitor -) 20 mg PO [facility] Last Admin: 07/21/20 21:05 Dose: 20 mg Documented by: Clopidogrel Bisulfate (Plavix -) 75 mg PO DAILY [facility] Last Admin: 07/22/20 09:46 Dose: 75 mg Documented by: Enoxaparin Sodium (Lovenox -) 40 mg SQ DAILY [facility] Last Admin: 07/22/20 09:47 Dose: 40 mg Documented by: Guaifenesin (Diabetic Tussin Dm -) 5 ml PO Q6H PRN PRN Reason: COUGH Last Admin: 07/20/20 22:34 Dose: 5 ml Documented by: Insulin Aspart (Novolog Vial Sliding Scale -) 1 vial SQ [facility]; Protocol Last Admin: 07/22/20 11:23 Dose: 4 units Documented by: Insulin Aspart (Novolog Vial Sliding Scale -) 1 vial SQ [facility]; Protocol Last Admin: 07/21/20 21:07 Dose: 1 unit Documented by: Insulin Detemir (Levemir Vial) 10 units SQ BID@0700,2200 [facility] Isosorbide Mononitrate (Imdur -) 60 mg PO DAILY [facility] Last Admin: 07/22/20 09:46 Dose: 60 mg Documented by: Metoprolol Succinate (Toprol Xl -) 25 mg PO DAILY [facility] Last Admin: 07/22/20 09:46 Dose: 25 mg Documented by: Multivitamins/Minerals/Vitamin C (Tab-A-Vit -) 1 tab PO DAILY [facility] Ondansetron HCl (Zofran Odt -) 4 mg SL Q6H PRN PRN Reason: NAUSEA AND/OR VOMITING Pantoprazole Sodium (Protonix -) 40 mg PO DAILY [facility] Last Admin: 07/22/20 09:46 Dose: 40 mg Documented by: - Objective Vital Signs: Vital Signs Temperature 97.4 F L 07/22/20 08:37 Pulse Rate 89 07/22/20 08:37 Respiratory Rate 18 07/22/20 09:00 Blood Pressure 138/61 07/22/20 08:37 O2 Sat by Pulse Oximetry (%) 97 07/22/20 09:00 Constitutional: Yes: Calm Eyes: Yes: Conjunctiva Clear HENT: Yes: Atraumatic Cardiovascular: Yes: S1, S2 Respiratory: Yes: CTA Bilaterally Gastrointestinal: Yes: Soft Genitourinary: Yes: WNL Musculoskeletal: Yes: WNL Edema: No Neurological: Yes: Oriented Psychiatric: Yes: Oriented Labs: CBC, BMP 07/21/20 07:04 07/21/20 07:04 Assessment/Plan Current Medications Generic Name Dose Route Start Last Admin Trade Name Freq PRN Reason Stop Dose Admin Acetaminophen 650 mg 07/21/20 05:01 07/21/20 21:02 Tylenol - PO 650 mg Q6H PRN Administration PAIN LEVEL 1-5 Albuterol/Ipratropium 1 amp 07/20/20 14:00 07/21/20 20:36 Duoneb - NEB 1 amp RTID [facility] Administration Amoxicillin/Clavulanate Potassium 1 tab 07/21/20 17:30 07/22/20 09:45 Augmentin - 500mg Tablet PO 1 tab BID@0800,1730 [facility] Administration Aspirin 81 mg 07/18/20 10:00 07/22/20 09:46 Ecotrin - PO 81 mg DAILY [facility] Administration Atorvastatin Calcium 20 mg 07/17/20 22:00 07/21/20 21:05 Lipitor - PO 20 mg HS [facility] Administration Clopidogrel Bisulfate 75 mg 07/18/20 10:00 07/22/20 09:46 Plavix - PO 75 mg DAILY [facility] Administration Enoxaparin Sodium 40 mg 07/17/20 20:15 07/22/20 09:47 Lovenox - SQ 40 mg DAILY [facility] Administration Guaifenesin 5 ml 07/17/20 20:59 07/20/20 22:34 Diabetic Tussin Dm - PO 5 ml Q6H PRN Administration COUGH Insulin Aspart 1 vial 07/22/20 07:00 07/22/20 11:23 Novolog Vial Sliding Scale - SQ 4 units TIDAC [facility] Administration Protocol Insulin Aspart 1 vial 07/21/20 22:00 07/21/20 21:07 Novolog Vial Sliding Scale - SQ 1 unit HS [facility] Administration Protocol Insulin Detemir 10 units 07/22/20 22:00 Levemir Vial SQ BID@0700,2200 [facility] Isosorbide Mononitrate 60 mg 07/18/20 10:00 07/22/20 09:46 Imdur - PO 60 mg DAILY [facility] Administration Metoprolol Succinate 25 mg 07/18/20 10:00 07/22/20 09:46 Toprol Xl - PO 25 mg DAILY [facility] Administration Multivitamins/Minerals/Vitamin C 1 tab 07/22/20 13:00 Tab-A-Vit - PO DAILY [facility] Ondansetron HCl 4 mg 07/22/20 13:01 Zofran Odt - SL Q6H PRN NAUSEA AND/OR VOMITING Pantoprazole Sodium 40 mg 07/18/20 10:00 07/22/20 09:46 Protonix - PO 40 mg DAILY [facility] Administration Impression: Hyponatremia Hyperkalemia Lung adenocarcinoma Coronary artery disease Diabetes mellitus Hypertension Hyperlipidemia Plan - no new labs - will need outpt follow up - can see in office - discussed diet and fluid intake - findings not suggestive of siadh
--- NOTE | 2020-07-22 14:22 | PN ---
Progress Note (short form) - Note Progress Note: Denies shortness of breath. Some nonproductive cough. No fevers. Intake & Output 07/19/20 07/20/20 07/21/20 07/22/20 23:59 23:59 23:59 23:59 Intake Total 660 110 50 200 Output Total 300 Balance 660 110 -250 200 Weight 106 lb Last Vital Signs Temp Pulse Resp BP Pulse Ox 97.4 F L 89 18 138/61 97 07/22/20 08:37 07/22/20 08:37 07/22/20 09:00 07/22/20 08:37 07/22/20 09:00 Active Medications Acetaminophen (Tylenol -) 650 mg PO Q6H PRN PRN Reason: PAIN LEVEL 1-5 Last Admin: 07/21/20 21:02 Dose: 650 mg Documented by: Albuterol/Ipratropium (Duoneb -) 1 amp NEB RTID [facility] Last Admin: 07/21/20 20:36 Dose: 1 amp Documented by: Amoxicillin/Clavulanate Potassium (Augmentin - 500mg Tablet) 1 tab PO BID@0800,1730 [facility] Last Admin: 07/22/20 09:45 Dose: 1 tab Documented by: Aspirin (Ecotrin -) 81 mg PO DAILY [facility] Last Admin: 07/22/20 09:46 Dose: 81 mg Documented by: Atorvastatin Calcium (Lipitor -) 20 mg PO [facility] Last Admin: 07/21/20 21:05 Dose: 20 mg Documented by: Clopidogrel Bisulfate (Plavix -) 75 mg PO DAILY [facility] Last Admin: 07/22/20 09:46 Dose: 75 mg Documented by: Enoxaparin Sodium (Lovenox -) 40 mg SQ DAILY [facility] Last Admin: 07/22/20 09:47 Dose: 40 mg Documented by: Guaifenesin (Diabetic Tussin Dm -) 5 ml PO Q6H PRN PRN Reason: COUGH Last Admin: 07/20/20 22:34 Dose: 5 ml Documented by: Insulin Aspart (Novolog Vial Sliding Scale -) 1 vial SQ TIDAC [facility]; Protocol Last Admin: 07/22/20 11:23 Dose: 4 units Documented by: Insulin Aspart (Novolog Vial Sliding Scale -) 1 vial SQ HS [facility]; Protocol Last Admin: 07/21/20 21:07 Dose: 1 unit Documented by: Insulin Detemir (Levemir Vial) 10 units SQ BID@0700,2200 [facility] Isosorbide Mononitrate (Imdur -) 60 mg PO DAILY [facility] Last Admin: 07/22/20 09:46 Dose: 60 mg Documented by: Metoprolol Succinate (Toprol Xl -) 25 mg PO DAILY [facility] Last Admin: 07/22/20 09:46 Dose: 25 mg Documented by: Multivitamins/Minerals/Vitamin C (Tab-A-Vit -) 1 tab PO DAILY [facility] Last Admin: 07/22/20 13:31 Dose: 1 tab Documented by: Ondansetron HCl (Zofran Odt -) 4 mg SL Q6H PRN PRN Reason: NAUSEA AND/OR VOMITING Pantoprazole Sodium (Protonix -) 40 mg PO DAILY [facility] Last Admin: 07/22/20 09:46 Dose: 40 mg Documented by: Gen: NAD at rest Heart: RRR Lung: no wheezes Abd: soft, nontender Ext: no edema Laboratory Results - last 24 hr 07/21/20 07/21/20 07/21/20 17:21 17:23 19:14 POC Glucometer 417 403 310 07/21/20 07/22/20 07/22/20 21:01 05:31 11:19 POC Glucometer 229 174 280 A/P Advancing Lung CA Hyponatremia CAD HTN DM Hyperlipidemia Anemia - Augmentin - cough suppressants - inhaled bronchodilators - DVT prophylaxis - DC planning Dr Mcfadden Problem List - Problems (1) Adenocarcinoma Code(s): C80.1 - MALIGNANT (PRIMARY) NEOPLASM, UNSPECIFIED (2) Cough Code(s): R05 - COUGH (3) Diabetes Code(s): E11.9 - TYPE 2 DIABETES MELLITUS WITHOUT COMPLICATIONS (4) Hyponatremia Code(s): E87.1 - HYPO-OSMOLALITY AND HYPONATREMIA (5) Lung cancer Code(s): C34.90 - MALIGNANT NEOPLASM OF UNSP PART OF UNSP BRONCHUS OR LUNG (6) Pneumonia Code(s): J18.9 - PNEUMONIA, UNSPECIFIED ORGANISM (7) CAD (coronary artery disease) of artery bypass graft Code(s): I25.810 - ATHEROSCLEROSIS OF CABG W/O ANGINA PECTORIS (8) Chest pain Code(s): R07.9 - CHEST PAIN, UNSPECIFIED Qualifiers: Chest pain type: unspecified Qualified Code(s): R07.9 - Chest pain, unspecified (9) Diaphragmatic hernia Code(s): K44.9 - DIAPHRAGMATIC HERNIA WITHOUT OBSTRUCTION OR GANGRENE (10) HTN (hypertension) Code(s): I10 - ESSENTIAL (PRIMARY) HYPERTENSION (11) Mediastinal lymphadenopathy Code(s): R59.0 - LOCALIZED ENLARGED LYMPH NODES (12) Chest discomfort Code(s): R07.89 - OTHER CHEST PAIN
[2020-07-22 14:31] VITALS: BP 117/55; PULSE 98; TEMP 97.9
--- NOTE | 2020-07-22 16:03 | PN.HO ---
Progress Note (short form) - Note Progress Note: Patient seen and examined Feels well No hemoptysis Going home soon Last Vital Signs Temp Pulse Resp BP Pulse Ox 97.9 F 98 H 20 117/55 L 97 07/22/20 14:29 07/22/20 14:29 07/22/20 14:07/22/20 14:07/22/20 09:00 Cor: RSR, No murmurs, No gallops Lungs: Clear to P&A Abd: Soft, Normal bowel sounds, No organomegaly Ext:No significant edema Labs /Meds reviewed 07/21/20 07:04 07/21/20 07:04 A/P 80 y/o lady with EMMANUEL mass , enlarging with mediastinal invasion , EMMANUEL consolidation, developing effusion. 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 SIADH.>? degydration plus poor solute intake-- Improved Will be a candidate for 1st line capmatinib ( ordered) Will request rad-onc consult Will follow with Dr. Santos next week
== END 2020-07-22 16:04 | disposition home or self-care (01) | DRG 640 ==
LOC: JER 15:40 → JERBED 17:49 → J7W 07-18 20:42
PROVIDERS: ATTEND Family Medicine
DX: E87.1 Hypo-osmolality and hyponatremia (principal); J18.8 Other pneumonia, unspecified organism; C34.90 Malignant neoplasm of unspecified part of unspecified bronchus or lung; C79.31 Secondary malignant neoplasm of brain; R64 Cachexia; J90 Pleural effusion, not elsewhere classified; E87.5 Hyperkalemia; E11.9 Type 2 diabetes mellitus without complications; I25.10 Atherosclerotic heart disease of native coronary artery without angina pectoris; E78.5 Hyperlipidemia, unspecified; I10 Essential (primary) hypertension; R07.89 Other chest pain; K44.9 Diaphragmatic hernia without obstruction or gangrene; R59.0 Localized enlarged lymph nodes; Z68.20 Body mass index [BMI] 20.0-20.9, adult; D64.9 Anemia, unspecified; Z95.1 Presence of aortocoronary bypass graft
CPT/HCPCS: 36415; 71045-TC-FY; 71250-TC; 80048; 80053; 81003; 82962; 83735; 83930; 83935; 84300; 85025; 85027; 87899; 90670; 93971; 94640; 97116-GP; 99285-25; U0003

== ENCOUNTER → 2020-08-27 | Day surgery (SDC) | payer OTHER ==
[~2020-08-27] MED LIST: DENOSUMAB 120 MG/1.7 ML VIAL SQ ONE
--- OUTSIDE RECORDS SUMMARY | 2020-08-27 07:27 | XMS ---
:1940 Author Organization [facility] Care Team Providers Name Role Phone Daniel SPEARS MD Majed Unavailable [phone] Daniel SPEARS MD Majed Unavailable [phone] Daniel SPEARS MD Majed Unavailable [phone] ED STAFF PHYSICIAN, STAFF Unavailable Unavailable Re-disclosure [...] is protected by Article 27-F of the [place] State Public Health law. If you continue you may haveaccess to information: Regarding HIV / AIDS; Provided by facilities licensed or operated by the [facility] Office of Mental Health; or Provided by the [facility] Office for People With Developmental Disabilities. If such information is present, then the following [facility] mandated warning applies: This information has been [...] law may result in a fine or usp sentence or both. A general authorization for the release of medical or other information is NOT sufficient authorization for further disclosure. Encounters Encounter Providers Location Date Indications Data Source(s ) Attender: [facility]:00 [facility] Office Emergency Attender: STAFF ED STAFF H 08/27/2019 02:32:00 AM [facility] PHYSICIAN EST - 08/27/2019 08:45:00 Center AM EST Patient discharged. Emergency H 07/24/2019 02:32:00 PM EDT - [address] [place] [address] 11:19:00 PM EDT Patient discharged. Insurance Providers Payer name Policy type Policy ID Covered Covered alliance party's Policy P noelle / Coverage alliance party ID relationship to Basurto Inf ormation type basurto MEDICAID [id number] SP [id number] HIP MEDICARE [id number] SP [id number] VIP JENNY MEDICARE [id number] SP [id number] ELDERPLAN-HOME [id number] SP [id number] [facility] [id number] [facility] K 1 K ELDERPLAN [id number] SP [id number] [employer] MERARY [id number] SP [id number] MEDICARE [facility] MEDICAID [id number] SP [id number] TOUCHWAPELLA [id number] SP [id number] BLUE CROSS [id number] SP [id number] SENIOR PLAN MEDICAID [id number] SP [id number] EMBLEM O [id number] 01 [id number] ELDER PLAN O [id number] [employer]ALTH[employer] O [id number] 01 [id number] [employer] O [id number] [facility] [id number] (HMO) [place] [id number] PART B [place] Problems, Conditions, and Diagnoses Code Display Name Description Problem Type Effective Data Sour ce(s) Dates E87.1 Hypo-osmolality and HYPO-OSMOLALITY Problem 08/06/2020 [facility] hyponatremia AND HYPONATREMIA 12:00:00 AM (Melissa saleem EDT 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) OFFICE OUTPATIENT VISIT 08/06/2020 [facility] EN ([facility] 25 MINUTES 12:00:00 AM EDT [facility]) Results ID Date Data Source [id number] 07/17/2020 06:30:00 PM EDT [facility] Name Value Range Interpretation Description Data Sup porting Code Source(s) Document(s ) SARS [facility] coronavirus 2 RNA This lab was ordered by [facility] and reported by [facility]. ID Date Data Source [id number] 06/19/2020 08:24:00 AM EDT [facility] Name Value Range Interpretation Description Data Sup porting Code Source(s) Document(s ) SARS [facility] coronavirus 2 RNA This lab was ordered by [facility] and reported by [facility]. ID Date Data Source [id number] 05/22/2020 05:29:00 AM EDT [facility] Name Value Range Interpretation Description Data Sup porting Code Source(s) Document(s ) SARS [facility] coronavirus 2 RNA This lab was ordered by [facility] and reported by [facility]. ID Date Data Source Urinalysis.[id number] 08/27/2019 03:27:00 AM EST [facility] 0 Name Value Range Interpretation Description [...] normal <content [facility] gravity of 5 styleCode="Jaquelin Des Urine by Test d">Urine Medical strip Specific Center [place] </content><= 1.005 L<content styleCode="Conchis lics"> (1.015-1.025 )</content> [...] )</content> UNK NONE SEEN <content Saint styleCode="Jaquelin Des d">Epithelial Medical Cell Center </content>2-5 HPF<content styleCode="Conchis lics"> (NONE SEEN HPF)</content> UNK NEGATIVE <content Saint styleCode="Jaquelin Des d">Urine Medical Bacteria Center </content>MODE RATE HPF<content styleCode="Conchis lics"> (NEGATIVE HPF)</content> UNK 0-3 <content [facility] styleCode="Jaquelin Des d">Urine White Medical Blood Cell Center </content>3-5 HPF<content styleCode="Conchis lics"> (0-3 HPF)</content> Leukocyte NEGATIVE <content [facility] esterase styleCode="Jaquelin Nunes [Presence] in d">Urine Medical Urine by Test Leukocyte Center strip </content>TRAC E <content styleCode="Conchis lics"> (NEGATIVE )</content> UNK 0-3 <content Saint styleCode="Jaquelin Washburns d">Urine Red Medical Blood Cell Center </content>0-3 HPF<content styleCode="Conchis lics"> (0-3 HPF)</content> ID Date Data Source Microbiology.[id number] 08/27/2019 03:27:00 AM EST [facility] 500 Name Value Range Interpretation Code Description Data Niki rce(s) Supporting Document(s ) UNK <item><content [facility] styleCode="Bold"> Medical Cent er Culture Report </content>
<t able><tbody><tr>< td>Specimen Number:</td><td>[id number]</td></tr ><tr><td>Sample Collection Date/Time: </td><td> 9 3:27 AM</td></tr><tr>< td>Specimen Source:</td><td>U RINE</td></tr><tr ><td>Urine Culture:</td><td> Collection Plate Date: 08/27/2019 03:41 </td></tr><tr><td >Culture Status:</td><td>P reliminary </td></tr><tr><td >Culture Report:</td><td>C ulture in progress </td></tr></tbody ></table></item> UNK <item><content [facility] styleCode="Bold"> Medical Cent er Culture Status </content>
<t able><tbody><tr>< td>Specimen Number:</td><td>[id number]</td></tr ><tr><td>Sample Collection Date/Time: </td><td> 9 3:27 AM</td></tr><tr>< td>Specimen Source:</td><td>U RINE</td></tr><tr ><td>Culture Status:</td><td>P reliminary </td></tr><tr><td >Culture Report:</td><td>C ulture in progress </td></tr><tr><td >Urine Culture:</td><td> Collection Plate Date: 08/27/2019 03:41 </td></tr></tbody ></table></item> ID Date Data Source HematologyRou.[id number] 08/27/2019 03:15:00 AM EST [facility] 0500 Name Value Range Interpretation Description [...] low normal <content Saint [Volume 0 styleCode="Bold [facility] Fraction] of ">Hematocrit Medical Blood by </content>31.6 [...] (0.0 KCUMM)</content > ID Date Data Source GFR(Creatinine).[id number] 08/27/2019 03:15:00 AM [facility] 0-0500 Name Value Range Interpretation Code Description Data Niki rce(s) Supporting Document(s ) UNK > 60 <content [facility] styleCode="Bold"> Medical Cent er EGFR </content>86 GFR<content styleCode="Italic s"> (> 60 GFR)</content> ID Date Data Source [id number] 08/27/2019 03:15:00 AM [facility] -0500 Name Value Range Interpretation Description Data Sup porting Code Source(s) Document(s ) Natriuretic < 450 <content [facility] peptide.B styleCode="Jaquelin Des prohormone d">NT Pro BNP Medical N-Terminal </content>207 Center [Mass/volume] PG/ML<content in Serum or styleCode="Conchis Plasma lics"> (< 450 PG/ML)</conten t> ID Date Data Source CardiacMarkers.[id number] 08/27/2019 03:15:00 AM [facility] -0500 Name Value Range Interpretation Description Data Sup porting Code Source(s) Document(s ) Troponin < 0.034 <content Saint I.cardiac styleCode="Bold Des [Mass/volume ">Troponin I Medical ] in Serum </content>< Center or Plasma 0.012 NG/ML<content styleCode="Ital ics"> (< 0.034 NG/ML)</content > ID Date Data Source BMP.[id number] 08/27/2019 03:15:00 AM [facility] Name Value Range Interpretation Description Data [...] 7-17 Above high normal <content Saint styleCode="Jaquelin Washburns d">BUN Medical </content>22 Center MG/DL H<content styleCode="Conchis lics"> (7-17 MG/DL)</conten t> Creatinine 0.5-1.3 <content Saint [Mass/volume] styleCode="Jaquelin Washburns in Serum or d">Creatinine Medical Plasma </content>0.7 Center MG/DL<content styleCode="Conchis lics"> (0.5-1.3 MG/DL)</conten t> UNK > 60 <content Saint styleCode="Jaquelin Des d">EGFR Medical </content>86 Center GFR<content styleCode="Conchis lics"> (> 60 GFR)</content> Calcium 8.4-10.2 <content Saint [Mass/volume] styleCode="Jaquelin Washburns in Serum or d">Calcium Medical Plasma </content>9.4 Center MG/DL<content styleCode="Conchis lics"> (8.4-10.2 MG/DL)</conten t> Glucose 74-106 Above high normal <content [facility] [Mass/volume] styleCode="Jaquelin Washburns in Serum or d">Glucose Medical Plasma </content>187 Center MG/DL H<content styleCode="Conchis lics"> (74-106 MG/DL)</conten t> ID Date Data Source Urinalysis.[id number] 07/24/2019 07:45:00 PM [facility] Name Value Range Interpretation Description Data Sup porting Code Source(s) Document(s ) UNK NEGATIVE <content [facility] styleCode="Jaquelin Des d">Urine [...] normal <content [facility] gravity of 5 styleCode="Jaquelin Des Urine by Test d">Urine Medical strip Specific [facility] [place] </content><= 1.005 L<content styleCode="Conchis lics"> (1.015-1.025 )</content> Leukocyte NEGATIVE <content [facility] esterase styleCode="Jaquelin Des [Presence] in d">Urine Medical Urine by Test Leukocyte Center strip </content>NEGA TIVE <content styleCode="Conchis lics"> (NEGATIVE )</content> Urobilinogen 0.2-1.0 <content Saint [Units/volume] styleCode="Jaquelin Des in Urine by d">Urine Medical Test strip Urobilinogen Center </content>0.2 MG/DL<content styleCode="Conchis lics"> (0.2-1.0 MG/DL)</conten t> Nitrite NEGATIVE <content Saint [Presence] in styleCode="Jaquelin Des Urine by Test d">Urine Medical strip Nitrite Center </content>NEGA TIVE <content styleCode="Conchis lics"> (NEGATIVE )</content> ID Date Data Source Liver 07/24/2019 04:35:00 PM EDT [facility] Profile.[id number] Name Value Range Interpretation Description Data Sup [...] s"> (3.5-5.0 G/DL)</content> ID Date Data Source HematologyRou.[id number] 07/24/2019 04:35:00 PM EDT [facility] 0400 Name Value Range Interpretation Description [...] (< 1 %)</content> ID Date Data Source GFR(Creatinine).[id number] 07/24/2019 04:35:00 PM EDT [facility] 0-0400 Name Value Range Interpretation Code Description Data Niki rce(s) Supporting Document(s ) UNK > 60 Below low normal <content [facility] styleCode="Bold"> Medical Cent er EGFR </content>51 GFR L<content styleCode="Italic s"> (> 60 GFR)</content> ID Date Data Source Coagulation 07/24/2019 04:35:00 PM [facility] Rout.[id number] EDT Name Value Range Interpretation Description Data Sup porting Code Source(s) Document(s ) aPTT in 25.1-36. <content Saint Platelet poor 5 styleCode="Bold" [facility] plasma by >Partial Medical Coagulation Thromboplastin Center assay Time </content>28.8 SEC<content styleCode="Itali cs"> (25.1-36.5 SEC)</content> INR in 0.80-1.2 <content [facility] Platelet poor 0 styleCode="Bold" [facility] plasma by >INR Medical Coagulation </content>1.13 Center assay #<content styleCode="Itali cs"> (0.80-1.20 #)</content> UNK 9.0-13.0 <content [facility] styleCode="Bold" [facility] >Protime Medical </content>12.5 Center SEC<content styleCode="Itali cs"> (9.0-13.0 SEC)</content> ID Date Data Source CHMROUTINECCDA.[id number] 07/24/2019 04:35:00 PM EDT [facility] -0400 Name Value Range Interpretation Description Data Sup porting Code Source(s) Document(s ) Protein 6.3-8.2 <content [facility] [Mass/volum styleCode="Bold Medical e] in Serum ">Total Protein Center or Plasma </content>7.2 G/DL<content styleCode="Ital ics"> (6.3-8.2 G/DL)</content> UNK >= 1.0 <content [facility] styleCode="Bold Medical ">AG Ratio Center </content>1.2 <content styleCode="Ital ics"> (>= 1.0 )</content> UNK 2.3-3.5 <content [facility] styleCode="Bold Medical ">Globulin Center </content>3.3 G/DL<content styleCode="Ital ics"> (2.3-3.5 G/DL)</content> ID Date Data Source CardiacMarkers.[id number] 07/24/2019 04:35:00 PM EDT [facility] -0400 Name Value Range Interpretation Description Data Sup porting Code Source(s) Document(s ) Troponin < 0.034 <content [facility] I.cardiac styleCode="Bold Des [Mass/volume ">Troponin I Medical ] in Serum </content>< Center or Plasma 0.012 NG/ML<content styleCode="Ital ics"> (< 0.034 NG/ML)</content > ID Date Data Source [facility].[id number] 07/24/2019 04:35:[address] [facility] Name Value Range Interpretation Description Data Sup porting Code Source(s) Document(s ) Chloride 98-107 <content Saint [Moles/volume] in styleCode="Bold"> [facility] Serum or Plasma Chloride Medical [...] Value Status Description Data Source(s ) Smoking 08/06/2020 denies completed denies MEDGEN (Hansa stanley 12:00:00 AM EDT [facility]) Smoking 08/06/2020 Unknown if ever completed Unknown if ever MEDG EN (Bret 12:00:00 AM EDT smoked smoked [facility]) Smoking 08/27/2019 Denies Ever completed Denies Ever [...] Value Range Interpretation Code Description Data Source(s) Diastolic blood 68 mm[Hg] 68 mm[Hg] [facility]GEN (S outhern pressure [facility]) Systolic blood 137 mm[Hg] 137 mm[Hg] [facility] (So uthern pressure [facility]) Body temperature 36.192032 36.598363 [facility] Respiratory rate 18 /min 18 /min [facility] Oxygen saturation 99 % 99 % [facility] Arterial blood Medical Center by Pulse oximetry Heart rate 68 /min 68 /min [facility] Diastolic blood 51 mm[Hg] 51 mm[Hg] [facility] Medical [place] Systolic blood 118 mm[Hg] 118 mm[Hg] [facility] Body temperature 36.030998 36.960368 [facility] Respiratory rate 17 /min 17 /min [facility] Oxygen saturation 97 % 97 % [facility] in Arterial blood Medical Center by Pulse oximetry Heart rate 80 /min 80 /min [facility] Diastolic blood 61 mm[Hg] 61 mm[Hg] [facility] Medical [place] Systolic blood 127 mm[Hg] 127 mm[Hg] [facility] Body temperature 36.120757 36.818869 [facility] Respiratory rate 16 /min 16 /min [facility] Oxygen saturation 92 % 92 % [facility] blood [facility] by Pulse oximetry Heart rate 83 /min 83 /min [facility] Diastolic blood 65 mm[Hg] 65 mm[Hg] [facility] Systolic blood 140 mm[Hg] 140 mm[Hg] [facility] Heart rate 90 /min 90 /min [facility] Body temperature 37.784538 37.847794 [facility] Respiratory rate 19 /min 19 /min [facility] Oxygen saturation 97 % 97 % [facility] blood [facility] by Pulse oximetry Heart rate 90 /min 90 /min [facility] Diastolic blood 77 mm[Hg] 77 mm[Hg] [facility] Systolic blood 163 mm[Hg] 163 mm[Hg] [facility] Body temperature 36.832825 36.582818 [facility] Respiratory rate 16 /min 16 /min [facility] Oxygen saturation 98 % 98 % [facility] blood [facility] by Pulse oximetry Heart rate 75 /min 75 /min [facility] Diastolic blood 70 mm[Hg] 70 mm[Hg] [facility] Systolic blood 116 mm[Hg] 116 mm[Hg] [facility] Body temperature 36.966847 36.638319 [facility] Respiratory rate 18 /min 18 /min [facility] Heart rate 74 /min 74 /min [facility] Diastolic blood 56 mm[Hg] 56 mm[Hg] [facility] pressure [facility] Center Systolic blood 147 mm[Hg] 147 mm[Hg] [facility] Center Body weight 47.163961 47.690803 kg [facility] hs Measured kg Medical Center Body temperature 36.385152 36.586729 [facility] Respiratory rate 18 /min 18 /min [facility] Oxygen saturation 98 % 98 % [facility] Maurizio crenshaw in Arterial blood [facility] Center by Pulse oximetry Heart rate 76 /min 76 /min [facility] Body height 151.489410 151.524275 cm [facility] Diastolic blood 60 mm[Hg] 60 mm[Hg] [facility] pressure Medical Center Systolic blood 156 mm[Hg] 156 mm[Hg] [facility] Center Body mass index 20.3 kg/m2 20.3 kg/m2 [facility] (BMI) [Ratio] Medical [facility] ter
[2020-08-27 10:30] LABS: POTASSIUM 4.9 mmol/L (3.5-5.1)
[2020-08-27 10:32] LABS: ALBUMIN 2.6 g/dl (3.4-5.0); BLOOD UREA NITROGEN 21.4 mg/dL (7-18); CALCIUM 8.6 mg/dL (8.5-10.1)
[2020-08-27 10:35] LABS: CREATININE 1.5 mg/dL (0.55-1.3)
[2020-08-27 10:37] LABS: BILIRUBIN,TOTAL 0.3 mg/dL (0.2-1); TOT PROT 6.5 g/dl (6.4-8.2)
[2020-08-27 12:01] LABS: BASO % 0.8 % (0-2.0); EOS % 5.5 % (0-4.5); HEMATOCRIT 30.6 % (32.4-45.2); HEMOGLOBIN 10.3 GM/dL (10.7-15.3); LYMPH % 27.3 % (8-40); MCH 30.5 pg (25.7-33.7); MCHC 33.5 g/dl (32.0-36.0); MEAN CELL VOLUME 91.2 fl (80-96); MEAN PLT VOLUME 8.9 fl (7.5-11.1); MONO % 10.2 % (3.8-10.2); NEUT % 56.2 % (42.8-82.8); PLATELET COUNT 186 K/MM3 (134-434); RBC 3.36 M/mm3 (3.60-5.2); RDW 15.3 % (11.6-15.6); WHITE BLOOD COUNT 4.5 K/mm3 (4.0-10.0)
== END | disposition home or self-care (01) ==
LOC: JONCCHEMO 07:23
PROVIDERS: ATTEND Internal Medicine Hematology & Oncology
DX: Z53.8 Procedure and treatment not carried out for other reasons (principal)
CPT/HCPCS: 36415; 80053; 82306; 85025; 96365

== ENCOUNTER 2020-09-12 15:11 | Day surgery (SDC) | payer OTHER ==
[2020-09-12] MEDS ORDERED: DENOSUMAB 120 MG/1.7 ML VIAL SQ ONE (17:00)
[2020-09-12 17:07] LABS: BASO % 0.6 % (0-2.0); HEMATOCRIT 31.5 % (32.4-45.2); HEMOGLOBIN 10.5 GM/dL (10.7-15.3); LYMPH % 20.9 % (8-40); MCH 30.4 pg (25.7-33.7); MCHC 33.3 g/dl (32.0-36.0); MEAN CELL VOLUME 91.3 fl (80-96); MEAN PLT VOLUME 8.8 fl (7.5-11.1); MONO % 16.2 % (3.8-10.2); NEUT % 55.3 % (42.8-82.8); PLATELET COUNT 207 K/MM3 (134-434); RBC 3.45 M/mm3 (3.60-5.2); RDW 16.8 % (11.6-15.6); WHITE BLOOD COUNT 4.6 K/mm3 (4.0-10.0)
[2020-09-12 17:14] VITALS: BP 143/59; PULSE 74
[2020-09-12 17:23] VITALS: TEMP 98
[2020-09-12 17:24] LABS: POTASSIUM 4.7 mmol/L (3.5-5.1)
[2020-09-12 17:27] LABS: CALCIUM 7.5 mg/dL (8.5-10.1)
[2020-09-12 17:28] LABS: ALBUMIN 2.4 g/dl (3.4-5.0); BLOOD UREA NITROGEN 26.8 mg/dL (7-18)
[2020-09-12 17:31] LABS: BILIRUBIN,TOTAL 0.5 mg/dL (0.2-1); CREATININE 1.8 mg/dL (0.55-1.3); TOT PROT 6.2 g/dl (6.4-8.2)
== END 2020-09-12 17:48 | disposition home or self-care (01) ==
LOC: JLAB 15:11 → JONCCHEMO 15:11 → EDSTATUS 16:26 → JONCCHEMO 17:48
PROVIDERS: ATTEND Internal Medicine Hematology & Oncology
PROC: 3E013GC Introduction of Other Therapeutic Substance into Subcutaneous Tissue, Percutaneous Approach (ICD-10-PCS; principal; 2020-09-12)
DX: C34.12 Malignant neoplasm of upper lobe, left bronchus or lung (principal)
CPT/HCPCS: 36415; 80053; 84439; 84443; 85025; 96372; J0897

== ENCOUNTER 2020-11-19 08:37 | Day surgery (SDC) | payer OTHER ==
[~2020-11-19 08:37] MED LIST changes: +DENOSUMAB 60 MG/ML DISP.SYRIN SQ ONE
[2020-11-19] MEDS ORDERED: DENOSUMAB 120 MG/1.7 ML VIAL SQ ONE (10:30)
[2020-11-19 14:10] VITALS: BP 138/51; PULSE 68; TEMP 97.8
== END 2020-11-19 15:42 | disposition home or self-care (01) ==
LOC: JONCCHEMO 08:37
PROVIDERS: ATTEND Internal Medicine Hematology & Oncology
PROC: 3E013GC Introduction of Other Therapeutic Substance into Subcutaneous Tissue, Percutaneous Approach (ICD-10-PCS; principal; 2020-11-19)
DX: C34.90 Malignant neoplasm of unspecified part of unspecified bronchus or lung (principal); E11.9 Type 2 diabetes mellitus without complications; I10 Essential (primary) hypertension; Z76.89 Persons encountering health services in other specified circumstances
CPT/HCPCS: 96372; J0897

== ENCOUNTER 2020-11-30 17:03 | Emergency (ER) | payer OTHER ==
[2020-11-30 17:13] VITALS: BMI 21.0
[2020-11-30 17:39] VITALS: TEMP 98
[2020-11-30 17:50] LABS: HEMATOCRIT 28.8 % (32.4-45.2); HEMOGLOBIN 9.8 GM/dL (10.7-15.3); MCHC 34.2 g/dl (32.0-36.0); MEAN CELL VOLUME 93.6 fl (80-96); MEAN PLT VOLUME 8.2 fl (7.5-11.1); PLATELET COUNT 178 K/MM3 (134-434); RBC 3.07 M/mm3 (3.60-5.2); RDW 14.9 % (11.6-15.6); WHITE BLOOD COUNT 2.3 K/mm3 (4.0-10.0)
[2020-11-30 18:02] LABS: CHLORIDE 101 mmol/L (98-107); POTASSIUM 4.3 mmol/L (3.5-5.1); SODIUM 130 mmol/L (136-145)
[2020-11-30 18:04] LABS: ALBUMIN 2.2 g/dl (3.4-5.0)
[2020-11-30 18:05] LABS: ANION GAP 6 MMOL/L (8-16); BLOOD UREA NITROGEN 13.2 mg/dL (7-18); CO2 23 mmol/L (21-32); GLUCOSE,RANDOM 164 mg/dL (74-106)
[2020-11-30 18:08] LABS: CREATININE 1.2 mg/dL (0.55-1.3); SGOT/AST 35 U/L (15-37); SGPT/ALT 33 U/L (13-61)
[2020-11-30 18:09] LABS: BILIRUBIN,TOTAL 0.4 mg/dL (0.2-1); TOT PROT 5.8 g/dl (6.4-8.2)
[2020-11-30 18:10] LABS: ALK PHOS 83 U/L (45-117)
[2020-11-30 18:18] LABS: CALCIUM 6.7 mg/dL (8.5-10.1)
[2020-11-30] MEDS ORDERED: SODIUM CHLORIDE 0.9% 500 ML INFUS.BAG IV ONE (18:23)
[2020-11-30] MEDS ORDERED: CALCIUM CARBONATE 650 MG TABLET PO ONE (18:35)
[2020-11-30 19:41] VITALS: BP 149/61; PULSE 74
[2020-11-30 21:11] LABS: EPI CELLS 4 /uL (0-25.1); HYALINE CASTS 0 /uL (0-3.1); PH,URINE 7.5 (5.0-8.0); URINE APPEARANCE CLEAR; URINE BACTERIA 2109 /uL (0-1359); URINE BILIRUBIN NEGATIVE (NEGATIVE); URINE COLOR YELLOW; URINE GLUCOSE (UA) NEGATIVE (NEGATIVE); URINE KETONE NEGATIVE (NEGATIVE); URINE LEUK ESTERASE TRACE (NEGATIVE); URINE NITRITE NEGATIVE (NEGATIVE); URINE PROTEIN NEGATIVE (NEGATIVE); URINE RBC 1 /uL (0-23.9); URINE UROBILINOGEN 0.2 mg/dL (0.2-1.0); URINE WBC 9 /uL (0-25.8)
== END 2020-11-30 21:20 | disposition home or self-care (01) ==
LOC: JER 17:03
DX: R53.1 Weakness (principal); R42 Dizziness and giddiness; D64.9 Anemia, unspecified
CPT/HCPCS: 36415; 71046-TC-FY; 80053; 81003; 82550; 84484; 85027; 87086; 87186; 87804; 93005; 93010; 99285-25; C9803; U0003

== ENCOUNTER 2020-12-17 10:07 | Day surgery (SDC) | payer OTHER ==
[~2020-12-17 10:07] MED LIST changes: -DENOSUMAB 60 MG/ML DISP.SYRIN SQ ONE
[2020-12-17 11:13] LABS: BASO % 0.5 % (0-2.0); EOS % 0.6 % (0-4.5); HEMATOCRIT 28.7 % (32.4-45.2); HEMOGLOBIN 9.8 GM/dL (10.7-15.3); LYMPH % 17.1 % (8-40); MCH 32.4 pg (25.7-33.7); MCHC 34.1 g/dl (32.0-36.0); MEAN CELL VOLUME 95.1 fl (80-96); MEAN PLT VOLUME 7.2 fl (7.5-11.1); MONO % 10.9 % (3.8-10.2); NEUT % 70.9 % (42.8-82.8); PLATELET COUNT 392 K/MM3 (134-434); RBC 3.02 M/mm3 (3.60-5.2); RDW 13.7 % (11.6-15.6); WHITE BLOOD COUNT 5.3 K/mm3 (4.0-10.0)
[2020-12-17 11:32] LABS: ALBUMIN 2.4 g/dl (3.4-5.0); BLOOD UREA NITROGEN 22.2 mg/dL (7-18); CALCIUM 8.5 mg/dL (8.5-10.1)
[2020-12-17 11:36] LABS: CREATININE 1.7 mg/dL (0.55-1.3)
[2020-12-17 11:37] LABS: BILIRUBIN,TOTAL 0.9 mg/dL (0.2-1); TOT PROT 6.7 g/dl (6.4-8.2)
[2020-12-17 14:04] VITALS: BP 141/59; PULSE 77; TEMP 98.1
== END 2020-12-17 12:10 | disposition home or self-care (01) ==
LOC: JONCCHEMO 10:07
PROVIDERS: ATTEND Internal Medicine Hematology & Oncology
PROC: 3E013GC Introduction of Other Therapeutic Substance into Subcutaneous Tissue, Percutaneous Approach (ICD-10-PCS; principal; 2020-12-17)
DX: C34.90 Malignant neoplasm of unspecified part of unspecified bronchus or lung (principal); E11.9 Type 2 diabetes mellitus without complications; Z76.89 Persons encountering health services in other specified circumstances
CPT/HCPCS: 36415; 80053; 82306; 85025; 96372; J0897

== ENCOUNTER 2021-01-14 07:34 | Day surgery (SDC) | payer OTHER ==
[2021-01-14] MEDS ORDERED: DENOSUMAB 120 MG/1.7 ML VIAL SQ ONE (10:00)
[2021-01-14 10:49] LABS: BASO % 0.8 % (0-2.0); EOS % 3.3 % (0-4.5); HEMATOCRIT 30.3 % (32.4-45.2); HEMOGLOBIN 10.4 GM/dL (10.7-15.3); LYMPH % 19.8 % (8-40); MCH 32.5 pg (25.7-33.7); MCHC 34.5 g/dl (32.0-36.0); MEAN CELL VOLUME 94.4 fl (80-96); MEAN PLT VOLUME 7.9 fl (7.5-11.1); NEUT % 65.1 % (42.8-82.8); PLATELET COUNT 280 K/MM3 (134-434); RBC 3.21 M/mm3 (3.60-5.2); RDW 14.5 % (11.6-15.6); WHITE BLOOD COUNT 5.4 K/mm3 (4.0-10.0)
[2021-01-14 11:12] LABS: POTASSIUM 4.8 mmol/L (3.5-5.1)
[2021-01-14 11:14] LABS: ALBUMIN 2.4 g/dl (3.4-5.0); BLOOD UREA NITROGEN 17.9 mg/dL (7-18); CALCIUM 8.4 mg/dL (8.5-10.1)
[2021-01-14 11:18] LABS: CREATININE 1.6 mg/dL (0.55-1.3)
[2021-01-14 11:19] LABS: BILIRUBIN,TOTAL 0.8 mg/dL (0.2-1); TOT PROT 6.2 g/dl (6.4-8.2)
[2021-01-14 17:25] VITALS: BP 135/50; PULSE 69; TEMP 97.6
== END 2021-01-14 12:30 | disposition home or self-care (01) ==
LOC: JONCCHEMO 07:34
PROVIDERS: ATTEND Internal Medicine Hematology & Oncology
PROC: 3E013GC Introduction of Other Therapeutic Substance into Subcutaneous Tissue, Percutaneous Approach (ICD-10-PCS; principal; 2021-01-14)
DX: C34.90 Malignant neoplasm of unspecified part of unspecified bronchus or lung (principal); E11.9 Type 2 diabetes mellitus without complications; Z76.89 Persons encountering health services in other specified circumstances
CPT/HCPCS: 36415; 80053; 85025; 96372; J0897

== ENCOUNTER 2021-01-30 22:55 | Inpatient (IN) | payer OTHER ==
[2021-01-31] MEDS ORDERED: ACETAMINOPHEN 500 MG TABLET (FP) PO ONE (00:45)
[2021-01-31] MEDS ORDERED: SODIUM CHLORIDE 0.9% 500 ML INFUS.BAG IV ONE ×2 (00:51→02:57)
[2021-01-31] MEDS ORDERED: ACETAMINOPHEN 325 MG TABLET (FP) ONE (01:06)
[2021-01-31 01:12] LABS: BASO % 0.2 % (0-2.0); EOS % 0.5 % (0-4.5); HEMATOCRIT 28.1 % (32.4-45.2); HEMOGLOBIN 9.6 GM/dL (10.7-15.3); MCHC 34.1 g/dl (32.0-36.0); MEAN CELL VOLUME 93.8 fl (80-96); MEAN PLT VOLUME 7.3 fl (7.5-11.1); NEUT % 77.3 % (42.8-82.8); PLATELET COUNT 278 K/MM3 (134-434); RDW 14.6 % (11.6-15.6)
[2021-01-31 01:29] LABS: ALBUMIN 2.2 g/dl (3.4-5.0); BLOOD UREA NITROGEN 19.9 mg/dL (7-18); MAGNESIUM 1.7 mg/dL (1.8-2.4)
[2021-01-31 01:33] LABS: BILIRUBIN,TOTAL 0.5 mg/dL (0.2-1); CREATININE 1.3 mg/dL (0.55-1.3); TOT PROT 5.8 g/dl (6.4-8.2)
[2021-01-31] MEDS ORDERED: MAGNESIUM SULF 50% (8.12 MEQ/2 ML-1 GM VIAL) IVPB ONE (03:28)
[2021-01-31] MEDS ORDERED: MAGNESIUM SULFATE IN WATER 2 GM/50 ML IVPB IVPB ONE (03:35)
[2021-01-31] MEDS ORDERED: SODIUM CHLORIDE 1,000 ML IV SCH ×2 (04:45→11:56)
[2021-01-31] MEDS ORDERED: ONDANSETRON 4 MG/2 ML VIAL IVPUSH PRN (09:35)
[2021-01-31] MEDS ORDERED: [UNRECOGNIZED DRUG - OTHER] PO SCH (10:00)
[2021-01-31] MEDS: INSULIN SLIDING SCALE (NOVOLOG) 1 VIAL SQ SCH ×2 (12:00→19:38)
[2021-01-31] MEDS: EZETIMIBE 10 MG TABLET (FP) PO SCH (12:07)
[2021-01-31] MEDS: ASPIRIN 81 MG CHEWABLE TABLETS PO SCH (12:07)
[2021-01-31] MEDS: BUDESONIDE/FORMETEROL FUMARATE 160/4.5 mcg INHALER IH SCH ×2 (12:07→23:14)
[2021-01-31] MEDS: PANTOPRAZOLE SODIUM 40 MG VIAL IVPUSH SCH (12:07)
[2021-01-31] MEDS: CLOPIDOGREL BISULFATE 75 MG TABLET (FP) PO SCH (12:07)
[2021-01-31 12:29] LABS: BASO % 0.1 % (0-2.0); EOS % 0.3 % (0-4.5); HEMATOCRIT 29.6 % (32.4-45.2); HEMOGLOBIN 9.8 GM/dL (10.7-15.3); LYMPH % 7.7 % (8-40); MCH 31.4 pg (25.7-33.7); MCHC 33.2 g/dl (32.0-36.0); MEAN CELL VOLUME 94.4 fl (80-96); MEAN PLT VOLUME 7.7 fl (7.5-11.1); MONO % 6.5 % (3.8-10.2); NEUT % 85.4 % (42.8-82.8); PLATELET COUNT 267 K/MM3 (134-434); RBC 3.13 M/mm3 (3.60-5.2); RDW 14.7 % (11.6-15.6); WHITE BLOOD COUNT 9.8 K/mm3 (4.0-10.0)
[2021-01-31 12:35] LABS: EPI CELLS >36 /uL (0-25.1); HYALINE CASTS 2 /uL (0-3.1); URINE APPEARANCE CLOUDY; URINE BACTERIA 344 /uL (0-1359); URINE BILIRUBIN NEGATIVE (NEGATIVE); URINE COLOR YELLOW; URINE GLUCOSE (UA) TRACE (NEGATIVE); URINE KETONE NEGATIVE (NEGATIVE); URINE LEUK ESTERASE NEGATIVE (NEGATIVE); URINE NITRITE NEGATIVE (NEGATIVE); URINE PROTEIN 1+ (NEGATIVE); URINE RBC 5 /uL (0-23.9); URINE UROBILINOGEN 0.2 mg/dL (0.2-1.0); URINE WBC 21 /uL (0-25.8)
[2021-01-31 12:50] LABS: ALBUMIN 2.2 g/dl (3.4-5.0); BLOOD UREA NITROGEN 17.7 mg/dL (7-18); CALCIUM 7.3 mg/dL (8.5-10.1); MAGNESIUM 2.2 mg/dL (1.8-2.4)
[2021-01-31 12:53] LABS: CREATININE 1.1 mg/dL (0.55-1.3)
[2021-01-31 12:54] LABS: BILIRUBIN,TOTAL 0.4 mg/dL (0.2-1); TOT PROT 5.5 g/dl (6.4-8.2)
[2021-01-31] MEDS ORDERED: PANTOPRAZOLE SODIUM 40 MG VIAL ONE (17:04)
[2021-01-31] MEDS ORDERED: ASPIRIN 81 MG CHEWABLE TABLETS ONE (17:04)
[2021-01-31] MEDS: ATORVASTATIN CA 20 MG TABLET (FP) PO SCH (23:14)
[2021-02-01] MEDS: INSULIN SLIDING SCALE (NOVOLOG) 1 VIAL SQ SCH ×4 (06:53→18:31)
[2021-02-01 08:50] LABS: BASO % 0.3 % (0-2.0); EOS % 4.4 % (0-4.5); HEMATOCRIT 28.2 % (32.4-45.2); HEMOGLOBIN 9.3 GM/dl (10.7-15.3); LYMPH % 12.6 % (8-40); MCH 31.8 pg (25.7-33.7); MCHC 33.1 g/dl (32.0-36.0); MEAN CELL VOLUME 95.9 fl (80-96); MEAN PLT VOLUME 8.2 fl (7.5-11.1); MONO % 12.8 % (3.8-10.2); NEUT % 69.9 % (42.8-82.8); PLATELET COUNT 231 K/MM3 (134-434); RBC 2.94 M/mm3 (3.60-5.2); WHITE BLOOD COUNT 7.4 K/mm3 (4.0-10.8)
[2021-02-01 09:17] LABS: ALBUMIN 1.9 g/dl (3.4-5.0); BILIRUBIN,TOTAL 0.6 mg/dl (0.2-1); CALCIUM 7.4 mg/dl (8.5-10); CREATININE 1.1 mg/dl (0.55-1.3); MAGNESIUM 1.9 mg/dL (1.8-2.4); TOT PROT 4.7 g/dl (6.4-8.2)
[2021-02-01] MEDS: ASPIRIN 81 MG CHEWABLE TABLETS PO SCH (09:39)
[2021-02-01] MEDS: CLOPIDOGREL BISULFATE 75 MG TABLET (FP) PO SCH (09:40)
[2021-02-01] MEDS: PANTOPRAZOLE SODIUM 40 MG VIAL IVPUSH SCH (09:40)
[2021-02-01] MEDS: EZETIMIBE 10 MG TABLET (FP) PO SCH (09:41)
[2021-02-01] MEDS ORDERED: LOSARTAN POTASSIUM 50 MG TABLET PO SCH (10:00)
[2021-02-01] MEDS ORDERED: SODIUM ZIRCONIUM CYCLOSILICATE (LOKELMA) 5 GM PACKET PO ONE (10:45)
[2021-02-01] MEDS: BUDESONIDE/FORMETEROL FUMARATE 160/4.5 mcg INHALER IH SCH ×2 (10:50→21:06)
[2021-02-01] MEDS ORDERED: SODIUM CHLORIDE 1,000 ML IV SCH (15:00)
[2021-02-01 18:13] LABS: CALCIUM 7.3 mg/dl (8.5-10); CREATININE 1.1 mg/dl (0.55-1.3)
[2021-02-01] MEDS: ATORVASTATIN CA 20 MG TABLET (FP) PO SCH (21:06)
[2021-02-02 02:32] LABS: BASO % 0.3 % (0-2.0); EOS % 4.1 % (0-4.5); HEMATOCRIT 29.8 % (32.4-45.2); HEMOGLOBIN 9.9 GM/dL (10.7-15.3); LYMPH % 28.1 % (8-40); MCH 31.4 pg (25.7-33.7); MCHC 33.1 g/dl (32.0-36.0); MEAN PLT VOLUME 7.9 fl (7.5-11.1); MONO % 12.6 % (3.8-10.2); NEUT % 54.9 % (42.8-82.8); PLATELET COUNT 252 K/MM3 (134-434); RBC 3.14 M/mm3 (3.60-5.2); WHITE BLOOD COUNT 6.7 K/mm3 (4.0-10.0)
[2021-02-02 02:39] LABS: INR 1.14 (0.83-1.09); PROTHROMBIN TIME (PATIENT) 13.7 SEC (9.7-13.0)
[2021-02-02 02:50] LABS: BLOOD UREA NITROGEN 12.6 mg/dL (7-18); CALCIUM 7.1 mg/dL (8.5-10.1); MAGNESIUM 1.8 mg/dL (1.8-2.4)
[2021-02-02 02:54] LABS: CREATININE 1.1 mg/dL (0.55-1.3)
[2021-02-02 02:55] LABS: BILIRUBIN,TOTAL 0.5 mg/dL (0.2-1); TOT PROT 5.3 g/dl (6.4-8.2)
[2021-02-02] MEDS ORDERED: metoPROLOL SUCCINATE 25 MG TAB.SR.24H (FP) PO ONE (03:28)
[2021-02-02] MEDS: INSULIN SLIDING SCALE (NOVOLOG) 1 VIAL SQ SCH ×3 (06:38→16:36)
[2021-02-02 08:16] LABS: BASO % 0.7 % (0-2.0); EOS % 3.4 % (0-4.5); HEMATOCRIT 28.1 % (32.4-45.2); HEMOGLOBIN 9.3 GM/dl (10.7-15.3); LYMPH % 21.8 % (8-40); MCH 31.5 pg (25.7-33.7); MCHC 33.1 g/dl (32.0-36.0); MEAN CELL VOLUME 95.3 fl (80-96); MEAN PLT VOLUME 7.8 fl (7.5-11.1); MONO % 11.9 % (3.8-10.2); NEUT % 62.2 % (42.8-82.8); PLATELET COUNT 227 K/MM3 (134-434); RBC 2.95 M/mm3 (3.60-5.2); RDW 14.6 % (11.6-15.6); WHITE BLOOD COUNT 5.9 K/mm3 (4.0-10.8)
[2021-02-02 08:24] LABS: ALBUMIN 1.8 g/dl (3.4-5.0); BILIRUBIN,TOTAL 0.6 mg/dl (0.2-1); CREATININE 0.9 mg/dl (0.55-1.3); TOT PROT 4.5 g/dl (6.4-8.2)
[2021-02-02] MEDS: CLOPIDOGREL BISULFATE 75 MG TABLET (FP) PO SCH (09:16)
[2021-02-02] MEDS: ASPIRIN 81 MG CHEWABLE TABLETS PO SCH (09:16)
[2021-02-02] MEDS: PANTOPRAZOLE SODIUM 40 MG VIAL IVPUSH SCH (09:16)
[2021-02-02] MEDS: BUDESONIDE/FORMETEROL FUMARATE 160/4.5 mcg INHALER IH SCH ×2 (09:16→21:27)
[2021-02-02] MEDS: EZETIMIBE 10 MG TABLET (FP) PO SCH (09:17)
[2021-02-02] MEDS ORDERED: PT OWN MED DRAWER 7, Y5N ONE (10:45)
[2021-02-02] MEDS: ATORVASTATIN CA 20 MG TABLET (FP) PO SCH (21:29)
[2021-02-03] MEDS: sitaGLIPtin PHOSPHATE 50 MG TABLET PO SCH (06:45)
[2021-02-03] MEDS: INSULIN SLIDING SCALE (NOVOLOG) 1 VIAL SQ SCH ×3 (06:45→17:00)
[2021-02-03 07:51] LABS: BASO % 1.5 % (0-2.0); EOS % 6.3 % (0-4.5); HEMATOCRIT 25.4 % (32.4-45.2); HEMOGLOBIN 8.2 GM/dl (10.7-15.3); LYMPH % 26.1 % (8-40); MCH 31.1 pg (25.7-33.7); MCHC 32.4 g/dl (32.0-36.0); MEAN CELL VOLUME 95.9 fl (80-96); MEAN PLT VOLUME 7.6 fl (7.5-11.1); MONO % 11.8 % (3.8-10.2); NEUT % 54.3 % (42.8-82.8); PLATELET COUNT 209 K/MM3 (134-434); RBC 2.65 M/mm3 (3.60-5.2); RDW 14.1 % (11.6-15.6); WHITE BLOOD COUNT 5.1 K/mm3 (4.0-10.8)
[2021-02-03 08:26] LABS: ALBUMIN 1.6 g/dl (3.4-5.0); BILIRUBIN,TOTAL 0.7 mg/dl (0.2-1); TOT PROT 4.1 g/dl (6.4-8.2)
[2021-02-03 08:32] LABS: CALCIUM 6.7 mg/dl (8.5-10)
[2021-02-03] MEDS: BUDESONIDE/FORMETEROL FUMARATE 160/4.5 mcg INHALER IH SCH ×2 (10:05→22:26)
[2021-02-03] MEDS: PANTOPRAZOLE SODIUM 40 MG VIAL IVPUSH SCH (10:05)
[2021-02-03] MEDS: CLOPIDOGREL BISULFATE 75 MG TABLET (FP) PO SCH (10:05)
[2021-02-03] MEDS: ASPIRIN 81 MG CHEWABLE TABLETS PO SCH (10:05)
[2021-02-03] MEDS: metoPROLOL SUCCINATE 25 MG TAB.SR.24H (FP) PO SCH (10:05)
[2021-02-03] MEDS: EZETIMIBE 10 MG TABLET (FP) PO SCH (10:05)
[2021-02-03] MEDS ORDERED: CALCIUM 500MG/VIT-D 200 UNITS COMBO TABLET (FP) PO ONE (11:00)
[2021-02-03 17:13] VITALS: BMI 20.7
[2021-02-03] MEDS: AMINO ACIDS/PROTEIN HYDROLYS 30 ML LIQUID.PKT PO SCH (18:04)
[2021-02-03] MEDS: IRON SUCROSE INJECTION 200 MG in SODIUM CHLORIDE 90 ML IVPB ONE ×2 (18:05→18:33)
[2021-02-03] MEDS: ATORVASTATIN CA 20 MG TABLET (FP) PO SCH (22:26)
[2021-02-04] MEDS: sitaGLIPtin PHOSPHATE 50 MG TABLET PO SCH (07:02)
[2021-02-04] MEDS: INSULIN SLIDING SCALE (NOVOLOG) 1 VIAL SQ SCH ×3 (07:04→17:00)
[2021-02-04 08:11] LABS: MEAN PLT VOLUME 7.7 fl (7.5-11.1); NEUT % 55.8 % (42.8-82.8)
[2021-02-04 08:20] LABS: BASO % 0.7 % (0-2.0); EOS % 6.4 % (0-4.5); HEMATOCRIT 26.6 % (32.4-45.2); HEMOGLOBIN 9.1 GM/dl (10.7-15.3); LYMPH % 25.2 % (8-40); MCH 32.6 pg (25.7-33.7); MCHC 34.1 g/dl (32.0-36.0); MEAN CELL VOLUME 95.8 fl (80-96); MONO % 11.9 % (3.8-10.2); PLATELET COUNT 202 K/MM3 (134-434); RBC 2.77 M/mm3 (3.60-5.2); RDW 14.1 % (11.6-15.6); WHITE BLOOD COUNT 4.5 K/mm3 (4.0-10.8)
[2021-02-04 08:30] LABS: ALBUMIN 1.7 g/dl (3.4-5.0); BILIRUBIN,TOTAL 0.7 mg/dl (0.2-1); CREATININE 1.1 mg/dl (0.55-1.3); TOT PROT 4.5 g/dl (6.4-8.2)
[2021-02-04] MEDS: AMINO ACIDS/PROTEIN HYDROLYS 30 ML LIQUID.PKT PO SCH (10:47)
[2021-02-04] MEDS: ASPIRIN 81 MG CHEWABLE TABLETS PO SCH (10:47)
[2021-02-04] MEDS: EZETIMIBE 10 MG TABLET (FP) PO SCH (10:47)
[2021-02-04] MEDS: CLOPIDOGREL BISULFATE 75 MG TABLET (FP) PO SCH (10:48)
[2021-02-04] MEDS: BUDESONIDE/FORMETEROL FUMARATE 160/4.5 mcg INHALER IH SCH (10:48)
[2021-02-04] MEDS: PANTOPRAZOLE SODIUM 40 MG VIAL IVPUSH SCH (10:48)
[2021-02-04] MEDS: metoPROLOL SUCCINATE 25 MG TAB.SR.24H (FP) PO SCH (10:49)
[2021-02-04 14:07] VITALS: BP 120/52; PULSE 98; TEMP 97.7
== END 2021-02-04 17:46 | disposition home or self-care (01) | DRG 641 ==
LOC: JER 22:55 → JERBED 01-31 04:41 → FM/S 01-31 22:19
PROVIDERS: ADMIT Internal Medicine; ATTEND Family Medicine
DX: E87.1 Hypo-osmolality and hyponatremia (principal); I25.810 Atherosclerosis of coronary artery bypass graft(s) without angina pectoris; C34.90 Malignant neoplasm of unspecified part of unspecified bronchus or lung; I47.1 Supraventricular tachycardia; N17.9 Acute kidney failure, unspecified; E83.42 Hypomagnesemia; R11.2 Nausea with vomiting, unspecified; R53.1 Weakness; R59.0 Localized enlarged lymph nodes; E11.9 Type 2 diabetes mellitus without complications; D63.8 Anemia in other chronic diseases classified elsewhere; E78.5 Hyperlipidemia, unspecified; I10 Essential (primary) hypertension; E87.5 Hyperkalemia; I25.10 Atherosclerotic heart disease of native coronary artery without angina pectoris; Z95.1 Presence of aortocoronary bypass graft
CPT/HCPCS: 36415; 71045-TC-FY; 80048; 80053; 81003; 82550; 82553; 82728; 82962; 83036; 83540; 83550; 83735; 83930; 83935; 84100; 84300; 84484; 85025; 85610; 87086; 93005; 93010; 93306-TC; 99285-25; C9803; J1756; U0003; U0005

== ENCOUNTER 2021-02-13 07:23 | Day surgery (SDC) | payer OTHER ==
[2021-02-13 09:51] LABS: BASO % 0.7 % (0-2.0); EOS % 2.3 % (0-4.5); HEMATOCRIT 29.3 % (32.4-45.2); LYMPH % 29.8 % (8-40); MCH 32.4 pg (25.7-33.7); MCHC 34.3 g/dl (32.0-36.0); MEAN CELL VOLUME 94.6 fl (80-96); MEAN PLT VOLUME 7.3 fl (7.5-11.1); MONO % 10.2 % (3.8-10.2); PLATELET COUNT 295 K/MM3 (134-434); RDW 16.5 % (11.6-15.6); WHITE BLOOD COUNT 4.2 K/mm3 (4.0-10.0)
[2021-02-13] MEDS ORDERED: DENOSUMAB 120 MG/1.7 ML VIAL SQ ONE (10:00)
[2021-02-13 10:13] LABS: ALBUMIN 2.2 g/dl (3.4-5.0); BLOOD UREA NITROGEN 15.8 mg/dL (7-18); MAGNESIUM 2.1 mg/dL (1.8-2.4)
[2021-02-13 10:16] LABS: CREATININE 1.6 mg/dL (0.55-1.3)
[2021-02-13 10:17] LABS: BILIRUBIN,TOTAL 0.4 mg/dL (0.2-1)
[2021-02-13 10:18] LABS: TOT PROT 5.8 g/dl (6.4-8.2)
[2021-02-13 10:19] LABS: CALCIUM 8.5 mg/dL (8.5-10.1)
[2021-02-13 11:06] VITALS: BP 116/56; PULSE 84; TEMP 97.7
== END 2021-02-13 11:00 | disposition home or self-care (01) ==
LOC: JONCCHEMO 07:23
PROVIDERS: ATTEND Internal Medicine Hematology & Oncology
PROC: 3E013GC Introduction of Other Therapeutic Substance into Subcutaneous Tissue, Percutaneous Approach (ICD-10-PCS; principal; 2021-02-13)
DX: C34.90 Malignant neoplasm of unspecified part of unspecified bronchus or lung (principal); E11.9 Type 2 diabetes mellitus without complications; Z76.89 Persons encountering health services in other specified circumstances
CPT/HCPCS: 36415; 80053; 82306; 83735; 85025; 96372; J0897

== ENCOUNTER 2021-03-13 07:54 | Day surgery (SDC) | payer OTHER ==
[2021-03-13] MEDS ORDERED: DENOSUMAB 120 MG/1.7 ML VIAL SQ ONE (10:00)
[2021-03-13 16:22] VITALS: TEMP 97.8
[2021-03-16 06:51] VITALS: BP 115/69; PULSE 70
== END 2021-03-13 11:30 | disposition home or self-care (01) ==
LOC: JONCCHEMO 07:54
PROVIDERS: ATTEND Internal Medicine Hematology & Oncology
PROC: 3E013GC Introduction of Other Therapeutic Substance into Subcutaneous Tissue, Percutaneous Approach (ICD-10-PCS; principal; 2021-03-13)
DX: C34.90 Malignant neoplasm of unspecified part of unspecified bronchus or lung (principal); E11.9 Type 2 diabetes mellitus without complications; Z76.89 Persons encountering health services in other specified circumstances
CPT/HCPCS: 96372; J0897

== ENCOUNTER 2021-04-10 07:24 | Day surgery (SDC) | payer OTHER ==
[2021-04-10] MEDS ORDERED: DENOSUMAB 120 MG/1.7 ML VIAL SQ ONE (10:00)
[2021-04-10 11:17] LABS: BASO % 0.6 % (0-2.0); EOS % 2.4 % (0-4.5); HEMATOCRIT 33.6 % (32.4-45.2); HEMOGLOBIN 11.1 GM/dL (10.7-15.3); LYMPH % 33.7 % (8-40); MCH 31.6 pg (25.7-33.7); MCHC 32.9 g/dl (32.0-36.0); MEAN CELL VOLUME 96.1 fl (80-96); MEAN PLT VOLUME 8.6 fl (7.5-11.1); MONO % 8.9 % (3.8-10.2); NEUT % 54.4 % (42.8-82.8); PLATELET COUNT 189 10^3/uL (134-434); RDW 15.6 % (11.6-15.6); WHITE BLOOD COUNT 5.3 K/mm3 (4.0-10.0)
[2021-04-10 11:42] LABS: CALCIUM 7.9 mg/dL (8.5-10.1)
[2021-04-10 11:43] LABS: ALBUMIN 2.5 g/dl (3.4-5.0); BLOOD UREA NITROGEN 35.4 mg/dL (7-18)
[2021-04-10 11:46] LABS: CREATININE 2.3 mg/dL (0.55-1.3)
[2021-04-10 11:48] LABS: TOT PROT 5.9 g/dl (6.4-8.2)
[2021-04-10 11:49] LABS: BILIRUBIN,TOTAL 0.5 mg/dL (0.2-1)
[2021-04-10 15:31] VITALS: BP 112/48; PULSE 66; TEMP 97.8
== END 2021-04-10 12:30 | disposition home or self-care (01) ==
LOC: JONCCHEMO 07:24
PROVIDERS: ATTEND Internal Medicine Hematology & Oncology
PROC: 3E013GC Introduction of Other Therapeutic Substance into Subcutaneous Tissue, Percutaneous Approach (ICD-10-PCS; principal; 2021-04-10)
DX: C34.90 Malignant neoplasm of unspecified part of unspecified bronchus or lung (principal); E11.9 Type 2 diabetes mellitus without complications; Z76.89 Persons encountering health services in other specified circumstances
CPT/HCPCS: 36415; 80053; 85025; 96372; J0897

== ENCOUNTER 2021-05-08 05:14 | Day surgery (SDC) | payer OTHER ==
[2021-05-08 09:47] LABS: BASO % 0.8 % (0-2.0); EOS % 2.6 % (0-4.5); HEMATOCRIT 33.4 % (32.4-45.2); HEMOGLOBIN 11.2 GM/dL (10.7-15.3); LYMPH % 28.8 % (8-40); MCH 32.3 pg (25.7-33.7); MCHC 33.6 g/dl (32.0-36.0); MEAN CELL VOLUME 96.1 fl (80-96); MEAN PLT VOLUME 7.5 fl (7.5-11.1); MONO % 9.7 % (3.8-10.2); NEUT % 58.1 % (42.8-82.8); PLATELET COUNT 223 10^3/uL (134-434); RBC 3.47 M/mm3 (3.60-5.2); WHITE BLOOD COUNT 4.9 K/mm3 (4.0-10.0)
[2021-05-08] MEDS ORDERED: DENOSUMAB 120 MG/1.7 ML VIAL SQ ONE (10:00)
[2021-05-08 10:14] LABS: ALBUMIN 2.7 g/dl (3.4-5.0); BLOOD UREA NITROGEN 18.2 mg/dL (7-18); CALCIUM 8.2 mg/dL (8.5-10.1)
[2021-05-08 10:17] LABS: CREATININE 1.5 mg/dL (0.55-1.3)
[2021-05-08 10:19] LABS: BILIRUBIN,TOTAL 0.6 mg/dL (0.2-1)
[2021-05-08 12:17] LABS: CALCIUM 8.1 mg/dL (8.5-10.1)
[2021-05-08 12:18] LABS: ALBUMIN 2.9 g/dl (3.4-5.0); BLOOD UREA NITROGEN 19.1 mg/dL (7-18)
[2021-05-08 12:21] LABS: CREATININE 1.5 mg/dL (0.55-1.3)
[2021-05-08 12:23] LABS: BILIRUBIN,TOTAL 0.5 mg/dL (0.2-1); TOT PROT 6.4 g/dl (6.4-8.2)
[2021-05-08 14:56] VITALS: BP 128/50; PULSE 68; TEMP 98.1
== END 2021-05-08 11:15 | disposition home or self-care (01) ==
LOC: JONCCHEMO 05:14
PROVIDERS: ATTEND Internal Medicine Hematology & Oncology
PROC: 3E013GC Introduction of Other Therapeutic Substance into Subcutaneous Tissue, Percutaneous Approach (ICD-10-PCS; principal; 2021-05-08)
DX: C34.90 Malignant neoplasm of unspecified part of unspecified bronchus or lung (principal); Z76.89 Persons encountering health services in other specified circumstances
CPT/HCPCS: 36415; 80053; 85025; 96372; J0897

== ENCOUNTER 2021-06-05 06:43 | Day surgery (SDC) | payer OTHER ==
[2021-06-05] MEDS ORDERED: DENOSUMAB 120 MG/1.7 ML VIAL SQ ONE (10:00)
[2021-06-05 10:43] LABS: ALBUMIN 2.3 g/dl (3.4-5.0); CALCIUM 8.4 mg/dL (8.5-10.1); MAGNESIUM 1.8 mg/dL (1.8-2.4)
[2021-06-05 10:46] LABS: CREATININE 1.7 mg/dL (0.55-1.3)
[2021-06-05 10:48] LABS: BILIRUBIN,TOTAL 0.7 mg/dL (0.2-1); TOT PROT 5.6 g/dl (6.4-8.2)
[2021-06-05 10:57] LABS: BASO % 0.6 % (0-2.0); EOS % 3.3 % (0-4.5); HEMATOCRIT 29.6 % (32.4-45.2); HEMOGLOBIN 10.1 GM/dL (10.7-15.3); LYMPH % 25.3 % (8-40); MCH 33.2 pg (25.7-33.7); MCHC 34.3 g/dl (32.0-36.0); MEAN CELL VOLUME 96.9 fl (80-96); MONO % 8.1 % (3.8-10.2); NEUT % 62.7 % (42.8-82.8); PLATELET COUNT 216 10^3/uL (134-434); RBC 3.06 M/mm3 (3.60-5.2); RDW 14.3 % (11.6-15.6); WHITE BLOOD COUNT 4.8 K/mm3 (4.0-10.0)
[2021-06-05 16:36] VITALS: BP 139/61; PULSE 64; TEMP 97.9
== END 2021-06-05 11:25 | disposition home or self-care (01) ==
LOC: JONCCHEMO 06:43
PROVIDERS: ATTEND Internal Medicine Hematology & Oncology
PROC: 3E013GC Introduction of Other Therapeutic Substance into Subcutaneous Tissue, Percutaneous Approach (ICD-10-PCS; principal; 2021-06-05)
DX: C34.90 Malignant neoplasm of unspecified part of unspecified bronchus or lung (principal); Z76.89 Persons encountering health services in other specified circumstances
CPT/HCPCS: 36415; 80053; 83735; 85025; 96372; J0897

== ENCOUNTER → 2021-07-03 | Day surgery (SDC) | payer OTHER ==
[2021-07-03 09:35] LABS: BASO % 0.5 % (0-2.0); EOS % 2.3 % (0-4.5); HEMATOCRIT 30.4 % (32.4-45.2); HEMOGLOBIN 10.7 GM/dL (10.7-15.3); LYMPH % 17.5 % (8-40); MCH 34.1 pg (25.7-33.7); MEAN CELL VOLUME 97.2 fl (80-96); MEAN PLT VOLUME 8.2 fl (7.5-11.1); MONO % 8.2 % (3.8-10.2); NEUT % 71.5 % (42.8-82.8); PLATELET COUNT 193 10^3/uL (134-434); RBC 3.13 M/mm3 (3.60-5.2); RDW 14.7 % (11.6-15.6); WHITE BLOOD COUNT 5.4 K/mm3 (4.0-10.0)
[2021-07-03 09:57] LABS: ALBUMIN 2.2 g/dl (3.4-5.0); BLOOD UREA NITROGEN 23.7 mg/dL (7-18); CALCIUM 7.8 mg/dL (8.5-10.1)
[2021-07-03 10:00] LABS: CREATININE 1.7 mg/dL (0.55-1.3)
[2021-07-03 10:02] LABS: BILIRUBIN,TOTAL 0.5 mg/dL (0.2-1); TOT PROT 5.7 g/dl (6.4-8.2)
== END | disposition home or self-care (01) ==
LOC: JONCCHEMO 06:53
PROVIDERS: ATTEND Internal Medicine Hematology & Oncology
DX: Z53.8 Procedure and treatment not carried out for other reasons (principal)
CPT/HCPCS: 36415; 80053; 85025; 96365

== ENCOUNTER 2021-07-31 07:08 | Day surgery (SDC) | payer OTHER ==
[2021-07-31 10:10] LABS: ALBUMIN 2.3 g/dl (3.4-5.0); CALCIUM 8.1 mg/dL (8.5-10.1)
[2021-07-31 10:11] LABS: BLOOD UREA NITROGEN 27.2 mg/dL (7-18)
[2021-07-31 10:14] LABS: CREATININE 1.9 mg/dL (0.55-1.3)
[2021-07-31 10:15] LABS: BILIRUBIN,TOTAL 0.7 mg/dL (0.2-1); TOT PROT 5.7 g/dl (6.4-8.2)
[2021-07-31 10:33] LABS: BASO % 0.4 % (0-2.0); EOS % 2.9 % (0-4.5); HEMATOCRIT 31.2 % (32.4-45.2); HEMOGLOBIN 10.6 GM/dL (10.7-15.3); LYMPH % 27.2 % (8-40); MCH 32.7 pg (25.7-33.7); MCHC 33.8 g/dl (32.0-36.0); MEAN CELL VOLUME 96.6 fl (80-96); MEAN PLT VOLUME 8.3 fl (7.5-11.1); MONO % 8.7 % (3.8-10.2); NEUT % 60.8 % (42.8-82.8); PLATELET COUNT 185 10^3/uL (134-434); RBC 3.23 M/mm3 (3.60-5.2); RDW 14.3 % (11.6-15.6); WHITE BLOOD COUNT 4.8 K/mm3 (4.0-10.0)
[2021-07-31] MEDS ORDERED: DENOSUMAB 120 MG/1.7 ML VIAL SQ ONE (11:00)
[2021-07-31 15:15] VITALS: BP 137/45; PULSE 68; TEMP 98.3
== END 2021-07-31 11:00 | disposition home or self-care (01) ==
LOC: JONCCHEMO 07:08
PROVIDERS: ATTEND Internal Medicine Hematology & Oncology
PROC: 3E013GC Introduction of Other Therapeutic Substance into Subcutaneous Tissue, Percutaneous Approach (ICD-10-PCS; principal; 2021-07-31)
DX: C34.90 Malignant neoplasm of unspecified part of unspecified bronchus or lung (principal); Z76.89 Persons encountering health services in other specified circumstances
CPT/HCPCS: 36415; 80053; 85025; 96372; J0897

== ENCOUNTER → 2021-09-02 | Day surgery (SDC) | payer OTHER ==
[2021-09-02 10:22] LABS: BASO % 0.5 % (0-2.0); EOS % 3.5 % (0-4.5); HEMATOCRIT 31.6 % (32.4-45.2); HEMOGLOBIN 10.7 GM/dL (10.7-15.3); LYMPH % 31.5 % (8-40); MCHC 33.9 g/dl (32.0-36.0); MEAN CELL VOLUME 94.4 fl (80-96); MEAN PLT VOLUME 7.9 fl (7.5-11.1); MONO % 10.1 % (3.8-10.2); NEUT % 54.4 % (42.8-82.8); PLATELET COUNT 230 10^3/uL (134-434); RBC 3.34 M/mm3 (3.60-5.2); RDW 13.7 % (11.6-15.6); WHITE BLOOD COUNT 4.9 K/mm3 (4.0-10.0)
[2021-09-02 10:45] LABS: CALCIUM 8.6 mg/dL (8.5-10.1)
[2021-09-02 10:46] LABS: ALBUMIN 2.3 g/dl (3.4-5.0); BLOOD UREA NITROGEN 22.3 mg/dL (7-18)
[2021-09-02 10:49] LABS: CREATININE 1.9 mg/dL (0.55-1.3)
[2021-09-02 10:50] LABS: BILIRUBIN,TOTAL 0.6 mg/dL (0.2-1)
[2021-09-02 10:51] LABS: TOT PROT 5.9 g/dl (6.4-8.2)
== END | disposition home or self-care (01) ==
LOC: JONCCHEMO 07:22
PROVIDERS: ATTEND Internal Medicine Hematology & Oncology
DX: Z53.8 Procedure and treatment not carried out for other reasons (principal)
CPT/HCPCS: 36415; 80053; 85025; 96365

== ENCOUNTER 2021-11-06 07:18 | Day surgery (SDC) | payer OTHER ==
[2021-11-06] MEDS ORDERED: DENOSUMAB 120 MG/1.7 ML VIAL SQ ONE (10:00)
[2021-11-06 11:39] LABS: BASO % 0.4 % (0-2.0); EOS % 1.9 % (0-4.5); HEMATOCRIT 29.9 % (32.4-45.2); HEMOGLOBIN 9.7 GM/dL (10.7-15.3); LYMPH % 26.4 % (8-40); MCHC 32.4 g/dl (32.0-36.0); MEAN CELL VOLUME 92.5 fl (80-96); MEAN PLT VOLUME 7.9 fl (7.5-11.1); NEUT % 60.3 % (42.8-82.8); PLATELET COUNT 242 10^3/uL (134-434); RBC 3.23 M/mm3 (3.60-5.2); RDW 14.7 % (11.6-15.6); WHITE BLOOD COUNT 4.6 K/mm3 (4.0-10.0)
[2021-11-06 12:07] LABS: BLOOD UREA NITROGEN 29.1 mg/dL (7-18); CALCIUM 8.1 mg/dL (8.5-10.1)
[2021-11-06 12:08] LABS: ALBUMIN 2.4 g/dl (3.4-5.0); MAGNESIUM 2.1 mg/dL (1.8-2.4)
[2021-11-06 12:10] LABS: CREATININE 1.8 mg/dL (0.55-1.3)
[2021-11-06 12:12] LABS: BILIRUBIN,TOTAL 0.5 mg/dL (0.2-1); TOT PROT 5.6 g/dl (6.4-8.2)
[2021-11-06 15:51] VITALS: BP 130/85; PULSE 59; TEMP 97.5
== END 2021-11-06 12:00 | disposition home or self-care (01) ==
LOC: JONCCHEMO 07:18
PROVIDERS: ATTEND Internal Medicine Hematology & Oncology
PROC: 3E013GC Introduction of Other Therapeutic Substance into Subcutaneous Tissue, Percutaneous Approach (ICD-10-PCS; principal; 2021-11-06)
DX: C34.90 Malignant neoplasm of unspecified part of unspecified bronchus or lung (principal); C79.9 Secondary malignant neoplasm of unspecified site; Z76.89 Persons encountering health services in other specified circumstances
CPT/HCPCS: 36415; 80053; 83735; 85025; 96372; J0897

== ENCOUNTER 2021-12-04 07:08 | Day surgery (SDC) | payer OTHER ==
[2021-12-04 10:44] LABS: BASO % 0.7 % (0-2.0); EOS % 4.4 % (0-4.5); HEMATOCRIT 28.5 % (32.4-45.2); HEMOGLOBIN 9.4 GM/dL (10.7-15.3); LYMPH % 28.3 % (8-40); MCH 29.9 pg (25.7-33.7); MEAN CELL VOLUME 90.5 fl (80-96); MEAN PLT VOLUME 7.9 fl (7.5-11.1); MONO % 10.2 % (3.8-10.2); NEUT % 56.4 % (42.8-82.8); PLATELET COUNT 205 10^3/uL (134-434); RBC 3.15 M/mm3 (3.60-5.2); WHITE BLOOD COUNT 3.9 K/mm3 (4.0-10.0)
[2021-12-04] MEDS ORDERED: DENOSUMAB 120 MG/1.7 ML VIAL SQ ONE (11:00)
[2021-12-04 11:03] LABS: CALCIUM 8.2 mg/dL (8.5-10.1)
[2021-12-04 11:04] LABS: ALBUMIN 2.4 g/dl (3.4-5.0); BLOOD UREA NITROGEN 28.2 mg/dL (7-18)
[2021-12-04 11:07] LABS: CREATININE 1.8 mg/dL (0.55-1.3)
[2021-12-04 11:08] LABS: BILIRUBIN,TOTAL 0.6 mg/dL (0.2-1); TOT PROT 5.6 g/dl (6.4-8.2)
== END 2021-12-04 10:40 | disposition home or self-care (01) ==
LOC: JONCCHEMO 07:08
PROVIDERS: ATTEND Internal Medicine Hematology & Oncology
DX: Z53.8 Procedure and treatment not carried out for other reasons (principal)
CPT/HCPCS: 36415; 80053; 85025

== ENCOUNTER 2022-01-29 08:15 | Day surgery (SDC) | payer OTHER ==
[2022-01-29] MEDS ORDERED: DENOSUMAB 120 MG/1.7 ML VIAL SQ ONE (10:00)
[2022-01-29 16:19] VITALS: BP 150/48; PULSE 66; TEMP 97.7
== END 2022-01-29 11:00 | disposition home or self-care (01) ==
LOC: JONCNONCHE 08:15
PROVIDERS: ATTEND Internal Medicine Hematology & Oncology
PROC: 3E013GC Introduction of Other Therapeutic Substance into Subcutaneous Tissue, Percutaneous Approach (ICD-10-PCS; principal; 2022-01-29)
DX: C7A.1 Malignant poorly differentiated neuroendocrine tumors (principal); C78.7 Secondary malignant neoplasm of liver and intrahepatic bile duct; Z76.89 Persons encountering health services in other specified circumstances
CPT/HCPCS: 96372; J0897

== ENCOUNTER 2022-03-16 04:52 | Day surgery (SDC) | payer OTHER ==
[2022-03-11 13:12] VITALS: BMI 20.2
[2022-03-16] MEDS ORDERED: MIDAZOLAM HCL 2 MG/2 ML SINGLE DOSE VIAL ONE (09:54)
[2022-03-16] MEDS ORDERED: FENTANYL CITRATE/PF 50 MCG/ML VIAL ONE ×2 (09:55)
[2022-03-16] MEDS ORDERED: FENTANYL CITRATE/PF 50 MCG/ML VIAL IVPUSH ONE (11:15)
[2022-03-16] MEDS ORDERED: MIDAZOLAM HCL 2 MG/2 ML SINGLE DOSE VIAL IVPUSH ONE (11:15)
[2022-03-16 14:06] VITALS: BP 130/59; PULSE 68; TEMP 97.7
== END 2022-03-16 13:45 | disposition home or self-care (01) ==
LOC: JRADIR 04:52
PROVIDERS: ATTEND Internal Medicine Hematology & Oncology
PROC: 0QB03ZX Excision of Lumbar Vertebra, Percutaneous Approach, Diagnostic (ICD-10-PCS; principal; 2022-03-16)
DX: M89.9 Disorder of bone, unspecified (principal); C34.90 Malignant neoplasm of unspecified part of unspecified bronchus or lung
CPT/HCPCS: 20225; 88305-TC; 88311-TC; 88341-TC; 88342-TC

== ENCOUNTER 2022-04-07 07:31 | Day surgery (SDC) | payer OTHER ==
[2022-04-07 09:52] LABS: HEMATOCRIT 27.6 % (32.4-45.2); HEMOGLOBIN 8.8 GM/dL (10.7-15.3); MCH 26.5 pg (25.7-33.7); MCHC 32.1 g/dl (32.0-36.0); MEAN CELL VOLUME 82.7 fl (80-96); MEAN PLT VOLUME 7.4 fl (7.5-11.1); PLATELET COUNT 223 10^3/uL (134-434); RBC 3.33 M/mm3 (3.60-5.2); RDW 15.9 % (11.6-15.6)
[2022-04-07 09:53] LABS: BASO % 0.8 % (0-2.0); EOS % 2.7 % (0-4.5); LYMPH % 24.6 % (8-40); MONO % 10.9 % (3.8-10.2)
[2022-04-07] MEDS ORDERED: FERRIC CARBOXYMALTOSE 750 MG in SODIUM CHLORIDE 250 ML IVPB ONE (10:00)
[2022-04-07 10:12] LABS: CALCIUM 7.5 mg/dL (8.5-10.1)
[2022-04-07 10:13] LABS: BLOOD UREA NITROGEN 19.6 mg/dL (7-18)
[2022-04-07 10:16] LABS: CREATININE 1.5 mg/dL (0.55-1.3)
[2022-04-07 10:17] LABS: BILIRUBIN,TOTAL 0.7 mg/dL (0.2-1); TOT PROT 5.4 g/dl (6.4-8.2)
[2022-04-07 17:06] VITALS: BP 123/51; PULSE 73; TEMP 98
== END 2022-04-07 11:30 | disposition home or self-care (01) ==
LOC: JONCCHEMO 07:31
PROVIDERS: ATTEND Internal Medicine Hematology & Oncology
PROC: 3E033GC Introduction of Other Therapeutic Substance into Peripheral Vein, Percutaneous Approach (ICD-10-PCS; principal; 2022-04-07)
DX: C34.32 Malignant neoplasm of lower lobe, left bronchus or lung (principal); C79.51 Secondary malignant neoplasm of bone; D50.9 Iron deficiency anemia, unspecified; E87.5 Hyperkalemia
CPT/HCPCS: 36415; 80053; 85025; 96365; J1439

== ENCOUNTER 2022-04-14 07:37 | Day surgery (SDC) | payer OTHER ==
[2022-04-14] MEDS ORDERED: FERRIC CARBOXYMALTOSE 750 MG in SODIUM CHLORIDE 250 ML IVPB ONE ×2 (09:30→10:30)
[2022-04-14 09:47] LABS: BASO % 0.8 % (0-2.0); EOS % 2.7 % (0-4.5); HEMATOCRIT 29.6 % (32.4-45.2); HEMOGLOBIN 9.7 GM/dL (10.7-15.3); LYMPH % 30.6 % (8-40); MCHC 32.9 g/dl (32.0-36.0); MEAN CELL VOLUME 85.1 fl (80-96); MEAN PLT VOLUME 7.4 fl (7.5-11.1); MONO % 10.3 % (3.8-10.2); NEUT % 55.6 % (42.8-82.8); PLATELET COUNT 220 10^3/uL (134-434); RBC 3.47 M/mm3 (3.60-5.2); RDW 16.7 % (11.6-15.6); WHITE BLOOD COUNT 4.2 K/mm3 (4.0-10.0)
[2022-04-14 10:09] LABS: CALCIUM 7.2 mg/dL (8.5-10.1)
[2022-04-14 10:10] LABS: BLOOD UREA NITROGEN 20.5 mg/dL (7-18)
[2022-04-14 10:13] LABS: CREATININE 1.4 mg/dL (0.55-1.3)
[2022-04-14 10:15] LABS: BILIRUBIN,TOTAL 0.5 mg/dL (0.2-1); TOT PROT 5.3 g/dl (6.4-8.2)
[2022-04-14 16:53] VITALS: BP 152/53; PULSE 61; TEMP 98.1
== END 2022-04-14 12:00 | disposition home or self-care (01) ==
LOC: JONCCHEMO 07:37
PROVIDERS: ATTEND Internal Medicine Hematology & Oncology
PROC: 3E033GC Introduction of Other Therapeutic Substance into Peripheral Vein, Percutaneous Approach (ICD-10-PCS; principal; 2022-04-14)
DX: D50.9 Iron deficiency anemia, unspecified (principal); C34.32 Malignant neoplasm of lower lobe, left bronchus or lung; C79.51 Secondary malignant neoplasm of bone; I10 Essential (primary) hypertension; E11.9 Type 2 diabetes mellitus without complications
CPT/HCPCS: 36415; 80053; 85025; 96365; J1439

== ENCOUNTER 2022-04-23 01:27 | Observation (INO) | payer OTHER ==
[2022-04-23] MEDS ORDERED: ACETAMINOPHEN 325 MG TABLET (FP) PO ONE (01:49)
[2022-04-23] MEDS ORDERED: METOCLOPRAMIDE HCL INJECTION 10 MG/2 ML VIAL IVPUSH ONE (01:53)
[2022-04-23] MEDS ORDERED: METOCLOPRAMIDE HCL INJECTION 10 MG/2 ML VIAL ONE (02:14)
[2022-04-23] MEDS ORDERED: ACETAMINOPHEN 325 MG TABLET (FP) ONE (02:14)
[2022-04-23 03:04] LABS: CHLORIDE 97 mmol/L (98-107); SODIUM 126 mmol/L (136-145)
[2022-04-23 03:06] LABS: ALBUMIN 2.4 g/dl (3.4-5.0); ANION GAP 9 MMOL/L (8-16); CO2 20 mmol/L (21-32); GLUCOSE,RANDOM 133 mg/dL (74-106)
[2022-04-23 03:07] LABS: BLOOD UREA NITROGEN 20.1 mg/dL (7-18)
[2022-04-23 03:09] LABS: CREATININE 1.1 mg/dL (0.55-1.3); SGOT/AST 55 U/L (15-37); SGPT/ALT 39 U/L (13-61)
[2022-04-23 03:11] LABS: BILIRUBIN,TOTAL 0.6 mg/dL (0.2-1); TOT PROT 5.9 g/dl (6.4-8.2)
[2022-04-23 03:12] LABS: ALK PHOS 78 U/L (45-117)
[2022-04-23 03:21] LABS: CALCIUM 6.5 mg/dL (8.5-10.1)
[2022-04-23 03:27] LABS: BASO % 0.4 % (0-2.0); EOS % 0.7 % (0-4.5); HEMATOCRIT 32.7 % (32.4-45.2); HEMOGLOBIN 10.8 GM/dL (10.7-15.3); LYMPH % 11.4 % (8-40); MCHC 33.1 g/dl (32.0-36.0); MEAN CELL VOLUME 87.7 fl (80-96); MEAN PLT VOLUME 7.7 fl (7.5-11.1); MONO % 6.3 % (3.8-10.2); NEUT % 81.2 % (42.8-82.8); PLATELET COUNT 190 10^3/uL (134-434); RBC 3.74 M/mm3 (3.60-5.2); WHITE BLOOD COUNT 8.2 K/mm3 (4.0-10.0)
[2022-04-23] MEDS ORDERED: LACTATED RINGERS SOLUTION 1000 ML INFUS.BAG IV ONE (03:28)
[2022-04-23] MEDS ORDERED: CALCIUM GLUCONATE 10% - 1,000 MG/10 ML VIAL IVPB ONE (03:28)
[2022-04-23] MEDS ORDERED: CALCIUM GLUCONATE 10% - 1,000 MG/10 ML VIAL ONE (03:59)
[2022-04-23 05:38] LABS: BLOOD UREA NITROGEN 20.5 mg/dL (7-18); MAGNESIUM 1.8 mg/dL (1.8-2.4)
[2022-04-23 05:39] LABS: ALBUMIN 2.4 g/dl (3.4-5.0)
[2022-04-23 05:41] LABS: CREATININE 1.2 mg/dL (0.55-1.3)
[2022-04-23 05:43] LABS: BILIRUBIN,TOTAL 0.6 mg/dL (0.2-1); TOT PROT 5.9 g/dl (6.4-8.2)
[2022-04-23] MEDS ORDERED: ACETAMINOPHEN 325 MG TABLET (FP) PO PRN (06:08)
[2022-04-23] MEDS ORDERED: POLYETHYLENE GLYCOL (HEALTHYLAX) 3350 17 GM PACKET PO PRN (06:08)
[2022-04-23 06:11] LABS: CALCIUM 7.7 mg/dL (8.5-10.1)
[2022-04-23] MEDS ORDERED: ALBUTEROL SO4 0.083% IH SOL 2.5 MG/3 ML VIAL.NEB. NEB PRN (06:27)
[2022-04-23] MEDS: INSULIN SLIDING SCALE (NOVOLOG) 1 VIAL SQ SCH ×4 (07:57→21:35)
[2022-04-23 08:26] LABS: ANISOCYTOSIS 1+; MACROCYTOSIS 0; OVALOCYTE 2+
[2022-04-23] MEDS ORDERED: metoPROLOL SUCCINATE 25 MG TAB.SR.24H (FP) PO ONE (10:26)
[2022-04-23] MEDS ORDERED: PANTOPRAZOLE 40 MG TABLET PO ONE (10:26)
[2022-04-23] MEDS ORDERED: CLOPIDOGREL BISULFATE 75 MG TABLET (FP) ONE (10:26)
[2022-04-23] MEDS: CLOPIDOGREL BISULFATE 75 MG TABLET (FP) PO SCH (10:32)
[2022-04-23] MEDS: metoPROLOL SUCCINATE 25 MG TAB.SR.24H (FP) PO SCH (10:33)
[2022-04-23] MEDS: PANTOPRAZOLE 40 MG TABLET PO SCH (10:33)
[2022-04-23] MEDS: EZETIMIBE 10 MG TABLET (FP) PO SCH (11:41)
[2022-04-23] MEDS: BUDESONIDE/FORMETEROL FUMARATE 160/4.5 mcg INHALER IH SCH ×2 (11:41→21:36)
[2022-04-23 13:55] VITALS: BMI 24.7
[2022-04-23] MEDS ORDERED: FUROSEMIDE 20 MG TABLET (FP) PO ONE (17:12)
[2022-04-23] MEDS: ATORVASTATIN CA 20 MG TABLET (FP) PO SCH (21:36)
[2022-04-24 08:25] LABS: BASO % 0.5 % (0-2.0); EOS % 1.8 % (0-4.5); HEMATOCRIT 30.4 % (32.4-45.2); LYMPH % 25.3 % (8-40); MCHC 32.8 g/dl (32.0-36.0); MEAN CELL VOLUME 88.5 fl (80-96); MEAN PLT VOLUME 7.9 fl (7.5-11.1); MONO % 11.7 % (3.8-10.2); NEUT % 60.7 % (42.8-82.8); PLATELET COUNT 168 10^3/uL (134-434); RBC 3.44 M/mm3 (3.60-5.2); RDW 25.3 % (11.6-15.6); WHITE BLOOD COUNT 5.4 K/mm3 (4.0-10.0)
[2022-04-24 08:29] LABS: CALCIUM 7.3 mg/dL (8.5-10.1)
[2022-04-24 08:30] LABS: BLOOD UREA NITROGEN 18.9 mg/dL (7-18); MAGNESIUM 1.8 mg/dL (1.8-2.4)
[2022-04-24 08:31] LABS: PHOSPHOROUS 1.8 mg/dL (2.5-4.9)
[2022-04-24 08:32] LABS: CREATININE 1.1 mg/dL (0.55-1.3)
[2022-04-24 08:33] LABS: BILIRUBIN,TOTAL 0.6 mg/dL (0.2-1); TOT PROT 4.8 g/dl (6.4-8.2)
[2022-04-24] MEDS: INSULIN SLIDING SCALE (NOVOLOG) 1 VIAL SQ SCH ×4 (09:16→22:09)
[2022-04-24] MEDS: PANTOPRAZOLE 40 MG TABLET PO SCH (09:55)
[2022-04-24] MEDS: metoPROLOL SUCCINATE 25 MG TAB.SR.24H (FP) PO SCH (09:55)
[2022-04-24] MEDS: CLOPIDOGREL BISULFATE 75 MG TABLET (FP) PO SCH (09:56)
[2022-04-24] MEDS: EZETIMIBE 10 MG TABLET (FP) PO SCH (09:56)
[2022-04-24] MEDS: BUDESONIDE/FORMETEROL FUMARATE 160/4.5 mcg INHALER IH SCH ×2 (12:12→22:09)
[2022-04-24] MEDS ORDERED: DEXTROSE 5%-WATER - 1,000 ML IV SCH (17:00)
[2022-04-24 18:21] LABS: CALCIUM 7.7 mg/dL (8.5-10.1)
[2022-04-24 18:22] LABS: BLOOD UREA NITROGEN 20.2 mg/dL (7-18)
[2022-04-24 18:25] LABS: CREATININE 1.7 mg/dL (0.55-1.3)
[2022-04-24] MEDS: ATORVASTATIN CA 20 MG TABLET (FP) PO SCH (22:09)
[2022-04-25] MEDS: INSULIN SLIDING SCALE (NOVOLOG) 1 VIAL SQ SCH ×4 (06:27→21:09)
[2022-04-25] MEDS: BUDESONIDE/FORMETEROL FUMARATE 160/4.5 mcg INHALER IH SCH ×2 (10:36→21:07)
[2022-04-25] MEDS: EZETIMIBE 10 MG TABLET (FP) PO SCH (10:36)
[2022-04-25] MEDS: PANTOPRAZOLE 40 MG TABLET PO SCH (10:36)
[2022-04-25] MEDS: metoPROLOL SUCCINATE 25 MG TAB.SR.24H (FP) PO SCH (10:36)
[2022-04-25] MEDS: CLOPIDOGREL BISULFATE 75 MG TABLET (FP) PO SCH (10:36)
[2022-04-25] MEDS: ATORVASTATIN CA 20 MG TABLET (FP) PO SCH (21:06)
[2022-04-26] MEDS: INSULIN SLIDING SCALE (NOVOLOG) 1 VIAL SQ SCH ×2 (06:00→11:32)
[2022-04-26 08:36] LABS: BASO % 0.5 % (0-2.0); EOS % 3.3 % (0-4.5); HEMATOCRIT 31.7 % (32.4-45.2); HEMOGLOBIN 10.6 GM/dL (10.7-15.3); LYMPH % 31.6 % (8-40); MCH 29.9 pg (25.7-33.7); MCHC 33.3 g/dl (32.0-36.0); MEAN CELL VOLUME 89.5 fl (80-96); MEAN PLT VOLUME 7.8 fl (7.5-11.1); MONO % 12.2 % (3.8-10.2); NEUT % 52.4 % (42.8-82.8); PLATELET COUNT 165 10^3/uL (134-434); RBC 3.55 M/mm3 (3.60-5.2); RDW 25.6 % (11.6-15.6); WHITE BLOOD COUNT 3.8 K/mm3 (4.0-10.0)
[2022-04-26] MEDS: EZETIMIBE 10 MG TABLET (FP) PO SCH (09:07)
[2022-04-26] MEDS: CLOPIDOGREL BISULFATE 75 MG TABLET (FP) PO SCH (09:07)
[2022-04-26] MEDS: PANTOPRAZOLE 40 MG TABLET PO SCH (09:07)
[2022-04-26] MEDS: BUDESONIDE/FORMETEROL FUMARATE 160/4.5 mcg INHALER IH SCH (09:08)
[2022-04-26] MEDS: metoPROLOL SUCCINATE 25 MG TAB.SR.24H (FP) PO SCH (09:08)
[2022-04-26 09:18] LABS: BLOOD UREA NITROGEN 19.4 mg/dL (7-18); CALCIUM 7.3 mg/dL (8.5-10.1)
[2022-04-26 09:21] LABS: BILIRUBIN,TOTAL 0.6 mg/dL (0.2-1); TOT PROT 4.9 g/dl (6.4-8.2)
[2022-04-26 09:22] LABS: ALBUMIN 1.9 g/dl (3.4-5.0); CREATININE 1.1 mg/dL (0.55-1.3)
[2022-04-26 10:04] LABS: ANISOCYTOSIS 1+; MACROCYTOSIS 0
[2022-04-26 10:32] VITALS: BP 128/60; PULSE 78; TEMP 98
== END 2022-04-26 13:10 | disposition home or self-care (01) ==
LOC: JER 01:27 → JERBED 05:01 → J4S 15:28
PROVIDERS: ADMIT Internal Medicine; ATTEND Family Medicine
PROC: 3E013VG Introduction of Insulin into Subcutaneous Tissue, Percutaneous Approach (ICD-10-PCS; principal; 2022-04-23)
PROC: 3E0337Z Introduction of Electrolytic and Water Balance Substance into Peripheral Vein, Percutaneous Approach (ICD-10-PCS; 2022-04-23)
PROC: 3E033GC Introduction of Other Therapeutic Substance into Peripheral Vein, Percutaneous Approach (ICD-10-PCS; 2022-04-23)
DX: E87.1 Hypo-osmolality and hyponatremia (principal); E83.51 Hypocalcemia; I25.10 Atherosclerotic heart disease of native coronary artery without angina pectoris; R51.9 Headache, unspecified; I11.9 Hypertensive heart disease without heart failure; E78.5 Hyperlipidemia, unspecified; E11.9 Type 2 diabetes mellitus without complications; Z95.1 Presence of aortocoronary bypass graft; J40 Bronchitis, not specified as acute or chronic; M19.90 Unspecified osteoarthritis, unspecified site; Z85.118 Personal history of other malignant neoplasm of bronchus and lung; R53.1 Weakness
CPT/HCPCS: 0241U-QW; 36415; 70450-TC; 80048; 80053; 82533; 82962; 83735; 83930; 84100; 84443; 85025; 93005; 93010; 93970-TC; 96361; 96372; 96374; 96375; 99285-25; G0378

== ENCOUNTER 2022-05-28 06:57 | Day surgery (SDC) | payer OTHER ==
[2022-05-28] MEDS ORDERED: DENOSUMAB 60 MG/ML DISP.SYRIN SQ ONE (10:00)
[2022-05-28 11:51] LABS: BASO % 0.2 % (0-2.0); EOS % 0.7 % (0-4.5); HEMATOCRIT 37.7 % (32.4-45.2); HEMOGLOBIN 12.8 GM/dL (10.7-15.3); LYMPH % 16.9 % (8-40); MCH 31.6 pg (25.7-33.7); MCHC 33.9 g/dl (32.0-36.0); MEAN CELL VOLUME 93.3 fl (80-96); MEAN PLT VOLUME 7.5 fl (7.5-11.1); MONO % 8.6 % (3.8-10.2); NEUT % 73.6 % (42.8-82.8); PLATELET COUNT 163 10^3/uL (134-434); RBC 4.04 M/mm3 (3.60-5.2); RDW 24.6 % (11.6-15.6); WHITE BLOOD COUNT 4.5 K/mm3 (4.0-10.0)
[2022-05-28 12:13] LABS: ALBUMIN 2.6 g/dl (3.4-5.0); BLOOD UREA NITROGEN 24.6 mg/dL (7-18); CALCIUM 7.7 mg/dL (8.5-10.1)
[2022-05-28 12:16] LABS: CREATININE 1.4 mg/dL (0.55-1.3)
[2022-05-28 12:18] LABS: BILIRUBIN,TOTAL 0.4 mg/dL (0.2-1); TOT PROT 5.7 g/dl (6.4-8.2)
[2022-05-28 13:54] LABS: ANISOCYTOSIS 0; MACROCYTOSIS 0; OVALOCYTE 1+
[2022-05-28 16:18] VITALS: BP 150/52; PULSE 61; RESP 18; TEMP 98.1
== END 2022-05-28 13:15 | disposition home or self-care (01) ==
LOC: JONCCHEMO 06:57
PROVIDERS: ATTEND Internal Medicine Hematology & Oncology
DX: Z51.11 Encounter for antineoplastic chemotherapy (principal); C34.32 Malignant neoplasm of lower lobe, left bronchus or lung; C79.51 Secondary malignant neoplasm of bone
CPT/HCPCS: 36415; 80053; 85025; 96401; J0897

== ENCOUNTER 2023-06-24 19:12 | Observation (INO) | payer OTHER ==
[2023-06-24 19:23] VITALS: BMI 22.8
[2023-06-24 21:05] LABS: BASO % 0.6 % (0-2.0); EOS % 1.2 % (0-4.5); HEMATOCRIT 38.2 % (32.4-45.2); HEMOGLOBIN 13.5 GM/dL (10.7-15.3); MCH 34.3 pg (25.7-33.7); MCHC 35.3 g/dl (32.0-36.0); MEAN CELL VOLUME 97.3 fl (80-96); MEAN PLT VOLUME 8.1 fl (7.5-11.1); MONO % 11.2 % (3.8-10.2); PLATELET COUNT 185 10^3/uL (134-434); RBC 3.93 M/mm3 (3.60-5.2); RDW 13.6 % (11.6-15.6); WHITE BLOOD COUNT 7.9 K/mm3 (4.0-10.0)
[2023-06-24 21:11] LABS: INR 1.1 (0.83-1.09); PROTHROMBIN TIME (PATIENT) 12.7 SEC (9.7-13.0)
[2023-06-24 21:13] LABS: ACTIVATED PTT 27.6 SECONDS (25.2-36.5)
[2023-06-24 21:52] LABS: POTASSIUM 4.6 mmol/L (3.5-5.1)
[2023-06-24 21:53] LABS: CALCIUM 7.8 mg/dL (8.5-10.1)
[2023-06-24 21:54] LABS: ALBUMIN 2.7 g/dl (3.4-5.0)
[2023-06-24 21:57] LABS: CREATININE 2.3 mg/dL (0.55-1.3)
[2023-06-24 21:59] LABS: BILIRUBIN,TOTAL 0.5 mg/dL (0.2-1); TOT PROT 6.3 g/dl (6.4-8.2)
[2023-06-24] MEDS ORDERED: SODIUM CHLORIDE 0.9% 500 ML INFUS.BAG IV ONE (22:02)
[2023-06-24 22:42] LABS: BLOOD UREA NITROGEN 33.2 mg/dL (7-18)
[2023-06-24] MEDS ORDERED: ACETAMINOPHEN 325 MG TABLET (FP) PO PRN (23:20)
[2023-06-24] MEDS ORDERED: DOCUSATE SODIUM 100 MG CAPSULE (FP) PO PRN (23:20)
[2023-06-25] MEDS: SODIUM CHLORIDE 1,000 ML IV SCH ×2 (00:32→23:00)
[2023-06-25] MEDS: INSULIN SLIDING SCALE (NOVOLOG) 1 VIAL SQ SCH ×4 (06:12→23:06)
[2023-06-25 09:04] LABS: HEMATOCRIT 32.8 % (32.4-45.2); HEMOGLOBIN 11.4 GM/dL (10.7-15.3); MCH 34.6 pg (25.7-33.7); MCHC 34.8 g/dl (32.0-36.0); MEAN CELL VOLUME 99.4 fl (80-96); MEAN PLT VOLUME 7.9 fl (7.5-11.1); PLATELET COUNT 152 10^3/uL (134-434); RDW 13.4 % (11.6-15.6); WHITE BLOOD COUNT 5.8 K/mm3 (4.0-10.0)
[2023-06-25 09:28] LABS: POTASSIUM 3.6 mmol/L (3.5-5.1)
[2023-06-25 09:30] LABS: BLOOD UREA NITROGEN 29.2 mg/dL (7-18); CALCIUM 7.1 mg/dL (8.5-10.1); MAGNESIUM 1.8 mg/dL (1.8-2.4)
[2023-06-25 09:33] LABS: CREATININE 1.7 mg/dL (0.55-1.3); PHOSPHOROUS 3.4 mg/dL (2.5-4.9)
[2023-06-25] MEDS ORDERED: POLYETHYLENE GLYCOL (HEALTHYLAX) 3350 17 GM PACKET PO PRN (09:44)
[2023-06-25] MEDS ORDERED: metoPROLOL SUCCINATE 25 MG TAB.SR.24H (FP) PO SCH (10:00)
[2023-06-25] MEDS ORDERED: [UNRECOGNIZED DRUG - OTHER] PO SCH (10:00)
[2023-06-25] MEDS: CLOPIDOGREL BISULFATE 75 MG TABLET (FP) PO SCH (10:15)
[2023-06-25] MEDS: PANTOPRAZOLE 40 MG TABLET PO SCH (10:15)
[2023-06-25] MEDS ORDERED: INSULIN (NOVOLOG) ASPART 100 UNITS/ML 10ML VIAL ONE (11:39)
[2023-06-25 16:11] LABS: URINE APPEARANCE CLEAR; URINE BILIRUBIN NEGATIVE (NEGATIVE); URINE COLOR YELLOW; URINE GLUCOSE (UA) 1+ (NEGATIVE); URINE KETONE NEGATIVE (NEGATIVE); URINE LEUK ESTERASE NEGATIVE (NEGATIVE); URINE NITRITE NEGATIVE (NEGATIVE); URINE PROTEIN NEGATIVE (NEGATIVE); URINE UROBILINOGEN 0.2 mg/dL (0.2-1.0)
[2023-06-25] MEDS ORDERED: ATORVASTATIN CA 20 MG TABLET (FP) PO SCH (22:00)
[2023-06-25] MEDS ORDERED: EZETIMIBE 10 MG TABLET (FP) PO SCH (22:00)
[2023-06-26] MEDS: INSULIN SLIDING SCALE (NOVOLOG) 1 VIAL SQ SCH ×3 (06:49→16:25)
[2023-06-26] MEDS ORDERED: metoPROLOL SUCCINATE 25 MG TAB.SR.24H (FP) PO SCH (09:33)
[2023-06-26] MEDS: CLOPIDOGREL BISULFATE 75 MG TABLET (FP) PO SCH (10:19)
[2023-06-26] MEDS: PANTOPRAZOLE 40 MG TABLET PO SCH (10:19)
[2023-06-26 11:23] LABS: POTASSIUM 4.6 mmol/L (3.5-5.1)
[2023-06-26 11:29] LABS: CALCIUM 7.3 mg/dL (8.5-10.1)
[2023-06-26 11:30] LABS: BLOOD UREA NITROGEN 24.5 mg/dL (7-18)
[2023-06-26 11:33] LABS: CREATININE 1.3 mg/dL (0.55-1.3)
[2023-06-26 14:28] VITALS: BP 144/63; PULSE 89; RESP 18; TEMP 98.6
== END 2023-06-26 15:15 | disposition home or self-care (01) ==
LOC: JER 19:12 → JERBED 22:06 → J6S 06-25 01:24
PROVIDERS: ADMIT Internal Medicine; ATTEND Family Medicine
PROC: 3E0337Z Introduction of Electrolytic and Water Balance Substance into Peripheral Vein, Percutaneous Approach (ICD-10-PCS; principal; 2023-06-24)
DX: N17.9 Acute kidney failure, unspecified (principal); E86.0 Dehydration; I25.10 Atherosclerotic heart disease of native coronary artery without angina pectoris; I11.9 Hypertensive heart disease without heart failure; Z79.01 Long term (current) use of anticoagulants; Z95.1 Presence of aortocoronary bypass graft; E11.9 Type 2 diabetes mellitus without complications; M19.90 Unspecified osteoarthritis, unspecified site; Z85.118 Personal history of other malignant neoplasm of bronchus and lung; E78.5 Hyperlipidemia, unspecified
CPT/HCPCS: 36415; 71045-TC-FY; 80048; 80053; 81003; 82570; 82962; 83735; 84100; 84156; 85025; 85027; 85610; 85730; 93005; 93010; 96360; 96361; 99285-25; G0378

== ENCOUNTER 2023-10-23 15:20 | Observation (INO) | payer OTHER ==
[2023-10-23 15:40] VITALS: BMI 21.5
[2023-10-23 17:45] LABS: BASO % 0.2 % (0-2.0); EOS % 0.3 % (0-4.5); HEMATOCRIT 37.8 % (32.4-45.2); HEMOGLOBIN 13.4 GM/dL (10.7-15.3); LYMPH % 11.8 % (8-40); MCH 34.4 pg (25.7-33.7); MCHC 35.4 g/dl (32.0-36.0); MEAN CELL VOLUME 97.2 fl (80-96); MONO % 6.8 % (3.8-10.2); NEUT % 80.9 % (42.8-82.8); PLATELET COUNT 198 10^3/uL (134-434); RBC 3.89 M/mm3 (3.60-5.2); RDW 13.7 % (11.6-15.6)
[2023-10-23] MEDS ORDERED: ACETAMINOPHEN 1000 MG/100 ML BAG IVPB ONE (18:18)
[2023-10-23 18:23] LABS: PH,URINE 7.5 (5.0-8.0); URINE APPEARANCE CLEAR; URINE BILIRUBIN NEGATIVE (NEGATIVE); URINE COLOR YELLOW; URINE GLUCOSE (UA) NEGATIVE (NEGATIVE); URINE KETONE NEGATIVE (NEGATIVE); URINE LEUK ESTERASE NEGATIVE (NEGATIVE); URINE NITRITE NEGATIVE (NEGATIVE); URINE PROTEIN NEGATIVE (NEGATIVE); URINE UROBILINOGEN 0.2 mg/dL (0.2-1.0)
[2023-10-23 18:27] LABS: POTASSIUM 5.6 mmol/L (3.5-5.1)
[2023-10-23 18:29] LABS: CALCIUM 8.5 mg/dL (8.5-10.1)
[2023-10-23 18:30] LABS: ALBUMIN 2.8 g/dl (3.4-5.0); BLOOD UREA NITROGEN 30.7 mg/dL (7-18); MAGNESIUM 1.8 mg/dL (1.8-2.4)
[2023-10-23 18:33] LABS: CREATININE 1.8 mg/dL (0.55-1.3)
[2023-10-23 18:34] LABS: BILIRUBIN,TOTAL 0.4 mg/dL (0.2-1); TOT PROT 6.8 g/dl (6.4-8.2)
[2023-10-23] MEDS ORDERED: ACETAMINOPHEN INJECTION 100 ML IVPB ONE (18:37)
[2023-10-23] MEDS ORDERED: ASPIRIN 81 MG CHEWABLE TABLETS PO ONE (18:37)
[2023-10-23 18:38] LABS: N-TERMINAL BNP 545.6 pg/ml (5-450)
[2023-10-23] MEDS ORDERED: ASPIRIN COATED 81 MG TABLET.EC ONE (18:42)
[2023-10-23] MEDS ORDERED: SODIUM CHLORIDE 0.9% 500 ML INFUS.BAG IV ONE (19:12)
[2023-10-23] MEDS ORDERED: ALBUTEROL SO4 0.083% IH SOL 2.5 MG/3 ML VIAL.NEB. NEB PRN (21:44)
[2023-10-23] MEDS ORDERED: BUDESONIDE/FORMETEROL FUMARATE 160/4.5 mcg INHALER IH SCH (21:45)
[2023-10-23] MEDS ORDERED: [UNRECOGNIZED DRUG - OTHER] PO SCH (22:00)
[2023-10-23] MEDS ORDERED: ATORVASTATIN CA 20 MG TABLET (FP) ONE (22:12)
[2023-10-23] MEDS: ATORVASTATIN CA 20 MG TABLET (FP) PO SCH (22:32)
[2023-10-24] MEDS: INSULIN ASPART SLIDING SCALE (NOVOLOG) 1 VIAL SQ SCH ×3 (08:56→17:26)
[2023-10-24 09:10] LABS: BASO % 0.5 % (0-2.0); EOS % 2.1 % (0-4.5); HEMATOCRIT 35.5 % (32.4-45.2); HEMOGLOBIN 11.9 GM/dL (10.7-15.3); LYMPH % 35.6 % (8-40); MCH 33.4 pg (25.7-33.7); MCHC 33.7 g/dl (32.0-36.0); MEAN CELL VOLUME 99.1 fl (80-96); MEAN PLT VOLUME 7.9 fl (7.5-11.1); MONO % 11.6 % (3.8-10.2); NEUT % 50.2 % (42.8-82.8); PLATELET COUNT 150 10^3/uL (134-434); RBC 3.58 M/mm3 (3.60-5.2); RDW 13.5 % (11.6-15.6)
[2023-10-24 09:51] LABS: POTASSIUM 4.1 mmol/L (3.5-5.1)
[2023-10-24 10:00] LABS: BLOOD UREA NITROGEN 23.3 mg/dL (7-18)
[2023-10-24] MEDS ORDERED: FUROSEMIDE 40 MG TABLET (FP) PO SCH (10:00)
[2023-10-24 10:03] LABS: CALCIUM 8.3 mg/dL (8.5-10.1)
[2023-10-24 10:05] LABS: CREATININE 1.2 mg/dL (0.55-1.3)
[2023-10-24] MEDS ORDERED: CLOPIDOGREL BISULFATE 75 MG TABLET (FP) ONE (10:12)
[2023-10-24] MEDS ORDERED: ASPIRIN 81 MG CHEWABLE TABLETS ONE (10:12)
[2023-10-24] MEDS ORDERED: metoPROLOL SUCCINATE 25 MG TAB.SR.24H (FP) PO ONE (10:12)
[2023-10-24] MEDS: ASPIRIN 81 MG CHEWABLE TABLETS PO SCH (10:16)
[2023-10-24] MEDS: EZETIMIBE 10 MG TABLET (FP) PO SCH (10:17)
[2023-10-24] MEDS: metoPROLOL SUCCINATE 25 MG TAB.SR.24H (FP) PO SCH (10:17)
[2023-10-24] MEDS: CLOPIDOGREL BISULFATE 75 MG TABLET (FP) PO SCH (10:17)
[2023-10-24] MEDS ORDERED: FUROSEMIDE 40 MG TABLET (FP) ONE (14:32)
[2023-10-24] MEDS: FUROSEMIDE 40 MG TABLET (FP) PO SCH (14:33)
[2023-10-24] MEDS ORDERED: ATORVASTATIN CA 20 MG TABLET (FP) ONE (23:10)
[2023-10-24] MEDS: ATORVASTATIN CA 20 MG TABLET (FP) PO SCH (23:20)
[2023-10-24] MEDS ORDERED: INSULIN (NOVOLOG) ASPART 100 UNITS/ML 10ML VIAL ONE (23:20)
[2023-10-25] MEDS: INSULIN ASPART SLIDING SCALE (NOVOLOG) 1 VIAL SQ SCH ×2 (02:02→10:03)
[2023-10-25 07:37] VITALS: BP 135/62; PULSE 57; RESP 16; TEMP 97.6
[2023-10-25] MEDS ORDERED: CLOPIDOGREL BISULFATE 75 MG TABLET (FP) ONE (09:56)
[2023-10-25] MEDS ORDERED: FUROSEMIDE 40 MG/4 ML INJECTABLE VIAL ONE (09:56)
[2023-10-25] MEDS ORDERED: metoPROLOL SUCCINATE 25 MG TAB.SR.24H (FP) PO ONE (09:56)
[2023-10-25] MEDS ORDERED: ASPIRIN 81 MG CHEWABLE TABLETS ONE (09:56)
[2023-10-25] MEDS: ASPIRIN 81 MG CHEWABLE TABLETS PO SCH (10:03)
[2023-10-25] MEDS: EZETIMIBE 10 MG TABLET (FP) PO SCH (10:04)
[2023-10-25] MEDS: FUROSEMIDE 40 MG TABLET (FP) PO SCH (10:04)
[2023-10-25] MEDS: metoPROLOL SUCCINATE 25 MG TAB.SR.24H (FP) PO SCH (10:04)
[2023-10-25] MEDS: CLOPIDOGREL BISULFATE 75 MG TABLET (FP) PO SCH (10:04)
== END 2023-10-25 10:30 | disposition home or self-care (01) ==
LOC: JER 15:20 → JERBED 20:47
PROVIDERS: ADMIT Internal Medicine; ATTEND Family Medicine
PROC: 3E033NZ Introduction of Analgesics, Hypnotics, Sedatives into Peripheral Vein, Percutaneous Approach (ICD-10-PCS; principal; 2023-10-23)
PROC: 3E013VG Introduction of Insulin into Subcutaneous Tissue, Percutaneous Approach (ICD-10-PCS; 2023-10-23)
PROC: 3E0337Z Introduction of Electrolytic and Water Balance Substance into Peripheral Vein, Percutaneous Approach (ICD-10-PCS; 2023-10-23)
DX: I25.10 Atherosclerotic heart disease of native coronary artery without angina pectoris (principal); I11.0 Hypertensive heart disease with heart failure; E78.5 Hyperlipidemia, unspecified; Z85.118 Personal history of other malignant neoplasm of bronchus and lung; E11.9 Type 2 diabetes mellitus without complications; D64.9 Anemia, unspecified; N17.9 Acute kidney failure, unspecified; E87.5 Hyperkalemia; R07.9 Chest pain, unspecified
CPT/HCPCS: 0241U-QW; 36415; 71045-TC-FY; 80048; 80053; 80061; 81003; 82962; 83735; 83880; 84443; 84484; 85025; 87086; 93005; 93010; 96372; 96374; 99285-25; G0378

== ENCOUNTER 2024-02-23 10:25 | Observation (INO) | payer OTHER ==
[2024-02-23 10:39] VITALS: BMI 25.7
[2024-02-23 11:22] LABS: BASO % 0.6 % (0-2.0); EOS % 1.1 % (0-4.5); HEMATOCRIT 35.5 % (32.4-45.2); HEMOGLOBIN 12.2 GM/dL (10.7-15.3); LYMPH % 16.5 % (8-40); MCH 33.4 pg (25.7-33.7); MCHC 34.5 g/dl (32.0-36.0); MEAN CELL VOLUME 96.8 fl (80-96); MEAN PLT VOLUME 7.7 fl (7.5-11.1); MONO % 8.7 % (3.8-10.2); NEUT % 73.1 % (42.8-82.8); PLATELET COUNT 201 10^3/uL (134-434); RBC 3.66 M/mm3 (3.60-5.2); WHITE BLOOD COUNT 5.4 K/mm3 (4.0-10.0)
[2024-02-23 11:26] LABS: INR 1.04 (0.83-1.09); PROTHROMBIN TIME (PATIENT) 11.7 SEC (9.7-13.0)
[2024-02-23 11:29] LABS: ACTIVATED PTT 30.1 SECONDS (25.2-36.5)
[2024-02-23 11:42] LABS: CHLORIDE 101 mmol/L (98-107); POTASSIUM 4.9 mmol/L (3.5-5.1); SODIUM 133 mmol/L (136-145)
[2024-02-23 11:44] LABS: ALBUMIN 3.1 g/dl (3.4-5.0); CALCIUM 9.1 mg/dL (8.5-10.1); GLUCOSE,RANDOM 283 mg/dL (74-106)
[2024-02-23 11:45] LABS: ANION GAP 0 mmol/L (4-13); BLOOD UREA NITROGEN 33.2 mg/dL (7-18); CO2 32 mmol/L (21-32); MAGNESIUM 2.2 mg/dL (1.8-2.4)
[2024-02-23 11:48] LABS: CREATININE 1.2 mg/dL (0.55-1.3); SGOT/AST 26 U/L (15-37); SGPT/ALT 25 U/L (13-61)
[2024-02-23 11:50] LABS: BILIRUBIN,TOTAL 0.5 mg/dL (0.2-1); TOT PROT 6.7 g/dl (6.4-8.2)
[2024-02-23 11:51] LABS: ALK PHOS 70 U/L (45-117)
[2024-02-23] MEDS ORDERED: ASPIRIN 81 MG CHEWABLE TABLETS ONE (13:04)
[2024-02-23] MEDS: ASPIRIN 81 MG CHEWABLE TABLETS PO ONE (13:04)
[2024-02-23] MEDS ORDERED: POLYETHYLENE GLYCOL (HEALTHYLAX) 3350 17 GM PACKET PO PRN (15:43)
[2024-02-23] MEDS ORDERED: ALBUTEROL SO4 0.083% IH SOL 2.5 MG/3 ML VIAL.NEB. NEB PRN (15:43)
[2024-02-23] MEDS ORDERED: BUDESONIDE/FORMETEROL FUMARATE 160/4.5 mcg INHALER IH SCH (15:45)
[2024-02-23] MEDS: INSULIN ASPART SLIDING SCALE (NOVOLOG) 1 VIAL SQ SCH (16:36)
[2024-02-23] MEDS ORDERED: metoPROLOL SUCCINATE 25 MG TAB.SR.24H (FP) PO ONE (18:07)
[2024-02-23] MEDS: metoPROLOL SUCCINATE 25 MG TAB.SR.24H (FP) PO ONE (18:09)
[2024-02-23] MEDS: ACETAMINOPHEN 325 MG TABLET (FP) PO PRN (21:39)
[2024-02-23] MEDS: HEPARIN NA (PORCINE) 5,000 UNITS/ML 1ML VIAL SQ SCH (21:43)
[2024-02-23] MEDS ORDERED: [UNRECOGNIZED DRUG - OTHER] PO SCH (22:00)
[2024-02-24 08:20] LABS: BASO % 0.5 % (0-2.0); EOS % 2.8 % (0-4.5); HEMATOCRIT 35.6 % (32.4-45.2); HEMOGLOBIN 12.3 GM/dL (10.7-15.3); LYMPH % 30.6 % (8-40); MCH 33.4 pg (25.7-33.7); MCHC 34.6 g/dl (32.0-36.0); MEAN CELL VOLUME 96.6 fl (80-96); MEAN PLT VOLUME 7.9 fl (7.5-11.1); MONO % 11.7 % (3.8-10.2); NEUT % 54.4 % (42.8-82.8); PLATELET COUNT 193 10^3/uL (134-434); RBC 3.69 M/mm3 (3.60-5.2); RDW 13.1 % (11.6-15.6); WHITE BLOOD COUNT 6.4 K/mm3 (4.0-10.0)
[2024-02-24 08:25] LABS: POTASSIUM 4.4 mmol/L (3.5-5.1)
[2024-02-24 08:39] LABS: CALCIUM 8.9 mg/dL (8.5-10.1)
[2024-02-24 08:40] LABS: ALBUMIN 2.7 g/dl (3.4-5.0); BLOOD UREA NITROGEN 27.2 mg/dL (7-18); MAGNESIUM 2.2 mg/dL (1.8-2.4)
[2024-02-24 08:43] LABS: PHOSPHOROUS 4.1 mg/dL (2.5-4.9)
[2024-02-24 08:44] LABS: BILIRUBIN,TOTAL 0.8 mg/dL (0.2-1)
[2024-02-24] MEDS: ASPIRIN 81 MG CHEWABLE TABLETS PO SCH (11:23)
[2024-02-24] MEDS: metoPROLOL SUCCINATE 25 MG TAB.SR.24H (FP) PO SCH (11:23)
[2024-02-24] MEDS: PANTOPRAZOLE 40 MG TABLET PO SCH (11:23)
[2024-02-24] MEDS: ISOSORBIDE MONONITRATE 60 MG TAB.SR.24H (FP) PO SCH (11:23)
[2024-02-24] MEDS: EZETIMIBE 10 MG TABLET (FP) PO SCH (11:23)
[2024-02-24] MEDS: ATORVASTATIN CA 20 MG TABLET (FP) PO SCH (11:24)
[2024-02-25 14:47] VITALS: BP 121/62; PULSE 87; RESP 18; TEMP 98.1
[2024-02-25] MEDS ORDERED: BUDESONIDE/FORMETEROL FUMARATE 160/4.5 mcg INHALER IH SCH (22:00)
== END 2024-02-25 16:00 | disposition home or self-care (01) ==
LOC: JER 10:25 → JERBED 15:42 → J4W 18:35
PROVIDERS: ADMIT Internal Medicine; ATTEND Internal Medicine
PROC: 3E023GC Introduction of Other Therapeutic Substance into Muscle, Percutaneous Approach (ICD-10-PCS; principal; 2024-02-23)
DX: I25.10 Atherosclerotic heart disease of native coronary artery without angina pectoris (principal); I11.0 Hypertensive heart disease with heart failure; E11.9 Type 2 diabetes mellitus without complications; R06.02 Shortness of breath; R77.8 Other specified abnormalities of plasma proteins; N17.9 Acute kidney failure, unspecified; E78.5 Hyperlipidemia, unspecified; Z85.118 Personal history of other malignant neoplasm of bronchus and lung; M19.90 Unspecified osteoarthritis, unspecified site; Z95.1 Presence of aortocoronary bypass graft
CPT/HCPCS: 36415; 71045-TC-FY; 71275-TC; 80053; 82550; 82962; 83735; 83880; 84100; 84443; 84484; 85025; 85610; 85730; 93005; 93010; 93306-TC; 93970-TC; 96372; 99285-25; G0378; J1644; Q9967

== ENCOUNTER 2025-04-27 22:37 | Observation (INO) | payer OTHER ==
[2025-04-27 22:50] VITALS: BMI 20.7
[2025-04-28] MEDS ORDERED: ACETAMINOPHEN 325 MG TABLET (FP) ONE (00:23)
[2025-04-28] MEDS ORDERED: LIDOCAINE 4% PATCH TP ONE (00:23)
[2025-04-28] MEDS: ACETAMINOPHEN 500 MG TABLET (FP) PO ONE (00:45)
[2025-04-28] MEDS: LIDOCAINE 5% TOPICAL PATCH TP ONE (00:45)
[2025-04-28 04:04] LABS: ABSOLUTE IMMATURE GRANULOCYTES 0.02 x10^3/uL (0.0-0.031); BASOPHILS # 0.01 x10^3/uL (0.01-0.08); EOSINOPHIL % 1.0 % (0.7-5.8); EOSINOPHILS # 0.07 x10^3/uL (0.04-0.36); MCHC 34.2 g/dl (32.2-35.5); MEAN CELL VOLUME 93.3 fl (79.4-94.8); MEAN PLT VOLUME 9.7 fl (9.4-12.3); MONOCYTE # 0.69 x10^3/uL (0.24-0.86); MONOCYTE % 10.1 % (4.7-12.5); RDW 12.7 % (12.5-17.0)
[2025-04-28 04:36] LABS: CO2 26.0 mmol/L (21-32); GLUCOSE,RANDOM 106.0 mg/dL (74-106)
[2025-04-28 04:39] LABS: CREATININE 1.3 mg/dL (0.55-1.3); SGOT/AST 42.0 U/L (15-37); SGPT/ALT 39.0 U/L (13-61)
[2025-04-28 04:41] LABS: TOT PROT 6.7 g/dl (6.4-8.2)
[2025-04-28 04:42] LABS: ALK PHOS 75.0 U/L (45-117)
[2025-04-28 05:30] LABS: HCV DIAGNOSTIC IN-HOUSE W/RFLX NON-REACTIVE (NONREACTIVE)
[2025-04-28 05:31] LABS: HIV INTERPRETATION NEGATIVE (NEGATIVE)
[2025-04-28] MEDS ORDERED: DOCUSATE SODIUM 100 MG CAPSULE (FP) PO PRN (06:02)
[2025-04-28] MEDS: SODIUM CHLORIDE 0.9% 500 ML INFUS.BAG IV ONE (06:25)
[2025-04-28] MEDS ORDERED: POLYETHYLENE GLYCOL (HEALTHYLAX) 3350 17 GM PACKET PO PRN (07:39)
[2025-04-28] MEDS ORDERED: ALBUTEROL SO4 0.083% IH SOL 2.5 MG/3 ML VIAL.NEB. NEB PRN (07:39)
[2025-04-28] MEDS: INSULIN ASPART SLIDING SCALE (NOVOLOG) 1 VIAL SQ SCH (08:54)
[2025-04-28] MEDS ORDERED: ASPIRIN 81 MG CHEWABLE TABLETS ONE (10:27)
[2025-04-28] MEDS ORDERED: CLOPIDOGREL BISULFATE 75 MG TABLET (FP) ONE (10:27)
[2025-04-28] MEDS ORDERED: ATORVASTATIN CA 40 MG TABLET (FP) ONE (10:27)
[2025-04-28] MEDS ORDERED: ISOSORBIDE MONONITRATE 60 MG TAB.SR.24H (FP) PO ONE (10:27)
[2025-04-28] MEDS ORDERED: PANTOPRAZOLE 40 MG TABLET PO ONE (10:27)
[2025-04-28] MEDS: PANTOPRAZOLE 40 MG TABLET PO SCH (10:45)
[2025-04-28] MEDS: ISOSORBIDE MONONITRATE 60 MG TAB.SR.24H (FP) PO SCH (10:45)
[2025-04-28] MEDS: CLOPIDOGREL BISULFATE 75 MG TABLET (FP) PO SCH (10:45)
[2025-04-28] MEDS: ATORVASTATIN CA 40 MG TABLET (FP) PO SCH (10:45)
[2025-04-28] MEDS: ASPIRIN 81 MG CHEWABLE TABLETS PO SCH (10:45)
[2025-04-28] MEDS: BUDESONIDE/FORMETEROL FUMARATE 160/4.5 mcg INHALER IH SCH (10:50)
[2025-04-28] MEDS: LIDOCAINE PATCH REMOVAL MC SCH (10:52)
[2025-04-28] MEDS ORDERED: SODIUM ZIRCONIUM CYCLOSILICATE (LOKELMA) 10 GM PACKET ONE (15:38)
[2025-04-28] MEDS ORDERED: FUROSEMIDE 40 MG/4 ML INJECTABLE VIAL ONE (15:38)
[2025-04-28] MEDS: SODIUM ZIRCONIUM CYCLOSILICATE (LOKELMA) 5 GM PACKET PO SCH (15:50)
[2025-04-28] MEDS ORDERED: FUROSEMIDE 40 MG TABLET (FP) ONE (16:19)
[2025-04-28] MEDS: FUROSEMIDE 40 MG TABLET (FP) PO ONE (16:21)
[2025-04-28] MEDS: EZETIMIBE 10 MG TABLET (FP) PO SCH (22:09)
[2025-04-28] MEDS: BENZOCAINE/MENTHOL (CHLORASEPTIC ) LOZENGE MM PRN (22:11)
[2025-04-29 04:05] VITALS: RESP 17
[2025-04-29 08:25] LABS: ABSOLUTE IMMATURE GRANULOCYTES 0.02 x10^3/uL (0.0-0.031); BASOPHILS # 0.03 x10^3/uL (0.01-0.08); EOSINOPHIL % 1.7 % (0.7-5.8); EOSINOPHILS # 0.12 x10^3/uL (0.04-0.36); MCHC 34.3 g/dl (32.2-35.5); MEAN CELL VOLUME 92.4 fl (79.4-94.8); MEAN PLT VOLUME 9.6 fl (9.4-12.3); MONOCYTE # 0.70 x10^3/uL (0.24-0.86); MONOCYTE % 10.0 % (4.7-12.5); RDW 12.8 % (12.5-17.0)
[2025-04-29 08:56] LABS: GLUCOSE,RANDOM 141.0 mg/dL (74-106)
[2025-04-29 08:57] LABS: CO2 25.0 mmol/L (21-32)
[2025-04-29 08:58] LABS: CREATININE 1.2 mg/dL (0.55-1.3); SGPT/ALT 39.0 U/L (13-61)
[2025-04-29 09:01] LABS: ALK PHOS 74.0 U/L (45-117); SGOT/AST 33.0 U/L (15-37); TOT PROT 6.2 g/dl (6.4-8.2)
[2025-04-29] MEDS: ATORVASTATIN CA 40 MG TABLET (FP) PO SCH (10:25)
[2025-04-29] MEDS: FUROSEMIDE 40 MG TABLET (FP) PO ONE (13:17)
[2025-04-29 16:53] LABS: IRON SERUM 37 ug/dL (50-175)
[2025-04-29] MEDS ORDERED: ATORVASTATIN CA 20 MG TABLET (FP) ONE (21:19)
[2025-04-30] MEDS: ACETAMINOPHEN 325 MG TABLET (FP) PO PRN (02:32)
[2025-04-30 03:52] VITALS: PULSE 68
[2025-04-30 05:38] VITALS: BP 142/63; TEMP 97.8
[2025-04-30 09:17] LABS: CO2 25.0 mmol/L (21-32); GLUCOSE,RANDOM 174.0 mg/dL (74-106)
[2025-04-30 09:20] LABS: CREATININE 1.4 mg/dL (0.55-1.3)
[2025-04-30 09:22] LABS: LDL CHOLESTEROL (ONLY SJRH) 33.0 mg/dL (5-100)
[2025-04-30] MEDS: IRON SUCROSE INJECTION 200 MG in SODIUM CHLORIDE 90 ML IVPB ONE (11:07)
== END 2025-04-30 13:54 | disposition home or self-care (01) ==
LOC: JER 22:37 → JERBED 04-28 05:59 → J4W 04-28 19:53
PROVIDERS: ADMIT Family Medicine; ATTEND Family Medicine
PROC: 3E013VG Introduction of Insulin into Subcutaneous Tissue, Percutaneous Approach (ICD-10-PCS; principal; 2025-04-28)
PROC: 3E033GC Introduction of Other Therapeutic Substance into Peripheral Vein, Percutaneous Approach (ICD-10-PCS; 2025-04-28)
PROC: 3E0337Z Introduction of Electrolytic and Water Balance Substance into Peripheral Vein, Percutaneous Approach (ICD-10-PCS; 2025-04-28)
DX: I25.810 Atherosclerosis of coronary artery bypass graft(s) without angina pectoris (principal); I11.9 Hypertensive heart disease without heart failure; E86.0 Dehydration; E87.1 Hypo-osmolality and hyponatremia; E11.9 Type 2 diabetes mellitus without complications; N17.9 Acute kidney failure, unspecified; D64.9 Anemia, unspecified; M54.2 Cervicalgia; E78.5 Hyperlipidemia, unspecified; Z85.118 Personal history of other malignant neoplasm of bronchus and lung; M19.90 Unspecified osteoarthritis, unspecified site; Z95.5 Presence of coronary angioplasty implant and graft
CPT/HCPCS: 36415; 71045-TC-FY; 71250-TC; 80048; 80053; 80061; 82728; 82962; 83540; 83550; 83735; 83880; 84484; 85025; 86803; 87389; 93005; 93010; 93306-TC; 96365; 96372; 99285-25; G0378; J1756